=== PATIENT | male | born 1940 | race Caucasian/White ===

== ENCOUNTER 2022-06-25 06:52 | Emergency (ER) | payer MEDICARE, BC, SELFPAY ==
--- NOTE | 2022-06-25 07:20 | ED.GENADULT ---
HPI - General Adult General Time Seen by Provider: 07:21 Date Seen: 06/25/22 Stated complaint: Catheter plugged Time Seen by Provider: 06/25/22 06:56 Source: patient Mode of arrival: ambulatory Limitations: no limitations History of Present Illness HPI narrative: 82-year-old male with suprapubic catheter, no drainage overnight and has some low abdominal discomfort. Review of Systems Status of ROS: Reports: 10 or more systems reviewed and unremarkable except as noted in History and below Exam Narrative: Exam Narrative: General: well nourished , NAD Head: Atraumatic and normocephalic ENT: External ears and external nose are normal Eyes: Conjunctiva clear, pupils are equal reactive, external ocular motions are intact Neck: Full spontaneous range of motion of the neck Lungs: No respiratory distress Abdomen: Suprapubic catheter in place, dark urine in the bag, no drainage tube Musculoskeletal: No tenderness or deformity Neurologic: No gross focal neurologic deficits Skin: No rashes Psych: Mood and affect are appropriate Course Course Hospital Course: Patient seen and examined, prior records are reviewed. Patient presents with decreased drainage out his suprapubic catheter. He reports he tried to flush it earlier in the week with no success. Exam here, appears uncomfortable suprapubic tenderness and some urinary leakage around the catheter. Will switch the catheter and plan to discharge. No nausea, vomiting, fever, chills, or other indication of systemic symptoms or infection. Medical Decision Making Medical Records Medical records reviewed: Yes I reviewed the patient's medical records Lab Data Lab results reviewed: Yes I reviewed the patient's lab results Discharge Plan Discharge Clinical Impression: Blocked suprapubic catheter Patient Disposition: Home, Self-Care Condition: Improved Instructions: How to Care for Your Suprapubic Catheter (DC) Activity Level: No Restrictions Discharge Diet: Regular Follow Up/Referrals: Marek Camacho MD [Primary Care Provider] - Stand Alone Forms: [employer] Info Instructions
[2022-06-25 07:26] VITALS: BP 139/81; PULSE 67; RESP 20; TEMP 37.4; O2SAT 96; BMI 32.7
--- NOTE | 2022-06-25 08:43 | ED.NURSE ---
supra pubic cath changed easily. #16 fr -[facility] urine. 600 ml.
== END 2022-06-25 08:51 | disposition home or self-care (01) ==
LOC: ED 07:54
PROVIDERS: Emergency Provider Family Medicine; PCP Family Medicine
DX: T83.098A Other mechanical complication of other urinary catheter, initial encounter (principal)
CPT/HCPCS: 51702; 99282

== ENCOUNTER 2022-08-08 06:31 | Emergency (ER) | payer MEDICARE, BC, SELFPAY ==
[2022-08-08 06:35] VITALS: BP 165/85; PULSE 71; RESP 18; TEMP 36.6; O2SAT 98; BMI 32.1
--- NOTE | 2022-08-08 06:54 | ED.GENADULT ---
HPI - General Adult General Time Seen by Provider: 06:54 Date Seen: 08/08/22 Chief complaint: Urogenital Problems, Male Stated complaint: Bladder issue Time Seen by Provider: 08/08/22 06:42 Source: patient and RN notes reviewed Mode of arrival: ambulatory Limitations: no limitations History of Present Illness HPI narrative: 82-year-old male with indwelling Guevara, no urine output overnight and having suprapubic fullness and pain. Guevara was changed about 3 weeks ago, has a history of clogged police. Denies fever chills, no nausea some suprapubic Related Data Allergies Allergy/AdvReac Type Severity Reaction Status Date / Time No Known Drug Allergies Allergy Verified 08/08/22 06:38 Review of Systems Status of ROS: Reports: 10 or more systems reviewed and unremarkable except as noted in History and below PFSH PFSH Social History Smoking Status: Never smoker Do you use any of these nicotine containing products: None Second hand tobacco smoke exposure: No How often do you have a drink containing alcohol: never How often do you have six or more drinks on one occasion: Never AUDIT-C Alcohol total score: 0 Non-prescribed substance use: denies use Exam Narrative: Exam Narrative: General: well nourished , NAD Head: Atraumatic and normocephalic ENT: External ears and external nose are normal Eyes: Conjunctiva clear, pupils are equal reactive, external ocular motions are intact Neck: Full spontaneous range of motion of the neck Lungs: No respiratory distress Musculoskeletal: No tenderness or deformity Neurologic: No gross focal neurologic deficits Skin: No rashes Psych: Mood and affect are appropriate Const: Vital Signs, click to edit/add: Vital Signs - 24 hr 08/08/22 06:35 Temperature 97.8 F Pulse Rate [Left P ulse Oximeter] 71 Respiratory Rate 18 Blood Pressure [Ri ght Upper Arm] 165/85 H Pulse Oximetry 98 Documenting provider has reviewed patient's vital signs: yes Course Course Hospital Course: Patient seen and examined, prior records reviewed. Patient comes in with plugged Guevara catheter. Is changed, no signs of infection on exam or history. Stable for discharge Vital Signs Vital signs: Initial Vital Signs Temperature 97.8 F 08/08/22 06:35 Temperature Source Temporal Artery Scan 08/08/22 06:35 Pulse Rate 71 08/08/22 06:35 Respiratory Rate 18 08/08/22 06:35 Blood Pressure 165/85 H 08/08/22 06:35 Blood Pressure Mean 111 08/08/22 06:35 Blood Pressure Position Sitting 08/08/22 06:35 Pulse Oximetry 98 08/08/22 06:35 Vital Signs Temperature 97.8 F 08/08/22 06:35 Pulse Rate 71 08/08/22 06:35 Respiratory Rate 18 08/08/22 06:35 Blood Pressure 165/85 H 08/08/22 06:35 Pulse Oximetry 98 08/08/22 06:35 Temperature 97.8 F 08/08/22 06:35 Pulse Rate 71 08/08/22 06:35 Respiratory Rate 18 08/08/22 06:35 Blood Pressure 165/85 H 08/08/22 06:35 Pulse Oximetry 98 08/08/22 06:35 Medical Decision Making Medical Records Medical records reviewed: Yes I reviewed the patient's medical records Lab Data Lab results reviewed: Yes I reviewed the patient's lab results Discharge Plan Discharge Clinical Impression: Urinary catheter dysfunction Patient Disposition: Home, Self-Care Condition: Improved Instructions: Guevara Catheter Placement and Care (ED) Activity Level: No Restrictions Discharge Diet: Regular Follow Up/Referrals: Marek Camacho MD [Primary Care Provider] - Stand Alone Forms: [employer] Info Instructions
[2022-08-08 07:41] LABS: Appearance Urine Clear (Clear); Bilirubin Urine Negative (Negative); Blood Urine 2+ (Negative); Color Urine Yellow (Yellow); Glucose Urine Negative (Negative); Ketones Urine Negative (Negative); Leukocyte Esterase Urine 1+ (Negative); Nitrite Urine Positive (Negative); Protein Urine 1+ (Negative); Urobilinogen Urine 0.2 (0.2-1.0)
[2022-08-08 07:48] LABS: Bacteria Urine Many; Squamous Epithelial Cell Urine Few (None-Few)
--- NOTE | 2022-08-08 08:44 | ED.NURSE ---
did have old supra pubic catheter removed, new coude was placed. #18 fr coude catheter placed. had 300ml out. luana schilling sent to lab. was given new leg bag.
--- NOTE | 2022-08-15 10:20 | ED.NURSE ---
Pt called requesting info on antibiotic and urine sample results. Information provided to pt.
== END 2022-08-08 07:30 | disposition home or self-care (01) ==
LOC: ED 07:22
PROVIDERS: Emergency Provider Family Medicine; PCP Family Medicine
DX: T83.098A Other mechanical complication of other urinary catheter, initial encounter (principal)
CPT/HCPCS: 51702; 81001; 87086; 87186; 99282; 99283

== ENCOUNTER 2022-12-05 09:00 | Outpatient (CLI) | payer MEDICARE, BC, SELFPAY ==
[2022-12-05 10:20] LABS: Albumin* 4.6 g/dL (3.3-5.0); Chloride* 108 mmol/L (96-114)
[2022-12-05 10:21] LABS: Potassium* 4.2 mmol/L (3.6-5.1); Sodium* 142 mmol/L (135-149)
[2022-12-05 10:23] LABS: Alkaline Phosphatase* 136 U/L (40-150); Aspartate Amino Transferase* 25 U/L (12-35); Bilirubin Total* 1.6 mg/dL (0.1-1.5); Carbon Dioxide* 24 mmol/L (20-32); Cholesterol* 130 mg/dL (90-199); Estimated Glomerular Filt Rate 76 ml/min
[2022-12-05 10:24] LABS: Alanine Aminotransferase* 17 U/L (4-50); Blood Urea Nitrogen* 20 mg/dL (7-30); Calcium* 9.5 mg/dL (8.4-10.6); Glucose* 122 mg/dL (60-115); HDL Cholesterol* 54 mg/dL (>=40); LDL Cholesterol Calculated 62 mg/dL (<100); Triglycerides* 72 mg/dL (40-149)
[2022-12-05 10:49] LABS: PSA Screen* 3.22 ng/mL (0.10-4.00)
== END 2022-12-05 09:01 | disposition home or self-care (01) ==
LOC: NFLDREF 09:00
PROVIDERS: PCP Family Medicine; Visit Provider Family Medicine
DX: Z00.00 Encounter for general adult medical examination without abnormal findings (principal); I25.10 Atherosclerotic heart disease of native coronary artery without angina pectoris; I10 Essential (primary) hypertension; I48.20 Chronic atrial fibrillation, unspecified; Z12.5 Encounter for screening for malignant neoplasm of prostate
CPT/HCPCS: 80053; 80061; 84153

== ENCOUNTER 2023-05-17 10:52 | Outpatient (CLI) | payer MEDICARE, BC, SELFPAY | END 2023-05-17 10:53 | disposition home or self-care (01) | PROVIDERS: PCP Family Medicine; Visit Provider Family Medicine | DX: Z01.818 Encounter for other preprocedural examination (principal) | CPT/HCPCS: 80048 ==

== ENCOUNTER 2023-05-28 19:57 | Emergency (ER) | payer MEDICARE, BC, SELFPAY ==
[2023-05-28 20:10] VITALS: BP 137/109; PULSE 67; RESP 18; TEMP 36.6; O2SAT 95; BMI 33.7
--- NOTE | 2023-05-28 20:14 | ED.GENADULT ---
HPI - General Adult General Time Seen by Provider: 20:14 Date Seen: 05/28/23 Chief complaint: Urogenital Problems, Male Stated complaint: Needs catheter changed Time Seen by Provider: 05/28/23 20:00 Source: patient Mode of arrival: ambulatory Limitations: no limitations History of Present Illness HPI narrative: Patient is an 82-year-old male with a chronic suprapubic catheter, coronary disease, AFib, hypertension presenting to emergency department for decreased output from his suprapubic catheter. He states started today it has not been draining as well as normally. States this occasionally been doing okay but then started appearing clogged again. He states this has occurred in the past several times and every time they just replace the catheter and it works again. Patient denies fevers, chills, abdominal pain, chest pain, shortness of breath, weakness, numbness. He says he feels well at this time. No other concerns. Related Data Home Medications Medication Instructions Recorded Confirmed aspirin 81 mg capsule 81 mg PO DAILY 08/08/22 05/17/23 Previous Rx's Medication Instructions Recorded amlodipine 5 mg tablet 5 mg PO QDAY #90 tabs 12/07/22 apixaban 2.5 mg tablet 2.5 mg PO BID #180 tabs 12/07/22 atorvastatin 40 mg tablet 40 mg PO QDAY #90 tabs 12/07/22 celecoxib 200 mg capsule 200 mg PO DAILY #90 caps 12/07/22 furosemide 20 mg tablet 20 mg PO QAM edema #90 tabs 12/07/22 lisinopril 20 mg tablet 20 mg PO BID #180 tabs 12/07/22 nitroglycerin 0.4 mg sublingual 0.4 mg sublingual Q5M PRN chest 12/07/22 tablet pain #20 tabs Allergies Allergy/AdvReac Type Severity Reaction Status Date / Time No Known Drug Allergies Allergy Verified 05/17/23 10:27 Review of Systems Status of ROS: Reports: 6 or more systems reviewed and unremarkable except as noted in History and below [facility] Medical History Atrial fibrillation ?I48.91 - Unspecified atrial fibrillation (ICD-10) Heart attack (2018) ?I21.9 - Acute myocardial infarction, unspecified (ICD-10) Indwelling urinary catheter present (~2020) ?Z96.0 - Presence of urogenital implants (ICD-10) Surgical History 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 - Acquired absence of kidney (ICD-10) S/P left knee arthroscopy (12/30/97) ?Z98.890 - Other specified postprocedural states (ICD-10) S/P appendectomy ?Z90.49 - Acquired absence of other specified parts of digestive tract (ICD-10) Family History Mother Diabetes High blood pressure Kidney failure Sister Diabetes Father Stroke Sister Breast cancer Pancreatic cancer Social History Smoking Status: Never smoker Do you use any of these nicotine containing products: None Second hand tobacco smoke exposure: No How often do you have a drink containing alcohol: never How often do you have six or more drinks on one occasion: Never AUDIT-C Alcohol total score: 0 Non-prescribed substance use: denies use Caffeine: Yes (rare Mtn Dew, warm tea) Little interest or pleasure in doing things: not at all Feeling down, depressed, or hopeless: not at all Exam Narrative: Exam Narrative: Const: Well-nourished, Well-developed, in mild distress Eyes: PERRL, no conjunctival injection, and symmetrical lids ENMT: Atraumatic external nose and ears. Moist mucous membranes. MSK:Extremities w/o deformity, Normal Active ROM Skin: Erythematous skin folds around the suprapubic placement site and going the length of the skin folds with satellite plaques Neuro: Normal Muscle tone, No focal neurological deficits. Psych: Awake, Alert, & Oriented x3. Appropriate mood and affect. Const: Vital Signs, click to edit/add: Vital Signs - 24 hr 05/28/23 20:10 Temperature 97.9 F Pulse Rate [Right Pulse Oximeter] 67 Respiratory Rate 18 Blood Pressure [Ri ght Upper Arm] 137/109 H Pulse Oximetry 95 Oxygen Delivery Me thod Room Air Documenting provider has reviewed patient's vital signs: yes Course Vital Signs Vital signs: Initial Vital Signs Temperature 97.9 F 05/28/23 20:10 Temperature Source Temporal Artery Scan 07/16/23 20:10 Pulse Rate 67 05/28/23 20:10 Respiratory Rate 18 05/28/23 20:10 Blood Pressure 137/109 H 05/28/23 20:10 Blood Pressure Mean 118 H 05/28/23 20:10 Blood Pressure Position Sitting 05/28/23 20:10 Pulse Oximetry 95 05/28/23 20:10 Oxygen Delivery Method Room Air 05/28/23 20:10 Vital Signs Temperature 97.9 F 05/28/23 20:10 Pulse Rate 67 05/28/23 20:10 Respiratory Rate 18 05/28/23 20:10 Blood Pressure 137/109 H 05/28/23 20:10 Pulse Oximetry 95 05/28/23 20:10 Oxygen Delivery Method Room Air 05/28/23 20:10 Temperature 97.9 F 05/28/23 20:10 Pulse Rate 67 05/28/23 20:10 Respiratory Rate 18 05/28/23 20:10 Blood Pressure 137/109 H 05/28/23 20:10 Pulse Oximetry 95 05/28/23 20:10 Oxygen Delivery Method Room Air 05/28/23 20:10 Medical Decision Making MDM Narrative Medical decision making narrative: Patient is an 82-year-old male presents into the emergency department for a replacement of his suprapubic catheter. He states today it has not been draining properly. He has had this issue multiple times and they always replace it and it works again. On physical exam he does appear to have a adrianne infection. She we offered him nystatin cream but he states he has plenty of the cream at home and just isn't using that. Patient's suprapubic catheter was replaced without issue. I informed him he should use the antifungal cream as directed. Patient discharged home is agreeable with this plan. Discharge Plan Discharge Clinical Impression: Encounter for replacement of urinary catheter, Adrianne infection Instructions: Skin Yeast Infection (ED) Additional Instructions: Follow-up with your urologist. Make sure to use your prescribed antifungal cream as directed. This will help with the discomfort under scan. Return for new worsening symptoms. Prescriptions: No Action nitroglycerin 0.4 mg tablet, sublingual 0.4 mg sublingual Q5M PRN (Reason: chest pain) Qty: 20 0RF lisinopril 20 mg tablet 20 mg PO BID Qty: 180 3RF furosemide 20 mg tablet 20 mg PO QAM Qty: 90 3RF celecoxib 200 mg capsule 200 mg PO DAILY Qty: 90 3RF apixaban 2.5 mg tablet 2.5 mg PO BID Qty: 180 3RF amlodipine 5 mg tablet 5 mg PO QDAY Qty: 90 3RF atorvastatin 40 mg tablet 40 mg PO QDAY Qty: 90 3RF aspirin 81 mg capsule 81 mg PO DAILY Follow Up/Referrals: Marek Camacho MD [Primary Care Provider] -
--- NOTE | 2023-05-28 20:36 | ED.NURSE ---
Patient's suprapubic catheter changed. Provider removed due to some resistance at point of balloon deflation. Inserted without issue a 18 F catheter with 30cc balloon. Patient tolerated procedure well.
== END 2023-05-28 20:47 | disposition home or self-care (01) ==
LOC: ED 20:45
PROVIDERS: Emergency Provider Student in an Organized Health Care Education/Training Program; PCP Family Medicine
DX: T83.098A Other mechanical complication of other urinary catheter, initial encounter (principal); B37.2 Candidiasis of skin and nail
CPT/HCPCS: 51702; 99282; 99283

== ENCOUNTER 2023-05-29 09:36 | Day surgery (SDC) | payer MEDICARE, BC, SELFPAY ==
[2023-05-29] VITALS (21 sets, daily range): BP systolic 85–143; BP diastolic 62–95; PULSE 39–72; RESP 16–20; TEMP 36–36.8; O2SAT 92–96; BMI 34.4
[2023-05-29] MEDS: ACETAMINOPHEN 500 MG TABLET 1000 MG PO ×3 (10:22→21:22)
[2023-05-29] MEDS: OXYCODONE (CR) 10 MG TAB.ER.12H PO (10:23)
[2023-05-29] MEDS: SODIUM CHLORIDE 0.9 % (FLUSH) 10 ML SYRINGE IVF (10:32)
[2023-05-29] MEDS: LACTATED RINGERS 1000 ML 1,000 ML 100 ML IV ×2 (10:33→12:14)
--- NOTE | 2023-05-29 10:39 | SUR.PREOP ---
bilateral lateral side of lower extremities ezema patches per patient from Preop Dr. Camacho. Dr. Bustamante noted skin patches on preop also.
--- NOTE | 2023-05-29 10:40 | W.ANESCHARGE ---
Anesthesia Charges Start Date/Time Anesthesia Start Date: 05/29/23 Anesthesia Start Time: 10:55 Stop Date/Time Anesthesia Stop Date: 05/29/23 Anesthesia Stop Time: 13:13 Summary Extremes of Age - Over 70 or under 1: MDA
--- NOTE | 2023-05-29 10:40 | W.PM.NB ---
Nerve Block Nerve Block Time Seen by Provider: 10:48 Date Seen: 05/29/23 Type of block requested by surgeon for post-operative analgesia: adductor canal Side: left Time out performed: Yes Verification of patient name: Yes Verification of date of : Yes Site marking: site marked Name of person performing procedure: Guerrero Continuous monitoring Was continuous monitoring of O2 sat, B/P, environmental monitoring technician, recorded every 15 minutes?: Yes Procedure Checklist: sterile prep, needles and gloves Ultrasound guided. Images saved: Yes Medications given in 5ml increments after negative aspiration: Ropivicaine %: 0.5 mL: 20 Needle gauge: 20 Decadron (mg): 10 Precedex (mcg): 25 Patient tolerated procedure well: Yes Additional comments: Needle noted adjacent to nerve Block Charges Block Charge (with Pro Fee): Femoral Nerve Use of Ultrasound Machine for Block: Yes- US Guidance/pain block
--- NOTE | 2023-05-29 10:41 | W.PM.NB ---
Nerve Block Nerve Block Time Seen by Provider: 10:48 Date Seen: 05/29/23 Type of block requested by surgeon for post-operative analgesia: geniculars Side: left Time out performed: Yes Verification of patient name: Yes Verification of date of : Yes Site marking: site marked Name of person performing procedure: Guerrero Continuous monitoring Was continuous monitoring of O2 sat, B/P, senior managing director, recorded every 15 minutes?: Yes Procedure Checklist: sterile prep, needles and gloves Medications given in 5ml increments after negative aspiration: Ropivicaine %: 0.5 mL: 9 Needle gauge: 25 Patient tolerated procedure well: Yes Block Charges Block Charge (with Pro Fee): Genicular Nerve Block Use of Ultrasound Machine for Block: No
[2023-05-29] MEDS: fentaNYL 100 MCG/2 ML inj IVP (10:45)
[2023-05-29] MEDS: MIDAZOLAM HCL 1 MG/ML inj IVP (10:45)
--- NOTE | 2023-05-29 10:55 | CRLHL7_ITS ---
For Patients: As a result of the Cures Act, medical imaging exams and procedure reports are released immediately into your electronic medical record. You may view this report before your referring provider. If you have questions, please contact your health care provider. INDICATION: Follow up knee arthroplasty. TECHNIQUE: Two postoperative images of left knee. FINDINGS: Left knee arthroplasty. Patellar resurfacing. The components are adequately aligned and well seated. Air within the soft tissues and joint space related to the surgery. IMPRESSION: Postsurgical change from a left total knee arthroplasty. The components are adequately aligned and well seated. Dictated by Aiden Edmond MD @ 05/29/2023 1:48:38 PM (Electronically Signed)
--- NOTE | 2023-05-29 10:55 | SUR.PREOP ---
TIME?OUT:?1045 PT/RN/MDA?VERIFICATION?OF?SURGICAL?SITE Left Knee,?PROCEDURE Adductor Canal Block,?AND?CONSENT OBTAINED?PRIOR?TO?INVASIVE?PROCEDURE.
[2023-05-29] MEDS: CEFAZOLIN 2 GM in 0.9 % SODIUM CHLORIDE Mini-bag 100 ML IVPB ×3 (11:10→23:35)
[2023-05-29] MEDS: TRANEXAMIC ACID 100 MG/ML INJ 1000 MG IV (11:15)
--- NOTE | 2023-05-29 12:19 | P.ANES_ITS ---
Anesthesia Charges Start Date/Time Anesthesia Start Date: 05/29/23 Anesthesia Start Time: 10:55 Stop Date/Time Anesthesia Stop Date: 05/29/23 Anesthesia Stop Time: 13:13 Summary Extremes of Age - Over 70 or under 1: [employer]
--- NOTE | 2023-05-29 12:37 | P.ORPRC_ITS ---
Procedure Note Date of procedure: 05/29/23 Procedure: PREOPERATIVE DIAGNOSIS: 1. Left knee osteoarthritis, primary, severe POSTOPERATIVE DIAGNOSIS: 1. Left knee osteoarthritis, primary, severe PROCEDURE: 1. Left total knee arthroplasty SURGEON: Miguel Angel Bustamante MD. MANAGER COUNTRY: [place] - Of note, a skilled assistant community manager was critical for this case to aid in patient positioning, tissue retraction, limb manipulation/positioning, and closure. ANESTHESIA: Spinal anesthetic EBL: 50ml IMPLANTS: DePuy J&J all cemented TKA - Attune PS femur size 7, size 7 tibia, 5 poly spacer, 41mm patella TOURNIQUET: 100 minutes at 300 torr COMPLICATIONS: None evident INDICATIONS: The patient is a pleasant 82-year-old male who has experienced severe left knee pain and difficulty bearing weight. Workup included x-rays which revealed severe osteoarthrosis in the knee. Given the deformity, the dysfunction, and the pain, as well as the failure of nonoperative management, recommendation was made for surgery. FINDINGS: Full-thickness extensive chondral loss throughout the entire lateral compartment, patellofemoral compartment and extending to the medial compartment. Substantial degenerative meniscus pathology lateral compartment and to a lesser degree medial compartment. Moderate effusion upon entering the joint. Large osteophytes posterior knee region and diffusely throughout the knee. Resting valgus posture created significant laxity in the medial tissues in tightness in the lateral tissues. DESCRIPTION OF PROCEDURE: Following a thorough discussion of risks, benefits, and alternatives consent was obtained and the left knee was marked. The patient was brought to the operating room and placed supine on the operating table. Induction of anesthesia was undertaken. 2 g IV Ancef and 1 g tranexamic acid was administered within 1 hr of incision preoperatively. Proper time-out was performed identifying proper patient, site, procedure. The operative extremity was prepped and draped in the appropriate sterile fashion using ChloraPrep after the patient was positioned supine with all bony prominences well padded. A longitudinal, anterior, midline skin incision was made starting approximately 3cm proximal to the superior pole of the patella and advanced distal to the tibial tubercle. A median parapatellar arthrotomy was created. A medial subperiosteal sleeve was created with knife, rios elevator and curved osteotome. The retropatellar fatpad was resected and the synovium in the suprapatellar pouch excised to visualize the anterior femoral cortex. Femoral preparation was performed via an intramedullary guide. Step drill allowed access into the femoral canal. The distal cutting guide was placed with 6 ? of valgus and 13 mm cut on the distal femur due to 20 degree flexion contracture. Femur was sized using a posterior referencing guide as well as trans epicondylar axis and Whitesides line for reference in 3? of external rotation. This found have a best fit with the sizing noted above. The 4 in 1 cutting block was then placed, and the distal femur shaped accordingly. The box cut was then created and the trial implant inserted to confirm appropriate fit. We turned our attention to the proximal tibia. Extramedullary guide was utilized for cutting with the goal of being 90 degree cut from the mechanical axis of the tibia in the varus/valgus plane utilizing tibial crest as the primary alignment. Initially a 1 mm resection was performed from the lateral tibial plateau. Ultimately, balancing was achieved in both flexion and extension in both varus and valgus. The knee was able to achieve full extension as well comfortably. The patella was initially measured and found have a thickness of 26 mm. It was resected back to approximately 16 mm. It was sized to be a best fit with as noted above. This was drilled, trial placed. All trials were placed and found to have an excellent stability and balance. At this stage, trial implants were removed, the knee was thoroughly irrigated with normal saline, and the cement was mixed. After irrigation, the knee was thoroughly dried, and cement placed, with the real tibial and femoral implants placed along with the patella. Trial poly spacer was placed and confirmed to have excellent range of motion and full extension, and the real poly spacer opened and inserted. All extra cement was removed, and a 3 min Betadine soak performed. Finally, a final irrigation round with normal saline was performed. Closure performed with 0 PDS and #0 Stratafix for the quad tendon/retinaculum. 2-0 Vicryl/Stratafix for the subcutaneous and 4-0 Monocryl for subcuticular closure. Dressings were applied and the patient was awoken from anesthesia after the tourniquet deflated and transferred the PACU in stable condition. A skilled assistant community manager was critical for this case to aid in patient positioning, tissue retraction, bone exposure, limb manipulation/positioning, patient safety, and closure. PLAN: 1. Weight bear as tolerated operative extremity. 2. 23 hr perioperative antibiotics. 3. Ice. 4. PT/OT consults for ambulation assistance/mobility education. 5. Social work consult for discharge planning. 6. DVT prophylaxis with at SCDs, Cyrus Hose, and aspirin twice daily.
--- NOTE | 2023-05-29 13:21 | SUR.PHASEI ---
xray here for ap/lat let knee
--- NOTE | 2023-05-29 13:42 | SUR.PHASEI ---
HR in the 38-40's to 50's a fib ith slow venticular response pts bp 109/70 o2 sat 95% denies het pain of sob consulted with Paige BERRY and she said that this is how he has been running comortable to send pt to med surg floor
--- NOTE | 2023-05-29 15:22 | PM.IMCN1 ---
Date of Consult Patient: [facility] Patient Consult date: 05/29/23 Requesting Physician: Orthopedics Primary Care Provider: Marek Camacho MD Consult Narrative Reason for consult: post-op CAD, HTN, A Fib management Narrative: [place] Jernigan is a 82 year old man with longstanding symptomatic severe left gonarthrosis presents for elective left total knee arthroplasty today. This is undertaken successfully without any apparent complications. Previously attempted multiple non surgical treatment modalities without lasting effect or benefit. Of note, he has only 1 kidney. 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 Despite his nephrectomy status, he continues to take celecoxib daily. Review of Systems Status of ROS: Reports: 10 or more systems reviewed and unremarkable except as noted in History and below Narrative: for 60 years now. 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 Has 2 sons who live nearby. Has 17 grandchildren. Would like to be able to walk daily once again. Designates as power of balance wheel screw hole tapper for health should that be required. For now requests full resuscitation in the event of cardiopulmonary demise. [facility] Medical History (Updated 05/29/23 @ 15:42 by Trav Tejada MD) Status post nephrectomy ?Z90.5 - Acquired absence of kidney (ICD-10) Psoriasis ?L40.9 - Psoriasis, unspecified (ICD-10) Diverticulosis of colon ?K57.30 - Diverticulosis of large intestine without perforation or abscess without bleeding (ICD-10) Hydrocele in adult ?N43.3 - Hydrocele, unspecified (ICD-10) History of prediabetes ?Z87.898 - Personal history of other specified conditions (ICD-10) Tubular adenoma of colon ?D12.6 - Benign neoplasm of colon, unspecified (ICD-10) Tubulovillous adenoma of colon ?D12.6 - Benign neoplasm of colon, unspecified (ICD-10) Benign prostatic hyperplasia with lower urinary tract symptoms ?N40.1 - Benign prostatic hyperplasia with lower urinary tract symptoms (ICD-10) Urinary retention ?R33.9 - Retention of urine, unspecified (ICD-10) Adrianne infection ?B37.9 - Candidiasis, unspecified (ICD-10) Encounter for replacement of urinary catheter ?Z46.6 - Encounter for fitting and adjustment of urinary device (ICD-10) Chronic anticoagulation ?Z79.01 - 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 (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 of anticoagulants (ICD-10) Obesity ?E66.9 - Obesity, unspecified (ICD-10) Atrial fibrillation, chronic ?I48.20 - Chronic atrial fibrillation, unspecified (ICD-10) 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, unspecified ankle and foot (ICD-10) HTN (hypertension) ?I10 - Essential (primary) hypertension (ICD-10) CAD (coronary artery disease) ?I25.10 - Atherosclerotic heart disease of [place] coronary artery without angina pectoris (ICD-10) Atrial fibrillation ?I48.91 - Unspecified atrial fibrillation (ICD-10) Heart attack (2018) ?I21.9 - Acute myocardial infarction, unspecified (ICD-10) Indwelling urinary catheter present (~2020) ?Z96.0 - Presence of urogenital implants (ICD-10) Surgical History (Updated 05/29/23 @ 15:31 by Trav Tejada MD) 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 - Acquired absence of kidney (ICD-10) S/P left knee arthroscopy (12/30/97) ?Z98.890 - Other specified postprocedural states (ICD-10) S/P appendectomy ?Z90.49 - Acquired absence of other specified parts of digestive tract (ICD-10) Family History Mother Diabetes High blood pressure Kidney failure Sister Diabetes Father Stroke Sister Breast cancer Pancreatic cancer Social History Smoking Status: Never smoker Do you use any of these nicotine containing products: None Second hand tobacco smoke exposure: No How often do you have a drink containing alcohol: never How often do you have six or more drinks on one occasion: Never AUDIT-C Alcohol total score: 0 Non-prescribed substance use: denies use Caffeine: Yes (rare Mtn Dew, warm tea) Little interest or pleasure in doing things: not at all Feeling down, depressed, or hopeless: not at all Meds Home Medications and Allergies Home Medications Medication Instructions Recorded Confirmed Type aspirin 81 mg capsule 81 mg PO DAILY 08/08/22 05/29/23 History Home Medication Comments: Amlodipine 5 mg daily Apixaban 2.5 mg twice daily Atorvastatin 40 mg daily Celecoxib 200 mg daily Furosemide 20 mg every morning Lisinopril 20 mg twice daily nitroglycerin 0.4 mg sublingual as needed for angina, which she has not had to use Allergies Allergy/AdvReac Type Severity Reaction Status Date / Time No Known Drug Allergies Allergy Verified 05/17/23 10:27 Exam Narrative: Exam Narrative: I assess the patient postoperatively while he is laying in a semi recumbent position in his hospital bed. Vision and hearing are grossly normal. Alert and oriented to self, place, time, situation. Friendly, cooperative. Mood and affect are congruent. Neck is supple. Midline trachea. No JVD or hepatojugular reflux. No icterus or conjunctival injection. Pupils equally round and reactive to light and accommodation. Extraocular muscles are intact. Midline nasal septum. Normal nasal mucosa. Buccal mucosa is moist. Dentition in fair repair. Mallampati class 3 airway. Lungs clear to auscultation without wheezing, rhonchi, or rales. Chest wall excursions are full. No CVA tenderness or pain to percussion over the spine. Heart tones with chaotic rhythm, normal S1-S2. Soft murmur. No gallop or rub. PMI not laterally displaced. Abdomen with active bowel sounds, soft, nontender. No organomegaly or masses. Obese. Trace edema pretibially bilaterally. Barely palpable pulses bilateral lower extremities. Capillary refill less than 3 seconds in upper and lower extremities. No focal motor neurologic deficits. Const: Vital Signs, click to edit/add: Vital Signs - 24 hr 05/29/23 10:32 05/29/23 10:46 05/29/23 13:10 Temperature 97.8 F 97.4 F L Pulse Rate 60 58 L 57 L Pulse Rate [Right] Respiratory Rate 16 16 20 Blood Pressure 143/86 H 141/64 H 99/78 Blood Pressure [Ri ght Arm] Pulse Oximetry 92 93 96 Oxygen Delivery Me thod Room Air Nasal Cannula Room Air Oxygen Flow Rate 2 05/29/23 13:15 05/29/23 13:20 05/29/23 13:25 Temperature Pulse Rate 50 L 50 L 53 L Pulse Rate [Right] Respiratory Rate 20 20 20 Blood Pressure 102/64 92/71 98/68 Blood Pressure [Ri ght Arm] Pulse Oximetry 92 94 94 Oxygen Delivery Me thod Room Air Room Air Room Air Oxygen Flow Rate 2 05/29/23 13:30 05/29/23 13:35 05/29/23 13:40 Temperature 97.4 F L Pulse Rate 52 L 52 L 52 L Pulse Rate [Right] Respiratory Rate 20 20 20 Blood Pressure 96/67 106/64 109/70 Blood Pressure [Ri ght Arm] Pulse Oximetry 94 96 96 Oxygen Delivery Me thod Room Air Room Air Room Air Oxygen Flow Rate 2 05/29/23 13:45 05/29/23 13:52 05/29/23 14:00 Temperature 97.6 F 96.8 F L Pulse Rate 52 L 56 L Pulse Rate [Right] 39 L Respiratory Rate 20 18 18 Blood Pressure 109/72 Blood Pressure [Ri ght Arm] 98/68 111/95 H Pulse Oximetry 96 93 Oxygen Delivery Me thod Room Air Room Air Room Air Oxygen Flow Rate 05/29/23 14:15 05/29/23 14:30 Temperature 96.9 F L Pulse Rate Pulse Rate [Right] 64 54 L Respiratory Rate 18 18 Blood Pressure Blood Pressure [Ri ght Arm] 101/88 85/62 L Pulse Oximetry 92 93 Oxygen Delivery Me thod Room Air Room Air Oxygen Flow Rate Documenting provider has reviewed patient's vital signs: yes Assessment and Plan Assessment and plan (1) Osteoarthritis of left knee: Problem comment: severe, [id number] Status: Chronic (2) Status post left knee replacement: Status: Acute (3) CAD (coronary artery disease): Problem comment: s/p STEMI with RCA stenting 04/30 Status: Acute (4) HTN (hypertension): Status: Acute (5) Atrial fibrillation, chronic: Status: Acute (6) Chronic anticoagulation: Problem comment: on Apixaban 2.5 mg bid - h/o bruising when on 5 mg bid Status: Acute (7) Status post nephrectomy: Status: Acute (8) Indwelling urinary catheter present: Problem comment: suprapubic cath, changed monthly Status: Acute Plan 1. Reviewed impression with patient and son. 2. Answered their questions. 3. Hold antihypertensives for now. 4. Continue with p.r.n. nitroglycerin. 5. Continue with furosemide as presently utilizing, 20 mg q.a.m.. 6. Agree with the anticoagulation with apixaban 5 mg twice daily for now although he normally takes 2.5 mg twice daily due to history of ecchymosis and bruising. In the future should the ecchymosis or bruising become more substantial will then need to decrease dose to 2.5 mg twice daily. 7. I am very concerned about ongoing use of nonsteroidal anti-inflammatory medications given his nephrectomy status. I recommend this be addressed by his primary care physician in the near future. Ordinarily individuals who have had nephrectomies are generally advised to no longer utilize any nonsteroidal anti-inflammatory medications. Recommend follow-up with primary care physician sometime in the next 2-4 weeks. 8. Agree with perioperative antibiotic prophylaxis efforts. 9. Suprapubic catheter cares while in hospital. 10. Anticipate from a medical perspective that patient should be able to be discharged whenever Orthopedic surgery deems patient ready to be discharged from their perspective. I have placed medical discharge orders in the discharge portion of his chart.
--- NOTE | 2023-05-29 19:57 | PC.NURSE ---
Pt pleasant and cooperative. Denying pain to the left knee after LTKA, complains of extreme cold to left thigh that is bothering him due to Cryocuff in place. Removed Cryocuff for 30 minutes before replacing pt states relief. Pt up to chair with PT. Pt states he sleeps in a lift chair at home. Requesting Home Health services upon DC. Pt has 6 children with at least 2 sons being close by to help.
[2023-05-29] MEDS: LACTATED RINGERS 1000 ML 1,000 ML 75 ML IV (20:02)
[2023-05-29] MEDS: CELECOXIB 200 MG CAPSULE PO (21:21)
[2023-05-29] MEDS: ATORVASTATIN CALCIUM 40 MG TABLET PO (21:22)
[2023-05-29] MEDS: SENNOSIDES 1 TAB TABLET 2 TAB PO (21:22)
[2023-05-30 03:00] VITALS: BP 111/73; PULSE 58; PULSE 60; RESP 18; TEMP 36.2; O2SAT 96
[2023-05-30] MEDS: ACETAMINOPHEN 500 MG TABLET 1000 MG PO (03:41)
--- NOTE | 2023-05-30 05:23 | PC.NURSE ---
Shift note: Pt preferred sleeping in recliner rather than in bed as he use to sleeping in chair at home, said pt. Minimal pain rated at 3 reported this shift. Slight diminish pulse felt at dorsalis pedis of the left leg but able to wiggle toes and move the entire left leg. Pt refused ambulating and said he will walk this morning. No post operative complication observed. Vitally stable. Pt tolerated regular diet very well without any abdominal symptoms like pain, nausea and vomiting. Had adequate urine output. Dressing appears clean and dry. Ice pack applied.
[2023-05-30 06:44] LABS: Basophils Percent Auto 0.1 % (0.0-3.0); Hematocrit 41.4 % (37.0-53.0); Hemoglobin* 13.7 gm/dL (13.5-17.5); Immature Granulocytes Pct Auto 0.2 %; Lymphocytes Percent Auto 4.5 % (20-44); Mean Corpuscular HGB Conc 33 gm/dL (32-36); Mean Corpuscular Hemoglobin 29 pg (26-34); Mean Corpuscular Volume 87 fL (80-100); Monocytes Percent Auto 6.2 % (0.0-11.0); Platelet Count* 182 K/uL (140-440); RDW Coefficient of Variation % 13.5 % (11.5-15.5); Red Blood Count 4.74 m/uL (4.30-5.90); White Blood Count* 12.33 K/uL (4.50-11.00)
[2023-05-30 06:54] LABS: Slide Review Reflex No
[2023-05-30 07:01] LABS: Sodium* 136 mmol/L (135-149)
[2023-05-30 07:02] LABS: Potassium* 4.3 mmol/L (3.6-5.1)
[2023-05-30 07:04] LABS: Creatinine* 1.1 mg/dL (0.5-1.5); Est. Creatinine Clearance* 54.38; Estimated Glomerular Filt Rate 67 ml/min
[2023-05-30 07:05] LABS: Blood Urea Nitrogen* 24 mg/dL (7-30)
[2023-05-30 07:40] VITALS: BP 114/60; PULSE 68; RESP 18; TEMP 36.4; O2SAT 96
[2023-05-30] MEDS: CEFAZOLIN 2 GM in 0.9 % SODIUM CHLORIDE Mini-bag 100 ML IVPB (07:49)
[2023-05-30] MEDS: APIXABAN 5 MG TABLET PO (08:29)
[2023-05-30] MEDS: SENNOSIDES 1 TAB TABLET 2 TAB PO (08:29)
[2023-05-30] MEDS: CELECOXIB 200 MG CAPSULE PO (08:30)
[2023-05-30] MEDS: FUROSEMIDE 20 MG TABLET PO (08:32)
--- NOTE | 2023-05-30 11:14 | PC.NURSE ---
Pt alert and oriented. Pt had no complaints of pain. Pt SBA with walker. IV discontinued in AM. Discharge instructions with son and Pt. Pt wheeled out in wheelchair.
--- NOTE | 2023-05-30 11:32 | PM.ORPN ---
Subjective Subjective Date Seen: 05/30/23 Principal diagnosis: Status postop day 1 left total knee arthroplasty Interval history: Patient reports doing well. No acute events over night. Pain managed with scheduled and PRN medications, ice. DVT prophylaxis: Apixaban, bilateral knee high Cyrus stockings, SCDs, walking. Denies fevers, chills, aches, N/V, CP, SOB/WATSON, or lightheadedness. Ortho Exam Narrative Exam Narrative: -Patient appears comfortable; no apparent acute distress -Alert and oriented times 3 -Operative knee mildly swollen; soft tissues supple; no ecchymosis; no erythematous streaking Warmth appropriate -Surgical dressing clean, dry, intact; no drainage -Bilateral calfs soft; no significant swelling, edema, tenderness, erythema, discoloration, warmth, or palpable cords -2+ DP/PT pulses, intact dermatomes and myotomes distally (5/5 strength) Const Vital Signs, click to edit/add: Vital Signs - 24 hr 05/29/23 13:10 05/29/23 13:15 05/29/23 13:20 Temperature 97.4 F L Pulse Rate 57 L 50 L 50 L Pulse Rate [Left Dorsalis Pedis] Pulse Rate [Right] Respiratory Rate 20 20 20 Blood Pressure 99/78 102/64 92/71 Blood Pressure [Right Arm] Pulse Oximetry 96 92 94 Oxygen Delivery Method Room Air Room Air Room Air Oxygen Flow Rate 2 05/29/23 13:25 05/29/23 13:30 05/29/23 13:35 Temperature 97.4 F L Pulse Rate 53 L 52 L 52 L Pulse Rate [Left Dorsalis Pedis] Pulse Rate [Right] Respiratory Rate 20 20 20 Blood Pressure 98/68 96/67 106/64 Blood Pressure [Right Arm] Pulse Oximetry 94 94 96 Oxygen Delivery Method Room Air Room Air Room Air Oxygen Flow Rate 2 05/29/23 13:40 05/29/23 13:45 05/29/23 13:52 Temperature 97.6 F 96.8 F L Pulse Rate 52 L 52 L 56 L Pulse Rate [Left Dorsalis Pedis] Pulse Rate [Right] Respiratory Rate 20 20 18 Blood Pressure 109/70 109/72 Blood Pressure [Right Arm] 98/68 Pulse Oximetry 96 96 Oxygen Delivery Method Room Air Room Air Room Air Oxygen Flow Rate 05/29/23 14:00 05/29/23 14:15 05/29/23 14:30 Temperature 96.9 F L Pulse Rate Pulse Rate [Left Dorsalis Pedis] Pulse Rate [Right] 39 L 64 54 L Respiratory Rate 18 18 18 Blood Pressure Blood Pressure [Right Arm] 111/95 H 101/88 85/62 L Pulse Oximetry 93 92 93 Oxygen Delivery Method Room Air Room Air Room Air Oxygen Flow Rate 05/29/23 15:00 05/29/23 15:00 05/29/23 15:30 Temperature 97.2 F L 97.8 F Pulse Rate Pulse Rate [Left Dorsalis Pedis] Pulse Rate [Right] 56 L 49 L Respiratory Rate 18 20 Blood Pressure Blood Pressure [Right Arm] 126/76 124/80 Pulse Oximetry 94 94 95 Oxygen Delivery Method Room Air Room Air Oxygen Flow Rate 05/29/23 16:00 05/29/23 17:00 05/29/23 18:00 Temperature 98.1 F Pulse Rate Pulse Rate [Left Dorsalis Pedis] Pulse Rate [Right] 57 L 72 57 L Respiratory Rate 20 20 20 Blood Pressure Blood Pressure [Right Arm] 124/93 H 117/76 104/66 Pulse Oximetry 95 94 94 Oxygen Delivery Method Room Air Room Air Room Air Oxygen Flow Rate 05/29/23 19:00 05/29/23 23:00 05/29/23 23:00 Temperature 98.2 F Pulse Rate Pulse Rate [Left Dorsalis Pedis] Pulse Rate [Right] 60 68 Respiratory Rate 20 18 Blood Pressure Blood Pressure [Right Arm] 114/77 Pulse Oximetry 93 93 Oxygen Delivery Method Room Air Oxygen Flow Rate 05/29/23 23:00 05/30/23 03:00 05/30/23 07:40 Temperature 97.6 F 97.1 F L Pulse Rate Pulse Rate [Left Dorsalis Pedis] 58 L Pulse Rate [Right] 68 60 Respiratory Rate 18 18 Blood Pressure Blood Pressure [Right Arm] 121/86 111/73 Pulse Oximetry 93 96 96 Oxygen Delivery Method Room Air Room Air Oxygen Flow Rate 05/30/23 07:40 Temperature 97.5 F L Pulse Rate Pulse Rate [Left Dorsalis Pedis] Pulse Rate [Right] 68 Respiratory Rate 18 Blood Pressure Blood Pressure [Right Arm] 114/60 Pulse Oximetry 96 Oxygen Delivery Method Room Air Oxygen Flow Rate Assessment and Plan Assessment and plan (1) Osteoarthritis of left knee: Problem details: severe, [id number] Status: Chronic (2) Status post left knee replacement: Problem details: POD 1 left total knee arthroplasty Status: Acute (3) CAD (coronary artery disease): Problem details: s/p STEMI with RCA stenting 04/30 Status: Acute (4) HTN (hypertension): Status: Acute (5) Atrial fibrillation, chronic: Status: Acute (6) Chronic anticoagulation: Problem details: on Apixaban 2.5 mg bid - h/o bruising when on 5 mg bid Status: Acute (7) Status post nephrectomy: Problem details: Will not prescribe Celebrex for discharge Status: Acute (8) Indwelling urinary catheter present: Problem details: suprapubic cath, changed monthly Status: Acute Plan - Complete 23 hour perioperative antibiotics. - PT/OT consult for education and assistance. - Social work consult for discharge planning - Prescribed analgesics as needed - DVT prophylaxis: Apixaban 5 mg twice daily, bilateral knee high Cyrus Hose stockings and SCDs. Of note, his 5 mg apixaban prescription had 2 refills on this. I spoke to the pharmacy, and they canceled these refills. - Anticipation is for discharge to home 05/30/2023, if the patient remains medically stable, pain is controlled, and they are safe with mobilization.
--- NOTE | 2023-05-30 12:04 | PC.SOCIAL ---
Pt will discharge with home health care for PT/OT. Phone call to [facility] and there is no openings. Phone call to [facility] at [phone]. They can accept pt for home care. Faxed referral along with order for home health care to [facility] at [phone]. Provided information to pt. Social work will follow up as needed.
== END 2023-05-30 10:35 | disposition home or self-care (01) ==
LOC: OR 09:37 → MEDSURG 09:39
PROVIDERS: PCP Family Medicine; Visit Provider Orthopaedic Surgery Sports Medicine
PROC: (CPT 27447; principal; 2023-05-29 10:30)
DX: M17.12 Unilateral primary osteoarthritis, left knee (principal); G89.18 Other acute postprocedural pain; I25.10 Atherosclerotic heart disease of native coronary artery without angina pectoris; I10 Essential (primary) hypertension; I48.20 Chronic atrial fibrillation, unspecified; Z79.01 Long term (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 of anticoagulants; Z96.0 Presence of urogenital implants; Z90.5 Acquired absence of kidney
CPT/HCPCS: 27447; 01402; 36415; 64447; 64454; 73560; 76942; 82565; 84132; 84295; 84520; 85025; 97110; 97116; 97161; 97165; 97530; 97535; 99100; A9270; C1776; J0690; J1100; J2250; J2704; J2795; J3010; J7120

== ENCOUNTER 2023-06-04 20:41 | Outpatient (CLI) | payer MEDICARE, BC, SELFPAY | END 2023-06-04 20:42 | disposition home or self-care (01) | LOC: AMB 06-05 13:35 | PROVIDERS: PCP Family Medicine; Visit Provider Family Medicine | DX: R41.82 Altered mental status, unspecified (principal); M79.605 Pain in left leg; Z98.890 Other specified postprocedural states | CPT/HCPCS: A0425; A0429 ==

== ENCOUNTER 2023-06-04 21:19 | Observation (INO) | payer MEDICARE, BC, SELFPAY ==
[2023-06-04] VITALS (8 sets, daily range): BP systolic 107–115; BP diastolic 58–70; PULSE 73–87; RESP 20; TEMP 38.1; O2SAT 93–99
--- NOTE | 2023-06-04 21:25 | CRLHL7_ITS ---
For Patients: As a result of the Cures Act, medical imaging exams and procedure reports are released immediately into your electronic medical record. You may view this report before your referring provider. If you have questions, please contact your health care provider. INDICATION: Fever. TECHNIQUE: AP and lateral chest. COMPARISON: 08/16/2021. FINDINGS: Patient is rotated to the right on the AP image lungs clear. Heart size and pulmonary vascularity normal given technique. No pleural effusion or pneumothorax. No acute findings. Dictated by Alverto Berumen MD @ 06/04/2023 10:58:46 PM (Electronically Signed)
--- NOTE | 2023-06-04 21:27 | CRLHL7_ITS ---
For Patients: As a result of the Cures Act, medical imaging exams and procedure reports are released immediately into your electronic medical record. You may view this report before your referring provider. If you have questions, please contact your health care provider. INDICATION: Recent left PE surgery, concern for infection. TECHNIQUE: Four views of the left knee. COMPARISON: 11/19/20162022. FINDINGS: There is a left TKA. Components appear well seated. No fracture or dislocation. Increased anterior soft tissue swelling since the prior exam, within expected postoperative range. No subcutaneous gas. Dictated by Alverto Berumen MD @ 06/04/2023 11:00:05 PM (Electronically Signed)
--- NOTE | 2023-06-04 21:30 | CRLHL7_ITS ---
For Patients: As a result of the Century Cures Act, medical imaging exams and procedure reports are released immediately into your electronic medical record. You may view this report before your referring provider. If you have questions, please contact your health care provider. INDICATION: Fever, recent AMS TECHNIQUE: Head CT without contrast. COMPARISON: None FINDINGS: CSF spaces: Within normal limits for age. Brain parenchyma and extra-axial spaces: There are nonspecific low attenuation white matter changes consistent with chronic microvascular disease. No sign of mass, hemorrhage, or midline shift. Skull base and calvarium: The visualized paranasal sinuses and mastoid air cells demonstrate no acute or significant findings. The visualized orbits are grossly unremarkable. No skull fractures. IMPRESSION: No acute or significant findings. Please note that all CT scans at this facility use dose modulation, iterative reconstruction, and/or weight-based dosing when appropriate to reduce radiation dose to as low as reasonably achievable. Dictated by Alverto Berumen MD @ 06/04/2023 11:02:24 PM (Electronically Signed)
--- NOTE | 2023-06-04 21:39 | CRLHL7_ITS ---
For Patients: As a result of the Century Cures Act, medical imaging exams and procedure reports are released immediately into your electronic medical record. You may view this report before your referring provider. If you have questions, please contact your health care provider. INDICATION: LEFT LEG SWELLING AND REDNESS POST TKA. TECHNIQUE: Ultrasound venous duplex lower left extremity. Compression venous exam was performed using mortensen-scale, color Doppler, and spectral Doppler analysis. Permanently recorded images are archived. COMPARISON: None. FINDINGS: Deep veins: Sonographic imaging demonstrates the left common femoral, deep femoral, superficial femoral, popliteal, posterior tibial, peroneal and the contralateral right common femoral veins to be fully compressible with normal color Doppler blood flow. Superficial veins: Greater saphenous vein is fully compressible. No popliteal cyst. IMPRESSION: No deep venous thrombosis in the evaluated veins of the left lower extremity. Dictated by Willi Karimi MD @ 06/05/2023 12:34:16 AM (Electronically Signed)
[2023-06-04 21:48] LABS: Lactate* 1.4 mmol/L (0.5-1.9)
[2023-06-04 21:58] LABS: Basophils Absolute Auto 0.04 K/uL (0.00-0.30); Basophils Percent Auto 0.4 % (0.0-3.0); Eosinophils Absolute Auto 0.29 K/uL (0.00-0.50); Hematocrit 32.7 % (37.0-53.0); Hemoglobin* 10.8 gm/dL (13.5-17.5); Immature Granulocytes Abs Auto 0.03 K/uL (0.00-0.30); Immature Granulocytes Pct Auto 0.3 %; Lymphocytes Percent Auto 11.6 % (20-44); Mean Corpuscular HGB Conc 33 gm/dL (32-36); Mean Corpuscular Hemoglobin 29 pg (26-34); Mean Corpuscular Volume 89 fL (80-100); Monocytes Percent Auto 16.8 % (0.0-11.0); Neutrophils Absolute Auto 6.57 K/uL (1.7-7.0); Neutrophils Percent Auto 67.9 % (42.0-72.0); Platelet Count* 243 K/uL (140-440); RDW Coefficient of Variation % 13.8 % (11.5-15.5); Red Blood Count 3.69 m/uL (4.30-5.90); White Blood Count* 9.68 K/uL (4.50-11.00)
[2023-06-04 21:58] LABS: Troponin, Point-of-Care* 0.02 ng/ml (0.01-0.04)
[2023-06-04 22:00] LABS: Slide Review Reflex No
[2023-06-04 22:06] LABS: Albumin* 3.6 g/dL (3.3-5.0); Chloride* 102 mmol/L (96-114); Sodium* 137 mmol/L (135-149)
[2023-06-04 22:07] LABS: Potassium* 3.9 mmol/L (3.6-5.1)
[2023-06-04 22:09] LABS: Alanine Aminotransferase* 18 U/L (4-50); Alkaline Phosphatase* 76 U/L (40-150); Aspartate Amino Transferase* 27 U/L (12-35); Bilirubin Total* 3.3 mg/dL (0.1-1.5); Blood Urea Nitrogen* 26 mg/dL (7-30); Carbon Dioxide* 27 mmol/L (20-32); Estimated Glomerular Filt Rate 76 ml/min; Glucose* 138 mg/dL (60-115); Total Protein* 7.1 g/dL (6.0-8.3)
[2023-06-04 22:10] LABS: Calcium* 8.5 mg/dL (8.4-10.6)
[2023-06-04 22:23] LABS: C Reactive Protein* 6.3 mg/dL (0.5-1.0)
--- NOTE | 2023-06-04 22:47 | ED.GENADULT ---
HPI - General Adult General Date Seen: 06/04/23 Chief complaint: Post Op Complication Stated complaint: Knee pain Time Seen by Provider: 06/04/23 21:25 Source: patient Mode of arrival: EMS Limitations: no limitations History of Present Illness HPI narrative: Patient is an 82-year-old male with history of coronary artery disease, hypertension, AFib on Eliquis, indwelling urinary catheter he presents today for left knee pain and swelling. Of note patient had a knee replacement [address] Santamaria. Patient states he has been nauseous swelling has been getting worse he and his knee is painful. He states is painful to move the knee but there is no pain at rest. His concerned because the swelling was getting worse. I spoke to his son who states his mom said the patient seemed confused but when he is post patient did appear completely alert and oriented. They were concerned because the swelling was worse since Monday and appear discolored. Patient denies chest pain, shortness of breath, headache, vision changes, weakness, numbness, diarrhea, constipation, chills. He does have a temperature 100.6? in the ED. Related Data Home Medications Medication Instructions Recorded Confirmed aspirin 81 mg capsule 81 mg PO DAILY 08/08/22 05/29/23 Previous Rx's Medication Instructions Recorded amlodipine 5 mg tablet 5 mg PO QDAY #90 tabs 12/07/22 apixaban 2.5 mg tablet 2.5 mg PO BID #180 tabs 12/07/22 atorvastatin 40 mg tablet 40 mg PO QDAY #90 tabs 12/07/22 celecoxib 200 mg capsule 200 mg PO DAILY #90 caps 12/07/22 furosemide 20 mg tablet 20 mg PO QAM edema #90 tabs 12/07/22 lisinopril 20 mg tablet 20 mg PO BID #180 tabs 12/07/22 nitroglycerin 0.4 mg sublingual 0.4 mg sublingual Q5M PRN chest 12/07/22 tablet pain #20 tabs acetaminophen 500 mg capsule 500 - 1,000 mg (1 - 2 x 500 mg) PO 05/30/23 Q6H PRN #100 caps apixaban 5 mg tablet 5 mg PO BID #60 tabs 05/30/23 oxycodone 5 mg tablet 2.5 - 5 mg (0.5 - 1 x 5 mg) PO 07/18/23 Q4-6H PRN pain #42 tabs sennosides 8.6 mg-docusate sodium 1 - 4 tab-cap (1 - 4 x 8.6-50 mg) 05/30/23 50 mg tablet (Senna-S) PO BID PRN constipation #60 tabs Allergies Allergy/AdvReac Type Severity Reaction Status Date / Time No Known Drug Allergies Allergy Verified 05/17/23 10:27 Review of Systems Status of ROS: Reports: 10 or more systems reviewed and unremarkable except as noted in History and below [facility] Medical History (Updated 06/05/23 @ 00:17 by Nikita Reyes DO) Status post nephrectomy ?Z90.5 - Acquired absence of kidney (ICD-10) Psoriasis ?L40.9 - Psoriasis, unspecified (ICD-10) Diverticulosis of colon ?K57.30 - Diverticulosis of large intestine without perforation or abscess without bleeding (ICD-10) Hydrocele in adult ?N43.3 - Hydrocele, unspecified (ICD-10) History of prediabetes ?Z87.898 - Personal history of other specified conditions (ICD-10) Tubular adenoma of colon ?D12.6 - Benign neoplasm of colon, unspecified (ICD-10) Tubulovillous adenoma of colon ?D12.6 - Benign neoplasm of colon, unspecified (ICD-10) Benign prostatic hyperplasia with lower urinary tract symptoms ?N40.1 - Benign prostatic hyperplasia with lower urinary tract symptoms (ICD-10) Urinary retention ?R33.9 - Retention of urine, unspecified (ICD-10) Adrianne infection ?B37.9 - Candidiasis, unspecified (ICD-10) Encounter for replacement of urinary catheter ?Z46.6 - Encounter for fitting and adjustment of urinary device (ICD-10) Chronic anticoagulation ?Z79.01 - USP (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 of anticoagulants (ICD-10) Obesity ?E66.9 - Obesity, unspecified (ICD-10) Atrial fibrillation, chronic ?I48.20 - Chronic atrial fibrillation, unspecified (ICD-10) 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, unspecified ankle and foot (ICD-10) HTN (hypertension) ?I10 - Essential (primary) hypertension (ICD-10) CAD (coronary artery disease) ?I25.10 - Atherosclerotic heart disease of lummi coronary artery without angina pectoris (ICD-10) Atrial fibrillation ?I48.91 - Unspecified atrial fibrillation (ICD-10) Heart attack (2018) ?I21.9 - Acute myocardial infarction, unspecified (ICD-10) Indwelling urinary catheter present (~2020) ?Z96.0 - Presence of urogenital implants (ICD-10) Surgical History (Updated 06/02/23 @ 12:55 by Maria L Stephenson ~ [facility], [facility]) 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) ?Z96.652 - Presence of left artificial knee joint (ICD-10) 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 - Acquired absence of kidney (ICD-10) S/P left knee arthroscopy (12/30/97) ?Z98.890 - Other specified postprocedural states (ICD-10) S/P appendectomy ?Z90.49 - Acquired absence of other specified parts of digestive tract (ICD-10) Family History Mother Diabetes High blood pressure Kidney failure Sister Diabetes Father Stroke Sister Breast cancer Pancreatic cancer Social History Smoking Status: Never smoker Do you use any of these nicotine containing products: None Second hand tobacco smoke exposure: No How often do you have a drink containing alcohol: never How often do you have six or more drinks on one occasion: Never AUDIT-C Alcohol total score: 0 Non-prescribed substance use: denies use Caffeine: Yes (rare Mtn Dew, warm tea) Little interest or pleasure in doing things: not at all Feeling down, depressed, or hopeless: not at all Exam Narrative: Exam Narrative: Const: Well-nourished, Well-developed, in mild distress Eyes: PERRL, no conjunctival injection, and symmetrical lids ENMT: Atraumatic external nose and ears. Moist mucous membranes. Neck: Symmetric, trachea midline, No thyromegaly. CVS: RRR, No murmurs or gallops. Peripheral pulses 2+ and equal in all extremities RESP: Unlabored respiratory effort. Clear to auscultation bilaterally. GI: Nontender/Nondistended, No rebound or guarding. MSK: Decreased range of motion to left knee secondary to pain with tenderness to palpation. Well-healing surgical site. This appeared to be increased bruising and swelling to the knee around the surgical site with redness warmth going down the leg. There is a above the surgical site appears normal Skin: Warm, Dry. No rashes or lesions. Neuro: Normal Muscle tone, No focal neurological deficits. Psych: Awake, Alert, & Oriented x3. Appropriate mood and affect. Const: Vital Signs, click to edit/add: Vital Signs - 24 hr 06/04/23 21:35 06/04/23 22:24 06/04/23 22:32 Temperature 100.6 F H Pulse Rate 73 76 Pulse Rate [Right Pulse Oximeter] 80 Respiratory Rate 20 Blood Pressure Blood Pressure [Le ft Upper Arm] 115/67 Pulse Oximetry 95 93 93 Oxygen Delivery Me thod Room Air Room Air 06/04/23 22:44 06/04/23 22:45 06/04/23 23:01 Temperature Pulse Rate 82 87 Pulse Rate [Right Pulse Oximeter] Respiratory Rate Blood Pressure 114/68 107/58 L Blood Pressure [Le ft Upper Arm] Pulse Oximetry 97 99 Oxygen Delivery Me thod Course Vital Signs Vital signs: Initial Vital Signs Temperature 100.6 F H 06/04/23 21:35 Temperature Source Temporal Artery Scan 06/04/23 21:35 Pulse Rate 80 06/04/23 21:35 Respiratory Rate 20 06/04/23 21:35 Blood Pressure 115/67 06/04/23 21:35 Blood Pressure Mean 83 06/04/23 21:35 Blood Pressure Position Semi-Fowlers 06/04/23 21:35 Pulse Oximetry 95 06/04/23 21:35 Oxygen Delivery Method Room Air 06/04/23 21:35 Vital Signs Temperature 100.6 F H 06/04/23 21:35 Pulse Rate 80 06/04/23 21:35 Respiratory Rate 20 06/04/23 21:35 Blood Pressure 115/67 06/04/23 21:35 Pulse Oximetry 95 06/04/23 21:35 Oxygen Delivery Method Room Air 06/04/23 21:35 Temperature 100.6 F H 06/04/23 21:35 Pulse Rate 87 06/04/23 22:45 Respiratory Rate 20 06/04/23 21:35 Blood Pressure 107/58 L 06/04/23 23:01 Pulse Oximetry 99 06/04/23 22:45 Oxygen Delivery Method Room Air 06/04/23 22:24 Medical Decision Making MDM Narrative Medical decision making narrative: Patient is an 82-year-old male presenting to emergency department for left knee pain and swelling status post 6 days ago of a left knee replacement. Swelling was getting worse and he came to emergency department to be evaluated. On 1st evaluation there is warmth to the knee with what appears to be a large amount of bruising. This also appears to be redness going down the leg. Everything above the surgical site appears normal. Surgical site shows no signs of infection. There is concern for a septic joint at this time. He does have a temperature 100.6? and Tylenol is given. Septic workup was ordered. This includes a CBC, CMP, urinalysis, chest x-ray, EKG, troponin. I also ordered a left leg ultrasound to look for signs of DVT. I did order a head CT because there was some unclear signs of the was confused. When I spoke to him he appeared well and was able to answer all my questions I did speak to the orthopedics [facility]. I informed him of my findings. Also sent some photos of what the knee looks like. He then spoke to Dr. Santamaria. House informed that the temperature 100.6? is not concerning is expected after his surgery. They also said the knee in leg appear consistent with a patient who had recent knee surgery and is on blood thinners. And did not believe it is infected. They did recommend ordered a CRP and ESR to trended. They stated will be elevated because he did have surgery. X-ray of left knee is also ordered. X-ray of the knee shows no acute abnormalities. Ultrasound of the leg is pending. Urine does show possible signs of UTI but considering he is not having dysuria and would be a soft call we will hold off on antibiotics at this time. His white blood cell count is improved compared to discharge. This does make it less likely has an infection. I did speak to him about discharge versus admission and they state they are concerned to go home because he is having very difficult time ambulating because of the pain to his left knee. This I will speak to the hospitalist for admission. Lab Data Labs: Lab Results 06/04/23 06/04/23 06/04/23 Range/Units 21:25 21:40 23:00 WBC 9.68 (4.50-11.00) K/uL RBC 3.69 L (4.30-5.90) m/uL Hgb 10.8 L (13.5-17.5) gm/dL Hct 32.7 L (37.0-53.0) % MCV 89 (80-100) fL MCH 29 (26-34) pg MCHC 33 (32-36) gm/dL RDW Coeff of David 13.8 (11.5-15.5) % Plt Count 243 (140-440) K/uL Neut % (Auto) 67.9 (42.0-72.0) % Lymph % (Auto) 11.6 L (20-44) % Payne % (Auto) 16.8 H (0.0-11.0) % Eos % (Auto) 3.0 (0.0-7.0) % Baso % (Auto) 0.4 (0.0-3.0) % Neut # (Auto) 6.57 (1.7-7.0) K/uL Lymph # (Auto) 1.10 (0.90-2.90) K/uL Payne # (Auto) 1.60 H (0.00-0.90) K/UL Eos # (Auto) 0.29 (0.00-0.50) K/uL Baso # (Auto) 0.04 (0.00-0.30) K/uL Abs Immat Gran (auto) 0.03 (0.00-0.30) K/uL Imm/Tot Granulo (auto) 0.3 % ESR 74 H (2-15) mm/hr Sodium 137 (135-149) mmol/L Potassium 3.9 (3.6-5.1) mmol/L Chloride 102 (96-114) mmol/L Carbon Dioxide 27 (20-32) mmol/L BUN 26 (7-30) mg/dL Creatinine 1.0 (0.5-1.5) mg/dL Estimated GFR 76 ml/min Glucose 138 H (60-115) mg/dL Lactate 1.4 (0.5-1.9) mmol/L Calcium 8.5 (8.4-10.6) mg/dL Total Bilirubin 3.3 H (0.1-1.5) mg/dL AST 27 (12-35) U/L ALT 18 (4-50) U/L Alkaline Phosphatase 76 (40-150) U/L C-Reactive Protein 6.3 H (0.5-1.0) mg/dL Total Protein 7.1 (6.0-8.3) g/dL Albumin 3.6 (3.3-5.0) g/dL Urine Color Yellow (Yellow) Urine Appearance Clear (Clear) Urine pH 6.0 (5.0-8.5) Ur Specific Sneads 1.010 (1.000-1.030) Urine Protein 2+ A (Negative) Urine Glucose (UA) Negative (Negative) Urine Ketones Negative (Negative) Urine Blood Trace-lysed A (Negative) Urine Nitrite Negative (Negative) Urine Bilirubin Negative (Negative) Urine Urobilinogen 1.0 (0.2-1.0) Ur Leukocyte Esterase 1+ A (Negative) Urine RBC 2-5 A (0-2) Urine WBC 5-10 A (0-5) Ur Squamous Epith Cells Few (None-Few) Urine Bacteria Few A (None) Urine Mucus Few A (None) Lab Acknowledgement Test Added POC Troponin I 0.02 (0.01-0.04) ng/ml ECG Data Attestation: I personally reviewed and interpreted this ECG as follows: (AFib rate 91 beats per minute, normal axis, no ST or T-wave abnormalities. Appears similar to previous EKG) Prior ECG tracings: available for review (05/18/2023) Discharge Plan Discharge Clinical Impression: Inability to ambulate due to knee Patient Disposition: Admitted As Observation Condition: Stable
[2023-06-04 22:55] LABS: Erythrocyte SedimentationRate* 74 mm/hr (2-15)
[2023-06-04] MEDS: LACTATED RINGERS 1000 ML 1,000 ML IV (23:02)
[2023-06-04 23:12] LABS: Appearance Urine Clear (Clear); Bilirubin Urine Negative (Negative); Blood Urine Trace-lysed (Negative); Color Urine Yellow (Yellow); Glucose Urine Negative (Negative); Ketones Urine Negative (Negative); Leukocyte Esterase Urine 1+ (Negative); Nitrite Urine Negative (Negative); Protein Urine 2+ (Negative)
[2023-06-04 23:26] LABS: Bacteria Urine Few; Mucus Urine Few; Squamous Epithelial Cell Urine Few (None-Few)
[2023-06-05] VITALS (14 sets, daily range): BP systolic 106–133; BP diastolic 64–87; PULSE 65–86; RESP 16–20; TEMP 36.8–37.7; O2SAT 93–98; BMI 36.1
--- NOTE | 2023-06-05 00:15 | CRLHL7_ITS ---
For Patients: As a result of the Century Cures Act, medical imaging exams and procedure reports are released immediately into your electronic medical record. You may view this report before your referring provider. If you have questions, please contact your health care provider. INDICATION: Pain and swelling. Concern for sepsis after recent total knee arthroplasty. TECHNIQUE: Axial T1, PD and STIR and T2 fat-sat sagittal PD and T2 fat-sat and coronal PD left knee sequences. FINDINGS: Moderate artifact from the prosthesis. Artifact significantly limits assessment of the joint. There is suggestion of complex distention in the suprapatellar recess. Heterogeneous small ill-defined presumed hematoma superficial to the proximal lateral retinaculum and capsule. No obvious marrow edema. Diffuse soft tissue edema. IMPRESSION: Significant limitation due to artifact from the prosthesis. Suggestion of complex effusion distending the suprapatellar recess. Consider arthrocentesis for better characterization. Suggestion of possible small hematoma superficial to the lateral ventral knee. Dictated by Zack Sanford MD @ 06/05/2023 11:26:37 AM (Electronically Signed)
[2023-06-05] MEDS: KETOROLAC 15 MG/ML inj IVP (00:16)
[2023-06-05 01:00] LABS: PCR FLU A Negative PCR FLU A (Negative); PCR FLU B Negative PCR FLU B (Negative); PCR RSV Negative PCR RSV (Negative); SARS PCR* Negative SARS-CoV-2 (Negative)
--- NOTE | 2023-06-05 01:00 | ED.NURSE ---
Pt's catheter leg bag is deep purple in color. Pt states his bag started off clear, but turned purple a few days later. Pt also notes that he sleeps in leg bag. Med surg RNs updated and will pass along this information to hospitalist.
[2023-06-05] MEDS: LACTATED RINGERS 1000 ML 1,000 ML 125 ML IV (01:10)
--- NOTE | 2023-06-05 02:42 | P.IMCN_ITS ---
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 Bustamante who presented to the hospital after he was discharged from the hospital on 05/31/2023 complaining of left knee pain and unable to ambulate well. Patient was complaining of left knee pain with increased swelling and redness. In the ED, vital signs shows blood pressure of 107/58, pulse of 87, respiration rate of 20, temperature of 100.6. Admit to having chills a home. No n/v, no diarrhea, no chest pain, no sob. No sick contact. No dysuria. Satting 99% on room air. His labs show sodium of 137, potassium of 3.9, creatinine of 1.0, glucose of 138, AST and ALT are within normal limit, CRP of 6.3, WBC of 9.68, hemoglobin of 10.8, platelet of 243, ESR 74. He CT head without contrast shows no acute finding his knee x-ray shows the components appear to be well-seated, no fracture or dislocation, increased anterior soft tissue swelling since the prior exam but no subcutaneous gas. Venous duplex is ordered with results still pending. His chest x-ray shows that the patient is rotated to the right on the AP imaging lungs are clear. Heart and pulmonary vascularity normal given technique. Given fever with recent surgery, blood culture was obtained, urinalysis shows 2+ protein, positive blood, positive leukocyte esterase and few bacteria. Urine culture is still pending. ED provider contacted orthopedics who will see the patient in the a.m. Cultures were obtained of blood and urine. Since patient cannot ambulate well he will be admitted to the hospital for further evaluation and treatment. Review of Systems Status of ROS: Reports: 10 or more systems reviewed and unremarkable except as noted in History and below [facility] Medical History (Updated 06/05/23 @ 00:17 by Nikita Reyes DO) Status post nephrectomy ?Z90.5 - Acquired absence of kidney (ICD-10) Psoriasis ?L40.9 - Psoriasis, unspecified (ICD-10) Diverticulosis of colon ?K57.30 - Diverticulosis of large intestine without perforation or abscess without bleeding (ICD-10) Hydrocele in adult ?N43.3 - Hydrocele, unspecified (ICD-10) History of prediabetes ?Z87.898 - Personal history of other specified conditions (ICD-10) Tubular adenoma of colon ?D12.6 - Benign neoplasm of colon, unspecified (ICD-10) Tubulovillous adenoma of colon ?D12.6 - Benign neoplasm of colon, unspecified (ICD-10) Benign prostatic hyperplasia with lower urinary tract symptoms ?N40.1 - Benign prostatic hyperplasia with lower urinary tract symptoms (ICD- 10) Urinary retention ?R33.9 - Retention of urine, unspecified (ICD-10) Adrianne infection ?B37.9 - Candidiasis, unspecified (ICD-10) Encounter for replacement of urinary catheter ?Z46.6 - Encounter for fitting and adjustment of urinary device (ICD-10) Chronic anticoagulation ?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 (ICD-10) Obesity ?E66.9 - Obesity, unspecified (ICD-10) Atrial fibrillation, chronic ?I48.20 - Chronic atrial fibrillation, unspecified (ICD-10) 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, unspecified ankle and foot (ICD-10) HTN (hypertension) ?I10 - Essential (primary) hypertension (ICD-10) CAD (coronary artery disease) ?I25.10 - Atherosclerotic heart disease of [place] coronary artery without angina pectoris (ICD-10) Atrial fibrillation ?I48.91 - Unspecified atrial fibrillation (ICD-10) Heart attack (2018) ?I21.9 - Acute myocardial infarction, unspecified (ICD-10) Indwelling urinary catheter present (~2020) ?Z96.0 - Presence of urogenital implants (ICD-10) Surgical History (Updated 06/02/23 @ 12:55 by Maria L Stephenson ~ [facility]) 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) ?Z96.652 - Presence of left artificial knee joint (ICD-10) 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 - Acquired absence of kidney (ICD-10) S/P left knee arthroscopy (12/30/97) ?Z98.890 - Other specified postprocedural states (ICD-10) S/P appendectomy ?Z90.49 - Acquired absence of other specified parts of digestive tract (ICD- 10) Family History Mother Diabetes High blood pressure Kidney failure Sister Diabetes Father Stroke Sister Breast cancer Pancreatic cancer Social History What is your current living situation?: I have a place to live at present, but am concerned about future Problems where you live: no known problems Problems where you live details: none In the past 12 months, utilities in danger of being shut off: no In the past 12 mos, have been you worried that your food would run out before you had money to buy more?: never true In the past 12 mos, the food you bought just didn't last and you didn't have money to buy more?: never true Highest level of school completed/degree received: 12th grade, no diploma Smoking Status: Never smoker Do you use any of these nicotine containing products: None Second hand tobacco smoke exposure: No How often do you have a drink containing alcohol: monthly or less Alcohol type: beer Alcohol type details: 1 drink very rarely How often do you have six or more drinks on one occasion: Never AUDIT-C Alcohol total score: 1 Non-prescribed substance use: denies use Caffeine: Yes (rarely warm tea) How often does anyone, including family, friends and others, physically hurt you : never How often does anyone, including family, friends and others, insult or talk down to you: never How often does anyone, including family, friends and others, threaten you with harm: never How often does anyone, including family, friends and others, scream or curse at you: never Little interest or pleasure in doing things: not at all Feeling down, depressed, or hopeless: not at all Do you think of yourself as: straight/heterosexual Gender Identity: male Meds Home Medications and Allergies Home Medications Medication Instructions Recorded Confirmed Type aspirin 81 mg capsule 81 mg PO DAILY 08/08/22 05/29/23 History Allergies Allergy/AdvReac Type Severity Reaction Status Date / Time No Known Drug Allergies Allergy Verified 07/05/23 10:27 Exam Narrative: Exam Narrative: Exam (performed via interactive video with assistance of bedside nurse): General: [alert, cooperative, no acute distress] HEENT: [Pupils reported ERRL] [, oral mucosa pink and moist without erythema] Lungs: [clear to auscultation bilaterally without crackle or wheeze] CV: [regular rate and rhythm without loud murmur rub or gallop] Abd: [bowel sounds present, denies tenderness and does not exhibit signs of pain with palpation done by bedside nurse] Ext: [no pitting edema noted] Skin: [LLE red and warm to touch Neuro: [alert, oriented x 3. CN III -VII, XI, XII grossly intact, moves all extremities without any significant focal deficit appreciated by nurse] Const: Vital Signs, click to edit/add: Vital Signs - 24 hr 06/04/23 21:35 06/04/23 22:24 06/04/23 22:32 Temperature 100.6 F H Pulse Rate 73 76 Pulse Rate [Right Pulse Oximeter] 80 Respiratory Rate 20 Blood Pressure Blood Pressure [Le ft Upper Arm] 115/67 Blood Pressure [Ri ght Arm] Pulse Oximetry 95 93 93 Oxygen Delivery Me thod Room Air Room Air 06/04/23 22:44 06/04/23 22:45 06/04/23 23:01 Temperature Pulse Rate 82 87 Pulse Rate [Right Pulse Oximeter] Respiratory Rate Blood Pressure 114/68 107/58 L Blood Pressure [Le ft Upper Arm] Blood Pressure [Ri ght Arm] Pulse Oximetry 97 99 Oxygen Delivery Me thod 06/04/23 23:31 06/04/23 23:51 06/05/23 00:00 Temperature Pulse Rate 74 72 Pulse Rate [Right Pulse Oximeter] Respiratory Rate Blood Pressure 110/70 Blood Pressure [Le ft Upper Arm] Blood Pressure [Ri ght Arm] Pulse Oximetry 94 97 Oxygen Delivery Me thod Room Air 06/05/23 00:01 06/05/23 00:01 06/05/23 00:01 Temperature Pulse Rate 79 79 79 Pulse Rate [Right Pulse Oximeter] Respiratory Rate Blood Pressure 117/71 117/71 117/71 Blood Pressure [Le ft Upper Arm] Blood Pressure [Ri ght Arm] Pulse Oximetry 98 98 98 Oxygen Delivery Me thod 06/05/23 00:01 06/05/23 00:15 06/05/23 00:30 Temperature Pulse Rate 79 74 82 Pulse Rate [Right Pulse Oximeter] Respiratory Rate Blood Pressure 117/71 Blood Pressure [Le ft Upper Arm] Blood Pressure [Ri ght Arm] Pulse Oximetry 98 97 Oxygen Delivery Me thod 06/05/23 00:31 06/05/23 00:45 06/05/23 01:30 Temperature 98.5 F Pulse Rate 73 74 Pulse Rate [Right Pulse Oximeter] 86 Respiratory Rate 20 Blood Pressure 133/87 Blood Pressure [Le ft Upper Arm] Blood Pressure [Ri ght Arm] 133/79 Pulse Oximetry 96 96 95 Oxygen Delivery Me thod Room Air 06/05/23 01:47 Temperature Pulse Rate Pulse Rate [Right Pulse Oximeter] Respiratory Rate 20 Blood Pressure Blood Pressure [Le ft Upper Arm] Blood Pressure [Ri ght Arm] Pulse Oximetry 95 Oxygen Delivery Me thod Room Air Labs Labs: Short CBC 06/04/23 Range/Units 21:25 WBC 9.68 (4.50-11.00) K/uL Hgb 10.8 L (13.5-17.5) gm/dL Hct 32.7 L (37.0-53.0) % Plt Count 243 (140-440) K/uL BMP 06/04/23 21:25 Sodium 137 Potassium 3.9 Chloride 102 Carbon Dioxide 27 BUN 26 Creatinine 1.0 Glucose 138 H Calcium 8.5 Liver Function 06/04/23 Range/Units 21:25 Total Bilirubin 3.3 H (0.1-1.5) mg/dL AST 27 (12-35) U/L ALT 18 (4-50) U/L Alkaline Phosphatase 76 (40-150) U/L Albumin 3.6 (3.3-5.0) g/dL Urine 06/04/23 Range/Units 23:00 Urine Color Yellow (Yellow) Urine Appearance Clear (Clear) Urine pH 6.0 (5.0-8.5) Ur Specific [place] 1.010 (1.000-1.030) Urine Protein 2+ A (Negative) Urine Glucose (UA) Negative (Negative) Assessment and Plan Assessment and plan (1) Inability to ambulate due to knee: Status: Acute Plan #Fever of unclear origin, concerning for cellulitis versus septic arthritis of the left knee, versus UTI, blood culture, urine culture were obtained. #Hypertension #Atrial fibs on anticoagulation #Coronary artery disease #Psoriasis - Blood culture and urine culture were obtained in the ED - We will obtain MRI of the left lower extremity for further evaluation - Orthopedics consulted to see the patient in a.m. - We will hold off on anticoagulation at this time and start on heparin drip pending surgical evaluation - IS , Lasix 20mg per day, check echo, LE Doppler is neg for DVT - Given lower extremity swelling will hold IV fluid at this time - Resume home medication when able - CODE STATUS Full - DVT prophylaxis with heparin drip and resume home anticoag when stable from surgical stand point
[2023-06-05 03:31] LABS: Hematocrit 29.4 % (37.0-53.0); Hemoglobin* 9.7 gm/dL (13.5-17.5); Mean Corpuscular HGB Conc 33 gm/dL (32-36); Mean Corpuscular Hemoglobin 29 pg (26-34); Mean Corpuscular Volume 88 fL (80-100); Platelet Count* 214 K/uL (140-440); Red Blood Count 3.33 m/uL (4.30-5.90); White Blood Count* 8.86 K/uL (4.50-11.00)
[2023-06-05 03:32] LABS: Slide Review Reflex No
[2023-06-05 03:47] LABS: INR 1.51 (0.91-1.10)
[2023-06-05 03:48] LABS: Partial Thromboplastin Time* 40 Seconds (23-33)
[2023-06-05] MEDS: HEPARIN 5,000 UNIT/0.5 ML INJ 5000 UNIT SUBCUT ×2 (04:26→11:21)
[2023-06-05 06:36] LABS: NT Pro B Type NatriureticPept* 2090 pg/mL
--- NOTE | 2023-06-05 06:59 | PC.NURSE ---
Shift note: The pt has been pleasant and cooperative; Alert and oriented x4. Denied chest pain and short of breath; Spo2 has been in the 90s in RA. Skin discoloration, swelling and hot to touch noted to the left knee. The pt c/o of moderated pain with activity; minor to zero pain at rest; No pain medications requested by the pt since admission. Surgical dressing to the left knee has been C/D/I. Big bruise noted to the left above the knee. No fever noted this shift. Tea color urine emptied from suprapubic catheter. The color of the bag is purple- the pt stated the color of the bag changed frequently and nothing new. The pt has been NPO ; LR has been running at 125 ml/hr. Denied any acute distress throughout the night.
[2023-06-05] MEDS: FUROSEMIDE 10 MG/ML inj 20 MG IVP ×2 (09:09→17:52)
[2023-06-05] MEDS: MORPHINE 2 MG/ML inj IVP (10:30)
--- NOTE | 2023-06-05 12:05 | PM.IMHP1 ---
Hospitalist- H&P: HPI History of Present Illness Date Seen: 06/05/23 Chief complaint: Knee pain Narrative: [place] Jernigan is a 82 year old male who presented to the hospital for left knee pain and edema. Patient had a LTKA with Dr. Bustamante of Orthopedic surgery on 05/29. There were no operative complications. He was discharged home on 5 mg apixaban BID (typically takes 2.5 mg BID for his atrial fibrillation). Over the past few days, he has had more pain and erythema in the left knee. Does not tolerate oxycodone well, so he has only been taking Tylenol for pain. He notes that has not been very helpful. Given discomfort, he was unable to ambulate without assistance. ED course and findings: - temperature of 100.6?, no further fevers since admission - negative head CT, negative chest x-ray, negative lower extremity Doppler for DVT - hemoglobin 10.8, bilirubin 3.3 - blood cultures obtained Patient admitted overnight by E-hospitalist, orthopedic surgery consulted. This morning, [place] continues to have discomfort in his left knee. He is somewhat tearful when discussing his inability to be active. He would like to consider SNF placement for rehab. Medical history updated below, PCP is Dr. Camacho locally. Review of Systems Status of ROS: Reports: 10 or more systems reviewed and unremarkable except as noted in History and below Narrative: Patient specifically denies abdominal pain or itching [facility] Medical History (Updated 06/05/23 @ 17:20 by Rina Hernandez MD) Status post nephrectomy ?Z90.5 - Acquired absence of kidney (ICD-10) Psoriasis ?L40.9 - Psoriasis, unspecified (ICD-10) Diverticulosis of colon ?K57.30 - Diverticulosis of large intestine without perforation or abscess without bleeding (ICD-10) Hydrocele in adult ?N43.3 - Hydrocele, unspecified (ICD-10) History of prediabetes ?Z87.898 - Personal history of other specified conditions (ICD-10) Tubular adenoma of colon ?D12.6 - Benign neoplasm of colon, unspecified (ICD-10) Tubulovillous adenoma of colon ?D12.6 - Benign neoplasm of colon, unspecified (ICD-10) Benign prostatic hyperplasia with lower urinary tract symptoms ?N40.1 - Benign prostatic hyperplasia with lower urinary tract symptoms (ICD-10) Urinary retention ?R33.9 - Retention of urine, unspecified (ICD-10) Adrianne infection ?B37.9 - Candidiasis, unspecified (ICD-10) Encounter for replacement of urinary catheter ?Z46.6 - Encounter for fitting and adjustment of urinary device (ICD-10) Chronic anticoagulation ?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 (ICD-10) Obesity ?E66.9 - Obesity, unspecified (ICD-10) Atrial fibrillation, chronic ?I48.20 - Chronic atrial fibrillation, unspecified (ICD-10) 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, unspecified ankle and foot (ICD-10) HTN (hypertension) ?I10 - Essential (primary) hypertension (ICD-10) CAD (coronary artery disease) ?I25.10 - Atherosclerotic heart disease of [place] coronary artery without angina pectoris (ICD-10) Atrial fibrillation ?I48.91 - Unspecified atrial fibrillation (ICD-10) Heart attack (2018) ?I21.9 - Acute myocardial infarction, unspecified (ICD-10) Indwelling urinary catheter present (~2020) ?Z96.0 - Presence of urogenital implants (ICD-10) Surgical History (Updated 06/05/23 @ 17:18 by Rina Hernandez MD) 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) ?Z96.652 - Presence of left artificial knee joint (ICD-10) 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 - Acquired absence of kidney (ICD-10) S/P left knee arthroscopy (12/30/97) ?Z98.890 - Other specified postprocedural states (ICD-10) S/P appendectomy ?Z90.49 - Acquired absence of other specified parts of digestive tract (ICD-10) Family History Mother Diabetes High blood pressure Kidney failure Sister Diabetes Father Stroke Sister Breast cancer Pancreatic cancer Social History (Updated 06/05/23 @ 17:13 by Rina Hernandez MD) Narrative: Lives with , has 5 living adult children (one daughter from breast cancer). Retired [employer]. What is your current living situation?: I have a place to live at present, but am concerned about future Problems where you live: no known problems Problems where you live details: none In the past 12 months, utilities in danger of being shut off: no In the past 12 mos, have been you worried that your food would run out before you had money to buy more?: never true In the past 12 mos, the food you bought just didn't last and you didn't have money to buy more?: never true Highest level of school completed/degree received: 12th grade, no diploma Smoking Status: Never smoker Do you use any of these nicotine containing products: None Second hand tobacco smoke exposure: No How often do you have a drink containing alcohol: monthly or less Alcohol type: beer Alcohol type details: 1 drink very rarely How often do you have six or more drinks on one occasion: Never AUDIT-C Alcohol total score: 1 Non-prescribed substance use: denies use Caffeine: Yes (rarely warm tea) How often does anyone, including family, friends and others, physically hurt you: never How often does anyone, including family, friends and others, insult or talk down to you: never How often does anyone, including family, friends and others, threaten you with harm: never How often does anyone, including family, friends and others, scream or curse at you: never Little interest or pleasure in doing things: not at all Feeling down, depressed, or hopeless: not at all Do you think of yourself as: straight/heterosexual Gender Identity: male Meds Home Medications and Allergies Home Medications Medication Instructions Recorded Confirmed Type aspirin 81 mg capsule 81 mg PO DAILY 08/08/22 06/05/23 History Home Medication Comments: Med list above is incorrect: Patient is on apixaban, amlodipine, atorvastatin, furosemide, lisinopril Allergies Allergy/AdvReac Type Severity Reaction Status Date / Time No Known Drug Allergies Allergy Verified 05/17/23 10:27 Exam Narrative: Exam Narrative: GEN: Alert and answering questions appropriately, does not appear toxic HEENT: EOMIs bilaterally, no scleral icterus CV: Rate controlled atrial fibrillation, no concerning murmurs R: LCTA bilaterally without concerning wheezing, air movement adequate Ext: There is bruising and edema over left knee. Patient initially does have discomfort with palpation; we then trial low-dose [place] and upon re-examination, he is significantly better. He has normal dorsalis pedis pulses, normal capillary refill, moving left toes normally Skin: Besides bruising, no other concerning skin lesions Neuro: Nonfocal Psych: Tearful when discussing hospitalization, otherwise appropriate Const: Vital Signs, click to edit/add: Vital Signs - 24 hr 06/04/23 21:35 06/04/23 22:24 06/04/23 22:32 Temperature 100.6 F H Pulse Rate 73 76 Pulse Rate [Right Pulse Oximeter] 80 Respiratory Rate 20 Blood Pressure Blood Pressure [Le ft Upper Arm] 115/67 Blood Pressure [Ri ght Arm] Pulse Oximetry 95 93 93 Oxygen Delivery Me od Room Air Room Air 06/04/23 22:44 06/04/23 22:45 06/04/23 23:01 Temperature Pulse Rate 82 87 Pulse Rate [Right Pulse Oximeter] Respiratory Rate Blood Pressure 114/68 107/58 L Blood Pressure [Le ft Upper Arm] Blood Pressure [Ri ght Arm] Pulse Oximetry 97 [facility] 23:31 06/04/23 23:51 06/05/23 00:00 Temperature Pulse Rate 74 72 Pulse Rate [Right Pulse Oximeter] Respiratory Rate Blood Pressure 110/70 Blood Pressure [Le ft Upper Arm] Blood Pressure [Ri ght Arm] Pulse Oximetry 94 97 [facility] 06/05/23 00:01 06/05/23 00:01 06/05/23 00:01 Temperature Pulse Rate 79 79 79 Pulse Rate [Right Pulse Oximeter] Respiratory Rate Blood Pressure 117/71 117/71 117/71 Blood Pressure [Le ft Upper Arm] Blood Pressure [Ri ght Arm] Pulse Oximetry 98 98 98 [facility] 06/05/23 00:01 06/05/23 00:15 06/05/23 00:30 Temperature Pulse Rate 79 74 82 Pulse Rate [Right Pulse Oximeter] Respiratory Rate Blood Pressure 117/71 Blood Pressure [Le ft Upper Arm] Blood Pressure [Ri ght Arm] Pulse Oximetry 98 97 [facility] 06/05/23 00:31 06/05/23 00:45 06/05/23 01:30 Temperature 98.5 F Pulse Rate 73 74 Pulse Rate [Right Pulse Oximeter] 86 Respiratory Rate 20 Blood Pressure 133/87 Blood Pressure [Le ft Upper Arm] Blood Pressure [Ri ght Arm] 133/79 Pulse Oximetry 96 96 95 Oxygen Delivery Me thod Room Air 06/05/23 01:47 06/05/23 04:36 06/05/23 08:12 Temperature 98.2 F 98.3 F Pulse Rate Pulse Rate [Right Pulse Oximeter] 67 Respiratory Rate 20 20 16 Blood Pressure Blood Pressure [Le ft Upper Arm] Blood Pressure [Ri ght Arm] 133/79 119/68 Pulse Oximetry 95 95 94 Oxygen Delivery Me thod Room Air Room Air Room Air 06/05/23 08:12 06/05/23 11:25 Temperature 98.3 F Pulse Rate Pulse Rate [Right Pulse Oximeter] 67 65 Respiratory Rate 16 18 Blood Pressure Blood Pressure [Le ft Upper Arm] Blood Pressure [Ri ght Arm] 110/64 Pulse Oximetry 98 Oxygen Delivery Me thod Room Air Hospitalist - H&P: Result Labs Labs: Short CBC 06/04/23 06/05/23 Range/Units 21:25 03:25 WBC 9.68 8.86 (4.50-11.00) K/uL Hgb 10.8 L 9.7 L (13.5-17.5) gm/dL Hct 32.7 L 29.4 L (37.0-53.0) % Plt Count 243 214 (140-440) K/uL BMP 06/04/23 21:25 Sodium 137 Potassium 3.9 Chloride 102 Carbon Dioxide 27 BUN 26 Creatinine 1.0 Glucose 138 H Calcium 8.5 Liver Function 06/04/23 Range/Units 21:25 Total Bilirubin 3.3 H (0.1-1.5) mg/dL AST 27 (12-35) U/L ALT 18 (4-50) U/L Alkaline Phosphatase 76 (40-150) U/L Albumin 3.6 (3.3-5.0) g/dL Urine 06/04/23 Range/Units 23:00 Urine Color Yellow (Yellow) Urine Appearance Clear (Clear) Urine pH 6.0 (5.0-8.5) Ur Specific [place] 1.010 (1.000-1.030) Urine Protein 2+ A (Negative) Urine Glucose (UA) Negative (Negative) Assessment and Plan Assessment and plan (1) Inability to ambulate due to knee: Problem comment: - patient has pain in left knee + hematoma, likely secondary to Eliquis dosing and inability to take oxycodone - after discussion with Ortho, we will decrease his Eliquis back to 2.5 mg BID and trial [place] for pain management - ortho does not anticipate any surgical needs at this time - Patient felt significantly better with the above changes - await results from blood culture but I have low suspicion for any acute infectious process at this time - therapies to follow, consider SNF placement Status: Acute (2) Status post left knee replacement: Problem comment: - 05/[address] Bustamante of Orthopedic surgery Status: Acute (3) CAD (coronary artery disease): Problem comment: - s/p STEMI with RCA stenting 04/30 - quiescent Status: Acute (4) HTN (hypertension): Status: Acute (5) Atrial fibrillation, chronic: Problem comment: - rate controlled, on Eliquis Status: Acute (6) Chronic anticoagulation: Problem comment: - on Apixaban 2.5 mg bid - h/o bruising when on 5 mg bid Status: Acute (7) Indwelling urinary catheter present: Problem comment: suprapubic cath, changed monthly Status: Acute (8) Status post nephrectomy: Problem comment: - 1949 Status: Acute Plan - medication changes as above - Continue home medications for comorbidities with holding parameters on blood pressure meds - Likely discharge to SNF when bed available
[2023-06-05] MEDS: HYDROCODONE-ACETAMIN 5-325 MG 1 TAB PO ×2 (12:18→17:51)
[2023-06-05 13:01] LABS: Hemoglobin* 10.6 gm/dL (13.5-17.5)
[2023-06-05] MEDS: ACETAMINOPHEN 500 MG TABLET PO (17:50)
--- NOTE | 2023-06-05 18:45 | PC.NURSE ---
End of Shift: Patient pleasant and cooperative, A/O. Patient vitally stable, lungs clear, BS WNL, IV SL. Patient bedrest today, took 2 assist to wheelchair for MRI. Director [employer] had to administer morphine while patient was at MRI due to severe pain. Patient has had 10/10 pain, but pain has also decreased to 3/10. [place] given times 2, tylenol once. Patient left knee C/D/I, left leg with +3 pitting edema. Patient tolerating regular diet. Catheter intact and draining. Active ice applied to top and bottom of knee.
[2023-06-05] MEDS: OXYCODONE 5 MG TABLET PO (20:06)
[2023-06-05] MEDS: ATORVASTATIN CALCIUM 40 MG TABLET PO (21:28)
[2023-06-05] MEDS: lisinopriL 20 MG TABLET PO (21:28)
[2023-06-05] MEDS: APIXABAN 5 MG TABLET 2.5 MG PO (21:29)
[2023-06-06] VITALS (10 sets, daily range): BP systolic 105–143; BP diastolic 56–107; PULSE 78–106; RESP 18–20; TEMP 36.8–37.7; O2SAT 91–96
[2023-06-06] MEDS: ACETAMINOPHEN 500 MG TABLET PO ×2 (03:57→16:08)
[2023-06-06] MEDS: OXYCODONE 5 MG TABLET PO ×5 (03:58→20:32)
--- NOTE | 2023-06-06 06:40 | PC.NURSE ---
Pt pleasant and cooperative. Oxycodone for pain has worked now overnight without pt feeling funny and not liking it. His pain went from a 9 to a 4 and pt states it is good. Pt cont to run a low grade temp 99.3-100. Tylenol given without much difference in temp. Left knee cont to be swollen and bruised. Ice pack on overnight. VSS
[2023-06-06] MEDS: FUROSEMIDE 10 MG/ML inj 20 MG IVP ×2 (07:17→18:14)
[2023-06-06 07:35] LABS: Hematocrit 30.2 % (37.0-53.0); Mean Corpuscular HGB Conc 33 gm/dL (32-36); Mean Corpuscular Hemoglobin 29 pg (26-34); Mean Corpuscular Volume 89 fL (80-100); Platelet Count* 257 K/uL (140-440); Red Blood Count 3.41 m/uL (4.30-5.90); White Blood Count* 8.18 K/uL (4.50-11.00)
[2023-06-06 07:36] LABS: Slide Review Reflex No
--- NOTE | 2023-06-06 07:42 | PM.ORPN ---
Subjective Subjective Date Seen: 06/05/23 Principal diagnosis: Under treated postoperative pain, postoperative ecchymosis due to Eliquis Interval history: Patient reports having a difficult time at home with pain. Started noticing more issues with pain on Monday06/03/2023, as the pain was starting to wake him up more often during the night. He was not tolerant of oxycodone, as it did not make his head feel right. Tylenol was not substantial enough for pain control. He was still able to ambulate on Monday The following day, he felt something was not right, difficulty weight-bearing due to pain; thus summoned EMS. Admitted through the ER to med/surg floor due to inability to ambulate postoperatively. He states to me that he in no way able to go home due to inability to walk. Since recent readmission, he has had some improvements in pain control as he is now allowing oral narcotics for pain. He has had no negative symptoms from the oral narcotics. Unable to wear Cyrus socks on the left lower extremity due to swelling. DVT prophylaxis includes Eliquis 5 mg twice daily. Has a history of a 5 mg twice daily with significant bruising; thus, prior to surgery, he was on 2.5 mg twice daily. Denies fevers, chills, aches, N/V, CP, SOB/WATSON, or lightheadedness. Ortho Exam Narrative Exam Narrative: General: Well-developed, well-nourished, A&Ox 3, no apparent acute distress. Pulmonary: Breathing pattern regular, even, without apparent distress or audible wheeze present. Left lower extremity: Prominent swelling, 3+ pitting edema, and ecchymosis left lower extremity from just below the knee and distal the ankle. Foot appears normal. Palpation of the knee does not show demonstrate any obvious effusion, fluctuance, or induration Surgical wound appears healthy without drainage, erythema, or wound gapping Do not appreciate any erythema throughout the lower extremity rather ecchymosis throughout the lower extremity and lateral knee. Ecchymosis is more prominent distal third lower leg posteriorly Warmth is present throughout the knee lower leg Gentle passive range of motion from 10-30 degrees does not produce any significant discomfort for the patient; able to approach 40-45 degrees of flexion with discomfort but not out of proportion Intact straight leg raise 2+ Dorsalis Pedis and Posterior Tibial pulses, pink, warm digits with brisk capillary refill; intact dermatomes and myotomes distally with 5/5 strength dorsal/plantar flexion Const Vital Signs, click to edit/add: Vital Signs - 24 hr 06/05/23 08:12 06/05/23 08:12 06/05/23 11:25 Temperature 98.3 F 98.3 F Pulse Rate [Right Pulse Oximeter] 67 67 65 Respiratory Rate 16 16 18 Blood Pressure [Right Arm] 119/68 110/64 Pulse Oximetry 94 98 Oxygen Delivery Method Room Air Room Air 06/05/23 15:09 06/05/23 15:09 06/05/23 19:00 Temperature 98.3 F 100 F H Pulse Rate [Right Pulse Oximeter] 76 76 80 Respiratory Rate 18 18 18 Blood Pressure [Right Arm] 112/86 124/81 Pulse Oximetry 94 Oxygen Delivery Method Room Air Room Air 06/05/23 23:00 06/06/23 03:57 06/06/23 04:06 Temperature 99.5 F 99.3 F 99.3 F Pulse Rate [Right Pulse Oximeter] 77 79 Respiratory Rate 18 18 Blood Pressure [Right Arm] 106/68 117/79 Pulse Oximetry 93 96 Oxygen Delivery Method Room Air Room Air 06/06/23 07:18 Temperature 99.3 F Pulse Rate [Right Pulse Oximeter] Respiratory Rate Blood Pressure [Right Arm] Pulse Oximetry Oxygen Delivery Method Assessment and Plan Assessment and plan (1) Inability to ambulate due to knee: Problem details: - patient has pain in left knee + hematoma, likely secondary to Eliquis dosing and inability to take oxycodone - after discussion with Ortho, we will decrease his Eliquis back to 2.5 mg BID and trial [place] for pain management - ortho does not anticipate any surgical needs at this time - Patient felt significantly better with the above changes - await results from blood culture but I have low suspicion for any acute infectious process at this time - therapies to follow, consider SNF placement Status: Acute (2) Status post left knee replacement: Problem details: - 05/[address] Bustamante of Orthopedic surgery Status: Acute (3) CAD (coronary artery disease): Problem details: - s/p STEMI with RCA stenting 04/30 - quiescent Status: Acute (4) HTN (hypertension): Status: Acute (5) Atrial fibrillation, chronic: Problem details: - rate controlled, on Eliquis Status: Acute (6) Chronic anticoagulation: Problem details: - on Apixaban 2.5 mg bid - h/o bruising when on 5 mg bid Status: Acute (7) Indwelling urinary catheter present: Problem details: suprapubic cath, changed monthly Status: Acute (8) Status post nephrectomy: Problem details: - 1950s Status: Acute Plan - PT/OT consult for education and assistance. - Social work consult for discharge planning - may be considering SNF placement - Prescribed analgesics as needed - I am fine with either [place] or oxycodone, which are benefits patient the most with minimal side effects (he needs strong courage went to continue this Pain Management for success) - DVT prophylaxis: 2.5mg Eliquis b.i.d., bilateral knee high Cyrus Hose stockings and SCDs. Understand that Cyrus socks on the left lower extremity may not be tolerable at this time. Sequential Tubigrip on the left lower extremity from foot and past the knee, or 6 inch Deshaun bandage from ankle/foot past the knee are good options - Anticipation is for discharge to home with family or SNF (unknown date at this time) pending his progress here at the hospital, appropriate pain control, and safety with mobilization. We had a thorough discussion regarding pathology. Explained to patient that I believe two things resulted in his readmission: 5 mg b.i.d. Eliquis (which is an increase from his 2.5 mg b.i.d. Eliquis), and not taking oral narcotics for pain management, relying solely on ice and acetaminophen. Patient fell behind with pain management. The dosing of Eliquis was needed initially for DVT prophylaxis, but now it seems appropriate to decrease the dosage to his previous 2.5mg BID. Patient was also on aspirin pre-operatively, which I will ask the hospitalist to manage. My concern for infection is very low. Labs also support no likely infection. We understand there is elevated CRP and ESR which is expected in the postoperative phase. Low-grade fever also expected in this postoperative phase. I have no concerns for the aforementioned altered mental status as patient speaks clearly and coherently during our conversation; he does express emotions and often tearful, but this seems to be more related to high expectation for himself. Encouraged patient that taking his progress week to week will be better for his mindset. He should not expect full knee extension and flexion after 1 week let alone 2-3 months - this motion will improve with time. To benefit him at this point, after discussion with hospitalist, we will decrease his Eliquis to 2.5 mg twice daily, and continue oral narcotics such as [place] or oxycodone for pain management (I am fine with either [place] or work oxycodone, whichever benefits patient with less side effects.) He will greatly benefit from PT/OT services. Strongly encouraged to perform ankle pumps, gentle knee motion, and straight leg raises on his own. Was very honest and explained that he will have pain from his therapies, but this will ultimately improve his overall motion, swelling, edema, and comfort. In my opinion, with the return to 2.5 mg twice daily Eliquis, pain management with oral narcotic, compressive sleeve of the left lower extremity including Tubigrip, Teds, Deshaun bandaging, and PT/OT while in the hospital, patient should be successful at home with help from his family. It sounds like he has children that can be helpful. Of course, I understand if this is too difficult for the patient to manage and possible SNF placement will be pursued. Patient is encouraged to follow up with us in clinic. If he returns home this week, he should return to clinic this week as well for follow-up. If he ends up at SNF, he should follow up with us in clinic once he is discharged from that facility.
[2023-06-06 07:45] LABS: INR 1.36 (0.91-1.10); Prothrombin Time 17.5 Seconds
[2023-06-06 08:02] LABS: Albumin* 3.2 g/dL (3.3-5.0)
[2023-06-06 08:05] LABS: Aspartate Amino Transferase* 22 U/L (12-35); Bilirubin Direct* 0.2 mg/dL (0.0-0.5); Bilirubin Total* 3.5 mg/dL (0.1-1.5); Total Protein* 6.4 g/dL (6.0-8.3)
[2023-06-06 08:06] LABS: Alanine Aminotransferase* 15 U/L (4-50); Alkaline Phosphatase* 70 U/L (40-150)
--- NOTE | 2023-06-06 08:21 | PM.ORPN ---
Subjective Subjective Date Seen: 06/06/23 Principal diagnosis: Under treated postoperative pain, postoperative ecchymosis due to Eliquis Interval history: Patient reports having a difficult time at home with pain. Started noticing more issues with pain on Monday06/03/2023, as the pain was starting to wake him up more often during the night. He was not tolerant of oxycodone, as it did not make his head feel right. Tylenol was not substantial enough for pain control. He was still able to ambulate on Monday The following day, he felt something was not right, difficulty weight-bearing due to pain; thus summoned EMS. Admitted through the ER to med/surg floor due to inability to ambulate postoperatively. He states to me that he in no way able to go home due to inability to walk. Since recent readmission, he has had some improvements in pain control as he is now allowing oral narcotics for pain. He has had no negative symptoms from the oral narcotics. Unable to wear Cyrus socks on the left lower extremity due to swelling. DVT prophylaxis includes Eliquis 5 mg twice daily. Has a history of a 5 mg twice daily with significant bruising; thus, prior to surgery, he was on 2.5 mg twice daily. Denies fevers, chills, aches, N/V, CP, SOB/WATSON, or lightheadedness. Ortho Exam Const Vital Signs, click to edit/add: Vital Signs - 24 hr 06/05/23 11:25 06/05/23 15:09 06/05/23 15:09 Temperature 98.3 F 98.3 F Pulse Rate [Right Pulse Oximeter] 65 76 76 Respiratory Rate 18 18 18 Blood Pressure [Right Arm] 110/64 112/86 Pulse Oximetry 98 94 Oxygen Delivery Method Room Air Room Air 06/05/23 19:00 06/05/23 23:00 06/06/23 03:57 Temperature 100 F H 99.5 F 99.3 F Pulse Rate [Right Pulse Oximeter] 80 77 Respiratory Rate 18 18 Blood Pressure [Right Arm] 124/81 106/68 Pulse Oximetry 93 Oxygen Delivery Method Room Air Room Air 06/06/23 04:06 06/06/23 07:18 Temperature 99.3 F 99.3 F Pulse Rate [Right Pulse Oximeter] 79 Respiratory Rate 18 Blood Pressure [Right Arm] 117/79 Pulse Oximetry 96 Oxygen Delivery Method Room Air Assessment and Plan Assessment and plan (1) Inability to ambulate due to knee: Problem details: - patient has pain in left knee + hematoma, likely secondary to Eliquis dosing and inability to take oxycodone - after discussion with Ortho, we will decrease his Eliquis back to 2.5 mg BID and trial smaller doses of Oxycodone + APAP - ortho does not anticipate any surgical needs at this time - Patient felt significantly better with the above changes - await results from blood culture (currently NGTD) - therapies to follow, SNF placement Status: Acute (2) Status post left knee replacement: Problem details: - 05/[address] Bustamante of Orthopedic surgery Status: Acute (3) CAD (coronary artery disease): Problem details: - s/p STEMI with RCA stenting 04/30 - quiescent Status: Acute (4) HTN (hypertension): Status: Acute (5) Atrial fibrillation, chronic: Problem details: - rate controlled, on Eliquis Status: Acute (6) Chronic anticoagulation: Problem details: - on Apixaban 2.5 mg bid - h/o bruising when on 5 mg bid Status: Acute (7) Indwelling urinary catheter present: Problem details: - suprapubic cath, changed monthly Status: Acute (8) Status post nephrectomy: Problem details: - Status: Acute
[2023-06-06] MEDS: lisinopriL 20 MG TABLET PO ×2 (08:40→20:32)
[2023-06-06] MEDS: APIXABAN 5 MG TABLET 2.5 MG PO ×2 (08:40→20:32)
[2023-06-06] MEDS: SENNOSIDES/DOCUSATE TABLET PO (08:40)
--- NOTE | 2023-06-06 10:05 | CRLHL7_ITS ---
For Patients: As a result of the Century Cures Act, medical imaging exams and procedure reports are released immediately into your electronic medical record. You may view this report before your referring provider. If you have questions, please contact your health care provider. INDICATION: Painless jaundice TECHNIQUE: Axial images were obtained from the diaphragm to the pubic symphysis. Reformats were obtained in the coronal and sagittal plane. IV Contrast: 120 cc Isovue 370 Oral Contrast: None COMPARISON: Abdomen and pelvis CT 03/24/2014 FINDINGS: Lower chest: There is discoid atelectasis within the lung bases. Calcified granulomata within the mediastinum and right deepika. Severe coronary atherosclerosis. Liver: Unremarkable. Normal in size and attenuation. No masses. Gallbladder and bile ducts: Gallbladder is contracted with cholelithiasis. Common duct is normal in caliber measuring 6 millimeters. Spleen: Splenic cyst measuring 4.1 centimeters. Pancreas: Pancreatic atrophy with new multiple pancreatic hypodense lesions which measure water density consistent with new pancreatic cystic lesions. These include 1.7 centimeters at the head of the pancreas, 2.0 centimeters in the tail and 2.8 and 1.4 centimeters within the body. Pancreatic duct does not appear dilated. Adrenal glands: Unremarkable. No nodules. Kidneys: The left kidney is not seen. Right kidney with exophytic cyst posteriorly measuring 3.6 centimeters. Smaller subcentimeter lesions too small for characterization. Nephrolithiasis. No ureteral stone or hydronephrosis. Vasculature: Atherosclerosis without abdominal aortic aneurysm. Subcentimeter retroperitoneal lymph nodes. GI tract: The stomach is unremarkable. No dilated loops of large or small intestine. Colonic diverticulosis. Fat containing umbilical hernia. Pelvis: Marked prostatic enlargement with suprapubic bladder catheter. Pelvic sidewall lymph nodes measure up to 14 millimeters in short axis. Separate pelvic lymph nodes measure up to 8 millimeters in short axis. Bones: Degenerative disc disease lumbar spine. IMPRESSION: 1. Cholelithiasis without CT evidence of cholecystitis. Normal diameter common duct. 2. Pancreatic atrophy with new multiple pancreatic lesions which measure water density consistent with pancreatic cystic lesions. Dedicated pancreatic protocol MRI suggested for further characterization. 3. Marked prostatic enlargement with new pelvic sidewall lymphadenopathy. Differential diagnosis includes reactive infectious/inflammatory lymph nodes and neoplastic etiologies. 4. Other incidental findings as noted above. Please note that all CT scans at this facility use dose modulation, iterative reconstruction, and/or weight-based dosing when appropriate to reduce radiation dose to as low as reasonably achievable. Dictated by Eduardo Lemon MD @ 06/06/2023 2:07:50 PM (Electronically Signed)
--- NOTE | 2023-06-06 15:08 | PC.NURSE ---
End of Shift Note: Patient has been up to the chair today. Does have cryo cuff in place. Taking oxycodone for the pain. Was to discharge today to [facility] but unfortunately they wanted patient to arrive by 2 pm and did not have the results of his cat scan back in time for discharging. Will discharge tomorrow and believe family will transport patient to [facility]. Nurse to Nurse report was given to them and they were updated that patient will arrive tomorrow instead of today.
--- NOTE | 2023-06-06 15:29 | PC.SOCIAL ---
Discharge planning- pt is requesting SNF for rehab. Pt will private pay. Met with pt in room. Pt does not want [facility] and prefers a facility in [place]. Sent referral to [facility]. [facility] accepted pt for admission. Pt will admit on 06/07/23. Pt's family will transport around 10:30 am. Preadmission screening completed. Confirmation #[id number]. Social work will follow up as needed.
--- NOTE | 2023-06-06 16:26 | PM.IMPN1 ---
Progress Note: A&P Assessment and plan (1) Inability to ambulate due to knee: Problem details: - patient has pain in left knee + hematoma, likely secondary to Eliquis dosing and inability to take oxycodone - after discussion with Ortho, we will decrease his Eliquis back to 2.5 mg BID and trial smaller doses of Oxycodone + APAP - ortho does not anticipate any surgical needs at this time - Patient felt significantly better with the above changes - await results from blood culture (currently NGTD) - therapies to follow, SNF placement Status: Acute (2) Status post left knee replacement: Problem details: - 05/[address] Bustamante of Orthopedic surgery Status: Acute (3) CAD (coronary artery disease): Problem details: - s/p STEMI with RCA stenting 04/30 - quiescent Status: Acute (4) HTN (hypertension): Status: Acute (5) Atrial fibrillation, chronic: Problem details: - rate controlled, on Eliquis Status: Acute (6) Chronic anticoagulation: Problem details: - on Apixaban 2.5 mg bid - h/o bruising when on 5 mg bid Status: Acute (7) Indwelling urinary catheter present: Problem details: - suprapubic cath, changed monthly Status: Acute (8) Status post nephrectomy: Problem details: - Status: Acute (9) Elevated bilirubin: Problem details: - asymptomatic - CT obtained with below results, patient and son updated. They will f/u with PCP regarding findings - noted to have + urine culture IMPRESSION: 1. Cholelithiasis without CT evidence of cholecystitis. Normal diameter common duct. 2. Pancreatic atrophy with new multiple pancreatic lesions which measure water density consistent with pancreatic cystic lesions. Dedicated pancreatic protocol MRI suggested for further characterization. 3. Marked prostatic enlargement with new pelvic sidewall lymphadenopathy. Differential diagnosis includes reactive infectious/inflammatory lymph nodes and neoplastic etiologies. 4. Other incidental findings as noted above. Status: Acute (10) Urine culture positive: Problem details: - await ID and sensitivities, start Ceftriaxone 06/06 Status: Acute Plan - per above - some updated at bedside, questions answered - patient was accepted to [facility] today; unfortunately, we were unable to discharge him on time as we were awaiting results from CT scan - plan for SNF discharge tomorrow Subjective Date Seen: 06/06/23 Interval history: Mushtaq is feeling better today. His pain has improved and he is tolerating therapies. Temperature has been elevated in the last 24 hours, no true fevers. Blood cultures are negative to date, there is a small amount of growth on urine culture. His bilirubin has been noted to be >3, denies abdominal pain or itching. Amenable to CT scan to further characterize. He would like to discharge to a SNF. Exam Narrative: Exam Narrative: GEN: Alert HEENT: EOMIs bilaterally, + scleral icterus CV: RRR, No concerning murmurs, rubs, or gallops R: LCTA bilaterally without concerning wheezing, air movement adequate Ab: soft, nontender, no obvious masses Ext: Edema and bruising over left knee, mildly warm to palpation, no crepitus. Tolerates exam better today Skin: Mild jaundice Neuro: Nonfocal Psych: Appropriate Const: Vital Signs, click to edit/add: Vital Signs - 24 hr 06/05/23 19:00 06/05/23 23:00 06/06/23 03:57 Temperature 100 F H 99.5 F 99.3 F Pulse Rate [Left D orsalis Pedis] Pulse Rate [Right Pulse Oximeter] 80 77 Respiratory Rate 18 18 Blood Pressure [Ri ght Arm] 124/81 106/68 Pulse Oximetry 93 Oxygen Delivery Me thod Room Air Room Air 06/06/23 04:06 06/06/23 07:00 06/06/23 07:18 Temperature 99.3 F 99.3 F Pulse Rate [Left D orsalis Pedis] 83 Pulse Rate [Right Pulse Oximeter] 79 Respiratory Rate 18 20 Blood Pressure [Ri ght Arm] 117/79 Pulse Oximetry 96 Oxygen Delivery Me thod Room Air 06/06/23 08:00 06/06/23 12:00 06/06/23 15:00 Temperature 98.3 F 99.9 F H Pulse Rate [Left D orsalis Pedis] 83 83 98 Pulse Rate [Right Pulse Oximeter] 106 H Respiratory Rate 20 20 18 Blood Pressure [Ri ght Arm] 122/69 143/73 H 114/79 Pulse Oximetry 95 96 91 Oxygen Delivery Me thod Room Air Room Air Room Air 06/06/23 16:08 Temperature 99.9 F H Pulse Rate [Left D orsalis Pedis] Pulse Rate [Right Pulse Oximeter] Respiratory Rate Blood Pressure [Ri ght Arm] Pulse Oximetry Oxygen Delivery Me thod Labs Labs: Laboratory Results - last 24 hr 06/06/23 06:55 WBC 8.18 RBC 3.41 L Hgb 10.0 L Hct 30.2 L MCV 89 MCH 29 MCHC 33 Plt Count 257 INR 1.36 H Total Bilirubin 3.5 H Direct Bilirubin 0.2 AST 22 ALT 15 Alkaline Phosphatase 70 Total Protein 6.4 Albumin 3.2 L
[2023-06-06] MEDS: cefTRIAXone 1 GM in 0.9 % SODIUM CHLORIDE Mini-bag 100 ML IVPB (16:46)
--- NOTE | 2023-06-06 19:20 | PC.NURSE ---
Left leg continues to be edematous and extensive bruising. Patient reports pain to left knee 5/10, pain is well managed with prn oxycodone. Denies any shortness of breath or cough. Suprapubic catheter patent, draining concentrated joseph urine. Lung sounds clear. Bowel sounds active x 4, denies any nausea or vomiting.
[2023-06-06] MEDS: ATORVASTATIN CALCIUM 40 MG TABLET PO (20:32)
[2023-06-07 03:00] VITALS: BP 110/69; PULSE 80; RESP 18; TEMP 37.7; O2SAT 95
[2023-06-07] MEDS: FUROSEMIDE 10 MG/ML inj 20 MG IVP (05:41)
[2023-06-07] MEDS: SODIUM CHLORIDE 0.9 % (FLUSH) 10 ML SYRINGE 5 ML IVF (05:44)
--- NOTE | 2023-06-07 06:12 | PC.NURSE ---
[id number] Pt slept well during night, did not require any pain medication. cyro cuff to L knee during shift, tolerated well. high temp 99.8.
[2023-06-07 07:00] VITALS: BP 124/78; PULSE 80; RESP 20; TEMP 37.4; O2SAT 95
[2023-06-07 07:09] LABS: Basophils Absolute Auto 0.04 K/uL (0.00-0.30); Basophils Percent Auto 0.4 % (0.0-3.0); Eosinophils Absolute Auto 0.37 K/uL (0.00-0.50); Hematocrit 31.1 % (37.0-53.0); Hemoglobin* 10.4 gm/dL (13.5-17.5); Immature Granulocytes Abs Auto 0.04 K/uL (0.00-0.30); Immature Granulocytes Pct Auto 0.4 %; Lymphocytes Percent Auto 8.6 % (20-44); Mean Corpuscular HGB Conc 33 gm/dL (32-36); Mean Corpuscular Hemoglobin 30 pg (26-34); Mean Corpuscular Volume 88 fL (80-100); Monocytes Percent Auto 11.9 % (0.0-11.0); Neutrophils Percent Auto 74.7 % (42.0-72.0); Platelet Count* 284 K/uL (140-440); RDW Coefficient of Variation % 13.7 % (11.5-15.5); Red Blood Count 3.52 m/uL (4.30-5.90); White Blood Count* 9.14 K/uL (4.50-11.00)
[2023-06-07 07:26] LABS: Albumin* 3.4 g/dL (3.3-5.0); Chloride* 99 mmol/L (96-114); Potassium* 3.7 mmol/L (3.6-5.1); Sodium* 135 mmol/L (135-149)
[2023-06-07 07:27] LABS: Slide Review Reflex No
[2023-06-07 07:28] LABS: Creatinine* 1.2 mg/dL (0.5-1.5); Est. Creatinine Clearance* 48.28; Estimated Glomerular Filt Rate 61 ml/min
[2023-06-07 07:29] LABS: Alanine Aminotransferase* 16 U/L (4-50); Alkaline Phosphatase* 77 U/L (40-150); Aspartate Amino Transferase* 22 U/L (12-35); Bilirubin Total* 2.2 mg/dL (0.1-1.5); Blood Urea Nitrogen* 31 mg/dL (7-30); Calcium* 8.4 mg/dL (8.4-10.6); Carbon Dioxide* 28 mmol/L (20-32); Glucose* 147 mg/dL (60-115); Total Protein* 6.8 g/dL (6.0-8.3)
--- NOTE | 2023-06-07 07:59 | P.DS_ITS ---
DS: Providers Provider Date Seen: 06/07/23 Date of admission: 06/05/23 00:48 Primary care physician: Marek Camacho MD Admitting Clinician: Celena Ken MD Consults: OT, PT, SW Attending Physician on discharge: Rina Hernandez MD Date of Discharge: 06/07/23 DS: Diagnosis Discharge Diagnosis (1) Inability to ambulate due to knee: Status: Acute Problem details: - patient has pain in left knee + hematoma, likely secondary to Eliquis dosing and inability to take oxycodone - after discussion with Ortho upon admission, decreased Eliquis back to 2.5 mg BID and trialed smaller doses of Oxycodone + APAP with good pain relief - no surgical needs identified by Orthopedic team - Blood cultures negative throughout stay - followed by therapies, appropriate for SNF discharge on 06/07 (2) Status post left knee replacement: Status: Acute Problem details: - 05/[address] Bustamante of Orthopedic surgery (3) CAD (coronary artery disease): Status: Acute Problem details: - s/p STEMI with RCA stenting 04/30 - quiescent (4) HTN (hypertension): Status: Acute (5) Atrial fibrillation, chronic: Status: Acute Problem details: - rate controlled, on Eliquis (6) Chronic anticoagulation: Status: Acute Problem details: - on Apixaban 2.5 mg bid - h/o bruising when on 5 mg bid (7) Indwelling urinary catheter present: Status: Acute Problem details: - suprapubic cath, changed monthly - + UTI during stay (8) Status post nephrectomy: Status: Acute Problem details: - 1950s (9) Elevated bilirubin: Status: Acute Problem details: - asymptomatic - CT obtained with below results, patient and son updated. They will f/u with PCP regarding findings IMPRESSION: 1. Cholelithiasis without CT evidence of cholecystitis. Normal diameter common duct. 2. Pancreatic atrophy with new multiple pancreatic lesions which measure water density consistent with pancreatic cystic lesions. Dedicated pancreatic protocol MRI suggested for further characterization. 3. Marked prostatic enlargement with new pelvic sidewall lymphadenopathy. Differential diagnosis includes reactive infectious/inflammatory lymph nodes and neoplastic etiologies. 4. Other incidental findings as noted above. (10) Urine culture positive: Status: Acute Problem details: - Morganella and Enterococcus on culture, discharged on Cipro DS: Summary Hospital Course Hospital Course: Mushtaq is a very pleasant 82-year-old male who presented to the hospital for left knee pain and edema, 1 week post left TKA. He was not tolerating oxycodone well, and was having quite a bit of hematoma around his incision. During stay, we reduced his Eliquis dose from 5 mg twice daily to 2.5 mg twice daily, and decreased his oxycodone dose, administering it with acetaminophen. These changes were helpful and patient continued to improve throughout stay. He was followed by therapies and SNF stay recommended. Mushtaq was noted to have a fever x1, blood cultures negative during stay with normal WBC. +Urine culture noted. VS otherwise stable. While in the hospital, he was found to have an elevated bilirubin and scleral icterus. CT of abdomen pelvis was obtained and did show pancreatic cysts and some inguinal lymphadenopathy. Patient and family aware of findings and he will follow-up with his PCP to discuss further workup, if within goals of care. Urine culture on admission positive for Morganella and Enterococcus (<100k CFUs, but high risk given chronic suprapubic catheter); discharged on Cipro. Patient medically appropriate for discharge to SNF on 06/07/23. Time Spent with Patient Time attestation: Total time spent providing and/or coordinating discharge services: Time spent: Greater than 30 minutes Specific discharge activities: Discharge education, followup planning, medication reconciliation Exam Narrative: Exam Narrative: GEN: Alert and sitting comfortably in bed, having breakfast HEENT: EOMIs bilaterally, scleral icterus has improved CV: RRR, No concerning murmurs, rubs, or gallops R: LCTA bilaterally without concerning wheezing, air movement adequate Ext: Bruising and edema of left lower extremity, improved from admission. No evidence of cellulitis or infection around incision Neuro: Nonfocal Psych: Appropriate Const: Vital Signs, click to edit/add: Vital Signs - 24 hr 06/06/23 08:00 06/06/23 12:00 06/06/23 15:00 Temperature 98.3 F 99.9 F H Pulse Rate [Left D orsalis Pedis] 83 83 98 Pulse Rate [Right Pulse Oximeter] 106 H Respiratory Rate 20 20 18 Blood Pressure [Ri ght Arm] 122/69 143/73 H 114/79 Pulse Oximetry 95 96 91 Oxygen Delivery Me thod Room Air Room Air Room Air 06/06/23 16:08 06/06/23 19:00 06/06/23 23:00 Temperature 99.9 F H 98.2 F 98.7 F Pulse Rate [Left D orsalis Pedis] Pulse Rate [Right Pulse Oximeter] 78 78 Respiratory Rate 18 18 Blood Pressure [Ri ght Arm] 118/107 H 105/56 L Pulse Oximetry 91 95 Oxygen Delivery Me thod Room Air Room Air 06/07/23 03:00 06/07/23 07:00 06/07/23 07:00 Temperature 99.8 F H 99.3 F Pulse Rate [Left D orsalis Pedis] 80 80 Pulse Rate [Right Pulse Oximeter] 80 80 Respiratory Rate 18 20 20 Blood Pressure [Ri ght Arm] 110/69 124/78 Pulse Oximetry 95 95 Oxygen Delivery Me thod Room Air Room Air DS: Data Data Completed and Pending Labs on day of discharge: Labs from last 24 hours 06/07/23 06/06/23 06:37 06:55 WBC 9.14 RBC 3.52 L Hgb 10.4 L Hct 31.1 L MCV 88 MCH 30 MCHC 33 RDW Coeff of David 13.7 Plt Count 284 Neut % (Auto) 74.7 H Lymph % (Auto) 8.6 L Trigg % (Auto) 11.9 H Eos % (Auto) 4.0 Baso % (Auto) 0.4 Neut # (Auto) 6.80 Lymph # (Auto) 0.80 L Trigg # (Auto) 1.10 H Eos # (Auto) 0.37 Baso # (Auto) 0.04 Abs Immat Gran (auto) 0.04 Imm/Tot Granulo (auto) 0.4 Sodium 135 Potassium 3.7 Chloride 99 Carbon Dioxide 28 BUN 31 H Creatinine 1.2 Estimated Creat Clear 48.28 Estimated GFR 61 Glucose 147 H Calcium 8.4 Total Bilirubin 2.2 H 3.5 H Direct Bilirubin 0.2 AST 22 22 ALT 16 15 Alkaline Phosphatase 77 70 Total Protein 6.8 6.4 Albumin 3.4 3.2 L Preliminary micro results at discharge 06/04/23 Unknown Urine Culture - Preliminary Urine Catheterized Gram negative jimmy Enterococcus faecalis 06/04/23 22:45 Blood Culture - Preliminary Blood NO GROWTH AFTER 48 HOURS 06/04/23 21:40 Blood Culture - Preliminary Blood NO GROWTH AFTER 48 HOURS Discharge Plan Discharge Disposition: Xfer SNF Date of Admission: 06/05/23 00:48 Attending Provider on Discharge: Rina Hernandez Primary Care Provider: Marek Camacho Condition: Stable Anticipated Discharge Date/Time: 06/07/23 07:42 Discharge Medications: New furosemide [Lasix] 20 mg tablet 20 mg PO BID Qty: 60 2RF Rx Instructions: tale at 8am, 2pm, please note dose increase oxycodone 5 mg tablet 2.5 - 5 mg PO Q6H PRN (Reason: pain) Qty: 20 0RF Rx Instructions: 1/2 (pain <5) - 1 (pain 5 or greater) tablet Q6H prn pain ciprofloxacin HCl [Cipro] 250 mg tablet 250 mg PO BID Qty: 12 0RF Continued nitroglycerin 0.4 mg tablet, sublingual 0.4 mg sublingual Q5M PRN (Reason: chest pain) Qty: 20 0RF lisinopril 20 mg tablet 20 mg PO BID Qty: 180 3RF apixaban 2.5 mg tablet 2.5 mg PO BID Qty: 180 3RF Hold Instructions: Resume on 06/27/23. After completing 1 month of 5 mg twice daily, then resume usual dose of 2.5 mg twice daily. atorvastatin 40 mg tablet 40 mg PO QDAY Qty: 90 3RF acetaminophen 500 mg capsule 500 - 1,000 mg PO Q6H MDD 4000mg PRNQty: 100 0RF sennosides-docusate sodium [Senna-S] 8.6-50 mg tablet 1 - 4 tab-cap PO BID PRN (Reason: constipation) Qty: 60 0RF Rx Instructions: Hold medication if experiencing loose stools. Held celecoxib 200 mg capsule 200 mg PO DAILY Qty: 90 3RF Hold Instructions: Resume on 06/26/23. hold until you see Dr. Camacho in followup aspirin 81 mg capsule 81 mg PO DAILY Hold Instructions: Resume on 06/26/23. restart 06/26 (holding for knee bruising) Discontinued furosemide 20 mg tablet 20 mg PO QAM Qty: 90 3RF amlodipine 5 mg tablet 5 mg PO QDAY Qty: 90 3RF oxycodone 5 mg tablet 2.5 - 5 mg PO Q4-6H MDD 6 PRN (Reason: pain) Qty: 42 0RF Rx Instructions: Take as needed for postop pain: 2.5mg mild pain, 5mg moderate-severe pain; wean as tolerated. apixaban 5 mg tablet 5 mg PO BID Qty: 60 2RF Rx Instructions: Will take for one month at this strength, DVT protection. Discharge Orders: Discharge Order (Routine); Ordered 06/07/23 Ordered By: Rina Hernandez Additional Instructions: For pain, try the 1/2 tab of Oxycodone with 1000mg of Tylenol. You will be taking a double dose of Lasix (20mg in the morning, 20mg in the early afternoon) until your swelling improves more. You are also on 6 more days of antibiotic for a urinary tract infection. Activity Level: No strenuous activity Activity Detail: per therapies Discharge Diet: Regular Follow Up Appointments: [facility] [Outside] (Patient being discharged to [facility] Marek Camacho MD [Primary Care Provider] - (see Dr. Camacho within 5-7 days of discharge from [address] [place] [address]) Discharge Comments: Has suprapubic catheter in place Wound Care: wrap LLE with MARGA wrap daily for edema Admit to: SNF Discharge Potential: Good Length of Stay: <30 days Can use facility standing orders?: Yes Code Status: Full Code Rehab Potential: Good Therapy: Physical Therapy and Occupational Therapy Therapy Orders: Total Knee Protocol Oxygen: No Urinary Catheter: Yes Glucose Checks: n/a Lab Orders: BMP and CBC 06/12 Orders are good >30 days: Yes Signature: Rina Hernandez MD
[2023-06-07] MEDS: lisinopriL 20 MG TABLET PO (08:14)
[2023-06-07] MEDS: OXYCODONE 5 MG TABLET PO (08:14)
[2023-06-07] MEDS: APIXABAN 5 MG TABLET 2.5 MG PO (08:15)
== END 2023-06-07 10:36 ==
LOC: ED 06-05 00:17 → MEDSURG 06-05 04:32
PROVIDERS: Hospitalist; Admitting Provider Family Medicine; Emergency Provider Student in an Organized Health Care Education/Training Program; PCP Family Medicine; Visit Provider Family Medicine
DX: G89.18 Other acute postprocedural pain (principal); M25.462 Effusion, left knee; T84.84XA Pain due to internal orthopedic prosthetic devices, implants and grafts, initial encounter; Z96.652 Presence of left artificial knee joint; I25.10 Atherosclerotic heart disease of native coronary artery without angina pectoris; I11.9 Hypertensive heart disease without heart failure; I25.2 Old myocardial infarction; Z95.5 Presence of coronary angioplasty implant and graft; I48.20 Chronic atrial fibrillation, unspecified; Z79.02 Long term (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 of antithrombotics/antiplatelets; R33.9 Retention of urine, unspecified; Z46.6 Encounter for fitting and adjustment of urinary device; R73.03 Prediabetes; Z90.5 Acquired absence of kidney; R82.79 Other abnormal findings on microbiological examination of urine; R50.9 Fever, unspecified; L40.9 Psoriasis, unspecified; R79.89 Other specified abnormal findings of blood chemistry; K80.80 Other cholelithiasis without obstruction; K86.89 Other specified diseases of pancreas; N40.0 Benign prostatic hyperplasia without lower urinary tract symptoms; R59.0 Localized enlarged lymph nodes
CPT/HCPCS: 36415; 70450; 71046; 73564; 73721; 74177; 80053; 80076; 81001; 83605; 83880; 84484; 85018; 85025; 85027; 85610; 85651; 85730; 86140; 87040; 87086; 87186; 87631; 93005; 93971; 96361; 96365; 96375; 96376; 97110; 97116; 97140; 97162; 97165; 97530; 97535; 99283; 99285; A9270; G0378; J0696; J1644; J1885; J1940; J2270; J7120; Q9967

== ENCOUNTER 2023-08-21 10:30 | Outpatient (RCR) | payer MEDICARE, BC, SELFPAY ==
--- NOTE | 2023-05-23 15:10 | PT.OPEX ---
PT [facility] Eval PT [facility] Out[facility] Eval Start: 05/22/23 09:58 Freq: Status: Active Protocol: Document 05/22/23 16:13 KLV (Rec: 05/22/23 16:31 KLV [id number]) E-signed By María Enriquez, PT Physical Therapy Outpatient Evaluation Insurance Information Recert Due Date 08/16/23 Insurance Name Medicare B,Blue [employer] Medical Diagnosis Osteoarthritis of left knee Pre-op L TKA Treating Diagnosis Left knee pain, limited knee ROM, gross LE weakness, antalgic gait Referring MD Bustamante Subjective Subjective [place] reports to PT with primary complaint of progressive left knee pain. He had a knee scope PLM done by Dr. Chatman 12/30/1997. He has been using 4WW and FWW for the past year and a half and most recent x-rays indicate severe OA. Current condition is limiting his ability to walk household and community distances. He currently drives short distances. Lives in a multilevel home with ramp to enter however everything is on main level. He sleeps in a lift chair. He currently dresses himself. also uses a 4WW. She does all of the cooking, cleaning and laundry. Patient has 2 sons that live within a mile from his home. Son plans to drive him home following surgery. He is planning on having home health PT/OT/nursing services. PMH: A-fib, heart attack, indwelling catheter Pain Comments 05/22 Date of Last Physician Visit 05/03/23 Date of Surgery (If applicable) 05/29/23 Current Work Status Retired Precautions Treatment Precautions/Contraindications A-fib, heart attack, indwelling catheter Weight Bearing Status Weight Bear as Tolerated Therapy Limitations/Systems Review Not Limited Objective Other/Pertinent Objective Knee ROM: -R 0-10-110 -L 0-12-103 TTP lateral and posterior aspect of knee SLR: able to perform x10 with ~20 deg extension lag Gait: flexed hip posturing, limited stance time R, bowing of R LE Assessment Assessment/Impression [place] is an 82 year old male presenting to PT for preparation of upcoming L TKA DOS 05/02/23 d/t end stage OA complicated by previous knee surgery, A-fib, heart attack. Session focused on education of post-operative fall prevention precautions, transfers, gait with AD, post- operative exercises. He is able to verbalize precautions and demonstrated independence with exercises and gait. He is appropriate to proceed with surgery at this time. Patient plans to follow up with home health following surgery. Primary Functional Limitations Walking, standing, transfers Plan of Care Physical Therapy Goals By end of session today, patient will... Demonstrate appropriate gait pattern with FWW to utilize post surgery for optimal safety when ambulating Verbalize understanding of most appropriate home set up including needed equipment for optimal safety and recovery post surgery Be independent in HEP program to show ability to perform appropriate exercises post surgery Treatment Plan/Direct Interventions Gait Training,Ice/Cold/ Vasopneumatic,Joint Mobilization,Manual Therapy, Neuromuscular Re-ed,Self-Care/ Home Management,Therapeutic Activities,Therapeutic Exercises Patient Will Be Discharged From Therapy Completion of LTG(s), Independent w/HEP, Independently Progressing Evaluation Billing Untimed Code Treatment Minutes 25 Complexity Moderate Certification Information Initial Certification Date 05/22/23 Ending Certification Date 08/16/23 Provider Signature Shows Agreement With POC & Medical Necessity Physician Signature & Date Requested Please Sign/Date Here Physician Comment/Change : Physician NPI Number #
--- NOTE | 2023-08-21 15:34 | PT.OPDNX ---
PT [facility] RECERTIFICATION/PROGRESS NOT PT [facility] Outpatient Daily Note Start: 05/22/23 09:58 Freq: Status: Active Protocol: Document 08/21/23 10:30 ELIAS (Rec: 08/21/23 15:32 ELIAS [id number]) E-signed By Matilde Buckner, PT PT OP Daily Progress Note Visit Information Note Type Recert/Progress Note Visit Number [id number] Insurance Information Recert Due Date 08/16/23 Insurance Name Medicare B,Blue Cross/Blue Shield Medical Diagnosis Osteoarthritis of left knee Pre-op L TKA Treating Diagnosis Left knee pain, limited knee ROM, gross LE weakness, antalgic gait Referring MD Bustamante Subjective Subjective PATIENT RETURNS TODAY REPORTING, I'VE BEEN WORKING A LOT SINCE I WAS HERE LAST. WE HAD FAMILY IN TOWN AND WE HAD TO CLEAN UP BEFORE THEY ARRIVED. I DID PRETTY GOOD. Preferred Name CHARISSA Precautions Treatment Precautions/Contraindications ANTI COAGULATION PRECAUTION FALL PRECAUTIONS PERMANENT INDWELLING CATHETER D/T NEPHRECTOMY (1950) Weight Bearing Status Weight Bear as Tolerated Home Exercise Home Exercise Comments 07/11/23: REVIEWED HEP AND STRESSED QUALITY OVER QUANTITY . Objective Other/Pertinent Objective GAIT/FUNCTIONAL MOBILITY Single leg stance: UNABLE R/L Squat: LIMITED Knee AROM: -R 0-10-110 -L 0-12-103; 07/11/23 0-18-112; SUPINE HIP ROM: LIMITED D/T STIFFNESS R/L AND LUMBAR L KNEE/HIP MMT: KNEE EXT: 4- KNEE FLEX:4 HIP FLEX: 3+ HIP ABD: 3 HIP EXT: 3 HIP ADD 3+ POSTURE: SEVERE FWD TRUNK POSTURING WITH ILL-FITTED FWW. Functional Test Performed & Score TUSEC W/FWW; WITH SPC TRIAL #1 27 SEC, #2 30 SEC, #3 27 SEC (AGE NORM 19.9 +/- 6 SEC) 5 STS IN 54 SEC (AGE NORM IS 16 SEC) TINETTI: 05/10 Patient Instructed in Risks/Benefits Yes Therapeutic Exercise Therapeutic Exercise Minutes (minutes) 45 Therapeutic Exercise: To Restore NU STEP X 5 MIN LEVEL 3 Functional Status SEATED HR/TR X 1MIN SEATED KNEE EXT R/L X 1MIN SEATED MARCHING X 1MIN TRUNK EXT POSITION #2 55# X 15 STEP UP/DOWN R/L THEN L/R X 5 EA STDG CC LPD X 15 17.5 KG ( EMPHASIZE UPRIGHT POSTURING) STDG CC ROW X 15 17.5 # NOT TODAY: SEATED TB (RED) CHEST PRESS STS X 5 W/POSTERIOR EMPHASIS SIDE STEP DOWN AND BACK ALONG THE TABLE X 5 WITH FLIGHT AGENT Treatment Minutes Timed Code Treatment Minutes 45 Total Treatment Time 45 Billing Units Therapeutic Activity Units 3 Assessment/Impression Assessment/Impression PATIENT CARLOS TX GREAT TODAY WITH CONTINUED FOCUS ON ROM AND FUNCTIONAL BLE/CORE STRENGTH. WE ADDED STDG TB ROW AND EXT W/CHAIR DIRECTLY BEHIND FOR SAFETY AND RECOVERY BETWEEN EXERCISES. PROVIDED TACTILE AND VC FOR UPRIGHT POSTURING AND ADDED THESE TWO EXERCISES TO HIS HEP. PATIENT IS APPROPRIATE FOR CONTINUED SKILLED PHYSICAL THERAPY FOR FUNCTIONAL STRENGTHENING, BALANCE, AND ROM. Plan of Care Physical Therapy Goals IN 4 WEEKS: 1. PATIENT WILL DEMONSTRATE LEFT KNEE AROM 0-120 2. PATIENT WILL AMB SAFELY AND CONSISTENTLY FOR 5 MIN TO ALLOW FOR LIMITED COMMUNITY NAVIGATION 3. PATIENT WILL BE INDEPENDENT WITH ADL'S AND PARTICIPATE IN THE UPKEEP OF HIS HOME.' IN 6-8 WEEKS: 1. PATIENT WILL DEMONSTRATE IMPROVED BLE STRENGTH IN ORDER TO RETURN TO AMB WITH SPC. 2. PATIENT WILL BE INDEPENDENT WITH THE STEPS, CURBS, AND CHANGE IN TERRAIN W/IN HIS ENVIRONMENT. 3. PATIENT WILL BE ABLE PROGRESS AND MAINTAIN HIS HEP. Daily Plan of Care Continue per POC Recertification Information Initial Certification Date 05/22/23 Recertification Start Date 08/21/23 Recertification Due Date 11/18/23 Reasons to Continue Skilled Therapy PATIENT HAS PROGRESSED NICELY SINCE HIS FIRST VISIT POST OPERATIVE NOTING SIGNIFICANT IMPROVEMENT WITH HIS RISK FOR FALLS EVIDENCED BY AND IMPROVEMENT FROM 42 SEC WITH FWW TO 27 SEC W/SPC AND FROM UNABLE TO 5 STS IN 54 SEC. HE REMAINS A HIGH FALL RISK THE AGE NORMS FOR TUG IS 19 SEC AND FOR 5 STS IS 16 SEC. HE IS NOW ABLE TO AMB WITH SPC CONSISTENTLY AND SAFELY FROM USING FWW. HE WOULD BENEFIT FROM CONTINUED SKILLED PHYSICAL THERAPY TO FURTHER PROGRESS ROM FROM 0+7-105, GAIT SPEED AND TOLERANCE OVER A MULTIPLE SURFACES, AND OVERALL SAFE FUNCTIONAL MOBILITY. Rehabilitation Potential GOOD Continued Plan of Care and Interventions BLE/CORE STRENGTHENING LEFT ROM GT BALANCE TRAINING Provider Signature Shows Agreement With POC & Medical Necessity Physician Comment/Change Comment or Changes
== END 2023-11-09 13:39 | disposition home or self-care (01) ==
PROVIDERS: PCP Family Medicine; Visit Provider Orthopaedic Surgery Sports Medicine
DX: M17.12 Unilateral primary osteoarthritis, left knee (principal); Z96.652 Presence of left artificial knee joint; Z51.89 Encounter for other specified aftercare
CPT/HCPCS: 97140; 97162; 97164; 97530; 97535

== ENCOUNTER 2023-12-05 08:31 | Outpatient (CLI) | payer MEDICARE, BC, SELFPAY ==
--- OUTSIDE RECORDS SUMMARY | 2023-12-06 13:22 | XMS_ITS | Clinical Summary ---
Author Name Unknown Organization [facility] Address [place], [place] [address] Care Team Providers Care Wrapper Operator Name Role Phone Marek Camacho MD Primary Care Provider [phone] Allergies Active Allergy Reactions Criticality Noted Date Comments Amlodipine Edema 03/14/2007 Atenolol Bradycardia 03/14/2007 Medications Medication Sig Dispensed Refills Start Date End Date Status celecoxib (CELEBREX) 200 mg capsule Take 200 mg by mouth once daily with a meal. 0 Active aspirin chewable 81 mg chewable tabletIndications:C hest pain due to myocardial ischemia, unspecified ischemic chest pain type,ST elevation myocardial infarction involving right coronary artery (HC) Take 1 tablet by mouth or nasogastric tube once daily. 0 05/08/2018 Active nitroglycerin (NITROSTAT) 0.4 mg sublingual tabletIndications:S T elevation myocardial infarction involving right coronary artery (HC) Place 1 tablet under the tongue every 5 minutes if needed. 25 tablet 3 05/07/2018 Active WalkerIndications:W eakness of both legs Rolling Walker for home use. 1 Device 0 05/07/2018 Active lisinopril (PRINIVIL; ZESTRIL) 20 mg tabletIndications:H TN (hypertension) TAKE 1 TABLET BY MOUTH TWICE DAILY 180 tablet 2 08/13/2018 Active apixaban (Eliquis) 5 mg tablet Take 5 mg by mouth 2 times daily. 0 Active amLODIPine (NORVASC) 5 mg tablet Take 5 mg by mouth once daily. 0 02/28/2022 Active atorvastatin (LIPITOR) 40 mg tablet Take 40 mg by mouth at bedtime. 0 02/28/2022 Active furosemide (LASIX) 20 mg tablet TAKE 1 TABLET BY MOUTH EVERY MORNING FOR 2 TO 3 DAYS NEEDED FOR LEG SWELLING 0 12/28/2021 Active Non-Adherent Bandage 4 X 4 spgeIndications:Enc ounter for care or replacement of suprapubic tube (HC) Apply topically to affected area(s). 600 Each 1 06/08/2022 Active Active Problems Problem Noted Date Diagnosed Date Coronary artery disease invo lving [place] coronary artery of [place] heart without angina pectoris 05/29/2020 Atrial fibrillation 05/29/2020 STEMI (ST elevation myocardial infarction) 05/05 HTN (hypertension) 05/05/2018 Dyslipidemia 05/05/2018 STEMI (ST elevation myocardial infarction) 05/05 Cough 08/22/2007 Other psoriasis 08/22/2007 Unspecified essential hypertension 03/14/2007 Esophageal reflux 03/14/2007 Routine general medical exam ination at a health care facility 03/14/2007 Overview: Colonoscopy 06/2005 Recheck 5 yrs Gross hematuria Encounters Date Type Department Care Team Description 12/01/2023 10:30 AM TERRAZZO TILE SETTER Nurse/Clinic Staff Only [address] [phone] Nurse/Clinic Staff Only (Suprapubic catheter exchange) 12/01/2023 Travel 11/03/2023 10:30 AM TERRAZZO TILE SETTER Nurse/Clinic Staff Only [address] [phone] Nurse/Clinic Staff Only (Suprapubic catheter exchange) 11/03/2023 Travel 10/06/2023 10:00 AM TERRAZZO TILE SETTER Nurse/Clinic Staff Only [address] [phone] Nurse/Clinic Staff Only (Suprapubic Catheter change) 10/06/2023 Travel 09/08/2023 10:00 AM CDT Nurse/Clinic Staff Only [address] [phone] Nurse/Clinic Staff Only (SP catheter exchange) 09/08/2023 Travel from Last 3 Months Immunizations Name Administration Dates Next Due Influenza, IIV3 (Age >=3 years) 08/22/2007 Pneumococcal Poly,23-Valent (Pneumovax) 08/22/20 07 Td (Age >=7 Years) 05/13/1997 Td, Preservative Free (age >= 7 Years) 7 Tuberculin (PPD) 06/27/2007 Zoster (Zostavax-ZVL, live) 08/22/2007 Family History Medical History Relation Name Comments Stroke Father Genitourinary Disease Mother Renal Failure Relation Name Status Comments Father (Age 81) Mother Social History Tobacco Use Types Packs/Day Years Used Date Smoking Tobacco: Never Smokeless Tobacco: Never Tobacco Cessation:Counseling Given: Yes Alcohol Use Standard Drinks/Week Comments Yes 3.3 (1 standard drink = 0.6 oz p ure alcohol) occasional Social Connections Answer Date Recorded Frequency of Communication with Friends and Fami ly Not on file 11/13/2021 Alcohol Use Answer Date Recorded How often do you have a drink containing alcohol ? 1 03/09/2022 How many drinks containing a lcohol do you have on a typical day when you are drinking? 0 03/09/2022 How often do you have five or more drinks on one occasion? 0 03/09/2022 Financial Resource Strain Answer Date R ecorded Difficulty of Paying Living Expenses Not on file 11/13/2021 Difficulty of Paying Living Expenses Not on file 11/13/2021 Sex and Gender Information Value Date Recorded Sex Assigned at Not on file Gender Identity Not on file Sexual Orientation Not on file Obstetrics History Last Filed Vital Signs Vital Sign Reading Time Taken Comments Blood Pressure 130/80 07/27/2023 1:22 PM CDT Pulse 84 07/27/2023 1:22 PM CDT Temperature 37.1 ??C (98.8 ??F) 11/30/2022 1:51 PM CS T Respiratory Rate 16 11/30/2022 1:51 PM TERRAZZO TILE SETTER Oxygen Saturation 79% 11/30/2022 3:14 PM TERRAZZO TILE SETTER Inhaled Oxygen Concentration - - Weight 105.7 kg (233 lb) 11/30/2022 1:51 PM TERRAZZO TILE SETTER Height 177.8 cm (5' 10) 11/30/2022 1:51 PM TERRAZZO TILE SETTER Body Mass Index 33.43 11/30/2022 1:51 PM TERRAZZO TILE SETTER Plan of Treatment Upcoming Encounters Date Type Department Care Team (Late st Contact Info) Description 12/29/2023 10:30 AM TERRAZZO TILE SETTER Nurse/Clinic Staff Only [facility] [address] [place] [phone] 01/26/2024 9:00 AM CDT Appointment [facility] [address] [phone] Health Maintenance Due Date Last Done Comments Tdap 1951 Depression screening for age 12+ 1953 BMI (ht and wt on same day) for age 18+ 1959 Medicare Wellness for age 65+ 2006 Zoster (shingles) series for age 50+ (2 of 3) 10/17/2007 08/22/2007 Pneumococcal series for age 65+ (2 of 2 - PCV) 08/22/2008 08/22/2007 Tetanus booster 06/27/2017 06/27/2007, 05/13/1997 COVID-19 vaccine series ( season) 2023 12/28/2021, 02/20/2021, 01/02/2021 Influenza for age 65+ 07/14/2023 08/22/2007 Medical Devices Implanted Type Area Proof Technician Device Identifier Shelf Expiration Date Model / Serial / Lot Stent Contour [id number] - [id number] Implanted:Qty: 1 on 04/11/2014 at [facility] Right: [employer] [facility] [id number]# / / [id number] Stent Prcflx [id number] Hydpls - [id number] Implanted:Qty: 1 on 04/18/2014 at [facility] Right: [employer] [facility] [id number]# / / [id number] Advance Directives Latest Code Status on File Code Status Date Activated Date Inactivated Comments Full Code 05/05/2018 4:21 AM 05/07/2018 5:04 PM Code Status History Code Status Date Activated Date Inactivated Comments Full Code 05/05/2018 3:06 AM 05/05/2018 4:21 AM Care Teams Wrapper Operator Relationship Specialty Start Date End Date Marek Camacho MD PCP - General Family Practice 04/14/14
== END 2023-12-05 08:32 | disposition home or self-care (01) ==
LOC: NFLDREF 12-06 12:44
PROVIDERS: PCP Family Medicine; Referring Provider Family Medicine; Visit Provider Family Medicine
DX: I25.10 Atherosclerotic heart disease of native coronary artery without angina pectoris (principal); R73.03 Prediabetes; E78.5 Hyperlipidemia, unspecified; Z12.5 Encounter for screening for malignant neoplasm of prostate
CPT/HCPCS: 80053; 80061; G0103

== ENCOUNTER 2024-04-24 10:47 | Outpatient (CLI) | payer MEDICARE, BC, SELFPAY ==
--- OUTSIDE RECORDS SUMMARY | 2024-04-24 10:50 | XMS_ITS | Clinical Summary ---
Author Organization [facility] Address [place], [place] [address] Care Team Providers Care Tank Hoop Bender Name Role Phone Marek Camacho MD Primary Care Provider [phone] Allergies Active Allergy Reactions Criticality Noted Date Comments Amlodipine Edema 03/14/2007 Atenolol Bradycardia 03/14/2007 Medications Medication Sig Dispensed Refills Start Date End Date Status celecoxib (CELEBREX) 200 mg capsule Take 200 mg by mouth once daily with a meal. Active aspirin chewable 81 mg chewable tabletIndications:C [...] Rolling Walker for home use. 1 Device 05/07/2018 Active lisinopril (PRINIVIL; ZESTRIL) 20 mg tabletIndications:H TN (hypertension) TAKE 1 TABLET BY MOUTH TWICE DAILY 180 tablet 2 08/13/2018 Active amLODIPine (NORVASC) 5 mg tablet Take 5 mg by mouth once daily. 02/28/2022 Active atorvastatin (LIPITOR) 40 mg tablet Take 40 mg by mouth at bedtime. 02/28/2022 Active furosemide (LASIX) 20 mg tablet TAKE 1 TABLET BY MOUTH EVERY MORNING FOR 2 TO 3 DAYS NEEDED FOR LEG SWELLING 12/28/2021 Active Non-Adherent Bandage 4 X 4 spgeIndications:Enc ounter for care or replacement of suprapubic tube (HC) Apply topically to affected area(s). 600 Each 1 06/08/2022 Active Active Problems Problem Noted Date Diagnosed Date Renal cyst 02/17/2024 Neurogenic bladder 02/17/2024 Granulation tissue 02/17/2024 Coronary artery disease invo lving [place] coronary artery of [place] heart without angina pectoris 05/29/2020 Atrial fibrillation 05/29/2020 STEMI (ST elevation myocardial infarction) 05/05 HTN (hypertension) 05/05/2018 Dyslipidemia 05/05/2018 STEMI (ST elevation myocardial infarction) 05/05 Cough 08/22/2007 Other psoriasis 08/22/2007 Unspecified essential hypertension 03/14/2007 Esophageal reflux 03/14/2007 Routine general medical exam ination at a health care facility 03/14/2007 Overview: Colonoscopy 06/2005 Recheck 5 yrs Gross hematuria Encounters Date Type Department Care Team Description 04/19/2024 10:30 AM CDT Nurse/Clinic Staff Only [address] [phone] Nurse/Clinic Staff Only (Suprapubic catheter removal) 04/19/2024 Travel 03/22/2024 10:30 AM CDT Nurse/Clinic Staff Only [address] [address] Nurse/Clinic Staff Only (Cath Change ) 03/22/2024 Travel 02/19/2024 10:20 AM CDT Office Visit [address] [address] Josue Leach MD Consult (Cath change with skin problems ) 02/19/2024 Travel 01/26/2024 10:00 AM CDT Nurse/Clinic Staff Only [address] [phone] Nurse/Clinic Staff Only (Cath Change ) 01/26/2024 8:39 AM CDT - 01/26/2024 11:59 PM CDT Hospital Encounter [facility] [address] [place] [address] Chris Nj MD Neurogenic bladder 01/26/2024 Telephone [facility] [address] [facility] [address] Chris Nj MD Catheter Problem 01/26/2024 Travel from Last 3 Months Immunizations Name [...] Sign Reading Time Taken Comments Blood Pressure 144/82 02/19/2024 10:31 AM CDT Pulse 80 02/19/2024 10:31 AM CDT Temperature 37.1 ??C (98.8 ??F) 11/30/2022 1 :51 PM 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 MILL OPERATOR Respiratory Rate 16 11/30/2022 1:51 PM PULP MILL OPERATOR Oxygen Saturation 79% 11/30/2022 3:1 4 PM PULP MILL OPERATOR Inhaled Oxygen Concentration - - Weight 106.6 kg (235 lb) 02/19/2024 10: 31 AM CDT Patient reported Height 177.8 cm (5' 10) 11/30/2022 1:5 1 PM PULP MILL OPERATOR Body Mass Index 33.72 11/30/2022 1:51 PM PULP MILL OPERATOR Plan of Treatment Upcoming Encounters Date Type Department Care Team (Late st Contact Info) Description 05/17/2024 10:30 AM CDT Nurse/Clinic Staff Only [address] [phone] Health Maintenance Due Date Last Done Comments [...] 12/28/2021, 02/20/2021, 01/02/2021 Influenza for age 65+ 07/14/2024 08/22/2007 Medical Devices Implanted Type Area Teacher Education Director Device Identifier Shelf Expiration Date Model / Serial / Lot Stent Contour [id number] - [id number] Implanted:Qty: 1 on 04/11/2014 at [facility] Right: Ureter [facility] [place] [facility] [id number] / / [id number] Stent Prcflx [id number] Hydpls - [id number] Implanted:Qty: 1 on 04/18/2014 at [facility] Right: Ureter [facility] [place] [facility] [id number] / / [id number] Procedures Procedure Name Priority Date/Time Associated Diagnosis Comments US RENAL AND BLADDER COMPLETE Routine 01/26/2024 10:00 AM CDT Neurogenic bladder from Last 3 Months Results * US RENAL AND BLADDER COMPLETE (01/26/2024 10:00 AM CDT) Anatomical Region Laterality Modality Abdomen, AORTA, KIDNEYS Ultrasou nd 01/27/2024 5:54 PM CDT Impressions 01/27/2024 5:54 PM CDT 1.Right renal cyst right kidney is unremarkable. 2.5.3 x 3.3 centimeter hypoechoic lesion in the spleen could represent a cyst Dictated by Gely Larkin MD @ 01/27/2024 5:54:59 PM (Electronically Signed) Narrative 01/27/2024 5:54 PM CDT For Patients: ??As a result of the Cures Act, medical imaging exams and procedure reports are released immediately into your electronic medical record. ??You may view this report before your referring provider. ??If you have questions, please contact your health care provider. CLINICAL HISTORY: Neurogenic bladder TECHNIQUE: Bowie scale and color Doppler images were acquired of the kidneys and urinary bladder. FINDINGS: The right kidney measures 13.5 centimeters. The left kidney is surgically absent. There is no hydronephrosis. Right renal cyst measuring 3.3 centimeters. The right kidney suboptimally visualized. Incidentally seen is a 5.3 x 3.3 centimeter hypoechoic lesion in spleen incompletely assessed. Cholelithiasis also seen. Procedure Note Gely Larkin MD - 01/27/2024 For Patients: As a result of the Cures Act, medical imagingexams and procedure reports are released immediately into your electronicmedical record. You may view this report before your referring provider.If you have questions, please contact your health care provider. CLINICAL HISTORY: Neurogenic bladder TECHNIQUE: Bowie scale and color Doppler images were acquired of the kidneys andurinary bladder. FINDINGS: The right kidney measures 13.5 centimeters. The left kidney is surgicallyabsent. There is no hydronephrosis. Right renal cyst measuring 3.3centimeters. The right kidney suboptimally visualized. Incidentally seenis a 5.3 x 3.3 centimeter hypoechoic lesion in spleen incompletelyassessed. Cholelithiasis also seen. IMPRESSION: 1.Right renal cyst right kidney is unremarkable. 2.5.3 x 3.3 centimeter hypoechoic lesion in the spleen could represent acyst Dictated by Gely Larkin MD @ 01/27/2024 5:54:59 PM (Electronically Signed) Chris Nj MD from Last 3 Months Advance Directives * Full Code (Latest Code Status on File) Date Activated Date Inactivated Comments 05/05/2018 4:21 AM 05/07/2018 5:04 PM * Full Code Date Activated Date Inactivated Comments 05/05/2018 3:06 AM 05/05/2018 4:21 AM Care Teams Tank Hoop Bender Relationship Specialty Start Date End Date Marek Camacho MD PCP - General Family Practice 04/14/14
== END 2024-04-24 10:48 | disposition home or self-care (01) ==
LOC: NFLDREF 10:48
PROVIDERS: PCP Family Medicine; Visit Provider Family Medicine
DX: R07.9 Chest pain, unspecified (principal); R42 Dizziness and giddiness
CPT/HCPCS: 80048

== ENCOUNTER 2024-05-30 19:39 | Inpatient (IN) | payer MEDICARE, BC, SELFPAY ==
[2024-05-30 19:47] VITALS: BP 140/80; PULSE 83; RESP 20; TEMP 38.9; O2SAT 94; BMI 34.4
--- NOTE | 2024-05-30 19:56 | ED.GENADULT ---
HPI - General Adult General Date Seen: 05/30/24 Chief complaint: Weakness Stated complaint: Decreased mobility Time Seen by Provider: 05/30/24 19:48 History of Present Illness HPI narrative: 83-year-old gentleman with a past medical history of chronic AFib (on apixaban), coronary disease, chronic indwelling suprapubic catheter, BPH, elevated BMI, hypertension, and left total knee replacement done about 1 year ago here in [place] (Dr. Patrick 10, ortho). Presenting to the ER today from home with his for evaluation of weakness, body aches, fever. He has noted achiness initially in his left knee but now really in both of his legs that started 3 days ago on Monday and has been getting a little bit worse. It has been fluctuating. Although it started in his left knee, it is not actually hurting anymore in his left knee. He has also had fever and chills today. He has been very weak and having trouble walking around but has not fallen or injured himself. No other definite symptoms. No headache. No fever sore throat. No cough. No trouble breathing. No abdominal pain. He he has noted normal urine output through a suprapubic catheter. He has nurses that changes it once a month and was most recently changed on May 17. No other new rashes. Related Data Home Medications ?Medication ?Instructions ?Recorded ?Confirmed aspirin 81 mg capsule 81 mg PO DAILY 08/08/22 04/24/24 Previous Rx's ?Medication ?Instructions ?Recorded acetaminophen 650 mg 1,300 mg (2 x 650 mg) PO Q12H #120 07/20/23 tablet,extended release (Tylenol tabs Arthritis Pain) amlodipine 5 mg tablet 5 mg PO QDAY #90 tabs 12/11/23 apixaban 2.5 mg tablet 2.5 mg PO BID #180 tabs 12/11/23 atorvastatin 40 mg tablet 40 mg PO QDAY #90 tabs 12/11/23 furosemide 20 mg tablet (Lasix) 20 mg PO QDAY #90 tabs 12/11/23 lisinopril 20 mg tablet 20 mg PO BID #180 tabs 12/11/23 nitroglycerin 0.4 mg sublingual 0.4 mg sublingual Q5M PRN chest 12/11/23 tablet pain #20 tabs Allergies Allergy/AdvReac Type Severity Reaction Status Date / Time No Known Drug Allergies Allergy Verified 04/24/24 10:19 [facility] Medical History (Updated 05/31/24 @ 01:20 by Willi Carreon MD) Atrial fibrillation, chronic ?I48.20 - Chronic atrial fibrillation, unspecified (ICD-10) CAD (coronary artery disease) ?I25.10 - Atherosclerotic heart disease of [place] coronary artery without angina pectoris (ICD-10) Elevated bilirubin ?R17 - Unspecified jaundice (ICD-10) Inability to ambulate due to knee ?R26.2 - Difficulty in walking, not elsewhere classified (ICD-10) Status post nephrectomy ?Z90.5 - Acquired absence of kidney (ICD-10) Psoriasis ?L40.9 - Psoriasis, unspecified (ICD-10) Diverticulosis of colon ?K57.30 - Diverticulosis of large intestine without perforation or abscess without bleeding (ICD-10) Hydrocele in adult ?N43.3 - Hydrocele, unspecified (ICD-10) History of prediabetes ?Z87.898 - Personal history of other specified conditions (ICD-10) Tubular adenoma of colon ?D12.6 - Benign neoplasm of colon, unspecified (ICD-10) Tubulovillous adenoma of colon ?D12.6 - Benign neoplasm of colon, unspecified (ICD-10) Benign prostatic hyperplasia with lower urinary tract symptoms ?N40.1 - Benign prostatic hyperplasia with lower urinary tract symptoms (ICD-10) Urinary retention ?R33.9 - Retention of urine, unspecified (ICD-10) Adrianne infection ?B37.9 - Candidiasis, unspecified (ICD-10) Encounter for replacement of urinary catheter ?Z46.6 - Encounter for fitting and adjustment of urinary device (ICD-10) Chronic anticoagulation ?Z79.01 - correction (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 of anticoagulants (ICD-10) Obesity ?E66.9 - Obesity, unspecified (ICD-10) 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, unspecified ankle and foot (ICD-10) HTN (hypertension) ?I10 - Essential (primary) hypertension (ICD-10) Atrial fibrillation ?I48.91 - Unspecified atrial fibrillation (ICD-10) Heart attack (2018) ?I21.9 - Acute myocardial infarction, unspecified (ICD-10) Indwelling urinary catheter present (~2020) ?Z96.0 - Presence of urogenital implants (ICD-10) Surgical History (Reviewed 07/04/23 @ 10:13 by Maria L Stephenson ~ [facility], [facility]) 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) ?Z96.652 - Presence of left artificial knee joint (ICD-10) 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 - Acquired absence of kidney (ICD-10) S/P left knee arthroscopy (12/30/97) ?Z98.890 - Other specified postprocedural states (ICD-10) S/P appendectomy ?Z90.49 - Acquired absence of other specified parts of digestive tract (ICD-10) Family History Mother Diabetes High blood pressure Kidney failure Sister Diabetes Father Stroke Sister Breast cancer Pancreatic cancer Social History (Reviewed 08/15/23 @ 09:52 by Maria L Stephenson ~ [facility], [facility]) Narrative: Lives with , has 5 living adult children (one daughter from breast cancer). Retired [employer]. What is your current living situation?: I have a place to live at present, but am concerned about future Problems where you live: no known problems Problems where you live details: none In the past 12 months, utilities in danger of being shut off: no In past 12 months, lack of transportation kept you from medical appts, meetings, work, or getting things needed for daily living: yes In the past 12 mos, have been you worried that your food would run out before you had money to buy more?: never true In the past 12 mos, the food you bought just didn't last and you didn't have money to buy more?: never true Highest level of school completed/degree received: 12th grade, no diploma Smoking Status: Never smoker Do you use any of these nicotine containing products: None Second hand tobacco smoke exposure: No How often do you have a drink containing alcohol: monthly or less Alcohol type: beer Alcohol type details: 1 drink very rarely How often do you have six or more drinks on one occasion: Never AUDIT-C Alcohol total score: 1 Non-prescribed substance use: denies use Caffeine: Yes (rarely warm tea) How often does anyone, including family, friends and others, physically hurt you: never How often does anyone, including family, friends and others, insult or talk down to you: never How often does anyone, including family, friends and others, threaten you with harm: never How often does anyone, including family, friends and others, scream or curse at you: never Little interest or pleasure in doing things: not at all Feeling down, depressed, or hopeless: not at all Do you think of yourself as: straight/heterosexual Gender Identity: male Exam Narrative: Exam Narrative: Constitutional: Appears well-developed and well-nourished. Alert. Conversant. Non toxic. HENT: Head: Atraumatic. Nose: Nose normal. Mouth/Throat: Oral mucosa is clear and moist. no trismus. Pharynx normal. Tonsils symmetric. No tonsillar enlargement, erythema, or exudate. Eyes: Conjunctivae normal. EOM normal. Pupils equal, round, and reactive to light. No scleral icterus. Neck: Normal range of motion. Neck supple. No tracheal deviation present. Cardiovascular: Normal rate, regular rhythm. No gallop. No friction rub. No murmur heard. Symmetric radial artery pulses Pulmonary/Chest: Effort normal. No stridor. No respiratory distress. No wheezes. No rales. No rhonchi . No tenderness. Abdominal: Soft. Bowel sounds normal. No distension. No mass. No tenderness. No rebound. No guarding. Suprapubic catheter in place. Removed and replaced to obtain sterile urine sample. Musculoskeletal: RUE: Normal range of motion. No tenderness. No deformity LUE: Normal range of motion. No tenderness. No deformity RLE: Normal range of motion. No tenderness. No deformity. LLE: Normal range of motion. No edema. No tenderness. He has an anterior left knee incision from knee replacement last year. The left knee is swollen and I think there is an effusion there. He says he thinks it has always been like that. He is able to range from full extension to about 90? of flexion and says there is not too much pain. There is no redness of the skin of the knee. Although his body feels hot because of his fever (temp 102?) his left knee is not any hot or to palpation than the rest of his body. upon recheck at about midnight he does have signs of redness affecting the medial aspect of his knee which were not present initially no other new warmth. No increase in swelling. Still able to range his knee to about 90?. Lymph: No cervical adenopathy. Neurological: Alert and oriented to person, place, and time. Normal strength. CN II-VII intact. No sensory deficit. GCS eye subscore is 4. GCS verbal subscore is 5. GCS motor subscore is 6. Normal coordination Skin: Preston-colored macules consistent with psoriasis. Skin is warm and dry. No rash noted. No pallor. Normal capillary refill. Psychiatric: Normal mood. Normal affect. Const: Vital Signs, click to edit/add: Vital Signs - 24 hr 05/30/24 19:47 05/30/24 22:35 05/30/24 23:41 Temperature 102.1 F H 99.4 F 98.5 F Pulse Rate [Pulse Oximeter] 83 72 56 L Respiratory Rate 20 18 18 Blood Pressure [Ri ght Upper Arm] 140/80 H 140/90 H 123/72 Pulse Oximetry 94 94 92 Oxygen Delivery Me thod Room Air Room Air Room Air Course Course ED Course: Recheck-hemodynamically stable. Does have new signs of redness affecting mostly the medial and inferior quadrant of his left knee that were not present on my initial exam. Still has a palpable knee joint effusion. Temperature has come down while here in the ER. He remains somewhat weak and feels little clammy but has normal mental status and stable vital signs per Discussed with Orthopedics, on-call, CARROLL Foley. discussed that he does have a fever associated with weakness and will require hospitalization. Evaluation for potential sources of fever his so far unrevealing. With the left knee pain and effusion, concern is for possible septic joint. This is a prosthetic knee so attempts at arthrocentesis carry risk of iatrogenic infection. Orthopedics does want us to go ahead to attempt arthrocentesis here in the ER tonight to obtain fluid. They will consult tomorrow if we admit to the hospitalist service. I had a detailed discussion with the patient and his about my concern for knee joint infection/septic joint. We discussed that the only test that would be definitively diagnostic would be arthrocentesis with cell count and culture. We also discussed the risk of infection from the arthrocentesis procedure itself. They provided verbal consent, after considering the risks and benefits. Procedure: Left knee arthrocentesis Indication: Fever, left knee effusion, eval for septic joint Procedure: I did perform a bedside ultrasound to confirm that there is a joint effusion present. I did not use the ultrasound for active guidance during the procedure. We positioned the patient. We performed a sterile prep with Betadine, 3 swabs. Using sterile technique I did infiltrate 2.5 mL of 1% lidocaine without epinephrine under the skin on the superior lateral aspect of the knee. Using a 18 gauge needle we attempted from the lateral approach using sterile technique. I was able to aspirate a total of 37 mL of opaque yellow fluid. Some of the fluid became blood tinged as we did further aspiration. Patient tolerated the procedure well. Sterile dressing was applied after the procedure. He did have a small amount of bleeding from the needle puncture site because he is on Eliquis, easily controlled with direct pressure.. Vital Signs Vital signs: Initial Vital Signs Temperature 102.1 F H 05/30/24 19:47 Temperature Source Temporal Artery Scan 05/30/24 19:47 Pulse Rate 83 05/30/24 19:47 Respiratory Rate 20 05/30/24 19:47 Blood Pressure 140/80 H 05/30/24 19:47 Blood Pressure Mean 100 05/30/24 19:47 Blood Pressure Position Sitting 05/30/24 19:47 Pulse Oximetry 94 05/30/24 19:47 Oxygen Delivery Method Room Air 05/30/24 19:47 Vital Signs Temperature 102.1 F H 05/30/24 19:47 Pulse Rate 83 05/30/24 19:47 Respiratory Rate 20 05/30/24 19:47 Blood Pressure 140/80 H 05/30/24 19:47 Pulse Oximetry 94 05/30/24 19:47 Oxygen Delivery Method Room Air 05/30/24 19:47 Temperature 98.5 F 05/30/24 23:41 Pulse Rate 56 L 05/30/24 23:41 Respiratory Rate 18 05/30/24 23:41 Blood Pressure 123/72 05/30/24 23:41 Pulse Oximetry 92 05/30/24 23:41 Oxygen Delivery Method Room Air 05/30/24 23:41 Medications Administered Medications: Generic Name Dose Route Start Last Admin Trade Name Freq PRN Reason Stop Dose Admin Cefazolin Sodium 1 gm 05/31/24 01:04 05/31/24 01:13 Cefazolin 1 Gm Inj IVP 05/31/24 01:05 1 gm ONCE ONE Administration Discontinued Medications Generic Name Dose Route Start Last Admin Trade Name Marlene PRN Reason Stop Dose Admin Sodium Chloride 1,000 mls @ 1,000 mls/hr 05/30/24 20:45 05/30/24 22:52 0.9 % Sodium Chloride 1000 Ml IV 05/30/24 21:44 Infused .Q1H LINDEN Infusion Medical Decision Making [facility] Narrative Medical decision making narrative: Child presents for evaluation of fever, myalgias, body aches, generalized weakness.. Differential is broad. No classic rash to suggest viral syndrome. No evidence for OM on exam. No pharyngitis. Chest x-ray is clear. COVID/influenza/RSV swab negative. He does have a chronic indwelling suprapubic catheter. We changed his catheter using sterile technique and obtain urine from the new, clean catheter. Urinalysis is normal. Abdominal exam is benign, appendicitis/colitis/ intra-abdominal source for fever is unlikely. No headache. The patient is smiling, alert, sitting up, and non-toxic, so I do not think meningitis is present. UA is normal, and urine Cx is pending in the lab. He does have a previous left knee joint replacement and did develop an effusion a few days ago which is apparently new. (Initially history was a bit clear unclear about the duration of the effusion, but ultimately he says it probably started on Monday or Monday). Without any other clear source for infection, we have to consider septic joint. After discussion of Orthopedics, and obtaining consent from the patient, we performed arthrocentesis of the left knee here. He does have some redness on the inferior medial aspect of the knee but no redness on the lateral aspect raise concern for an overlying cellulitis. We did obtain cloudy straw-colored yellow fluid. This is been sent for cell count, Gram stain, culture. Will start the patient on empiric Ancef for possible septic joint. He will be admitted to the hospitalist service, excepted by Dr. Leigh. Orthopedics will consult in the morning. Differential would also include possible cellulitis of the skin overlying the knee on the inferior/medial quadrant, as he did develop some redness in that area while he was here in the ER. At this point he is hemodynamically stable. White count is normal. Lactic acid is normal. No evidence for septic shock. Lab Data Labs: Lab Results 05/30/24 05/30/24 05/30/24 Range/Units 20:10 20:40 20:41 WBC 8.21 (4.50-11.00) K/uL RBC 4.11 L (4.30-5.90) m/uL Hgb 12.5 L (13.5-17.5) gm/dL Hct 38.2 (37.0-53.0) % MCV 93 (80-100) fL MCH 30 (26-34) pg MCHC 33 (32-36) gm/dL RDW Coeff of David 13.1 (11.5-15.5) % Plt Count 219 (140-440) K/uL Neut % (Auto) 77.7 H (42.0-72.0) % Lymph % (Auto) 7.7 L (20-44) % [place] % (Auto) 11.7 H (0.0-11.0) % Eos % (Auto) 2.3 (0.0-7.0) % Baso % (Auto) 0.4 (0.0-3.0) % Neut # (Auto) 6.40 (1.7-7.0) K/uL Lymph # (Auto) 0.60 L (0.90-2.90) K/uL [place] # (Auto) 1.00 H (0.00-0.90) K/UL Eos # (Auto) 0.19 (0.00-0.50) K/uL Baso # (Auto) 0.03 (0.00-0.30) K/uL Abs Immat Gran (auto) 0.02 (0.00-0.30) K/uL Imm/Tot Granulo (auto) 0.2 % Sodium 136 (135-149) mmol/L Potassium 4.2 (3.6-5.1) mmol/L Chloride 104 (96-114) mmol/L Carbon Dioxide 19 L (20-32) mmol/L Anion Gap 13 (7-15) mEq/L BUN 25 (7-30) mg/dL Creatinine 1.1 (0.5-1.5) mg/dL Estimated Creat Clear 53.46 Estimated GFR 67 ml/min Glucose 217 H (60-115) mg/dL Lactate 2.3 H (0.5-1.9) mmol/L Calcium 8.7 (8.4-10.6) mg/dL Troponin I 0.01 (0.01-0.04) ng/mL Urine Color Yellow (Yellow) Urine Appearance Slightly Cloudy A (Clear) Urine pH 5.5 (5.0-8.5) Ur Specific [place] 1.020 (1.000-1.030) Urine Protein 1+ A (Negative) Urine Glucose (UA) Negative (Negative) Urine Ketones Negative (Negative) Urine Blood Trace-lysed A (Negative) Urine Nitrite Negative (Negative) Urine Bilirubin Negative (Negative) Urine Urobilinogen 0.2 (0.2-1.0) Ur Leukocyte Esterase Trace A (Negative) Urine RBC 0-2 (0-2) Urine WBC 0-2 (0-5) Ur Squamous Epith Cells None (None-Few) Urine Bacteria Few A (None) SARS-CoV-2 (PCR) Negative SARS-CoV-2 (Negative) Influenza Type A (PCR) Negative PCR FLU A (Negative) Influenza Type B (PCR) Negative PCR FLU B (Negative) RSV (PCR) Negative PCR RSV (Negative) Imaging Data Chest x-ray: Attestation: I have reviewed the pertinent imaging results. Radiologist's impression: IMPRESSION: No acute or significant findings. ECG Data Attestation: I personally reviewed and interpreted this ECG as follows: Interpretation: Will be okay atrial fibrillation Rate: 75 MA: na QRS axis: Low voltage QRS. Normal axis. No pathologic Q-waves. ST segment/T wave: No ST segment elevation. Nonspecific T-wave flattening in V6. QTc: 433 Discharge Plan Discharge Clinical Impression: Fever, Effusion of knee joint, left, Weakness Prescriptions: No Action acetaminophen [Tylenol Arthritis Pain] 650 mg tablet extended release 1,300 mg PO Q12H Qty: 120 5RF atorvastatin 40 mg tablet 40 mg PO QDAY Qty: 90 3RF lisinopril 20 mg tablet 20 mg PO BID Qty: 180 3RF nitroglycerin 0.4 mg tablet, sublingual 0.4 mg sublingual Q5M PRN (Reason: chest pain) Qty: 20 0RF amlodipine 5 mg tablet 5 mg PO QDAY Qty: 90 3RF apixaban 2.5 mg tablet 2.5 mg PO BID Qty: 180 3RF Hold Instructions: Resume on 06/27/23. After completing 1 month of 5 mg twice daily, then resume usual dose of 2.5 mg twice daily. furosemide [Lasix] 20 mg tablet 20 mg PO QDAY Qty: 90 3RF aspirin 81 mg capsule 81 mg PO DAILY Hold Instructions: Resume on 06/26/23. restart 06/26 (holding for knee bruising) Follow Up/Referrals: Marek Camacho MD [Primary Care Provider] -
--- NOTE | 2024-05-30 20:20 | PC.NURSE ---
Changed out Pt's suprapubic catheter. Pt. tolerated well, urine sent to lab.
--- NOTE | 2024-05-30 20:37 | CRLHL7_ITS ---
For Patients: As a result of the Cures Act, medical imaging exams and procedure reports are released immediately into your electronic medical record. You may view this report before your referring provider. If you have questions, please contact your health care provider. INDICATION: Chest pain. TECHNIQUE: Chest 2 views. COMPARISON: None. FINDINGS: Cardiovascular and mediastinum: Cardiomediastinal silhouette is enlarged calcific atherosclerosis of the aorta. Lungs and pleural spaces: Slightly low lung volumes. Otherwise lungs are clear. No sign of pleural effusion. No pneumothorax. Bones and soft tissues: No significant findings. IMPRESSION: No acute or significant findings. Dictated by Haydee White MD @ 05/30/2024 10:43:55 PM (Electronically Signed)
[2024-05-30] MEDS: 0.9 % SODIUM CHLORIDE 1000 ml 1,000 ML IV (20:45)
--- OUTSIDE RECORDS SUMMARY | 2024-05-30 20:51 | XMS_ITS | Clinical Summary ---
Author Organization [address] [facility] Address [place], [place] [address] Care Team Providers Care Technical Instructor Course Developer Name Role Phone Marek Camacho MD Primary Care Provider [phone] Allergies Active Allergy Reactions Criticality Noted Date [...] tissue 02/17/2024 Coronary artery disease invo lving [place] coronary artery of [place] heart without angina pectoris 05/29/2020 Atrial fibrillation 05/29/2020 STEMI (ST elevation myocardial infarction) 05/05 HTN (hypertension) 05/05/2018 Dyslipidemia 05/05/2018 STEMI (ST elevation myocardial infarction) 05/05 Cough 08/22/2007 Other psoriasis 08/22/2007 Unspecified essential hypertension 03/14/2007 Esophageal reflux 03/14/2007 Routine general medical exam ination at a health care facility 03/14/2007 Overview: Colonoscopy 06/2005 Recheck 5 yrs Gross hematuria Encounters Date Type Department Care Team Description 05/17/2024 10:30 AM CDT Nurse/Clinic Staff Only [address] [phone] Nurse/Clinic Staff Only (Cath Change) 05/17/2024 Travel 04/19/2024 10:30 AM CDT Nurse/Clinic Staff Only [address] [phone] Nurse/Clinic Staff Only (Suprapubic catheter removal) 04/19/2024 Travel 03/22/2024 10:30 AM CDT Nurse/Clinic Staff Only [address] [phone] Nurse/Clinic Staff Only (Cath Change ) 03/22/2024 Travel from Last 3 Months Immunizations Name [...] ??C (98.8 ??F) 11/30/2022 1 :51 PM 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 SYSTEM 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 Respiratory Rate 16 11/30/2022 1:51 PM 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 SYSTEM OPERATOR Oxygen Saturation 79% 11/30/2022 3:1 4 PM 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 SYSTEM OPERATOR Inhaled Oxygen Concentration - - Weight 106.6 kg (235 lb) 02/19/2024 10: 31 AM CDT Patient reported Height 177.8 cm (5' 10) 11/30/2022 1:5 1 PM 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 SYSTEM OPERATOR Body Mass Index 33.72 11/30/2022 1:51 PM 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 SYSTEM OPERATOR Plan of Treatment Upcoming Encounters Date Type Department Care Team (Late st Contact Info) Description 06/14/2024 10:30 AM CDT Nurse/Clinic Staff Only [address] [phone] Health Maintenance Due Date Last [...] booster 06/27/2017 06/27/2007, 05/13/1997 COVID-19 vaccine series (2022- season) 2023 12/28/2021, 02/20/2021, 01/02/2021 Influenza for age 65+ 07/14/2024 08/22/2007 Medical Devices Implanted Type Area Transformer Tester Device Identifier Shelf Expiration Date Model / Serial / Lot Stent Contour [id number] - [id number] Implanted:Qty: 1 on 04/11/2014 at [facility] Right: [employer] [facility] [id number] / / [id number] Stent Prcflx [id number] Hydpls - [id number] Implanted:Qty: 1 on 04/18/2014 at [facility] Right: [employer] [facility] [id number]# / / [id number] Advance Directives * Full Code (Latest Code Status on File) Date Activated Date Inactivated Comments 05/05/2018 4:21 AM 05/07/2018 5:04 PM * Full Code Date Activated Date Inactivated Comments 05/05/2018 3:06 AM 05/05/2018 4:21 AM Care Teams Technical Instructor Course Developer Relationship Specialty Start Date End Date Marek Camacho MD PCP - General Family Practice 04/14/14
[2024-05-30 21:38] LABS: Basophils Absolute Auto 0.03 K/uL (0.00-0.30); Basophils Percent Auto 0.4 % (0.0-3.0); Eosinophils Absolute Auto 0.19 K/uL (0.00-0.50); Eosinophils Percent Auto 2.3 % (0.0-7.0); Hematocrit 38.2 % (37.0-53.0); Hemoglobin* 12.5 gm/dL (13.5-17.5); Immature Granulocytes Abs Auto 0.02 K/uL (0.00-0.30); Immature Granulocytes Pct Auto 0.2 %; Lymphocytes Percent Auto 7.7 % (20-44); Mean Corpuscular HGB Conc 33 gm/dL (32-36); Mean Corpuscular Hemoglobin 30 pg (26-34); Mean Corpuscular Volume 93 fL (80-100); Monocytes Percent Auto 11.7 % (0.0-11.0); Neutrophils Percent Auto 77.7 % (42.0-72.0); Platelet Count* 219 K/uL (140-440); RDW Coefficient of Variation % 13.1 % (11.5-15.5); Red Blood Count 4.11 m/uL (4.30-5.90); White Blood Count* 8.21 K/uL (4.50-11.00)
[2024-05-30 21:42] LABS: PCR FLU A Negative PCR FLU A (Negative); PCR FLU B Negative PCR FLU B (Negative); PCR RSV Negative PCR RSV (Negative); SARS PCR* Negative SARS-CoV-2 (Negative)
[2024-05-30 21:50] LABS: Chloride* 104 mmol/L (96-114); Potassium* 4.2 mmol/L (3.6-5.1); Sodium* 136 mmol/L (135-149)
[2024-05-30 21:53] LABS: Appearance Urine Slightly Cloudy (Clear); Bilirubin Urine Negative (Negative); Blood Urine Trace-lysed (Negative); Glucose Urine Negative (Negative); Ketones Urine Negative (Negative); Leukocyte Esterase Urine Trace (Negative); Nitrite Urine Negative (Negative); Protein Urine 1+ (Negative); Urobilinogen Urine 0.2 (0.2-1.0); pH Urine 5.5 (5.0-8.5)
[2024-05-30 21:53] LABS: Anion Gap 13 mEq/L (7-15); Carbon Dioxide* 19 mmol/L (20-32); Creatinine* 1.1 mg/dL (0.5-1.5); Est. Creatinine Clearance* 53.46; Estimated Glomerular Filt Rate 67 ml/min; Slide Review Reflex No
[2024-05-30 21:54] LABS: Color Urine Yellow (Yellow)
[2024-05-30 21:54] LABS: Blood Urea Nitrogen* 25 mg/dL (7-30); Calcium* 8.7 mg/dL (8.4-10.6); Glucose* 217 mg/dL (60-115)
[2024-05-30 22:02] LABS: Bacteria Urine Few; RBC Urine 0-2 (0-2); WBC Urine 0-2 (0-5)
[2024-05-30 22:06] LABS: Troponin I* 0.01 ng/mL (0.01-0.04)
[2024-05-30 22:35] VITALS: BP 140/90; PULSE 72; RESP 18; TEMP 37.4; O2SAT 94
[2024-05-30 22:40] LABS: Lactate* 2.3 mmol/L (0.5-1.9)
[2024-05-30 23:41] VITALS: BP 123/72; PULSE 56; RESP 18; TEMP 36.9; O2SAT 92
--- NOTE | 2024-05-30 23:45 | PC.NURSE ---
Pt resting, states he feels really warm right now and clammy. pt states he still feels weak and worried about going home and not having help to get around.
[2024-05-31] VITALS (26 sets, daily range): BP systolic 112–146; BP diastolic 70–98; PULSE 54–72; RESP 12–20; TEMP 36.2–37.7; O2SAT 87–98; BMI 34.3
[2024-05-31] MEDS: CEFAZOLIN 1 GM inj IVP (01:13)
[2024-05-31 01:23] LABS: Mononuclear WBC Body Fluid* 2 %; Polynuclear WBC Body Fluid* 98 %; RBC, Body Fluid* 17000 Cells/uL
[2024-05-31 01:26] LABS: BF Clarity* Cloudy; BF Color Xanthochromic; BF Total Volume* 18
--- NOTE | 2024-05-31 01:26 | PC.NURSE ---
Pt's IV antibiotic started. Pt changed into gown. Denies discomfort to left knee after fluid aspiration, sent to lab.
--- NOTE | 2024-05-31 01:55 | PC.NURSE ---
Pt resting, given juice and toast. Denies discomfort, states he is tired. home for the night.
--- NOTE | 2024-05-31 04:00 | W.THPRO_ITS ---
Telehealth Hospitalist-PN: Sub Subjective Time Seen by Provider: 03:46 Date Seen: 05/31/24 Exam Narrative Exam Narrative: Physical Exam GENERAL: ?vital signs reviewed, well developed and nourished, in no distress HEENT: pupils are equal round and reactive to light, extraocular movements are grossly within normal limits and oral mucosa is moist. NECK: Supple without lymphadenopathy or thyromegaly according to nursing staff examination observation HEART: Regular rate and rhythm without any rubs, murmurs, or gallops. LUNGS: Clear to auscultation bilaterally with good air movement throughout ABDOMEN: Observation from nurse assisted exam, abdomen appears soft, nontender, and nondistended with Positive bowel sounds noted. EXTREMITIES: Strength and sensation is observed to be grossly within normal limits in the upper and lower extremities.? No focal strength deficit is observed. SKIN:? Observed warm and dry with color normal Const Vital Signs, click to edit/add: Vital Signs - 24 hr 05/30/24 19:47 05/30/24 22:35 05/30/24 23:41 Temperature 102.1 F H 99.4 F 98.5 F Pulse Rate [Pulse Oximeter] 83 72 56 L Respiratory Rate 20 18 18 Blood Pressure [Right Arm] Blood Pressure [Right Upper Arm] 140/80 H 140/90 H 123/72 Pulse Oximetry 94 94 92 Oxygen Delivery Method Room Air Room Air Room Air 05/31/24 02:23 Temperature 98.8 F Pulse Rate [Pulse Oximeter] 72 Respiratory Rate 18 Blood Pressure [Right Arm] 134/86 Blood Pressure [Right Upper Arm] Pulse Oximetry 93 Oxygen Delivery Method Room Air Labs Labs: Laboratory Results - last 24 hr 05/30/24 05/30/24 05/30/24 20:10 20:40 20:41 WBC 8.21 RBC 4.11 L Hgb 12.5 L Hct 38.2 MCV 93 MCH 30 MCHC 33 RDW Coeff of David 13.1 Plt Count 219 Neut % (Auto) 77.7 H Lymph % (Auto) 7.7 L [place] % (Auto) 11.7 H Eos % (Auto) 2.3 Baso % (Auto) 0.4 Neut # (Auto) 6.40 Lymph # (Auto) 0.60 L [place] # (Auto) 1.00 H Eos # (Auto) 0.19 Baso # (Auto) 0.03 Abs Immat Gran (auto) 0.02 Imm/Tot Granulo (auto) 0.2 Sodium 136 Potassium 4.2 Chloride 104 Carbon Dioxide 19 L Anion Gap 13 BUN 25 Creatinine 1.1 Estimated Creat Clear 53.46 Estimated GFR 67 Glucose 217 H Lactate 2.3 H Calcium 8.7 Troponin I 0.01 Urine Color Yellow Urine Appearance Slightly Cloudy A Urine pH 5.5 Ur Specific [place] 1.020 Urine Protein 1+ A Urine Glucose (UA) Negative Urine Ketones Negative Urine Blood Trace-lysed A Urine Nitrite Negative Urine Bilirubin Negative Urine Urobilinogen 0.2 Ur Leukocyte Esterase Trace A Urine RBC 0-2 Urine WBC 0-2 Ur Squamous Epith Cells None Urine Bacteria Few A Fluid Volume Fluid Color Fluid Appearance Fluid WBC Fluid RBC Fluid Polynuclear WBCs Fluid Mononuclear WBCs SARS-CoV-2 (PCR) Negative SARS-CoV-2 Influenza Type A (PCR) Negative PCR FLU A Influenza Type B (PCR) Negative PCR FLU B RSV (PCR) Negative PCR RSV 05/31/24 01:00 WBC RBC Hgb Hct MCV MCH MCHC RDW Coeff of David Plt Count Neut % (Auto) Lymph % (Auto) [place] % (Auto) Eos % (Auto) Baso % (Auto) Neut # (Auto) Lymph # (Auto) [place] # (Auto) Eos # (Auto) Baso # (Auto) Abs Immat Gran (auto) Imm/Tot Granulo (auto) Sodium Potassium Chloride Carbon Dioxide Anion Gap BUN Creatinine Estimated Creat Clear Estimated GFR Glucose Lactate Calcium Troponin I Urine Color Urine Appearance Urine pH Ur Specific [place] Urine Protein Urine Glucose (UA) Urine Ketones Urine Blood Urine Nitrite Urine Bilirubin Urine Urobilinogen Ur Leukocyte Esterase Urine RBC Urine WBC Ur Squamous Epith Cells Urine Bacteria Fluid Volume 18 Fluid Color Xanthochromic A Fluid Appearance Cloudy A Fluid WBC 65058 Fluid RBC 98143 Fluid Polynuclear WBCs 98 Fluid Mononuclear WBCs 2 SARS-CoV-2 (PCR) Influenza Type A (PCR) Influenza Type B (PCR) RSV (PCR) Telehealth: Statement Statement Telehealth Visit: Today's History and Physical is provided via interactive telehealth by Akira Jones MD.? Patient is located at [facility].? Provider is located at [facility].? Nursing staff assisted with the patient's exam. The visit being done today meets criteria for a telehealth visit and the patient or patient?s parent/guardian is aware the visit is a telehealth visit.
--- NOTE | 2024-05-31 04:09 | W.PM.TELEH&P ---
Telehealth- H&P: HPI History of Present Illness Time Seen by Provider: 03:46 Date Seen: 05/31/24 Chief complaint: Decreased mobility Narrative: Washington Jernigan is seen as an Interactive Telehealth visit. Washington Jernigan is a 83 year oldWith history of stable atherosclerotic coronary artery disease status post stenting, atrial fibrillation on apixaban, essential hypertension, chronic suprapubic catheter for urinary retention who was in his normal state of health till 4 days ago when he started having pain and swelling of his left knee where he has had a prior total knee arthroplasty a year ago. Pain and swelling progressed and he started having some subjective chills and sweats. He presents to the emergency room where he had a swollen hot red knee which was an suggestive of an inflammatory arthritis. With his symptoms concern for septic arthritis was high. ER physician performed an arthrocentesis cultures and lab values are pending. He was started empirically on cephalexin Review of Systems Status of ROS: Reports: 10 or more systems reviewed and unremarkable except as noted in History and below PFSH [facility] Medical History Atrial fibrillation, chronic ?I48.20 - Chronic atrial fibrillation, unspecified (ICD-10) CAD (coronary artery disease) ?I25.10 - Atherosclerotic heart disease of ruby coronary artery without angina pectoris (ICD-10) Elevated bilirubin ?R17 - Unspecified jaundice (ICD-10) Inability to ambulate due to knee ?R26.2 - Difficulty in walking, not elsewhere classified (ICD-10) Status post nephrectomy ?Z90.5 - Acquired absence of kidney (ICD-10) Psoriasis ?L40.9 - Psoriasis, unspecified (ICD-10) Diverticulosis of colon ?K57.30 - Diverticulosis of large intestine without perforation or abscess without bleeding (ICD-10) Hydrocele in adult ?N43.3 - Hydrocele, unspecified (ICD-10) History of prediabetes ?Z87.898 - Personal history of other specified conditions (ICD-10) Tubular adenoma of colon ?D12.6 - Benign neoplasm of colon, unspecified (ICD-10) Tubulovillous adenoma of colon ?D12.6 - Benign neoplasm of colon, unspecified (ICD-10) Benign prostatic hyperplasia with lower urinary tract symptoms ?N40.1 - Benign prostatic hyperplasia with lower urinary tract symptoms (ICD-10) Urinary retention ?R33.9 - Retention of urine, unspecified (ICD-10) Adrianne infection ?B37.9 - Candidiasis, unspecified (ICD-10) Encounter for replacement of urinary catheter ?Z46.6 - Encounter for fitting and adjustment of urinary device (ICD-10) Chronic anticoagulation ?Z79.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 of anticoagulants (ICD-10) Obesity ?E66.9 - Obesity, unspecified (ICD-10) 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, unspecified ankle and foot (ICD-10) HTN (hypertension) ?I10 - Essential (primary) hypertension (ICD-10) Atrial fibrillation ?I48.91 - Unspecified atrial fibrillation (ICD-10) Heart attack (2018) ?I21.9 - Acute myocardial infarction, unspecified (ICD-10) Indwelling urinary catheter present (~2020) ?Z96.0 - Presence of urogenital implants (ICD-10) Surgical History (Reviewed 07/04/23 @ 10:13 by Maria L Stephenson ~ [facility], [facility]) 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) ?Z96.652 - Presence of left artificial knee joint (ICD-10) 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 - Acquired absence of kidney (ICD-10) S/P left knee arthroscopy (12/30/97) ?Z98.890 - Other specified postprocedural states (ICD-10) S/P appendectomy ?Z90.49 - Acquired absence of other specified parts of digestive tract (ICD-10) Family History Mother Diabetes High blood pressure Kidney failure Sister Diabetes Father Stroke Sister Breast cancer Pancreatic cancer Social History (Reviewed 08/15/23 @ 09:52 by Maria L Stephenson ~ [facility], [facility]) Narrative: Lives with , has 5 living adult children (one daughter from breast cancer). Retired [employer]. What is your current living situation?: I presently have a place to live Problems where you live: no known problems Problems where you live details: no known problems In the past 12 months, utilities in danger of being shut off: no In past 12 months, lack of transportation kept you from medical appts, meetings, work, or getting things needed for daily living: no In the past 12 mos, have been you worried that your food would run out before you had money to buy more?: never true In the past 12 mos, the food you bought just didn't last and you didn't have money to buy more?: never true Highest level of school completed/degree received: 12th grade, no diploma Smoking Status: Never smoker Do you use any of these nicotine containing products: None Second hand tobacco smoke exposure: No How often do you have a drink containing alcohol: monthly or less Alcohol type: beer How often do you have six or more drinks on one occasion: Never AUDIT-C Alcohol total score: 1 Non-prescribed substance use: denies use Caffeine: Yes (rarely warm tea) How often does anyone, including family, friends and others, physically hurt you: never How often does anyone, including family, friends and others, insult or talk down to you: never How often does anyone, including family, friends and others, threaten you with harm: never How often does anyone, including family, friends and others, scream or curse at you: never Little interest or pleasure in doing things: not at all Feeling down, depressed, or hopeless: not at all Do you think of yourself as: straight/heterosexual Gender Identity: male service: No Meds Home Medications and Allergies Home Medications ?Medication ?Instructions ?Recorded ?Confirmed ?Type aspirin 81 mg capsule 81 mg PO DAILY 08/08/22 04/24/24 History Home Medication Comments: INCOMPLETE. patient on apixaban 5mg bid acetaminophen ER (Tylenol Arthritis Pain) 1,300 mg (2 x 650 mg) PO Q12H apixaban (Eliquis) 5 mg PO .QD aspirin 81 mg PO DAILY atorvastatin 40 mg PO QDAY furosemide (Lasix) 20 mg PO QDAY lisinopril 20 mg PO BID nitroglycerin 0.4 mg sublingual Q5M PRN Allergies Allergy/AdvReac Type Severity Reaction Status Date / Time No Known Drug Allergies Allergy Verified 04/24/24 10:19 Exam Narrative Exam Narrative: Physical Exam GENERAL: ?vital signs reviewed, well developed and nourished, in no distress HEENT: pupils are equal round and reactive to light, extraocular movements are grossly within normal limits and oral mucosa is moist. NECK: Supple without lymphadenopathy or thyromegaly according to nursing staff examination observation HEART: irregulqr iregulular without any rubs, murmurs, or gallops. LUNGS: Clear to auscultation bilaterally with good air movement throughout ABDOMEN: Observation from nurse assisted exam, abdomen appears soft, nontender, and nondistended with Positive bowel sounds noted. Suprapubic catheter EXTREMITIES: L KNEE swollen, erythematous and sofia, mild 2+ edema SKIN:? Observed warm and dry with color normal Const Vital Signs, click to edit/add: Vital Signs - 24 hr 05/30/24 19:47 05/30/24 22:35 05/30/24 23:41 Temperature 102.1 F H 99.4 F 98.5 F Pulse Rate [Pulse Oximeter] 83 72 56 L Respiratory Rate 20 18 18 Blood Pressure [Right Arm] Blood Pressure [Right Upper Arm] 140/80 H 140/90 H 123/72 Pulse Oximetry 94 94 92 Oxygen Delivery Method Room Air Room Air Room Air 05/31/24 02:23 Temperature 98.8 F Pulse Rate [Pulse Oximeter] 72 Respiratory Rate 18 Blood Pressure [Right Arm] 134/86 Blood Pressure [Right Upper Arm] Pulse Oximetry 93 Oxygen Delivery Method Room Air Hospitalist - H&P: Result Labs Labs: Short CBC Laboratory Results - last 24 hr 05/30/24 05/30/24 05/30/24 20:10 20:40 20:41 WBC 8.21 RBC 4.11 L Hgb 12.5 L Hct 38.2 MCV 93 MCH 30 MCHC 33 RDW Coeff of David 13.1 Plt Count 219 Neut % (Auto) 77.7 H Lymph % (Auto) 7.7 L [place] % (Auto) 11.7 H Eos % (Auto) 2.3 Baso % (Auto) 0.4 Neut # (Auto) 6.40 Lymph # (Auto) 0.60 L [place] # (Auto) 1.00 H Eos # (Auto) 0.19 Baso # (Auto) 0.03 Abs Immat Gran (auto) 0.02 Imm/Tot Granulo (auto) 0.2 Sodium 136 Potassium 4.2 Chloride 104 Carbon Dioxide 19 L Anion Gap 13 BUN 25 Creatinine 1.1 Estimated Creat Clear 53.46 Estimated GFR 67 Glucose 217 H Lactate 2.3 H Calcium 8.7 Troponin I 0.01 Urine Color Yellow Urine Appearance Slightly Cloudy A Urine pH 5.5 Ur Specific [place] 1.020 Urine Protein 1+ A Urine Glucose (UA) Negative Urine Ketones Negative Urine Blood Trace-lysed A Urine Nitrite Negative Urine Bilirubin Negative Urine Urobilinogen 0.2 Ur Leukocyte Esterase Trace A Urine RBC 0-2 Urine WBC 0-2 Ur Squamous Epith Cells None Urine Bacteria Few A Fluid Volume Fluid Color Fluid Appearance Fluid WBC Fluid RBC Fluid Polynuclear WBCs Fluid Mononuclear WBCs SARS-CoV-2 (PCR) Negative SARS-CoV-2 Influenza Type A (PCR) Negative PCR FLU A Influenza Type B (PCR) Negative PCR FLU B RSV (PCR) Negative PCR RSV 05/31/24 01:00 WBC RBC Hgb Hct MCV MCH MCHC RDW Coeff of David Plt Count Neut % (Auto) Lymph % (Auto) [place] % (Auto) Eos % (Auto) Baso % (Auto) Neut # (Auto) Lymph # (Auto) [place] # (Auto) Eos # (Auto) Baso # (Auto) Abs Immat Gran (auto) Imm/Tot Granulo (auto) Sodium Potassium Chloride Carbon Dioxide Anion Gap BUN Creatinine Estimated Creat Clear Estimated GFR Glucose Lactate Calcium Troponin I Urine Color Urine Appearance Urine pH Ur Specific [place] Urine Protein Urine Glucose (UA) Urine Ketones Urine Blood Urine Nitrite Urine Bilirubin Urine Urobilinogen Ur Leukocyte Esterase Urine RBC Urine WBC Ur Squamous Epith Cells Urine Bacteria Fluid Volume 18 Fluid Color Xanthochromic A Fluid Appearance Cloudy A Fluid WBC 92264 Fluid RBC 40137 Fluid Polynuclear WBCs 98 Fluid Mononuclear WBCs 2 SARS-CoV-2 (PCR) Influenza Type A (PCR) Influenza Type B (PCR) RSV (PCR) 05/30/24 Range/Units 20:10 WBC 8.21 (4.50-11.00) K/uL Hgb 12.5 L (13.5-17.5) gm/dL Hct 38.2 (37.0-53.0) % Plt Count 219 (140-440) K/uL BMP 05/30/24 20:10 Sodium 136 Potassium 4.2 Chloride 104 Carbon Dioxide 19 L BUN 25 Creatinine 1.1 Glucose 217 H Calcium 8.7 Cardiac Enzymes 05/30/24 Range/Units 20:10 Troponin I 0.01 (0.01-0.04) ng/mL Urine 05/30/24 Range/Units 20:40 Urine Color Yellow (Yellow) Urine Appearance Slightly Cloudy A (Clear) Urine pH 5.5 (5.0-8.5) Ur Specific [place] 1.020 (1.000-1.030) Urine Protein 1+ A (Negative) Urine Glucose (UA) Negative (Negative) Imaging Chest x-ray: Attestation: I have reviewed the pertinent imaging results. Radiologist's impression: no acute findings Assessment and Plan Assessment and plan (1) Septic arthritis: Status: Acute (2) CAD (coronary artery disease): Problem comment: - s/p STEMI with RCA stenting 04/30 - quiescent Status: Acute (3) Atrial fibrillation, chronic: Problem comment: - rate controlled, on Eliquis Status: Acute Plan Patient has received cefazolin in the emergency room for MSSA. Given his suprapubic catheter and concerns for colonization and seeding we will add c levofloxacin 750 daily and await culture Post orthopedics Hold apixaban until decision regarding surgery is made CODE STATUS is full Total Time Spent Total Time Spent: 40 Telehealth: Statement Statement Telehealth Visit: Today's History and Physical is provided via interactive telehealth by Akira Jones MD.? Patient is located at [facility].? Provider is located at [facility].? Nursing staff assisted with the patient's exam. The visit being done today meets criteria for a telehealth visit and the patient or patient?s parent/guardian is aware the visit is a telehealth visit. Camera Start Time: 03:46 Camera End Time: 03:59
[2024-05-31] MEDS: SODIUM CHLORIDE 0.9 % (FLUSH) 10 ML SYRINGE 5 ML IVF ×2 (05:21→20:37)
[2024-05-31] MEDS: levoFLOXacin 750 MG/150 ML 750 MG/150 ML PIGGYBACK 100 MG IVPB (05:22)
[2024-05-31] MEDS: 0.9 % SODIUM CHLORIDE 250 ml IV (05:22)
[2024-05-31 05:58] LABS: Body Fluid Total Protein* < 6.0 gm/dL
--- NOTE | 2024-05-31 06:26 | PC.NURSE ---
Pt arrived on floor around 219. Pt alert and oriented x3. Afebrile. Pt denies pain, chest pain, N/V and SOB. Pt has been NPO since 221 tolerating well. Pt's suprapubic catheter and andujar are patent and draining. Pt slept intermittently throughout night.
[2024-05-31 07:44] LABS: Lactate* 1.2 mmol/L (0.5-1.9)
[2024-05-31 08:01] LABS: Basophils Absolute Auto 0.03 K/uL (0.00-0.30); Basophils Percent Auto 0.5 % (0.0-3.0); Eosinophils Absolute Auto 0.27 K/uL (0.00-0.50); Eosinophils Percent Auto 4.3 % (0.0-7.0); Hematocrit 37.5 % (37.0-53.0); Hemoglobin* 12.3 gm/dL (13.5-17.5); Immature Granulocytes Abs Auto 0.01 K/uL (0.00-0.30); Immature Granulocytes Pct Auto 0.2 %; Mean Corpuscular HGB Conc 33 gm/dL (32-36); Mean Corpuscular Hemoglobin 31 pg (26-34); Mean Corpuscular Volume 93 fL (80-100); Monocytes Percent Auto 13.4 % (0.0-11.0); Neutrophils Absolute Auto 4.45 K/uL (1.7-7.0); Neutrophils Percent Auto 71.6 % (42.0-72.0); Platelet Count* 201 K/uL (140-440); RDW Coefficient of Variation % 13.1 % (11.5-15.5); Red Blood Count 4.03 m/uL (4.30-5.90); White Blood Count* 6.21 K/uL (4.50-11.00)
[2024-05-31 08:11] LABS: Slide Review Reflex No
[2024-05-31 08:12] LABS: Albumin* 3.7 g/dL (3.3-5.0); Chloride* 108 mmol/L (96-114); Sodium* 138 mmol/L (135-149)
[2024-05-31 08:13] LABS: Potassium* 4.1 mmol/L (3.6-5.1)
[2024-05-31 08:15] LABS: Alkaline Phosphatase* 87 U/L (40-150); Anion Gap 9 mEq/L (7-15); Aspartate Amino Transferase* 27 U/L (12-35); Bilirubin Total* 1.2 mg/dL (0.1-1.5); Carbon Dioxide* 21 mmol/L (20-32); Creatinine* 0.9 mg/dL (0.5-1.5); Est. Creatinine Clearance* 60.66; Estimated Glomerular Filt Rate 85 ml/min; Total Protein* 6.9 g/dL (6.0-8.3)
[2024-05-31 08:16] LABS: Alanine Aminotransferase* 17 U/L (4-50); Blood Urea Nitrogen* 19 mg/dL (7-30); Calcium* 8.6 mg/dL (8.4-10.6); Glucose* 135 mg/dL (60-115); Magnesium* 2.1 mg/dL (1.5-2.6)
[2024-05-31 08:28] LABS: C Reactive Protein* 8.1 mg/dL (0.5-1.0); Hemoglobin A1C* 6.1 % (0-5.6)
[2024-05-31 08:34] LABS: Procalcitonin* 0.19 ng/mL (<0.50)
[2024-05-31 08:36] LABS: INR 1.35 (0.91-1.10); Prothrombin Time 17.5 Seconds
[2024-05-31 08:37] LABS: NT Pro B Type NatriureticPept* 2520 pg/mL; Troponin I* < 0.01 ng/mL (0.01-0.04)
--- NOTE | 2024-05-31 09:25 | REH.PT ---
Hold PT today as pt is going to OR for wash out this pm.
[2024-05-31] MEDS: ACETAMINOPHEN 325 MG TABLET 650 MG PO (09:32)
--- NOTE | 2024-05-31 10:18 | PM.IMPN1 ---
Progress Note: A&P Assessment and plan (1) Septic arthritis: Problem details: -OR today with Dr. Santamaria -continue Ancef and Levaquin - pending culture -3V Xray ordered -fluids and home meds reviewed/ordered -NPO until after surgery -eliquis on hold until am (confer with ortho) Status: Acute (2) CAD (coronary artery disease): Problem details: - s/p STEMI with RCA stenting 04/30 - quiescent Status: Acute (3) Atrial fibrillation, chronic: Problem details: - rate controlled on Eliquis Status: Acute (4) Fever: Problem details: 102.1 on arrival to the ED Status: Acute (5) History of total left knee replacement: Problem details: Left total knee arthroplasty (Dr. Bustamante) May 2023 Status: Acute (6) Indwelling urinary catheter present: Problem details: - suprapubic cath, changed monthly Status: Acute (7) HTN (hypertension): Problem details: -home meds: lisinopril 20mg BID, amlodipine 5mg Status: Acute (8) Obesity: Problem details: BMI 34.5 Status: Acute (9) Status post nephrectomy: Problem details: - 1949 Status: Acute Subjective Date Seen: 05/31/24 Interval history: Daily Progress Note - Hospital Medicine Day #: 1 (admitted early this morning with [facility]) CC: left knee effusion/pain. OVERNIGHT UPDATES FROM STAFF & MED, LAB, IMAGING UPDATES Admitted with suspected septic left knee joint - s/p TKA [address] Santamaria. Admit h/p, imaging and labs reviewed. -normal WBC -mild normocytic anemia -INR 1.35 (on apixiban for AFIB) -A1C 6.1 -normal BMP -CRP 12.0 --> 8.1 overnight -aspirate done, but no xray. purulent (gram stain + WBC, no organism) -2BC pending Objective: alert, comfortable. Vitals: see above Lungs: Clear. Cardiac: S1S2. left knee: marked effusion; warmth. mild erythema. range of motion is better than expected; limited more by effusion than pain. Disposition/Potential discharge - Likely to return to previous living situation. Today I spent 50minutes seeing the patient, reviewing Expanse and EPIC notes/diagnostics, discussing the care plan with our care time that includes social work, PT/OT, pharmacy, RT, mcc and documenting my impressions and plan in the medical record. Exam Const: Vital Signs, click to edit/add: Vital Signs - 24 hr 05/30/24 19:47 05/30/24 22:35 05/30/24 23:41 Temperature 102.1 F H 99.4 F 98.5 F Pulse Rate [Pulse Oximeter] 83 72 56 L Respiratory Rate 20 18 18 Blood Pressure [Ri ght Arm] Blood Pressure [Ri ght Upper Arm] 140/80 H 140/90 H 123/72 Pulse Oximetry 94 94 92 Oxygen Delivery Me thod Room Air Room Air Room Air 05/31/24 02:23 05/31/24 02:23 05/31/24 08:21 Temperature 98.8 F Pulse Rate [Pulse Oximeter] 72 72 Respiratory Rate 18 18 Blood Pressure [Ri ght Arm] 134/86 Blood Pressure [Ri ght Upper Arm] Pulse Oximetry 93 Oxygen Delivery Me thod Room Air Room Air 05/31/24 09:32 Temperature 100 F H Pulse Rate [Pulse Oximeter] Respiratory Rate Blood Pressure [Ri ght Arm] Blood Pressure [Ri ght Upper Arm] Pulse Oximetry Oxygen Delivery Me thod Labs Labs: Laboratory Results - last 24 hr 05/30/24 05/30/24 05/30/24 20:10 20:40 20:41 WBC 8.21 RBC 4.11 L Hgb 12.5 L Hct 38.2 MCV 93 MCH 30 MCHC 33 RDW Coeff of David 13.1 Plt Count 219 Neut % (Auto) 77.7 H Lymph % (Auto) 7.7 L [place] % (Auto) 11.7 H Eos % (Auto) 2.3 Baso % (Auto) 0.4 Neut # (Auto) 6.40 Lymph # (Auto) 0.60 L [place] # (Auto) 1.00 H Eos # (Auto) 0.19 Baso # (Auto) 0.03 Abs Immat Gran (auto) 0.02 Imm/Tot Granulo (auto) 0.2 INR Sodium 136 Potassium 4.2 Chloride 104 Carbon Dioxide 19 L Anion Gap 13 BUN 25 Creatinine 1.1 Estimated Creat Clear 53.46 Estimated GFR 67 Glucose 217 H Hemoglobin A1c Lactate 2.3 H Calcium 8.7 Magnesium Total Bilirubin AST ALT Alkaline Phosphatase Troponin I 0.01 C-Reactive Protein 12.0 H NT-Pro-B Natriuret Pep Total Protein Albumin Procalcitonin Urine Color Yellow Urine Appearance Slightly Cloudy A Urine pH 5.5 Ur Specific [place] 1.020 Urine Protein 1+ A Urine Glucose (UA) Negative Urine Ketones Negative Urine Blood Trace-lysed A Urine Nitrite Negative Urine Bilirubin Negative Urine Urobilinogen 0.2 Ur Leukocyte Esterase Trace A Urine RBC 0-2 Urine WBC 0-2 Ur Squamous Epith Cells None Urine Bacteria Few A Fluid Volume Fluid Color Fluid Appearance Fluid WBC Fluid RBC Fluid Polynuclear WBCs Fluid Mononuclear WBCs Fluid Total Protein SARS-CoV-2 (PCR) Negative SARS-CoV-2 Influenza Type A (PCR) Negative PCR FLU A Influenza Type B (PCR) Negative PCR FLU B RSV (PCR) Negative PCR RSV Lab Acknowledgement 05/31/24 05/31/24 05/31/24 01:00 07:20 07:37 WBC 6.21 RBC 4.03 L Hgb 12.3 L Hct 37.5 MCV 93 MCH 31 MCHC 33 RDW Coeff of David 13.1 Plt Count 201 Neut % (Auto) 71.6 Lymph % (Auto) 10.0 L [place] % (Auto) 13.4 H Eos % (Auto) 4.3 Baso % (Auto) 0.5 Neut # (Auto) 4.45 Lymph # (Auto) 0.60 L [place] # (Auto) 0.80 Eos # (Auto) 0.27 Baso # (Auto) 0.03 Abs Immat Gran (auto) 0.01 Imm/Tot Granulo (auto) 0.2 INR 1.35 H Sodium 138 Potassium 4.1 Chloride 108 Carbon Dioxide 21 Anion Gap 9 BUN 19 Creatinine 0.9 Estimated Creat Clear 60.66 Estimated GFR 85 Glucose 135 H Hemoglobin A1c 6.1 H Lactate 1.2 Calcium 8.6 Magnesium 2.1 Total Bilirubin 1.2 AST 27 ALT 17 Alkaline Phosphatase 87 Troponin I < 0.01 L C-Reactive Protein 8.1 H NT-Pro-B Natriuret Pep 2520 Total Protein 6.9 Albumin 3.7 Procalcitonin 0.19 Urine Color Urine Appearance Urine pH Ur Specific [place] Urine Protein Urine Glucose (UA) Urine Ketones Urine Blood Urine Nitrite Urine Bilirubin Urine Urobilinogen Ur Leukocyte Esterase Urine RBC Urine WBC Ur Squamous Epith Cells Urine Bacteria Fluid Volume 18 Fluid Color Xanthochromic A Fluid Appearance Cloudy A Fluid WBC 50745 Fluid RBC 53399 Fluid Polynuclear WBCs 98 Fluid Mononuclear WBCs 2 Fluid Total Protein < 6.0 SARS-CoV-2 (PCR) Influenza Type A (PCR) Influenza Type B (PCR) RSV (PCR) Lab Acknowledgement Test Added 05/31/24 08:16 WBC RBC Hgb Hct MCV MCH MCHC RDW Coeff of David Plt Count Neut % (Auto) Lymph % (Auto) [place] % (Auto) Eos % (Auto) Baso % (Auto) Neut # (Auto) Lymph # (Auto) [place] # (Auto) Eos # (Auto) Baso # (Auto) Abs Immat Gran (auto) Imm/Tot Granulo (auto) INR Sodium Potassium Chloride Carbon Dioxide Anion Gap BUN Creatinine Estimated Creat Clear Estimated GFR Glucose Hemoglobin A1c Lactate Calcium Magnesium Total Bilirubin AST ALT Alkaline Phosphatase Troponin I C-Reactive Protein NT-Pro-B Natriuret Pep Total Protein Albumin Procalcitonin Urine Color Urine Appearance Urine pH Ur Specific [place] Urine Protein Urine Glucose (UA) Urine Ketones Urine Blood Urine Nitrite Urine Bilirubin Urine Urobilinogen Ur Leukocyte Esterase Urine RBC Urine WBC Ur Squamous Epith Cells Urine Bacteria Fluid Volume Fluid Color Fluid Appearance Fluid WBC Fluid RBC Fluid Polynuclear WBCs Fluid Mononuclear WBCs Fluid Total Protein SARS-CoV-2 (PCR) Influenza Type A (PCR) Influenza Type B (PCR) RSV (PCR) Lab Acknowledgement Test Added
--- NOTE | 2024-05-31 10:25 | CRLHL7_ITS ---
For Patients: As a result of the Cures Act, medical imaging exams and procedure reports are released immediately into your electronic medical record. You may view this report before your referring provider. If you have questions, please contact your health care provider. Indication: TKA with septic joint Technique: Three view(s) of the left knee. Comparison: 07/04/2023. Findings: Unchanged position and alignment of the left knee prosthesis. Hardware is intact and without periprosthetic lucency or fracture. No osseous destruction or periosteal reaction. Osseous demineralization. Moderate knee joint effusion. Generalized soft tissue swelling. Atherosclerotic arterial calcifications. Impression: Unchanged left knee prosthesis. Moderate knee joint effusion. Dictated by Bettie Hutson MD @ 05/31/2024 11:27:23 AM (Electronically Signed)
--- NOTE | 2024-05-31 10:27 | REH.OT ---
OT: Orders received, per MD in rounds, patient going to OR today and therapies to hold this morning. Will reschedule eval.
[2024-05-31] MEDS: LACTATED RINGERS 500 ML 500 ML 250 ML IV (10:54)
[2024-05-31] MEDS: CEFAZOLIN 1 GM in 0.9 % SODIUM CHLORIDE Mini-bag 100 ML IVPB (10:54)
[2024-05-31] MEDS: MIDAZOLAM HCL 1 MG/ML inj IVP (12:10)
[2024-05-31] MEDS: fentaNYL 100 MCG/2 ML inj IVP (12:10)
--- NOTE | 2024-05-31 12:18 | SUR.PREOP ---
TIME?OUT:?1209 PT/RN/MDA?VERIFICATION?OF?SURGICAL?SITE,?PROCEDURE,?AND?CONSENT OBTAINED?PRIOR?TO?INVASIVE?PROCEDURE. all in agreement
[2024-05-31] MEDS: LACTATED RINGERS 1000 ML 1,000 ML 100 ML IV ×2 (12:24→14:26)
[2024-05-31] MEDS: TRANEXAMIC ACID 100 MG/ML INJ 1000 MG IV (12:33)
--- NOTE | 2024-05-31 12:41 | W.ANESCHARGE ---
Anesthesia Charges Start Date/Time Anesthesia Start Date: 05/31/24 Anesthesia Start Time: 12:23 Stop Date/Time Anesthesia Stop Date: 05/31/24 Anesthesia Stop Time: 15:04 Summary Emergency: MDA Extremes of Age - Over 70 or under 1: MDA
--- NOTE | 2024-05-31 12:42 | P.NB_ITS ---
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 Images saved: Yes Medications given in 5ml increments after negative aspiration: Ropivicaine %: 0.5 mL: 30 Needle gauge: 22 Patient tolerated procedure well: Yes Additional comments: Needle noted adjacent to nerve Block Charges Block Charge (with Pro Fee): Brachial Plexus Use of Ultrasound Machine for Block: Yes- US Guidance/pain block
--- NOTE | 2024-05-31 13:21 | SUR.OPER ---
2.4 GRAMS OF TOBRAMYCIN AND 2 GRAMS OF VANCOMYCIN WERE MIXED WITH CEMENT FROM PHARMACY
--- NOTE | 2024-05-31 14:36 | PC.NURSE ---
End of Shift: Patient pleasant and cooperative, alert and oriented. Patient vitally stable, lungs clear, BS WNL, IV running LR at 250 before surgery. Patient NPO and on bedrest prior to surgery. Guevara is intact and draining. Patient left knee swollen and warm with a bandaid applied from needle aspiration at the knee. Patient started surgery at 1251 and has not yet returned back to floor from surgery.
--- NOTE | 2024-05-31 14:38 | PC.PHA ---
Vancomycin consult note: Indication for vancomycin: Septic knee post surgical clean out, knee replaced about a year ago Age: 83 Height: 180 cm Weight: 112 kg Most recent SCr: 0.9 Estimated CrCL: 60 Recommended dose and frequency: 1250 mg IV q 12hr to obtain an estimated AUC/JOHN of 400-600 mcg*hr/m (551) Additional comment: Also on cefepime. Above vancomycin dose will give an estimated PK/TR of .
--- NOTE | 2024-05-31 14:43 | W.PM.INFDCN ---
Consultation Information Consultation Information Date of Consult: 05/31/24 Reason for Consult: PJI Consultation Statement: This patient recommendation is based on a telemedicine consult request which was completed asynchronously through chart review and information provided by the primary physician. The patient was not seen or examined today. The evaluation is consultative in nature and all patient care and treatment decisions can either be accepted or rejected by the patient's primary hospital-based treating physician using their own independent medical judgment for their patient. General Lot Attendant contact information: Please call [facility] call center [phone] HPI - Infectious Disease History of Present Illness History of Present Illness: 83-year-old male PMH CAD, STEMI with RCA stenting, s/p nephrectomy, psoriasis, diverticulosis, tubulovillous adenoma of the colon, A-fib (Eliquis), HTN, left knee total arthroplasty x 1 year ago, chronic SPC for urinary retention was in his normal state of health x 3-4 days ago when he started having pain and swelling in his left knee associated with subjective chills/sweats. ?In the ED noted red hot swollen knee suspicious for PJI s/p arthrocentesis. ?Per chart review ?no history of trauma/falls. ?Has been very weak and having trouble walking around. ?No respiratory symptoms, GI/ symptoms. ?Normal urine output via SPC (last exchanged 05/17). ?No rashes In the ED FEBRILE TMAX 102, WBC 8K, creatinine 1.1---0.9, A1c 6.1, LFT NL, CRP 12---8.1 procalcitonin 0.19, Limited RVP negative, UA (from SPC) nitrite negative, LE trace, WBC 0-2, Synovial fluid cloudy, WBC 15758, 98% polys, crystal pending CXR: No acute changes Knee XR: Moderate effusion. ?Underlying prosthesis Was started on IV vancomycin yesterday and later Levaquin was added for gram-negative coverage with underlying SPC catheter Planned for DAIR procedure by Ortho this afternoon ID consulted for further empiric antibiotic recommendations today On further chart review most recent cultures was from May 2023 urine culture positive for Morganella Morganii (sensitive to ceftazidime, ceftriaxone, quinolones, ertapenem, Bactrim, Zosyn), Enterococcus faecalis (ampicillin sensitive) [facility] Medical History (Updated 05/31/24 @ 10:38 by Ellen Mcwilliams MD) Status post nephrectomy ?Z90.5 - Acquired absence of kidney (ICD-10) Indwelling urinary catheter present (~2020) ?Z96.0 - Presence of urogenital implants (ICD-10) Obesity ?E66.9 - Obesity, unspecified (ICD-10) HTN (hypertension) ?I10 - Essential (primary) hypertension (ICD-10) Atrial fibrillation, chronic ?I48.20 - Chronic atrial fibrillation, unspecified (ICD-10) CAD (coronary artery disease) ?I25.10 - Atherosclerotic heart disease of [place] coronary artery without angina pectoris (ICD-10) Elevated bilirubin ?R17 - Unspecified jaundice (ICD-10) Inability to ambulate due to knee ?R26.2 - Difficulty in walking, not elsewhere classified (ICD-10) Psoriasis ?L40.9 - Psoriasis, unspecified (ICD-10) Diverticulosis of colon ?K57.30 - Diverticulosis of large intestine without perforation or abscess without bleeding (ICD-10) Hydrocele in adult ?N43.3 - Hydrocele, unspecified (ICD-10) History of prediabetes ?Z87.898 - Personal history of other specified conditions (ICD-10) Tubular adenoma of colon ?D12.6 - Benign neoplasm of colon, unspecified (ICD-10) Tubulovillous adenoma of colon ?D12.6 - Benign neoplasm of colon, unspecified (ICD-10) Benign prostatic hyperplasia with lower urinary tract symptoms ?N40.1 - Benign prostatic hyperplasia with lower urinary tract symptoms (ICD-10) Urinary retention ?R33.9 - Retention of urine, unspecified (ICD-10) Encounter for replacement of urinary catheter ?Z46.6 - Encounter for fitting and adjustment of urinary device (ICD-10) Chronic anticoagulation ?Z79.01 - correction (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 of anticoagulants (ICD-10) 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, unspecified ankle and foot (ICD-10) Atrial fibrillation ?I48.91 - Unspecified atrial fibrillation (ICD-10) Heart attack (2018) ?I21.9 - Acute myocardial infarction, unspecified (ICD-10) Surgical History (Updated 05/31/24 @ 10:34 by Ellen Mcwilliams MD) 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) ?Z96.652 - Presence of left artificial knee joint (ICD-10) H/O kidney removal (~195) ?Z90.5 - Acquired absence of kidney (ICD-10) S/P left knee arthroscopy (12/30/97) ?Z98.890 - Other specified postprocedural states (ICD-10) S/P appendectomy ?Z90.49 - Acquired absence of other specified parts of digestive tract (ICD-10) Family History Mother Diabetes High blood pressure Kidney failure Sister Diabetes Father Stroke Sister Breast cancer Pancreatic cancer Social History (Reviewed 08/15/23 @ 09:52 by Maria L Stephenson ~ [facility], [facility]) Narrative: Lives with , has 5 living adult children (one daughter from breast cancer). Retired [employer]. What is your current living situation?: I presently have a place to live Problems where you live: no known problems Problems where you live details: no known problems In the past 12 months, utilities in danger of being shut off: no In past 12 months, lack of transportation kept you from medical appts, meetings, work, or getting things needed for daily living: no In the past 12 mos, have been you worried that your food would run out before you had money to buy more?: never true In the past 12 mos, the food you bought just didn't last and you didn't have money to buy more?: never true Highest level of school completed/degree received: 12th grade, no diploma Smoking Status: Never smoker Do you use any of these nicotine containing products: None Second hand tobacco smoke exposure: No How often do you have a drink containing alcohol: monthly or less Alcohol type: beer How often do you have six or more drinks on one occasion: Never AUDIT-C Alcohol total score: 1 Non-prescribed substance use: denies use Caffeine: Yes (rarely warm tea) How often does anyone, including family, friends and others, physically hurt you: never How often does anyone, including family, friends and others, insult or talk down to you: never How often does anyone, including family, friends and others, threaten you with harm: never How often does anyone, including family, friends and others, scream or curse at you: never Little interest or pleasure in doing things: not at all Feeling down, depressed, or hopeless: not at all Do you think of yourself as: straight/heterosexual Gender Identity: male service: No Home Medications and Allergies Home Medications and Allergies Inpatient Medications: Active Medications Generic Name Dose Route Start Last Admin Trade Name Freq PRN Reason Stop Dose Admin Acetaminophen 1,300 mg 05/31/24 16:00 Acetaminophen 650 Mg Tablet Er PO Q12H [facility] Amlodipine Besylate 5 mg 06/01/24 09:00 Amlodipine 5 Mg Tablet PO DAILY [facility] Atorvastatin Calcium 40 mg 05/31/24 21:00 Atorvastatin Calcium 40 Mg Tablet PO [facility] Ephedrine Sulfate 5 - 10 mg 05/31/24 11:05 Ephedrine Sulfate 5 Mg/Ml Inj IVP Q5M PRN Fentanyl 50 mcg 05/31/24 11:05 Fentanyl 100 Mcg/2 Ml Inj IVP Q5M PRN Pain Furosemide 20 mg 06/01/24 08:00 Furosemide 20 Mg Tablet PO DAILY@0800 [facility] Hydralazine HCl 10 mg 05/31/24 11:05 Hydralazine Hcl 20 Mg/Ml Inj IVP ONCE PRN Hypertension Hydromorphone HCl 0.5 mg 05/31/24 11:05 Hydromorphone 0.5 Mg/0.5 Ml Inj IVP Q10M PRN Pain Lactated Ringer's 1,000 mls @ 75 mls/hr 05/31/24 10:30 05/31/24 11:53 Lactated Ringers 1000 Ml IV Not Given .[id number] [facility] Lactated Ringer's 1,000 mls @ 100 mls/hr 05/31/24 10:30 05/31/24 14:26 Lactated Ringers 1000 Ml IV 100 mls/hr .Q10H [facility] Administration Vancomycin HCl 1,250 mg/ 262.5 mls @ 210 mls/hr 06/01/24 01:00 Sodium Chloride IVPB Q12H [facility] Protocol Cefepime HCl 2 gm/ Sodium 100 mls @ 200 mls/hr 05/31/24 14:30 Chloride IVPB Q8H [facility] IV Miscellaneous Supplies 1 each 06/01/24 09:00 Pharmacist Consult DAILY [facility] Protocol Labetalol HCl 5 - 10 mg 05/31/24 11:05 Labetalol Hcl 5 Mg/Ml Inj IVP ONCE PRN Hypertension Lisinopril 20 mg 06/01/24 09:00 Lisinopril 20 Mg Tablet PO BID [facility] Meperidine HCl 12.5 mg 05/31/24 11:05 Meperidine 25 Mg/Ml Inj IVP ONCE PRN Shivering Metoclopramide HCl 10 mg 05/31/24 11:05 Metoclopramide Hcl 5 Mg/Ml Inj IVP ONCE PRN Nausea Morphine Sulfate 2 mg 05/31/24 10:37 Morphine 2 Mg/Ml Inj IVP Q2H PRN Nitroglycerin 0.4 mg 05/31/24 10:34 Nitroglycerin 0.4 Mg Tab.Subl SUBLINGUAL Q5M PRN chest pain Ondansetron HCl 4 mg 05/31/24 11:05 Ondansetron 2 Mg/Ml Inj IVP ONCE PRN Nausea Phenylephrine HCl 100 mcg 05/31/24 11:05 Phenylephrine 100 Mcg/Ml Syringe IVP Q5M PRN Sodium Chloride 5 ml 05/31/24 04:25 Sodium Chloride 0.9 % (Flush) 10 Ml Syringe IVF .FLUSH PRN Sodium Chloride 5 ml 05/31/24 09:00 05/31/24 05:21 Sodium Chloride 0.9 % (Flush) 10 Ml Syringe IVF 5 ml BID LINDEN Administration Sodium Chloride 250 ml 05/31/24 05:00 05/31/24 05:22 0.9 % Sodium Chloride 250 Ml IV 250 ml Q24H [facility] Administration Discontinued Medications Generic Name Dose Route Start Last Admin Trade Name Freq PRN Reason Stop Dose Admin Acetaminophen 650 mg 05/31/24 09:24 05/31/24 09:32 Acetaminophen 325 Mg Tablet PO 650 mg Q6H PRN Administration As needed for fever, headache, or minor pain Cefazolin Sodium 1 gm 05/31/24 01:04 05/31/24 01:13 Cefazolin 1 Gm Inj IVP 05/31/24 01:05 1 gm ONCE ONE Administration Cefazolin Sodium Confirm 05/31/24 01:10 Cefazolin 1 Gm Inj Administered 05/31/24 01:11 Dose 1 gm .ROUTE .STK-MED ONE Dexamethasone Confirm 05/31/24 13:34 Dexamethasone 4 Mg/Ml Vial Administered 05/31/24 13:35 Dose 4 mg .ROUTE .STK-MED ONE Dexamethasone Sodium Phosphate Confirm 05/31/24 12:15 Dexamethasone 10 Mg/Ml Pf Administered 05/31/24 12:16 Dose 10 mg .ROUTE .STK-MED ONE Dexmedetomidine HCl Confirm 05/31/24 12:15 Dexmedetomidine Hcl 100 Mcg/Ml Inj Administered 05/31/24 12:16 Dose 200 mcg IV .STK-MED ONE Fentanyl 50 - 100 mcg 05/31/24 10:26 05/31/24 12:10 Fentanyl 100 Mcg/2 Ml Inj IVP 05/31/24 10:27 50 mcg ONCE ONE Administration Fentanyl Confirm 05/31/24 10:27 Fentanyl 100 Mcg/2 Ml Inj Administered 05/31/24 10:28 Dose 100 mcg .ROUTE .STK-MED ONE Fentanyl Confirm 05/31/24 11:56 Fentanyl 100 Mcg/2 Ml Inj Administered 05/31/24 11:57 Dose 100 mcg .ROUTE .STK-MED ONE Hydroxyzine Pamoate 25 mg 05/31/24 11:05 Hydroxyzine Pamoate 25 Mg Capsule PO 05/31/24 11:06 ONCE ONE Sodium Chloride 1,000 mls @ 1,000 mls/hr 05/30/24 20:45 05/30/24 22:52 0.9 % Sodium Chloride 1000 Ml IV 05/30/24 21:44 Infused .Q1H [facility] Infusion Levofloxacin/Dextrose 750 mg in 150 mls @ 100 mls/hr 05/31/24 05:00 05/31/24 07:24 Levofloxacin 750 Mg/150 Ml IVPB Infused Q24H [facility] Infusion Lactated Ringer's 500 mls @ 250 mls/hr 05/31/24 10:26 05/31/24 10:54 Lactated Ringers 500 Ml IV 05/31/24 12:25 250 mls/hr .Q2H ONE Administration Cefazolin Sodium 1 gm/ Sodium 100 mls @ 200 mls/hr 05/31/24 10:30 05/31/24 11:52 Chloride IVPB Infused Q8H [facility] Infusion Vancomycin HCl 1,250 mg/ 262.5 mls @ 210 mls/hr 05/31/24 13:00 05/31/24 13:25 Sodium Chloride IVPB 05/31/24 14:14 210 mls/hr ONCE ONE Administration Lidocaine HCl Confirm 05/31/24 13:34 Lidocaine 2% (Pf) 5 Ml Vial Administered 05/31/24 13:35 Dose 5 ml .ROUTE .STK-MED ONE Midazolam HCl 1 - 2 mg 05/31/24 10:26 05/31/24 12:10 Midazolam Hcl 1 Mg/Ml Inj IVP 05/31/24 10:27 2 mg ONCE ONE Administration Midazolam HCl Confirm 05/31/24 10:27 Midazolam Hcl 1 Mg/Ml Inj Administered 05/31/24 10:28 Dose 2 mg .ROUTE .STK-MED ONE Morphine Sulfate 2 mg 05/31/24 04:25 Morphine 4 Mg/Ml Inj IVP Q1H PRN Pain Ondansetron HCl Confirm 05/31/24 13:34 Ondansetron 2 Mg/Ml Inj Administered 05/31/24 13:35 Dose 4 mg .ROUTE .STK-MED ONE Propofol Confirm 05/31/24 13:33 Propofol 10 Mg/Ml Inj Administered 05/31/24 13:34 Dose 200 mg IVP .STK-MED ONE Rocuronium [place] Confirm 05/31/24 13:34 Rocuronium [place] 10 Mg/Ml Inj Administered 05/31/24 13:35 Dose 50 mg IV .STK-MED ONE Ropivacaine Confirm 05/31/24 12:15 Ropivacaine 0.5% 30 Ml Administered 05/31/24 12:16 Dose 150 mg INJECTION .STK-MED ONE Sevoflurane Confirm 05/31/24 13:34 Sevoflurane Soln Administered 05/31/24 13:35 Dose 1 each IH .STK-MED ONE Succinylcholine Chloride Confirm 05/31/24 13:34 Succinylcholine 20 Mg/Ml Inj Administered 05/31/24 13:35 Dose 200 mg IVP .STK-MED ONE Tobramycin Sulfate 1.2 gm 05/31/24 11:45 Tobramycin Sulfate Powder 1.2 Gm Vial TOPICAL 05/31/24 11:46 .STK-MED ONE Tranexamic Acid 1,000 mg 05/31/24 11:24 05/31/24 12:33 Tranexamic Acid 100 Mg/Ml Inj IV 05/31/24 11:25 1,000 mg ONCE ONE Administration Tranexamic Acid Confirm 05/31/24 13:33 Tranexamic Acid 100 Mg/Ml Inj Administered 05/31/24 13:34 Dose 1,000 mg .ROUTE .STK-MED ONE Vancomycin HCl 1,000 mg 05/31/24 11:45 Vancomycin 100 Mg/Ml Inj TOPICAL 05/31/24 11:46 .STK-MED ONE Allergies Allergy/AdvReac Type Severity Reaction Status Date / Time No Known Drug Allergies Allergy Verified 04/24/24 10:19 Objective - Infectious Disease Objective Vital Signs: Vital Signs - 24 hr 05/30/24 19:47 05/30/24 22:35 05/30/24 23:41 Temperature 102.1 F H 99.4 F 98.5 F Pulse Rate Pulse Rate [Pulse Oximeter] 83 72 56 L Respiratory Rate 20 18 18 Blood Pressure Blood Pressure [Right Arm] Blood Pressure [Right Upper Arm] 140/80 H 140/90 H 123/72 Pulse Oximetry 94 94 92 Oxygen Delivery Method Room Air Room Air Room Air Oxygen Flow Rate 05/31/24 02:23 05/31/24 02:23 05/31/24 08:21 Temperature 98.8 F Pulse Rate Pulse Rate [Pulse Oximeter] 72 72 Respiratory Rate 18 18 Blood Pressure Blood Pressure [Right Arm] 134/86 Blood Pressure [Right Upper Arm] Pulse Oximetry 93 Oxygen Delivery Method Room Air Room Air Oxygen Flow Rate 05/31/24 09:32 05/31/24 10:56 05/31/24 12:06 Temperature 100 F H 98.6 F Pulse Rate 71 Pulse Rate [Pulse Oximeter] Respiratory Rate 16 Blood Pressure 142/82 H Blood Pressure [Right Arm] Blood Pressure [Right Upper Arm] Pulse Oximetry 92 Oxygen Delivery Method Nasal Cannula Oxygen Flow Rate 2 05/31/24 12:11 Temperature Pulse Rate 66 Pulse Rate [Pulse Oximeter] Respiratory Rate 16 Blood Pressure 135/96 H Blood Pressure [Right Arm] Blood Pressure [Right Upper Arm] Pulse Oximetry 93 Oxygen Delivery Method Nasal Cannula Oxygen Flow Rate 2 Narrative: Patient was not seen or examined. Results - Infectious Disease Results Labs: 05/31/24 13:33 Knee,Left Gram Stain - Pending 05/31/24 13:33 Knee,Left Aerobic Culture - Preliminary Culture in Progress 05/31/24 13:33 Knee,Left Anaerobic Culture - Preliminary Culture in Progress 05/31/24 13:30 Knee,Left Gram Stain - Pending 05/31/24 13:30 Knee,Left Aerobic Culture - Pending 05/31/24 13:30 Knee,Left Anaerobic Culture - Preliminary Culture in Progress 05/30/24 20:40 Urine,Clean Catch Urine Culture - Preliminary Culture in Progress 05/31/24 01:00 Synovial Fluid Gram Stain - Final 05/31/24 01:00 Synovial Fluid Body Fluid Culture - Preliminary 05/30/24 20:56 Blood Blood Culture - Pending 05/30/24 20:49 Blood Blood Culture - Pending Laboratory Tests 05/31/24 05/31/24 05/31/24 Range/Units 14:13 08:16 07:37 WBC 6.21 (4.50-11.00) K/uL RBC 4.03 L (4.30-5.90) m/uL Hgb 12.3 L (13.5-17.5) gm/dL Hct 37.5 (37.0-53.0) % MCV 93 (80-100) fL MCH 31 (26-34) pg MCHC 33 (32-36) gm/dL RDW Coeff of David 13.1 (11.5-15.5) % Plt Count 201 (140-440) K/uL Neut % (Auto) 71.6 (42.0-72.0) % Lymph % (Auto) 10.0 L (20-44) % [place] % (Auto) 13.4 H (0.0-11.0) % Eos % (Auto) 4.3 (0.0-7.0) % Baso % (Auto) 0.5 (0.0-3.0) % Neut # (Auto) 4.45 (1.7-7.0) K/uL Lymph # (Auto) 0.60 L (0.90-2.90) K/uL [place] # (Auto) 0.80 (0.00-0.90) K/UL Eos # (Auto) 0.27 (0.00-0.50) K/uL Baso # (Auto) 0.03 (0.00-0.30) K/uL Abs Immat Gran (auto) 0.01 (0.00-0.30) K/uL Imm/Tot Granulo (auto) 0.2 % INR 1.35 H (0.91-1.10) Sodium 138 (135-149) mmol/L Potassium 4.1 (3.6-5.1) mmol/L Chloride 108 (96-114) mmol/L Carbon Dioxide 21 (20-32) mmol/L Anion Gap 9 (7-15) mEq/L BUN 19 (7-30) mg/dL Creatinine 0.9 (0.5-1.5) mg/dL Estimated Creat Clear 60.66 Estimated GFR 85 ml/min Glucose 135 H (60-115) mg/dL Hemoglobin A1c 6.1 H (0-5.6) % Lactate 1.2 (0.5-1.9) mmol/L Calcium 8.6 (8.4-10.6) mg/dL Magnesium 2.1 (1.5-2.6) mg/dL Total Bilirubin 1.2 (0.1-1.5) mg/dL AST 27 (12-35) U/L ALT 17 (4-50) U/L Alkaline Phosphatase 87 (40-150) U/L Troponin I < 0.01 L (0.01-0.04) ng/mL C-Reactive Protein 8.1 H (0.5-1.0) mg/dL NT-Pro-B Natriuret Pep 2520 pg/mL Total Protein 6.9 (6.0-8.3) g/dL Albumin 3.7 (3.3-5.0) g/dL Procalcitonin 0.19 (<0.50) ng/mL Urine Color (Yellow) Urine Appearance (Clear) Urine pH (5.0-8.5) Ur Specific [place] (1.000-1.030) Urine Protein (Negative) Urine Glucose (UA) (Negative) Urine Ketones (Negative) Urine Blood (Negative) Urine Nitrite (Negative) Urine Bilirubin (Negative) Urine Urobilinogen (0.2-1.0) Ur Leukocyte Esterase (Negative) Urine RBC (0-2) Urine WBC (0-5) Ur Squamous Epith Cells (None-Few) Urine Bacteria (None) Fluid Volume Fluid Color Fluid Appearance Fluid WBC Cells/uL Fluid RBC Cells/uL Fluid Polynuclear WBCs % Fluid Mononuclear WBCs % Fluid Crystal ID Fluid Total Protein gm/dL SARS-CoV-2 (PCR) (Negative) Influenza Type A (PCR) (Negative) Influenza Type B (PCR) (Negative) RSV (PCR) (Negative) Lab Acknowledgement Test Added Test Added 05/31/24 05/31/24 05/30/24 Range/Units 07:20 01:00 20:41 WBC (4.50-11.00) K/uL RBC (4.30-5.90) m/uL Hgb (13.5-17.5) gm/dL Hct (37.0-53.0) % MCV (80-100) fL MCH (26-34) pg MCHC (32-36) gm/dL RDW Coeff of [place] (11.5-15.5) % Plt Count (140-440) K/uL Neut % (Auto) (42.0-72.0) % Lymph % (Auto) (20-44) % [place] % (Auto) (0.0-11.0) % Eos % (Auto) (0.0-7.0) % Baso % (Auto) (0.0-3.0) % Neut # (Auto) (1.7-7.0) K/uL Lymph # (Auto) (0.90-2.90) K/uL [place] # (Auto) (0.00-0.90) K/UL Eos # (Auto) (0.00-0.50) K/uL Baso # (Auto) (0.00-0.30) K/uL Abs Immat Gran (auto) (0.00-0.30) K/uL Imm/Tot Granulo (auto) % INR (0.91-1.10) Sodium (135-149) mmol/L Potassium (3.6-5.1) mmol/L Chloride (96-114) mmol/L Carbon Dioxide (20-32) mmol/L Anion Gap (7-15) mEq/L BUN (7-30) mg/dL Creatinine (0.5-1.5) mg/dL Estimated Creat Clear Estimated GFR ml/min Glucose (60-115) mg/dL Hemoglobin A1c (0-5.6) % Lactate (0.5-1.9) mmol/L Calcium (8.4-10.6) mg/dL Magnesium (1.5-2.6) mg/dL Total Bilirubin (0.1-1.5) mg/dL AST (12-35) U/L ALT (4-50) U/L Alkaline Phosphatase (40-150) U/L Troponin I (0.01-0.04) ng/mL C-Reactive Protein (0.5-1.0) mg/dL NT-Pro-B Natriuret Pep pg/mL Total Protein (6.0-8.3) g/dL Albumin (3.3-5.0) g/dL Procalcitonin (<0.50) ng/mL Urine Color (Yellow) Urine Appearance (Clear) Urine pH (5.0-8.5) Ur Specific [place] (1.000-1.030) Urine Protein (Negative) Urine Glucose (UA) (Negative) Urine Ketones (Negative) Urine Blood (Negative) Urine Nitrite (Negative) Urine Bilirubin (Negative) Urine Urobilinogen (0.2-1.0) Ur Leukocyte Esterase (Negative) Urine RBC (0-2) Urine WBC (0-5) Ur Squamous Epith Cells (None-Few) Urine Bacteria (None) Fluid Volume 18 Fluid Color Xanthochromic A Fluid Appearance Cloudy A Fluid WBC 09919 Cells/uL Fluid RBC 15841 Cells/uL Fluid Polynuclear WBCs 98 % Fluid Mononuclear WBCs 2 % Fluid Crystal ID Pending Fluid Total Protein < 6.0 gm/dL SARS-CoV-2 (PCR) Negative SARS-CoV-2 (Negative) Influenza Type A (PCR) Negative PCR FLU A (Negative) Influenza Type B (PCR) Negative PCR FLU B (Negative) RSV (PCR) Negative PCR RSV (Negative) Lab Acknowledgement Test Added 05/30/24 05/30/24 Range/Units 20:40 20:10 WBC 8.21 (4.50-11.00) K/uL RBC 4.11 L (4.30-5.90) m/uL Hgb 12.5 L (13.5-17.5) gm/dL Hct 38.2 (37.0-53.0) % MCV 93 (80-100) fL MCH 30 (26-34) pg MCHC 33 (32-36) gm/dL RDW Coeff of [place] 13.1 (11.5-15.5) % Plt Count 219 (140-440) K/uL Neut % (Auto) 77.7 H (42.0-72.0) % Lymph % (Auto) 7.7 L (20-44) % [place] % (Auto) 11.7 H (0.0-11.0) % Eos % (Auto) 2.3 (0.0-7.0) % Baso % (Auto) 0.4 (0.0-3.0) % Neut # (Auto) 6.40 (1.7-7.0) K/uL Lymph # (Auto) 0.60 L (0.90-2.90) K/uL [place] # (Auto) 1.00 H (0.00-0.90) K/UL Eos # (Auto) 0.19 (0.00-0.50) K/uL Baso # (Auto) 0.03 (0.00-0.30) K/uL Abs Immat Gran (auto) 0.02 (0.00-0.30) K/uL Imm/Tot Granulo (auto) 0.2 % INR (0.91-1.10) Sodium 136 (135-149) mmol/L Potassium 4.2 (3.6-5.1) mmol/L Chloride 104 (96-114) mmol/L Carbon Dioxide 19 L (20-32) mmol/L Anion Gap 13 (7-15) mEq/L BUN 25 (7-30) mg/dL Creatinine 1.1 (0.5-1.5) mg/dL Estimated Creat Clear 53.46 Estimated GFR 67 ml/min Glucose 217 H (60-115) mg/dL Hemoglobin A1c (0-5.6) % Lactate 2.3 H (0.5-1.9) mmol/L Calcium 8.7 (8.4-10.6) mg/dL Magnesium (1.5-2.6) mg/dL Total Bilirubin (0.1-1.5) mg/dL AST (12-35) U/L ALT (4-50) U/L Alkaline Phosphatase (40-150) U/L Troponin I 0.01 (0.01-0.04) ng/mL C-Reactive Protein 12.0 H (0.5-1.0) mg/dL NT-Pro-B Natriuret Pep pg/mL Total Protein (6.0-8.3) g/dL Albumin (3.3-5.0) g/dL Procalcitonin (<0.50) ng/mL Urine Color Yellow (Yellow) Urine Appearance Slightly Cloudy A (Clear) Urine pH 5.5 (5.0-8.5) Ur Specific [place] 1.020 (1.000-1.030) Urine Protein 1+ A (Negative) Urine Glucose (UA) Negative (Negative) Urine Ketones Negative (Negative) Urine Blood Trace-lysed A (Negative) Urine Nitrite Negative (Negative) Urine Bilirubin Negative (Negative) Urine Urobilinogen 0.2 (0.2-1.0) Ur Leukocyte Esterase Trace A (Negative) Urine RBC 0-2 (0-2) Urine WBC 0-2 (0-5) Ur Squamous Epith Cells None (None-Few) Urine Bacteria Few A (None) Fluid Volume Fluid Color Fluid Appearance Fluid WBC Cells/uL Fluid RBC Cells/uL Fluid Polynuclear WBCs % Fluid Mononuclear WBCs % Fluid Crystal ID Fluid Total Protein gm/dL SARS-CoV-2 (PCR) (Negative) Influenza Type A (PCR) (Negative) Influenza Type B (PCR) (Negative) RSV (PCR) (Negative) Lab Acknowledgement Impression & Recommendations Recommendations Impression & Recommendations: 83-year-old male PMH CAD, STEMI with RCA stenting, s/p nephrectomy, psoriasis, diverticulosis, tubulovillous adenoma of the colon, A-fib (Eliquis), HTN, left knee total arthroplasty x 1 year ago, chronic SPC for urinary retention was in his normal state of health x 3-4 days ago when he started having pain and swelling in his left knee associated with subjective chills/sweats. ?In the ED noted red hot swollen knee suspicious for PJI s/p arthrocentesis. ?Per chart review ?no history of trauma/falls. ?Has been very weak and having trouble walking around. ?No respiratory symptoms, GI/ symptoms. ?Normal urine output via SPC (last exchanged 05/17). ?No rashes In the ED FEBRILE TMAX 102, WBC 8K, cr 1.1---0.9, A1c 6.1, LFT NL, CRP 12---8.1 procalcitonin 0.19, Limited RVP negative, UA (from SPC) nitrite negative, LE trace, WBC 0-2, Synovial fluid cloudy, WBC 83172, 98% polys, crystal pending CXR: No acute changes R XR: Moderate effusion. ?Underlying prosthesis Was started on IV vancomycin yesterday and later Levaquin was added for gram-negative coverage with underlying SPC catheter Planned for DAIR procedure by Ortho this afternoon ID consulted for further empiric antibiotic recommendations today On further chart review most recent cultures was from May 2023 urine culture positive for Morganella Morganii (sensitive to ceftazidime, ceftriaxone, quinolones, ertapenem, Bactrim, Zosyn), Enterococcus faecalis (ampicillin sensitive) #Left knee septic arthritis/PJI- s/p arthrocentesis pending culture #S/p L TKA May 2023 #Underlying SPC catheter # H/o nephrectomy Micro 05/30 Ucx pending 05/30 Bcx x 2 pending Synovial fluid: No organism. ?WBC many. ?Culture pending Discussion: Okay to continue with IV vancomycin and IV cefepime for now pending OR/DAIR procedure today. Reccs: C/w IV vancomycin (pharmacy to dose); closely monitor for renal functions. ?If any uptrending creatinine can consider switching to IV daptomycin 8mg/kg & obtain baseline CK levels C/w IV cefepime 2g q8 hr STOP Levaquin No anaerobic coverage is warranted at this time Follow-up blood cultures, OR cxs & synovial fluid cxs UA no significant pyuria, less likely CAUTI. ?Consider SPC exchange. ?Discussed with primary team Pending OR today, please send bacterial aerobic/anaerobic Gram stain cultures, fungal stains/cxs, AFB stains/cxs Tentative plan; Likely will need x 6 weeks of IV antibiotics followed by chronic PO suppression given planned DAIR procedure ID will follow back on Monday. Over the weekend Tele-ID is available telephonically. I will plan discussed with primary team.
--- NOTE | 2024-05-31 14:45 | P.ORCN_ITS ---
History of Present Illness HPI Date Seen: 05/31/24 Chief complaint: Decreased mobility Narrative: [place] is a pleasant 83-year-old male known to my clinic. He underwent left TKA by me 05/29/2023. He has done well for a number of months. Unfortunately, he has noticed a 4 day history of increasing pain about his left knee. He feels that there may be some increased warmth, and swelling and mild redness. He presented [place] ED on 05/30/2023 with the symptoms. Workup included aspiration of the left knee which returned with 94,000+ WBC's and 98% PMN's. He developed a fever of approximately 102? today. Otherwise, no chills. No rigors. He has no history of diabetes mellitus. He does have a history of stable atherosclerotic coronary artery disease status post stenting, atrial fibrillation on apixaban, essential hypertension, or chronic suprapubic catheter for urinary retention. He denies any recent infectious prodrome all symptoms. No issues with respiratory, integumentary, musculoskeletal, urinary, or other systems. [facility] Medical History Status post nephrectomy ?Z90.5 - Acquired absence of kidney (ICD-10) Indwelling urinary catheter present (~2020) ?Z96.0 - Presence of urogenital implants (ICD-10) Obesity ?E66.9 - Obesity, unspecified (ICD-10) HTN (hypertension) ?I10 - Essential (primary) hypertension (ICD-10) Atrial fibrillation, chronic ?I48.20 - Chronic atrial fibrillation, unspecified (ICD-10) CAD (coronary artery disease) ?I25.10 - Atherosclerotic heart disease of [place] coronary artery without angina pectoris (ICD-10) Elevated bilirubin ?R17 - Unspecified jaundice (ICD-10) Inability to ambulate due to knee ?R26.2 - Difficulty in walking, not elsewhere classified (ICD-10) Psoriasis ?L40.9 - Psoriasis, unspecified (ICD-10) Diverticulosis of colon ?K57.30 - Diverticulosis of large intestine without perforation or abscess without bleeding (ICD-10) Hydrocele in adult ?N43.3 - Hydrocele, unspecified (ICD-10) History of prediabetes ?Z87.898 - Personal history of other specified conditions (ICD-10) Tubular adenoma of colon ?D12.6 - Benign neoplasm of colon, unspecified (ICD-10) Tubulovillous adenoma of colon ?D12.6 - Benign neoplasm of colon, unspecified (ICD-10) Benign prostatic hyperplasia with lower urinary tract symptoms ?N40.1 - Benign prostatic hyperplasia with lower urinary tract symptoms (ICD- 10) Urinary retention ?R33.9 - Retention of urine, unspecified (ICD-10) Encounter for replacement of urinary catheter ?Z46.6 - Encounter for fitting and adjustment of urinary device (ICD-10) Chronic anticoagulation ?Z79.01 - detention (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 of anticoagulants (ICD-10) 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, unspecified ankle and foot (ICD-10) Atrial fibrillation ?I48.91 - Unspecified atrial fibrillation (ICD-10) Heart attack (2018) ?I21.9 - Acute myocardial infarction, unspecified (ICD-10) Surgical History 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 Retired [employer]. What is your current living situation?: I presently have a place to live Problems where you live: no known problems Problems where you live details: no known problems In the past 12 months, utilities in danger of being shut off: no In past 12 months, lack of transportation kept you from medical appts, meetings, work, or getting things needed for daily living: no In the past 12 mos, have been you worried that your food would run out before you had money to buy more?: never true In the past 12 mos, the food you bought just didn't last and you didn't have money to buy more?: never true Highest level of school completed/degree received: 12th grade, no diploma Smoking Status: Never smoker Do you use any of these nicotine containing products: None Second hand tobacco smoke exposure: No How often do you have a drink containing alcohol: monthly or less Alcohol type: beer How often do you have six or more drinks on one occasion: Never AUDIT-C Alcohol total score: 1 Non-prescribed substance use: denies use Caffeine: Yes (rarely warm tea) How often does anyone, including family, friends and others, physically hurt you : never How often does anyone, including family, friends and others, insult or talk down to you: never How often does anyone, including family, friends and others, threaten you with harm: never How often does anyone, including family, friends and others, scream or curse at you: never Little interest or pleasure in doing things: not at all Feeling down, depressed, or hopeless: not at all Do you think of yourself as: straight/heterosexual Gender Identity: male service: No Meds Home Medications and Allergies Home Medications ?Medication ?Instructions ?Recorded ?Confirmed ?Type aspirin 81 mg capsule 81 mg PO DAILY 08/08/22 05/31/24 History amlodipine 5 mg tablet 5 mg PO DAILY 05/31/24 05/31/24 History atorvastatin 40 mg tablet 40 mg PO HS 05/31/24 05/31/24 History furosemide 20 mg tablet (Lasix) 20 mg PO DAILY 05/31/24 05/31/24 History Allergies Allergy/AdvReac Type Severity Reaction Status Date / Time No Known Drug Allergies Allergy Verified 04/24/24 10:19 Ortho Exam Narrative Exam Narrative: My 1st encounter with the patient is while he is lying supine in hospital bed in the block room prior to surgery. I was able to Jim[place] the history as above. In addition, he does provide all the history and is cooperative with the exam. Exam left knee shows moderate effusion. No significant erythema. Band-Aid in place with the previously aspiration was performed from the lateral aspect of the suprapatellar pouch. He is tender palpation around the knee in general. There is increased warmth to touch. 2+ DP PT pulse. Neurologic intact superficial and deep peroneal as well as plantar distribution to sensory light touch and motor function. Inspection of the rest of his skin does show some erythema in the lower abdomen/upper right hip region were his pannus lays across proximal right hip. Does not appear frankly infected, but certainly similar to fungal type of situation. He also has multiple patches across his buttocks bilaterally and right flank that have an appearance of eczema. He does have very thickened toenails consistent with chronic fungal infections. Suprapubic catheter is in place and the port site itself appears healthy without malodor or drainage. Const Vital Signs, click to edit/add: Vital Signs - 24 hr 05/30/24 19:47 05/30/24 22:35 05/30/24 23:41 Temperature 102.1 F H 99.4 F 98.5 F Pulse Rate Pulse Rate [Pulse Oximeter] 83 72 56 L Respiratory Rate 20 18 18 Blood Pressure Blood Pressure [Right Arm] Blood Pressure [Right Upper Arm] 140/80 H 140/90 H 123/72 Pulse Oximetry 94 94 92 Oxygen Delivery Method Room Air Room Air Room Air Oxygen Flow Rate 05/31/24 02:23 05/31/24 02:23 05/31/24 08:21 Temperature 98.8 F Pulse Rate Pulse Rate [Pulse Oximeter] 72 72 Respiratory Rate 18 18 Blood Pressure Blood Pressure [Right Arm] 134/86 Blood Pressure [Right Upper Arm] Pulse Oximetry 93 Oxygen Delivery Method Room Air Room Air Oxygen Flow Rate 05/31/24 09:32 05/31/24 10:56 05/31/24 12:06 Temperature 100 F H 98.6 F Pulse Rate 71 Pulse Rate [Pulse Oximeter] Respiratory Rate 16 Blood Pressure 142/82 H Blood Pressure [Right Arm] Blood Pressure [Right Upper Arm] Pulse Oximetry 92 Oxygen Delivery Method Nasal Cannula Oxygen Flow Rate 2 05/31/24 12:11 Temperature Pulse Rate 66 Pulse Rate [Pulse Oximeter] Respiratory Rate 16 Blood Pressure 135/96 H Blood Pressure [Right Arm] Blood Pressure [Right Upper Arm] Pulse Oximetry 93 Oxygen Delivery Method Nasal Cannula Oxygen Flow Rate 2 Results Labs Labs: Laboratory Results - last 48 hr 05/30/24 05/30/24 05/30/24 20:10 20:40 20:41 WBC 8.21 RBC 4.11 L Hgb 12.5 L Hct 38.2 MCV 93 MCH 30 MCHC 33 RDW Coeff of David 13.1 Plt Count 219 Neut % (Auto) 77.7 H Lymph % (Auto) 7.7 L Spink % (Auto) 11.7 H Eos % (Auto) 2.3 Baso % (Auto) 0.4 Neut # (Auto) 6.40 Lymph # (Auto) 0.60 L Spink # (Auto) 1.00 H Eos # (Auto) 0.19 Baso # (Auto) 0.03 Abs Immat Gran (auto) 0.02 Imm/Tot Granulo (auto) 0.2 INR Sodium 136 Potassium 4.2 Chloride 104 Carbon Dioxide 19 L Anion Gap 13 BUN 25 Creatinine 1.1 Estimated Creat Clear 53.46 Estimated GFR 67 Glucose 217 H Hemoglobin A1c Lactate 2.3 H Calcium 8.7 Magnesium Total Bilirubin AST ALT Alkaline Phosphatase Troponin I 0.01 C-Reactive Protein 12.0 H NT-Pro-B Natriuret Pep Total Protein Albumin Procalcitonin Urine Color Yellow Urine Appearance Slightly Cloudy A Urine pH 5.5 Ur Specific [place] 1.020 Urine Protein 1+ A Urine Glucose (UA) Negative Urine Ketones Negative Urine Blood Trace-lysed A Urine Nitrite Negative Urine Bilirubin Negative Urine Urobilinogen 0.2 Ur Leukocyte Esterase Trace A Urine RBC 0-2 Urine WBC 0-2 Ur Squamous Epith Cells None Urine Bacteria Few A Fluid Volume Fluid Color Fluid Appearance Fluid WBC Fluid RBC Fluid Polynuclear WBCs Fluid Mononuclear WBCs Fluid Total Protein SARS-CoV-2 (PCR) Negative SARS-CoV-2 Influenza Type A (PCR) Negative PCR FLU A Influenza Type B (PCR) Negative PCR FLU B RSV (PCR) Negative PCR RSV Lab Acknowledgement 05/31/24 05/31/24 05/31/24 01:00 07:20 07:37 WBC 6.21 RBC 4.03 L Hgb 12.3 L Hct 37.5 MCV 93 MCH 31 MCHC 33 RDW Coeff of David 13.1 Plt Count 201 Neut % (Auto) 71.6 Lymph % (Auto) 10.0 L Spink % (Auto) 13.4 H Eos % (Auto) 4.3 Baso % (Auto) 0.5 Neut # (Auto) 4.45 Lymph # (Auto) 0.60 L Spink # (Auto) 0.80 Eos # (Auto) 0.27 Baso # (Auto) 0.03 Abs Immat Gran (auto) 0.01 Imm/Tot Granulo (auto) 0.2 INR 1.35 H Sodium 138 Potassium 4.1 Chloride 108 Carbon Dioxide 21 Anion Gap 9 BUN 19 Creatinine 0.9 Estimated Creat Clear 60.66 Estimated GFR 85 Glucose 135 H Hemoglobin A1c 6.1 H Lactate 1.2 Calcium 8.6 Magnesium 2.1 Total Bilirubin 1.2 AST 27 ALT 17 Alkaline Phosphatase 87 Troponin I < 0.01 L C-Reactive Protein 8.1 H NT-Pro-B Natriuret Pep 2520 Total Protein 6.9 Albumin 3.7 Procalcitonin 0.19 Urine Color Urine Appearance Urine pH Ur Specific [place] Urine Protein Urine Glucose (UA) Urine Ketones Urine Blood Urine Nitrite Urine Bilirubin Urine Urobilinogen Ur Leukocyte Esterase Urine RBC Urine WBC Ur Squamous Epith Cells Urine Bacteria Fluid Volume 18 Fluid Color Xanthochromic A Fluid Appearance Cloudy A Fluid WBC 45746 Fluid RBC 14245 Fluid Polynuclear WBCs 98 Fluid Mononuclear WBCs 2 Fluid Total Protein < 6.0 SARS-CoV-2 (PCR) Influenza Type A (PCR) Influenza Type B (PCR) RSV (PCR) Lab Acknowledgement Test Added 05/31/24 05/31/24 08:16 14:13 WBC RBC Hgb Hct MCV MCH MCHC RDW Coeff of David Plt Count Neut % (Auto) Lymph % (Auto) [place] % (Auto) Eos % (Auto) Baso % (Auto) Neut # (Auto) Lymph # (Auto) Spink # (Auto) Eos # (Auto) Baso # (Auto) Abs Immat Gran (auto) Imm/Tot Granulo (auto) INR Sodium Potassium Chloride Carbon Dioxide Anion Gap BUN Creatinine Estimated Creat Clear Estimated GFR Glucose Hemoglobin A1c Lactate Calcium Magnesium Total Bilirubin AST ALT Alkaline Phosphatase Troponin I C-Reactive Protein NT-Pro-B Natriuret Pep Total Protein Albumin Procalcitonin Urine Color Urine Appearance Urine pH Ur Specific [place] Urine Protein Urine Glucose (UA) Urine Ketones Urine Blood Urine Nitrite Urine Bilirubin Urine Urobilinogen Ur Leukocyte Esterase Urine RBC Urine WBC Ur Squamous Epith Cells Urine Bacteria Fluid Volume Fluid Color Fluid Appearance Fluid WBC Fluid RBC Fluid Polynuclear WBCs Fluid Mononuclear WBCs Fluid Total Protein SARS-CoV-2 (PCR) Influenza Type A (PCR) Influenza Type B (PCR) RSV (PCR) Lab Acknowledgement Test Added Test Added Diagnostic results Additional Comments: Three views of the left knee from [facility] dated 05/31/2024 were ordered by a different provider and reviewed by being. This demonstrates left TKA implants in a acceptable, stable position. No evidence of clear loosening. The patella does have some lateral translation likely related to the moderate effusion seen. No acute fractures or avulsions otherwise. Assessment and Plan Assessment and plan (1) Septic arthritis: Problem comment: -OR today with Dr. Santamaria -continue Ancef and Levaquin - pending culture -3V Xray ordered -fluids and home meds reviewed/ordered -NPO until after surgery -eliquis on hold until am (confer with ortho) Status: Acute Total time spent: Total time spent is greater than 50% in coordination of care (as documented) at patient's floor/unit and/or counseling patient: (2) CAD (coronary artery disease): Problem comment: - s/p STEMI with RCA stenting 04/30 - quiescent Status: Acute Total time spent: Total time spent is greater than 50% in coordination of care (as documented) at patient's floor/unit and/or counseling patient: (3) Atrial fibrillation, chronic: Problem comment: - rate controlled on Eliquis Status: Acute Total time spent: Total time spent is greater than 50% in coordination of care (as documented) at patient's floor/unit and/or counseling patient: (4) Fever: Problem comment: 102.1 on arrival to the ED Status: Acute Total time spent: Total time spent is greater than 50% in coordination of care (as documented) at patient's floor/unit and/or counseling patient: (5) History of total left knee replacement: Problem comment: Left total knee arthroplasty (Dr. Bustamante) May 2023 Status: Acute Total time spent: Total time spent is greater than 50% in coordination of care (as documented) at patient's floor/unit and/or counseling patient: (6) Indwelling urinary catheter present: Problem comment: - suprapubic cath, changed monthly Status: Acute Total time spent: Total time spent is greater than 50% in coordination of care (as documented) at patient's floor/unit and/or counseling patient: (7) HTN (hypertension): Problem comment: -home meds: lisinopril 20mg BID, amlodipine 5mg Status: Acute Total time spent: Total time spent is greater than 50% in coordination of care (as documented) at patient's floor/unit and/or counseling patient: (8) Obesity: Problem comment: BMI 34.5 Status: Acute Total time spent: Total time spent is greater than 50% in coordination of care (as documented) at patient's floor/unit and/or counseling patient: (9) Status post nephrectomy: Problem comment: - 1950s Status: Acute Total time spent: Total time spent is greater than 50% in coordination of care (as documented) at patient's floor/unit and/or counseling patient: Plan I had a thorough discussion with the patient. In my opinion, I do think surgery is indicated. This would be for incision and drainage and extensive debridement of the left knee with polyethylene exchange. Beyond that, we will plan for antibiotic bead placement and 2nd stage debridement/revision procedure in approximately 1 week. After discussing the risks, benefits, and alternatives for him/to him, I believe all questions were answered. These include, but are not limited to, persistent infection, recurrent infection, quad tendon rupture, fracture, loosening of implants in the future, VTE, stroke, mi,. Particularly, given his advanced age I think the morbidity of this procedure is noteworthy and was communicated clearly to the patient. This is a major urgent surgery but is also necessary to decrease his bacterial burden and minimize his risk for developing bacteremia/septicemia. I have spoken with the hospitalist team as well as the anesthesia team and coordinated care. The patient will likely benefit from 6+ weeks of IV antibiotics postoperatively as well as 3-6 months of oral antibiotics thereafter.
--- NOTE | 2024-05-31 14:55 | PM.ORPRC ---
Procedure Note Date of procedure: 05/31/24 Procedure: PREOPERATIVE DIAGNOSIS: 1. Left knee septic arthritis after TKA from 05/29/2023, acute POSTOPERATIVE DIAGNOSIS: 1. Left knee septic arthritis after TKA from 05/29/2023, acute PROCEDURE: 1. Left knee incision and drainage of septic arthritis 2. Left knee extensive synovectomy including excisional debridement of synovium in the suprapatellar pouch, medial and lateral gutters, posterior recesses of the knee, and surrounding the patella. 3. Left knee polyethylene exchange. 4. Left knee antibiotic bead placement SURGEON: Miguel Angel Bustamante MD. FRAME WIRER: [DALLAS Cooper; Alaina Linares PA-C; Nikita Bond PA-C] - Of note, multiple skilled assistants were critical for this case to aid in patient positioning, tissue retraction, limb manipulation/positioning, antibiotic bead preparation, debridement, and closure. ANESTHESIA: General endotracheal anesthetic EBL: 10 mL IMPLANTS: DePuy J&J all cemented TKA - [Attune] retained implants included the femoral, tibial, and patellar components which previously were sized 7, 7, and 41, respectively. The 5 mm polyethylene spacer was removed and eventually replaced today. Antibiotic beads were placed (25 beads total on a string). TOURNIQUET: [90 min at 300 torr] COMPLICATIONS: [None evident] DRAINS: Single AKANKSHA drain was placed. CULTURES: Fluid culture (x1); tissue culture (x3) INDICATIONS: The patient is a pleasant 83-year-old male who underwent left TKA 05/29/2023. He did excellent for approximately 1 year. Then, in the last 4 days he has noticed increasing pain, swelling, redness, and warmth about the left knee. He presented [facility] 05/30/2024. A knee aspiration was performed and showed elevated WBCs and PMN %. Orthopedics was consulted accordingly. Given these findings, and the acute nature of the infection, I was felt that a Double DAIR concept could be employed for him consistent with the article from the [facility]. This includes thorough/extensive debridement, antibiotic beads, irrigation, and revision procedure in the next 1 week. FINDINGS: Purulence encountered immediately upon entering the joint itself. The tissue itself did have some purulence along it, but not excessive synovitis. The implants all felt stable. They were not a typically loose. DESCRIPTION OF PROCEDURE: Following a thorough discussion of risks, benefits, and alternatives consent was obtained and the left knee was marked. The patient was brought to the operating room and placed supine on the operating table. Induction of anesthesia was undertaken. No antibiotics were administered in the preoperative time as cultures were obtained. Following cultures, 1.25g IV vancomycin was administered. Beyond that, 1 g tranexamic acid was administered within 1 hr of incision preoperatively. Proper time-out was performed identifying proper patient, site, procedure. The operative extremity was prepped and draped in the appropriate sterile fashion using ChloraPrep after the patient was positioned supine with all bony prominences well padded. A longitudinal, anterior, midline skin incision was made starting approximately 3cm proximal to the superior pole of the patella and advanced distal to the tibial tubercle. [ A median parapatellar arthrotomy was created.] A medial subperiosteal sleeve was created with knife, rios elevator and curved osteotome. The retropatellar fatpad was resected and the synovium in the suprapatellar pouch excised to visualize the anterior femoral cortex. The gutters were restored after excising scar tissue with a combination of sharp dissection of knife as well as curette and Bovie cautery. The extensive synovectomy was then performed including the suprapatellar pouch, mediolateral gutters, retropatellar region, posterior recesses of the knee with the assistance of a lamina hospitality coordinator, and all portions of the implants. After the initial extensive debridement, 3 minute Betadine soak was performed followed by thorough irrigation normal saline (3 L). The poly spacer was removed to access the posterior aspect of the knee. Then, further debridement was performed with curette, rongeur, and scalpel. Chlorhexidine scrub brushes were then utilized on all implant surfaces and remaining synovial linings. Again a 3 L normal saline irrigation was performed. Finally, further debridement was performed sharply followed by another 3 L normal saline irrigation (total of 9 L normal saline). Finally cement beads were mixed on back table with a single packet of cement, 2 g vancomycin powder, 2.4 g tobramycin powder. Once cement was in doughy state, the beads were created and placed on a string with knots on either end. 25 total beads were placed and implanted. At this stage, a AKANKSHA drain was passed out the lateral suprapatellar pouch. Closure performed in layered fashion including the retinaculum, subcutaneous layer, and skin. Dressing was applied and a knee immobilizer applied. The patient was woken from anesthesia after the tourniquet deflated and transferred the PACU in stable condition. A multiple skilled assistants were critical for this case to aid in patient positioning, tissue retraction, bone exposure, limb manipulation/positioning, patient safety, and closure. PLAN: 1. Weight bear as tolerated operative extremity. No range of motion knee. 2. 23 hr perioperative antibiotics. 3. Ice. 4. PT/OT consults for ambulation assistance/mobility education. 5. Social work consult for discharge planning. 6. DVT prophylaxis with at SCDs and apixaban can be restarted. Of note, there is a planned stage portion to this. The patient should be returned to the operating room in approximately 4-6 days.
--- NOTE | 2024-05-31 15:06 | P.ANES_ITS ---
Anesthesia Charges Start Date/Time Anesthesia Start Date: 05/31/24 Anesthesia Start Time: 12:23 Stop Date/Time Anesthesia Stop Date: 05/31/24 Anesthesia Stop Time: 15:04 Summary Emergency: NURSE STAFF Extremes of Age - Over 70 or under 1: NURSE STAFF
--- NOTE | 2024-05-31 15:06 | W.ANESCHARGE ---
Anesthesia Charges Start Date/Time Anesthesia Start Date: 05/31/24 Anesthesia Start Time: 12:23 Stop Date/Time Anesthesia Stop Date: 05/31/24 Anesthesia Stop Time: 15:04 Summary Emergency: HAND CELL TUBER Extremes of Age - Over 70 or under 1: HAND CELL TUBER
[2024-05-31] MEDS: CEFEPIME HCL 2 GM in 0.9 % SODIUM CHLORIDE Mini-bag 100 ML IVPB ×2 (16:39→21:57)
[2024-05-31] MEDS: LACTATED RINGERS 1000 ML 1,000 ML 75 ML IV (16:40)
[2024-05-31] MEDS: ACETAMINOPHEN 650 MG TABLET ER 1300 MG PO (17:14)
[2024-05-31 18:28] LABS: Appearance Urine Clear (Clear); Bilirubin Urine Negative (Negative); Blood Urine 3+ (Negative); Color Urine Yellow (Yellow); Glucose Urine 1+ (Negative); Ketones Urine Negative (Negative); Leukocyte Esterase Urine Trace (Negative); Nitrite Urine Negative (Negative); Protein Urine Trace (Negative); Urobilinogen Urine 0.2 (0.2-1.0); pH Urine 5.5 (5.0-8.5)
[2024-05-31 19:10] LABS: Bacteria Urine Few; WBC Urine 0-2 (0-5)
[2024-05-31] MEDS: ATORVASTATIN CALCIUM 40 MG TABLET PO (20:37)
[2024-05-31] MEDS: SENNOSIDES 1 TAB TABLET 2 TAB PO (20:37)
[2024-05-31] MEDS: ASPIRIN 81 MG TABLET EC PO (20:37)
[2024-06-01] VITALS (9 sets, daily range): BP systolic 112–134; BP diastolic 67–89; PULSE 48–91; RESP 16–20; TEMP 36.2–37.1; O2SAT 90–96
[2024-06-01] MEDS: ACETAMINOPHEN 650 MG TABLET ER 1300 MG PO ×2 (03:27→16:25)
[2024-06-01] MEDS: SODIUM CHLORIDE 0.9 % (FLUSH) 10 ML SYRINGE 5 ML IVF ×3 (06:03→20:56)
[2024-06-01] MEDS: CEFEPIME HCL 2 GM in 0.9 % SODIUM CHLORIDE Mini-bag 100 ML IVPB ×3 (06:03→22:31)
--- NOTE | 2024-06-01 06:30 | PC.NURSE ---
End of shift [id number] ? Pt alert, oriented, talkative. Tolerating O2 via nasal cannula at 1.5L to maintain saturation at 90% or above per MD order. Pt denied pain in surgical leg. Pedal pulse present, MARGA wrap and knee immobilizer in place. AKANKSHA drain noted to be patent and draining. Suprapubic catheter noted to be patent and draining. Afebrile and VSS. Pt observed to sleep during shift. ?
[2024-06-01 07:20] LABS: Hematocrit 38.5 % (37.0-53.0); Hemoglobin* 12.5 gm/dL (13.5-17.5); Mean Corpuscular HGB Conc 33 gm/dL (32-36); Mean Corpuscular Hemoglobin 30 pg (26-34); Mean Corpuscular Volume 93 fL (80-100); Platelet Count* 221 K/uL (140-440); Red Blood Count 4.15 m/uL (4.30-5.90); White Blood Count* 8.08 K/uL (4.50-11.00)
[2024-06-01 07:27] LABS: Slide Review Reflex No
[2024-06-01 07:31] LABS: Chloride* 110 mmol/L (96-114); Sodium* 137 mmol/L (135-149)
[2024-06-01 07:32] LABS: Potassium* 4.6 mmol/L (3.6-5.1)
[2024-06-01 07:34] LABS: Est. Creatinine Clearance* 60.66; Estimated Glomerular Filt Rate 75 ml/min
[2024-06-01 07:35] LABS: Anion Gap 6 mEq/L (7-15); Blood Urea Nitrogen* 20 mg/dL (7-30); Calcium* 8.8 mg/dL (8.4-10.6); Carbon Dioxide* 21 mmol/L (20-32); Glucose* 185 mg/dL (60-115)
[2024-06-01 07:38] LABS: C Reactive Protein* 8.4 mg/dL (0.5-1.0)
--- NOTE | 2024-06-01 08:13 | PM.ORPN ---
Subjective Subjective Time Seen by Provider: 07:50 Date Seen: 06/01/24 Principal diagnosis: Day 1 s/p lt knee I&D septic arthritis, ext synovectomy, abx bead placement Interval history: Mushtaq is doing well resting comfortably in bed with knee immobilizer in place. Patient is in good spirits, although few tears during our conversation when discussing our treatment plan. Patient ranks left knee pain 2/10 at rest and 9/10 with movement. Admits to trouble sleeping, only slept 2 hours last night. Mushtaq reports his fever has subsided. Most recent temp at 3:45am was 97.4 *F. Denies chest pain, SOB, nausea, vomiting. Reports strong appetite. AKANKSHA drain within the lateral suprapatellar pouch has 25 mL bloody drainage. , Dionna, will be visiting later today. Ortho Exam Narrative Exam Narrative: EXAMINATION: Incision/Dressing: Dressing appears clean and dry. No drainage present through this dressing. Mepilex intact. Left knee is moderately swollen. No obvious erythema nor fluctuance. Left knee remains mild-moderately warm to the touch. No ecchymosis or erythematous streaking. Ice is being utilized as needed. Dressing was removed, followed by removal of AKANKSHA drain. Minimal drainage post drain removal. This 5mm wound was closed with Benzoin and Steri-strips. Gauze and telfa was applied over this wound. Mepilex was left in place. Dressing (Kerlix and Deshaun bandage) was reapplied. CMS: Intact distally with 2+ Dorsalis pedis and Posterior Tibial pulses. 5/5 motor strength dorsal and plantar flexion. Confirmed sensation distally. Straight leg raise deferred. Calf: Bilateral calves are supple, with no swelling, pain, tenderness, erythema, discoloration or coolness to the touch. Constitutional: Patient is alert and oriented x3. Patient is in no acute distress and converses without labored breathing. Patient is able to make decisions and demonstrates good insight. Patient is pleasant and cooperative. Affect is full range and appropriate for the circumstances. Const Vital Signs, click to edit/add: Vital Signs - 24 hr 05/31/24 08:21 05/31/24 09:32 05/31/24 10:56 Temperature 100 F H 98.6 F Pulse Rate Pulse Rate [Pulse Oximeter] 72 Respiratory Rate 18 Blood Pressure Blood Pressure [Right Arm] Pulse Oximetry Oxygen Delivery Method Oxygen Flow Rate Fraction of Inspired Oxygen 05/31/24 12:06 05/31/24 12:11 05/31/24 15:00 Temperature 97.6 F Pulse Rate 71 66 68 Pulse Rate [Pulse Oximeter] Respiratory Rate 16 16 14 Blood Pressure 142/82 H 135/96 H 123/79 Blood Pressure [Right Arm] Pulse Oximetry 92 93 98 Oxygen Delivery Method Nasal Cannula Nasal Cannula Non Rebreather Mask Oxygen Flow Rate 2 2 10 Fraction of Inspired Oxygen 100 05/31/24 15:00 05/31/24 15:05 05/31/24 15:10 Temperature Pulse Rate 58 L 65 Pulse Rate [Pulse Oximeter] Respiratory Rate 12 16 16 Blood Pressure 120/80 124/70 Blood Pressure [Right Arm] Pulse Oximetry 98 97 Oxygen Delivery Method Room Air Room Air Oxygen Flow Rate Fraction of Inspired Oxygen 05/31/24 15:15 05/31/24 15:20 05/31/24 15:25 Temperature Pulse Rate 71 59 L 68 Pulse Rate [Pulse Oximeter] Respiratory Rate 16 16 16 Blood Pressure 114/71 126/80 112/75 Blood Pressure [Right Arm] Pulse Oximetry 93 93 92 Oxygen Delivery Method Room Air Room Air Room Air Oxygen Flow Rate Fraction of Inspired Oxygen 05/31/24 15:30 05/31/24 15:45 05/31/24 16:00 Temperature 97.4 F L 97.3 F L 97.1 F L Pulse Rate 64 67 64 Pulse Rate [Pulse Oximeter] Respiratory Rate 16 12 16 Blood Pressure 120/82 129/73 134/77 Blood Pressure [Right Arm] Pulse Oximetry 93 89 87 L Oxygen Delivery Method Room Air Nasal Cannula Nasal Cannula Oxygen Flow Rate 0.5 2 Fraction of Inspired Oxygen 05/31/24 16:15 05/31/24 16:30 05/31/24 16:45 Temperature 97.6 F 97.4 F L Pulse Rate 63 61 59 L Pulse Rate [Pulse Oximeter] Respiratory Rate 16 16 Blood Pressure 130/90 H 137/87 135/85 Blood Pressure [Right Arm] Pulse Oximetry 94 92 Oxygen Delivery Method Nasal Cannula Nasal Cannula Oxygen Flow Rate 2 2 Fraction of Inspired Oxygen 05/31/24 17:15 05/31/24 17:45 05/31/24 18:18 Temperature 97.8 F 98.3 F 97.3 F L Pulse Rate 71 71 67 Pulse Rate [Pulse Oximeter] Respiratory Rate 16 16 12 Blood Pressure 141/85 H 131/82 129/73 Blood Pressure [Right Arm] Pulse Oximetry 92 93 89 Oxygen Delivery Method Nasal Cannula Nasal Cannula Nasal Cannula Oxygen Flow Rate 1.5 1.5 0.5 Fraction of Inspired Oxygen 05/31/24 19:45 05/31/24 20:45 05/31/24 21:45 Temperature 97.2 F L 98.2 F Pulse Rate 54 L 56 L 62 Pulse Rate [Pulse Oximeter] Respiratory Rate 20 20 Blood Pressure 133/77 126/74 146/98 H Blood Pressure [Right Arm] Pulse Oximetry 95 92 Oxygen Delivery Method Nasal Cannula Nasal Cannula Oxygen Flow Rate 1.5 1.5 Fraction of Inspired Oxygen 05/31/24 22:42 05/31/24 22:45 06/01/24 01:19 Temperature 97.1 F L Pulse Rate Pulse Rate [Pulse Oximeter] 55 L Respiratory Rate 20 16 Blood Pressure Blood Pressure [Right Arm] Pulse Oximetry 95 95 92 Oxygen Delivery Method Nasal Cannula Nasal Cannula Oxygen Flow Rate 1.5 1.5 Fraction of Inspired Oxygen 06/01/24 03:43 Temperature 97.4 F L Pulse Rate Pulse Rate [Pulse Oximeter] 50 L Respiratory Rate 20 Blood Pressure Blood Pressure [Right Arm] 131/88 Pulse Oximetry 92 Oxygen Delivery Method Nasal Cannula Oxygen Flow Rate 1.5 Fraction of Inspired Oxygen Assessment and Plan Assessment and plan (1) Septic arthritis: Problem details: Day 1 s/p left knee I&D septic arthritis, extensive synovectomy, antibiotic bead placement and poly exchange Status: Acute Assessment and Plan: Mushtaq is doing well, but has a lengthy recover ahead of him. Mushtaq and I discussed his surgery in detail, including describing the 25 antibiotic beads that were placed within his knee. He will have severe pain with left knee range of motion. I encouraged Mushtaq to minimally range his left knee. Allow left knee to rest as much as possible. Patient may weight bear as tolerated with the knee immobilizer in place. Walker for assistance. This knee immobilizer may be opened to appropriately ice his knee while resting in bed/recliner. I removed the AKANKSHA drain within the suprapatellar pouch this morning. This contained 25 mL bloody drainage. Patient tolerated removal of this drain well with no concerns. Benzoin and Steri-strips were applied. Gauze and Telfa were placed over this wound and dressing (Kerlix and Deshaun wrap) was reapplied. Antibiotic beads were left in place. For DVT prophylaxis, Mushtaq may resume his apixaban and continue with SCDs. I also recommend ankle pumps when sedentary. For pain management, I recommend prescribed analgesics PRN. Minimize narcotic medications. Dr. Gaspar and I discussed future PICC line placement. Per Hubert's recommendation, this will be completed later this week, possibly Monday (06/05). Per Dr. Bustamante, we will continue with Vancomycin and Cefepime until culture results return. Dr. Bustamante requested that cultures be held a minimum of 2 weeks, and 4 weeks if in the unlikely event this returns a fungal infection. I called lab, and spoke with a tech named Adán. I requested cultures be held in house x 2 weeks. She explained the fungal cultures were sent out and will be held at that location x 6-8 weeks. Tentative plan is for Mushtaq to return to the OR with Dr. Bustamante on MondayJune 05 for second portion of the staged procedure. Dr. Bustamante was updated on Mushtaq's status. Phone Orthopedics with any questions or concerns. [phone].
[2024-06-01] MEDS: FUROSEMIDE 20 MG TABLET PO (08:14)
[2024-06-01] MEDS: SENNOSIDES 1 TAB TABLET 2 TAB PO ×2 (08:50→20:56)
[2024-06-01] MEDS: lisinopriL 20 MG TABLET PO ×2 (08:51→20:56)
[2024-06-01] MEDS: AMLODIPINE 5 MG TABLET PO (08:51)
[2024-06-01] MEDS: ASPIRIN 81 MG TABLET EC PO ×2 (08:51→20:56)
--- NOTE | 2024-06-01 14:19 | PC.NURSE ---
End of shift: Patient pleasant and cooperative, A&O. VSS, afebrile. SpO2 maintained above 90% on RA. Patient reports pain this shift only with ambulation, declines medication. At rest, patient reports his pain as a 0-2 out of 10. Ice applied to left knee. Knee immobilizer on while patient is up and moving. Dressing on left knee C/D/I. BM this shift. Suprapubic catheter patent and draining. A 2-3 with gaitbelt, and walker to bedside commode.
--- NOTE | 2024-06-01 16:42 | PM.IMPN1 ---
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 ID food consultant: She is recommending vancomycin and cefepime until we have culture directed options. She is recommending we change the suprapubic catheter. She is also recommending a new UA after the catheter is replaced. She recommends that we wait 48 hours before placing a PICC line to assure negative blood cultures and lack of bacteremia given his high fever at presentation She will help was follow the patient next week but will likely recommend 6 weeks of IV antibiotics followed by oral per current DAIR procedure protocols. Status: Acute Plan Continue in-hospital with plan outlined above. Time Spent With Patient Total time spent: Total time spent today is 60 minutes in evaluation and management Subjective Date Seen: 06/01/24 Interval history: 83-year-old male admitted to the hospital with a 4 day history of fever chills weakness and swelling in his left knee. Patient had previous left knee arthroplasty approximately a year ago. He was having no problems with that knee and there has been no injury to the knee or to the skin. At the time of admission there was concern about a septic knee and he had arthrocentesis performed. Yesterday he underwent I and D of his septic prosthetic knee with synovectomy, polyethylene exchange and antibiotic bead placement. The orthopedic plan is for repeat surgery in a few days then prolonged IV antibiotics followed by prolonged oral antibiotics to salvage his knee arthroplasty. Consultation from Infectious Disease: Discussion: Okay to continue with IV vancomycin and IV cefepime for now pending OR/DAIR procedure today. Reccs: C/w IV vancomycin (pharmacy to dose); closely monitor for renal functions. ?If any uptrending creatinine can consider switching to IV daptomycin 8mg/kg & obtain baseline CK levels C/w IV cefepime 2g q8 hr STOP Levaquin No anaerobic coverage is warranted at this time Follow-up blood cultures, OR cxs & synovial fluid cxs UA no significant pyuria, less likely CAUTI. ?Consider SPC exchange. ?Discussed with primary team Pending OR today, please send bacterial aerobic/anaerobic Gram stain cultures, fungal stains/cxs, AFB stains/cxs Tentative plan; Likely will need x 6 weeks of IV antibiotics followed by chronic PO suppression given planned DAIR procedure ID will follow back on Monday. Over the weekend Tele-ID is available telephonically. I will plan discussed with primary team. June 01: Patient reports feeling quite good. He is not having significant knee pain. He is in a knee immobilizer. Drain has been removed today. He has had no fever. He otherwise reports feeling well. Exam Narrative: Exam Narrative: He is alert no distress. Breathing is unlabored. Inspection of his left lower extremity shows no significant erythema. Mild swelling around the knee. Drain is removed with a serosanguineous fluid coming out. He has some discomfort with dressing change. Const: Vital Signs, click to edit/add: Vital Signs - 24 hr 05/31/24 16:45 05/31/24 17:15 05/31/24 17:45 Temperature 97.8 F 98.3 F Pulse Rate 59 L 71 71 Pulse Rate [Pulse Oximeter] Respiratory Rate 16 16 Blood Pressure 135/85 141/85 H 131/82 Blood Pressure [Ri ght Arm] Pulse Oximetry 92 93 Oxygen Delivery Me thod Nasal Cannula Nasal Cannula Oxygen Flow Rate 1.5 1.5 05/31/24 18:18 05/31/24 19:45 05/31/24 20:45 Temperature 97.3 F L 97.2 F L Pulse Rate 67 54 L 56 L Pulse Rate [Pulse Oximeter] Respiratory Rate 12 20 Blood Pressure 129/73 133/77 126/74 Blood Pressure [Ri ght Arm] Pulse Oximetry 89 95 Oxygen Delivery Me thod Nasal Cannula Nasal Cannula Oxygen Flow Rate 0.5 1.5 05/31/24 21:45 05/31/24 22:42 05/31/24 22:45 Temperature 98.2 F Pulse Rate 62 Pulse Rate [Pulse Oximeter] Respiratory Rate 20 20 Blood Pressure 146/98 H Blood Pressure [Ri ght Arm] Pulse Oximetry 92 95 95 Oxygen Delivery Me thod Nasal Cannula Nasal Cannula Oxygen Flow Rate 1.5 1.5 06/01/24 01:19 06/01/24 03:43 06/01/24 08:24 Temperature 97.1 F L 97.4 F L 98.0 F Pulse Rate Pulse Rate [Pulse Oximeter] 55 L 50 L 59 L Respiratory Rate 16 20 18 Blood Pressure Blood Pressure [Ri ght Arm] 131/88 122/74 Pulse Oximetry 92 92 96 Oxygen Delivery Me thod Nasal Cannula Nasal Cannula Room Air Oxygen Flow Rate 1.5 1.5 06/01/24 08:27 06/01/24 08:27 06/01/24 08:29 Temperature Pulse Rate Pulse Rate [Pulse Oximeter] 59 L Respiratory Rate 18 18 Blood Pressure [facility] Pulse Oximetry 96 96 Oxygen Delivery Me thod Room Air Oxygen Flow Rate 06/01/24 11:20 06/01/24 15:28 06/01/24 15:28 Temperature 98.4 F 97.9 F Pulse Rate Pulse Rate [Pulse Oximeter] 91 53 L Respiratory Rate 18 20 Blood Pressure Blood Pressure [Ri ght Arm] 129/71 112/67 Pulse Oximetry 91 93 93 Oxygen Delivery Me thod Room Air Room Air Oxygen Flow Rate 06/01/24 15:28 06/01/24 15:28 Temperature Pulse Rate Pulse Rate [Pulse Oximeter] 53 L Respiratory Rate 20 20 Blood Pressure Blood Pressure [[facility] Arm] Pulse Oximetry 93 Oxygen Delivery Me thod Room Air Oxygen Flow Rate Documenting provider has reviewed patient's vital signs: yes Labs Labs: Laboratory Results - last 24 hr 05/31/24 06/01/24 18:20 06:06 WBC 8.08 RBC 4.15 L Hgb 12.5 L Hct 38.5 MCV 93 MCH 30 MCHC 33 Plt Count 221 Sodium 137 Potassium 4.6 Chloride 110 Carbon Dioxide 21 Anion Gap 6 L BUN 20 Creatinine 1.0 Estimated Creat Clear 60.66 Estimated GFR 75 Glucose 185 H Calcium 8.8 C-Reactive Protein 8.4 H Urine Color Yellow Urine Appearance Clear Urine pH 5.5 Ur Specific [place] 1.010 Urine Protein Trace A Urine Glucose (UA) 1+ A Urine Ketones Negative Urine Blood 3+ A Urine Nitrite Negative Urine Bilirubin Negative Urine Urobilinogen 0.2 Ur Leukocyte Esterase Trace A Urine RBC 2-5 A Urine WBC 0-2 Ur Squamous Epith Cells None Urine Bacteria Few A
--- NOTE | 2024-06-01 17:48 | PC.NURSE ---
End of Shift: Patient pleasant and cooperative. Patient vitally stable, lungs clear, BS, WNL, IV SL and intact. Patient rates no pain, with no activity, only scheduled tylenol given. Patient 2-3/assist, walker. Immobilizer brace applied with active ice on knee. Patient left knee with edema but non-pitting. Patient tolerating regular diet, andujar intact and draining.
[2024-06-01] MEDS: ATORVASTATIN CALCIUM 40 MG TABLET PO (20:56)
[2024-06-01] MEDS: 0.9 % SODIUM CHLORIDE 250 ml IV (22:35)
[2024-06-02 01:46] VITALS: BP 116/76; PULSE 44; RESP 20; TEMP 36.5; O2SAT 92
[2024-06-02] MEDS: ACETAMINOPHEN 650 MG TABLET ER 1300 MG PO ×2 (04:26→16:01)
[2024-06-02] MEDS: CEFEPIME HCL 2 GM in 0.9 % SODIUM CHLORIDE Mini-bag 100 ML IVPB ×3 (05:47→22:11)
--- NOTE | 2024-06-02 06:12 | PC.NURSE ---
Shift note: Pt is doing well. Has remained in bed throughout the shift. MARGA wrap to the left leg intact, clean and dry. No pain reported. Vitally stable. Suprapubic catheter intact and draining clear joseph color urine. Pt had adequate sleep.
[2024-06-02 07:13] LABS: Chloride* 110 mmol/L (96-114)
[2024-06-02 07:14] LABS: Potassium* 4.5 mmol/L (3.6-5.1); Sodium* 138 mmol/L (135-149)
[2024-06-02 07:16] LABS: Est. Creatinine Clearance* 60.66; Estimated Glomerular Filt Rate 75 ml/min
[2024-06-02 07:17] LABS: Anion Gap 7 mEq/L (7-15); Blood Urea Nitrogen* 31 mg/dL (7-30); Calcium* 8.7 mg/dL (8.4-10.6); Carbon Dioxide* 21 mmol/L (20-32); Glucose* 169 mg/dL (60-115)
[2024-06-02 07:20] LABS: C Reactive Protein* 4.2 mg/dL (0.5-1.0)
[2024-06-02] MEDS: FUROSEMIDE 20 MG TABLET PO (07:30)
[2024-06-02 07:32] VITALS: BP 138/89; PULSE 46; RESP 18; TEMP 37.1; O2SAT 94
--- NOTE | 2024-06-02 08:37 | P.ORPN_ITS ---
Subjective Subjective Time Seen by Provider: 07:30 Date Seen: 06/02/24 Principal diagnosis: Day 2 s/p lt knee I&D septic arthritis, ext synovectomy, abx bead placement Interval history: During this visit, I witnessed and assisted Mushtaq with a transition from his bed to his recliner with knee immobilizer in place. He tolerated this transition quite well. Ranks his pain 7 out of 10, but improves with rest. Patient reports he slept quite poorly last night to frequent noises. Denies bandage related concerns. No fever; most recent temp 98.7 *F. No acute concerns. Ortho Exam Narrative Exam Narrative: EXAMINATION: Incision/Dressing: Dressing appears clean and dry. No drainage present through the rashi bandage. Left knee is moderately swollen. No obvious erythema nor fluctuance. No ecchymosis or erythematous streaking. Ice is being utilized as needed. CMS: Intact distally with 2+ Dorsalis pedis and Posterior Tibial pulses. 5/5 motor strength dorsal and plantar flexion. Confirmed sensation distally. Straight leg raise deferred. Calf: Bilateral calves are supple, with no swelling, pain, tenderness, erythema, discoloration or coolness to the touch. Constitutional: Patient is alert and oriented x3. Patient is in no acute distress and converses without labored breathing. Patient is able to make decisions and demonstrates good insight. Patient is pleasant and cooperative. Affect is full range and appropriate for the circumstances. Const Vital Signs, click to edit/add: Vital Signs - 24 hr 06/01/24 11:20 06/01/24 15:28 06/01/24 15:28 Temperature 98.4 F 97.9 F Pulse Rate [Pulse Oximeter] 91 53 L Respiratory Rate 18 20 Blood Pressure [Right Arm] 129/71 112/67 Pulse Oximetry 91 93 93 Oxygen Delivery Method Room Air Room Air Oxygen Flow Rate Fraction of Inspired Oxygen 06/01/24 15:28 06/01/24 15:28 06/01/24 19:00 Temperature 98.7 F Pulse Rate [Pulse Oximeter] 53 L 64 Respiratory Rate 20 20 20 Blood Pressure [Right Arm] 134/89 Pulse Oximetry 93 93 Oxygen Delivery Method Room Air Room Air Oxygen Flow Rate Fraction of Inspired Oxygen 06/01/24 22:35 06/01/24 22:35 06/01/24 22:35 Temperature Pulse Rate [Pulse Oximeter] Respiratory Rate 20 Blood Pressure [Right Arm] Pulse Oximetry 90 90 Oxygen Delivery Method Room Air Oxygen Flow Rate Fraction of Inspired Oxygen 06/01/24 22:35 06/02/24 01:46 06/02/24 07:32 Temperature 97.7 F 97.7 F 98.7 F Pulse Rate [Pulse Oximeter] 48 L 44 L 46 L Respiratory Rate 20 20 18 Blood Pressure [Right Arm] 118/80 116/76 138/89 Pulse Oximetry 90 92 94 Oxygen Delivery Method Room Air Room Air Room Air Oxygen Flow Rate 1.5 Fraction of Inspired Oxygen 100 Documenting provider has reviewed patient's vital signs: yes Assessment and Plan Assessment and plan (1) Septic arthritis: Problem details: Day 2 s/p left knee I&D septic arthritis, extensive synovectomy, antibiotic bead placement and poly exchange Status: Acute Assessment and Plan: Mushtaq continues to do well. No signs of drainage through rashi bandage where AKANKSHA drain was removed yesterday. I encouraged Mushtaq to minimally range his left knee. Allow left knee to rest as much as possible. Patient may weight bear as tolerated with the knee immobilizer in place. Walker for assistance. This knee immobilizer may be opened to appropriately ice his knee while resting in bed/recliner. For DVT prophylaxis, Mushtaq may resume his apixaban and continue with SCDs. I also recommend ankle pumps when sedentary. For pain management, I recommend prescribed analgesics PRN. Minimize narcotic medications. Dr. Gaspar and I discussed future PICC line placement. Per Hubert's recommendation, this will be completed later this week, possibly Monday (06/05). Per Dr. Bustamante, we will continue with Vancomycin and Cefepime until culture results return. Dr. Bustamante requested that cultures be held a minimum of 2 weeks, and 4 weeks if in the unlikely event this returns a fungal infection. Yesterday, I called lab and requested cultures be held in house x 2 weeks. electroplating technicianAdán, explained the fungal cultures were sent out and will be held at that location x 6-8 weeks. Tentative plan is for Mushtaq to return to the OR with Dr. Bustamante on MondayJune 05 for second portion of the staged procedure. Phone Orthopedics with any questions or concerns. [phone].
[2024-06-02] MEDS: ASPIRIN 81 MG TABLET EC PO ×2 (09:09→20:59)
[2024-06-02] MEDS: SENNOSIDES 1 TAB TABLET 2 TAB PO ×2 (09:09→20:59)
[2024-06-02] MEDS: lisinopriL 20 MG TABLET PO ×2 (09:09→20:59)
[2024-06-02] MEDS: AMLODIPINE 5 MG TABLET PO (09:09)
--- NOTE | 2024-06-02 10:52 | PM.IMPN1 ---
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 ID wound care center consultant: She is recommending vancomycin and cefepime until we have culture directed options. She is recommending we change the suprapubic catheter. She is also recommending a new UA after the catheter is replaced. She recommends that we wait 48 hours before placing a PICC line to assure negative blood cultures and lack of bacteremia given his high fever at presentation She will help was follow the patient next week but will likely recommend 6 weeks of IV antibiotics followed by oral per current DAIR procedure protocols. Status: Acute (2) Septic arthritis: Problem details: Day 2 s/p left knee I&D septic arthritis, extensive synovectomy, antibiotic bead placement and poly exchange Status: Acute (3) History of total left knee replacement: Problem details: Left total knee arthroplasty (Dr. Bustamante) May 2023 Status: Acute (4) Indwelling urinary catheter present: Problem details: - suprapubic cath, changed on admission Status: Acute (5) Atrial fibrillation, chronic: Problem details: Currently bradycardic without rate control medication. Eliquis held for surgery. Continues on aspirin. Status: Acute (6) HTN (hypertension): Problem details: -home meds: lisinopril 20mg BID, amlodipine 5mg Status: Acute (7) CAD (coronary artery disease): Problem details: - s/p STEMI with RCA stenting 04/30 - quiescent Status: Acute (8) Chronic anticoagulation: Problem details: - on Apixaban 2.5 mg bid - h/o bruising when on 5 mg bid. Apixaban held for surgery. Also on aspirin for history of coronary artery disease. Currently continuing aspirin. VTE Prophylactic enoxaparin pending surgery. Resume apixaban after surgery. Status: Acute Plan Continue patient in hospital for IV antibiotics pending culture and clinical course and repeat I and D of knee in 3 days. Total time spent today is 40 minutes Subjective Date Seen: 06/02/24 Interval history: 83-year-old male admitted to the hospital with a 4 day history of fever chills weakness and swelling in his left knee. Patient had previous left knee arthroplasty approximately a year ago. He was having no problems with that knee and there has been no injury to the knee or to the skin. At the time of admission there was concern about a septic knee and he had arthrocentesis performed. Yesterday he underwent I and D of his septic prosthetic knee with synovectomy, polyethylene exchange and antibiotic bead placement. The orthopedic plan is for repeat surgery in a few days then prolonged IV antibiotics followed by prolonged oral antibiotics to salvage his knee arthroplasty. Consultation from Infectious Disease: IV vancomycin and cefepime pending cultures. Cultures being held for 2 weeks. Change suprapubic catheter Place PICC line after blood cultures are negative for 48 hours June 02. Patient reports doing well. Reports good appetite. No dyspnea. He has had no lightheadedness or chest pain. He has been bradycardic into the 40s without symptoms. He has no knee pain except when he tries to bear weight. Exam Narrative: Exam Narrative: He is alert and appears in no distress. Breathing is normal. Respirations are clear to auscultation. Cardiovascular: S1, S2, regular rate and rhythm. Abdomen: Bowel sounds active. Abdomen is soft without tenderness or mass. Mild edema on his left lower extremity. Knee immobilizer in place. Const: Vital Signs, click to edit/add: Vital Signs - 24 hr 06/01/24 11:20 06/01/24 15:28 06/01/24 15:28 Temperature 98.4 F 97.9 F Pulse Rate [Pulse Oximeter] 91 53 L Respiratory Rate 18 20 Blood Pressure [Ri ght Arm] 129/71 112/67 Pulse Oximetry 91 93 93 Oxygen Delivery Me thod Room Air Room Air Oxygen Flow Rate Fraction of Inspir ed Oxygen 06/01/24 15:28 06/01/24 15:28 06/01/24 19:00 Temperature 98.7 F Pulse Rate [Pulse Oximeter] 53 L 64 Respiratory Rate 20 20 20 Blood Pressure [Ri ght Arm] 134/89 Pulse Oximetry 93 93 Oxygen Delivery Me thod Room Air Room Air Oxygen Flow Rate Fraction of Inspir ed Oxygen 06/01/24 22:35 06/01/24 22:35 06/01/24 22:35 Temperature Pulse Rate [Pulse Oximeter] Respiratory Rate 20 Blood Pressure [Ri ght Arm] Pulse Oximetry 90 90 Oxygen Delivery Me thod Room Air Oxygen Flow Rate Fraction of Inspir ed Oxygen 06/01/24 22:35 06/02/24 01:46 06/02/24 07:32 Temperature 97.7 F 97.7 F 98.7 F Pulse Rate [Pulse Oximeter] 48 L 44 L 46 L Respiratory Rate 20 20 18 Blood Pressure [Ri ght Arm] 118/80 116/76 138/89 Pulse Oximetry 90 92 94 Oxygen Delivery Me thod Room Air Room Air Room Air Oxygen Flow Rate 1.5 Fraction of Inspir ed Oxygen 100 06/02/24 07:32 06/02/24 07:32 06/02/24 07:32 Temperature Pulse Rate [Pulse Oximeter] 46 L Respiratory Rate 18 18 Blood Pressure [facility]] Pulse Oximetry 94 94 Oxygen Delivery Me thod Room Air Oxygen Flow Rate Fraction of Inspir ed Oxygen Documenting provider has reviewed patient's vital signs: yes Labs Labs: Laboratory Results - last 24 hr 05/31/24 06/02/24 06/02/24 01:00 05:47 06:29 Sodium 138 Potassium 4.5 Chloride 110 Carbon Dioxide 21 Anion Gap 7 BUN 31 H Creatinine 1.0 Estimated Creat Clear 60.66 Estimated GFR 75 Glucose 169 H Calcium 8.7 C-Reactive Protein 4.2 H Fluid Crystal ID See Scanned Report Lab Acknowledgement Test Added
[2024-06-02 11:09] VITALS: BP 163/91; PULSE 104; RESP 20; TEMP 37.1; O2SAT 95
[2024-06-02] MEDS: ENOXAPARIN 40 MG/0.4 ML INJ SUBCUT (12:48)
[2024-06-02 15:00] VITALS: BP 125/83; PULSE 55; RESP 22; TEMP 37.1; O2SAT 93
--- NOTE | 2024-06-02 17:32 | PC.NURSE ---
End of Shift: Patient pleasant and cooperative. Patient vitally stable, lungs clear, BS WNL, IV SL and intact. Patient rates left knee pain at most 2/10, only scheduled tylenol given. Patient 2 assist/walker, gb. Patient has been up in chair all shift. Guevara intact and draining. Patient tolerating regular diet, no BM this shift. Pitting edema +1 in lower extremities. Patient with active ice on left knee.
[2024-06-02 19:00] VITALS: BP 123/81; PULSE 53; RESP 20; TEMP 36.9; O2SAT 96
[2024-06-02] MEDS: SODIUM CHLORIDE 0.9 % (FLUSH) 10 ML SYRINGE 5 ML IVF (20:59)
[2024-06-02] MEDS: ATORVASTATIN CALCIUM 40 MG TABLET PO (21:02)
[2024-06-02] MEDS: 0.9 % SODIUM CHLORIDE 250 ml IV (22:12)
[2024-06-02 22:14] VITALS: BP 127/91; PULSE 55; RESP 20; TEMP 36.9; O2SAT 92
[2024-06-03 02:19] VITALS: BP 134/96; PULSE 51; RESP 20; TEMP 36.9; O2SAT 94
[2024-06-03] MEDS: ACETAMINOPHEN 650 MG TABLET ER 1300 MG PO ×2 (02:27→15:57)
--- NOTE | 2024-06-03 04:58 | PC.NURSE ---
Shift note: Pt has been in bed throughout the shift. MARGA wrap to the left knee intact, clean and dry. No pain reported, vitally stable. Pt is pleasant and cooperated with treatment and care. Pt had adequate sleep.
[2024-06-03] MEDS: CEFEPIME HCL 2 GM in 0.9 % SODIUM CHLORIDE Mini-bag 100 ML IVPB ×3 (06:08→22:00)
[2024-06-03 07:00] VITALS: BP 145/97; PULSE 60; RESP 18; TEMP 36.8; O2SAT 94
[2024-06-03] MEDS: FUROSEMIDE 20 MG TABLET PO (08:03)
[2024-06-03] MEDS: lisinopriL 20 MG TABLET PO ×2 (09:11→20:52)
[2024-06-03] MEDS: AMLODIPINE 5 MG TABLET PO (09:11)
[2024-06-03] MEDS: ASPIRIN 81 MG TABLET EC PO ×2 (09:11→20:52)
[2024-06-03] MEDS: ENOXAPARIN 40 MG/0.4 ML INJ SUBCUT (09:13)
[2024-06-03] MEDS: SODIUM CHLORIDE 0.9 % (FLUSH) 10 ML SYRINGE 5 ML IVF ×2 (09:14→20:53)
[2024-06-03 11:00] VITALS: BP 138/90; PULSE 85; RESP 16; TEMP 36.8; O2SAT 96
[2024-06-03] MEDS: 0.9 % SODIUM CHLORIDE 250 ml IV (11:28)
--- NOTE | 2024-06-03 14:42 | W.PM.IDPRG_ITS ---
Visit Information Visit Information Visit Information: Patient was not seen. Subjective Subjective Subjective: This patient recommendation is based on a telemedicine consult request which was completed asynchronously through chart review and information provided by the primary physician. The patient was not seen or examined today. The evaluation is consultative in nature and all patient care and treatment decisions can either be accepted or rejected by the patient's primary hospital-based treating physician using their own independent medical judgment for their patient. 06/03/24 update: pt remains afebrile with stable BP. Labs from 06/01/24 reviewed WBC 8K, Hg 12.5, plar 221K, serum Cr checked on 06/02 WNL at 1.0, CRP 4.2<8.4, synovial fluid crystals negative, lyme serology negative. 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 Left knee polyethylene exchange. Left knee antibiotic bead placement. ? Pt was d/w primary team joana. Home Medications and Allergies Home Medications and Allergies Inpatient Medications: Active Medications Generic Name Dose Route Start Last Admin Trade Name Freq PRN Reason Stop Dose Admin Acetaminophen 1,300 mg 05/31/24 16:00 06/03/24 02:27 Acetaminophen 650 Mg Tablet Er PO 1,300 mg Q12H LINDEN Administration Amlodipine Besylate 5 mg 06/01/24 09:00 06/03/24 09:11 Amlodipine 5 Mg Tablet PO 5 mg DAILY LINDEN Administration Aspirin 81 mg 05/31/24 21:00 06/03/24 09:11 Aspirin 81 Mg Tablet Ec PO 81 mg BID LINDEN Administration Atorvastatin Calcium 40 mg 05/31/24 21:00 06/02/24 21:02 Atorvastatin Calcium 40 Mg Tablet PO 40 mg HS LINDEN Administration Bisacodyl 10 mg 05/31/24 15:52 Bisacodyl 10 Mg Supp.Rect RI DAILY PRN Constipation Diphenhydramine HCl 25 - 50 mg 05/31/24 15:52 Diphenhydramine 50 Mg/Ml Inj IVP Q3H PRN Itching Enoxaparin Sodium 40 mg 06/02/24 11:30 06/03/24 09:13 Enoxaparin 40 Mg/0.4 Ml Inj SUBCUT 06/04/24 09:01 40 mg DAILY LINDEN Administration Furosemide 20 mg 06/01/24 08:00 06/03/24 08:03 Furosemide 20 Mg Tablet PO 20 mg DAILY@0800 REPLACED BY [facility] Administration Hydromorphone HCl 0.2 - 0.5 mg 05/31/24 15:52 Hydromorphone 0.5 Mg/0.5 Ml Inj IVP Q1H PRN Pain Vancomycin HCl 1,250 mg/ 262.5 mls @ 210 mls/hr 06/01/24 01:00 06/03/24 11:25 Sodium Chloride IVPB 210 mls/hr Q12H LINDEN Administration Protocol Cefepime HCl 2 gm/ Sodium 100 mls @ 200 mls/hr 05/31/24 14:30 06/03/24 08:06 Chloride IVPB Infused Q8H LINDEN Infusion IV Miscellaneous Supplies 1 each 06/01/24 09:00 Pharmacist Consult DAILY REPLACED BY [facility] Protocol Lidocaine/Aluminum/Magnesium/Simeth 15 - 30 ml 05/31/24 15:52 Mag Hydrox/Aluminum Hyd/Simeth 30 Ml Oral.Susp PO Q2H PRN Indigestion Lisinopril 20 mg 06/01/24 09:00 06/03/24 09:11 Lisinopril 20 Mg Tablet PO 20 mg BID LINDEN Administration Lorazepam 0.5 - 2 mg 05/31/24 15:52 Lorazepam 0.5 Mg Tablet PO HS PRN Sleep Morphine Sulfate 2 mg 05/31/24 10:37 Morphine 2 Mg/Ml Inj IVP Q2H PRN Nitroglycerin 0.4 mg 05/31/24 10:34 Nitroglycerin 0.4 Mg Tab.Subl SUBLINGUAL Q5M PRN chest pain Ondansetron HCl 4 mg 05/31/24 15:52 Ondansetron 2 Mg/Ml Inj IVP Q4H PRN Nausea Oxycodone HCl 2.5 - 10 mg 05/31/24 15:52 Oxycodone 5 Mg Tablet PO Q2H PRN Pain Sennosides 2 tab 05/31/24 21:00 06/03/24 09:12 Sennosides 1 Tab Tablet PO Not Given BID LINDEN Sodium Chloride 5 ml 05/31/24 04:25 06/01/24 06:03 Sodium Chloride 0.9 % (Flush) 10 Ml Syringe IVF 5 ml .FLUSH PRN Administration Sodium Chloride 5 ml 07/19/24 09:00 06/03/24 09:14 Sodium Chloride 0.9 % (Flush) 10 Ml Syringe IVF 5 ml BID LINDEN Administration Sodium Chloride 500 ml 05/31/24 15:52 0.9 % Sodium Chloride 500 Ml IV Q4H PRN oliguria Sodium Chloride 250 ml 06/01/24 22:45 06/03/24 11:28 0.9 % Sodium Chloride 250 Ml IV 250 ml Q24H LINDEN Administration Discontinued Medications Generic Name Dose Route Start Last Admin Trade Name Freq PRN Reason Stop Dose Admin Acetaminophen 650 mg 05/31/24 09:24 05/31/24 09:32 Acetaminophen 325 Mg Tablet PO 650 mg Q6H PRN Administration As needed for fever, headache, or minor pain Cefazolin Sodium 1 gm 05/31/24 01:04 05/31/24 01:13 Cefazolin 1 Gm Inj IVP 05/31/24 01:05 1 gm ONCE ONE Administration Cefazolin Sodium Confirm 05/31/24 01:10 Cefazolin 1 Gm Inj Administered 05/31/24 01:11 Dose 1 gm .ROUTE .STK-MED ONE Dexamethasone Confirm 05/31/24 13:34 Dexamethasone 4 Mg/Ml Vial Administered 05/31/24 13:35 Dose 4 mg .ROUTE .STK-MED ONE Dexamethasone Sodium Phosphate Confirm 05/31/24 12:15 Dexamethasone 10 Mg/Ml Pf Administered 05/31/24 12:16 Dose 10 mg .ROUTE .STK-MED ONE Dexmedetomidine HCl Confirm 05/31/24 12:15 Dexmedetomidine Hcl 100 Mcg/Ml Inj Administered 05/31/24 12:16 Dose 200 mcg IV .STK-MED ONE Ephedrine Sulfate 5 - 10 mg 05/31/24 11:05 Ephedrine Sulfate 5 Mg/Ml Inj IVP Q5M PRN Fentanyl 50 - 100 mcg 05/31/24 10:26 05/31/24 20:19 Fentanyl 100 Mcg/2 Ml Inj IVP 05/31/24 10:27 Not Given ONCE ONE Fentanyl Confirm 05/31/24 10:27 Fentanyl 100 Mcg/2 Ml Inj Administered 05/31/24 10:28 Dose 100 mcg .ROUTE .STK-MED ONE Fentanyl 50 mcg 05/31/24 11:05 Fentanyl 100 Mcg/2 Ml Inj IVP Q5M PRN Pain Fentanyl Confirm 05/31/24 11:56 Fentanyl 100 Mcg/2 Ml Inj Administered 05/31/24 11:57 Dose 100 mcg .ROUTE .STK-MED ONE Hydralazine HCl 10 mg 05/31/24 11:05 Hydralazine Hcl 20 Mg/Ml Inj IVP ONCE PRN Hypertension Hydromorphone HCl 0.5 mg 05/31/24 11:05 Hydromorphone 0.5 Mg/0.5 Ml Inj IVP Q10M PRN Pain Hydroxyzine Pamoate 25 mg 05/31/24 11:05 06/01/24 14:28 Hydroxyzine Pamoate 25 Mg Capsule PO 05/31/24 11:06 Not Given ONCE ONE Sodium Chloride 1,000 mls @ 1,000 mls/hr 05/30/24 20:45 05/30/24 22:52 0.9 % Sodium Chloride 1000 Ml IV 05/30/24 21:44 Infused .Q1H LINDEN Infusion Levofloxacin/Dextrose 750 mg in 150 mls @ 100 mls/hr 05/31/24 05:00 05/31/24 07:24 Levofloxacin 750 Mg/150 Ml IVPB Infused Q24H LINDEN Infusion Lactated Ringer's 500 mls @ 250 mls/hr 05/31/24 10:26 06/01/24 16:13 Lactated Ringers 500 Ml IV 05/31/24 12:25 Infused .Q2H ONE Infusion Lactated Ringer's 1,000 mls @ 75 mls/hr 05/31/24 10:30 05/31/24 11:53 Lactated Ringers 1000 Ml IV Not Given .[id number] LINDEN Lactated Ringer's 1,000 mls @ 100 mls/hr 05/31/24 10:30 06/01/24 16:13 Lactated Ringers 1000 Ml IV Infused .Q10H LINDEN Infusion Cefazolin Sodium 1 gm/ Sodium 100 mls @ 200 mls/hr 05/31/24 10:30 05/31/24 11:52 Chloride IVPB Infused Q8H LINDEN Infusion Vancomycin HCl 1,250 mg/ 262.5 mls @ 210 mls/hr 05/31/24 13:00 06/01/24 16:13 Sodium Chloride IVPB 05/31/24 14:14 Infused ONCE ONE Infusion Lactated Ringer's 1,000 mls @ 75 mls/hr 05/31/24 15:52 06/02/24 07:02 Lactated Ringers 1000 Ml IV Not Given .[id number] LINDEN Labetalol HCl 5 - 10 mg 05/31/24 11:05 Labetalol Hcl 5 Mg/Ml Inj IVP ONCE PRN Hypertension Lidocaine HCl Confirm 05/31/24 13:34 Lidocaine 2% (Pf) 5 Ml Vial Administered 05/31/24 13:35 Dose 5 ml .ROUTE .STK-MED ONE Meperidine HCl 12.5 mg 05/31/24 11:05 Meperidine 25 Mg/Ml Inj IVP ONCE PRN Shivering Metoclopramide HCl 10 mg 05/31/24 11:05 Metoclopramide Hcl 5 Mg/Ml Inj IVP ONCE PRN Nausea Midazolam HCl 1 - 2 mg 05/31/24 10:26 05/31/24 12:10 Midazolam Hcl 1 Mg/Ml Inj IVP 05/31/24 10:27 2 mg ONCE ONE Administration Midazolam HCl Confirm 05/31/24 10:27 Midazolam Hcl 1 Mg/Ml Inj Administered 05/31/24 10:28 Dose 2 mg .ROUTE .STK-MED ONE Morphine Sulfate 2 mg 05/31/24 04:25 Morphine 4 Mg/Ml Inj IVP Q1H PRN Pain Ondansetron HCl 4 mg 05/31/24 11:05 Ondansetron 2 Mg/Ml Inj IVP ONCE PRN Nausea Ondansetron HCl Confirm 05/31/24 13:34 Ondansetron 2 Mg/Ml Inj Administered 05/31/24 13:35 Dose 4 mg .ROUTE .STK-MED ONE Phenylephrine HCl 100 mcg 05/31/24 11:05 Phenylephrine 100 Mcg/Ml Syringe IVP Q5M PRN Propofol Confirm 05/31/24 13:33 Propofol 10 Mg/Ml Inj Administered 05/31/24 13:34 Dose 200 mg IVP .STK-MED ONE Rocuronium [place] Confirm 05/31/24 13:34 Rocuronium [place] 10 Mg/Ml Inj Administered 05/31/24 13:35 Dose 50 mg IV .STK-MED ONE Ropivacaine Confirm 05/31/24 12:15 Ropivacaine 0.5% 30 Ml Administered 05/31/24 12:16 Dose 150 mg INJECTION .STK-MED ONE Sevoflurane Confirm 05/31/24 13:34 Sevoflurane Soln Administered 05/31/24 13:35 Dose 1 each IH .STK-MED ONE Sodium Chloride 250 ml 05/31/24 05:00 06/03/24 02:28 0.9 % Sodium Chloride 250 Ml IV Not Given Q24H LINDEN Succinylcholine Chloride Confirm 05/31/24 13:34 Succinylcholine 20 Mg/Ml Inj Administered 05/31/24 13:35 Dose 200 mg IVP .STK-MED ONE Sugammadex Sodium Confirm 05/31/24 14:54 Sugammadex 200 Mg/2ml Inj Administered 05/31/24 14:55 Dose 200 mg IVP .STK-MED ONE Tobramycin Sulfate 1.2 gm 05/31/24 11:45 Tobramycin Sulfate Powder 1.2 Gm Vial TOPICAL 05/31/24 11:46 .STK-MED ONE Tranexamic Acid 1,000 mg 05/31/24 11:24 05/31/24 12:33 Tranexamic Acid 100 Mg/Ml Inj IV 05/31/24 11:25 1,000 mg ONCE ONE Administration Tranexamic Acid Confirm 05/31/24 13:33 Tranexamic Acid 100 Mg/Ml Inj Administered 05/31/24 13:34 Dose 1,000 mg .ROUTE .STK-MED ONE Vancomycin HCl 1,000 mg 05/31/24 11:45 Vancomycin 100 Mg/Ml Inj TOPICAL 05/31/24 11:46 .STK-MED ONE Allergies Allergy/AdvReac Type Severity Reaction Status Date / Time No Known Drug Allergies Allergy Verified 04/24/24 10:19 Objective - Infectious Disease Objective Vital Signs: Vital Signs - 24 hr 06/02/24 15:00 06/02/24 15:00 06/02/24 15:00 Temperature 98.8 F Pulse Rate [Pulse Oximeter] 55 L 55 L Respiratory Rate 22 22 Blood Pressure [Left Arm] Blood Pressure [Right Arm] 125/83 Pulse Oximetry 93 93 Oxygen Delivery Method Room Air 06/02/24 15:00 06/02/24 19:00 06/02/24 22:14 Temperature 98.4 F Pulse Rate [Pulse Oximeter] 53 L Respiratory Rate 22 20 Blood Pressure [Left Arm] 123/81 Blood Pressure [Right Arm] Pulse Oximetry 93 96 92 Oxygen Delivery Method Room Air Room Air 06/02/24 22:14 06/02/24 22:14 06/02/24 22:14 Temperature 98.4 F Pulse Rate [Pulse Oximeter] 55 L 55 L Respiratory Rate 20 20 20 Blood Pressure [Left Arm] Blood Pressure [Right Arm] 127/91 H Pulse Oximetry 92 92 Oxygen Delivery Method Room Air Room Air 06/03/24 02:19 06/03/24 07:00 06/03/24 07:00 Temperature 98.4 F 98.2 F Pulse Rate [Pulse Oximeter] 51 L 60 Respiratory Rate 20 18 Blood Pressure [Left Arm] 134/96 H Blood Pressure [Right Arm] 145/97 H Pulse Oximetry 94 94 94 Oxygen Delivery Method Room Air 06/03/24 07:00 06/03/24 07:00 06/03/24 11:00 Temperature 98.3 F Pulse Rate [Pulse Oximeter] 60 85 Respiratory Rate 18 16 Blood Pressure [Left Arm] 138/90 H Blood Pressure [Right Arm] Pulse Oximetry 94 96 Oxygen Delivery Method Room Air Room Air Narrative: Patient was not seen or examined. Results - Infectious Disease Results Labs: 05/30/24 20:40 Urine,Clean Catch Urine Culture - Final Klebsiella oxytoca 05/31/24 13:33 Knee,Left Gram Stain - Final 05/31/24 13:33 Knee,Left Aerobic Culture - Preliminary Staphylococcus epidermidis 05/31/24 13:33 Knee,Left Anaerobic Culture - Preliminary 05/31/24 13:30 Knee,Left Gram Stain - Final 05/31/24 13:30 Knee,Left Aerobic Culture - Preliminary Staphylococcus epidermidis 05/31/24 13:30 Knee,Left Anaerobic Culture - Preliminary 06/02/24 05:47 Blood Blood Culture - Preliminary NO GROWTH AFTER 24 HOURS 05/31/24 01:00 Synovial Fluid Gram Stain - Final 05/31/24 01:00 Synovial Fluid Body Fluid Culture - Preliminary 05/30/24 20:56 Blood Blood Culture - Preliminary Staphylococcus epidermidis 05/30/24 20:49 Blood Blood Culture - Preliminary Staphylococcus epidermidis 05/31/24 13:30 Knee,Left Gram Stain - Final 05/31/24 13:30 Knee,Left Aerobic Culture - Preliminary NO GROWTH AFTER 48 HOURS 05/31/24 13:30 Knee,Left Anaerobic Culture - Preliminary 05/31/24 13:30 Knee,Left Gram Stain - Final 05/31/24 13:30 Knee,Left Aerobic Culture - Preliminary NO GROWTH AFTER 48 HOURS 05/31/24 13:30 Knee,Left Anaerobic Culture - Preliminary 05/31/24 13:08 Synovial Fluid Fungal Culture - Preliminary 05/31/24 13:08 Knee,Left Fungal Culture - Preliminary Laboratory Tests 06/02/24 06/02/24 06/02/24 Range/Units 12:54 06:29 05:47 WBC (4.50-11.00) K/uL RBC (4.30-5.90) m/uL Hgb (13.5-17.5) gm/dL Hct (37.0-53.0) % MCV (80-100) fL MCH (26-34) pg MCHC (32-36) gm/dL RDW Coeff of David (11.5-15.5) % Plt Count (140-440) K/uL Neut % (Auto) (42.0-72.0) % Lymph % (Auto) (20-44) % [place] % (Auto) (0.0-11.0) % Eos % (Auto) (0.0-7.0) % Baso % (Auto) (0.0-3.0) % Neut # (Auto) (1.7-7.0) K/uL Lymph # (Auto) (0.90-2.90) K/uL [place] # (Auto) (0.00-0.90) K/UL Eos # (Auto) (0.00-0.50) K/uL Baso # (Auto) (0.00-0.30) K/uL Abs Immat Gran (auto) (0.00-0.30) K/uL Imm/Tot Granulo (auto) % INR (0.91-1.10) Sodium 138 (135-149) mmol/L Potassium 4.5 (3.6-5.1) mmol/L Chloride 110 (96-114) mmol/L Carbon Dioxide 21 (20-32) mmol/L Anion Gap 7 (7-15) mEq/L BUN 31 H (7-30) mg/dL Creatinine 1.0 (0.5-1.5) mg/dL Estimated Creat Clear 60.66 Estimated GFR 75 ml/min Glucose 169 H (60-115) mg/dL Hemoglobin A1c (0-5.6) % Lactate (0.5-1.9) mmol/L Calcium 8.7 (8.4-10.6) mg/dL Magnesium (1.5-2.6) mg/dL Total Bilirubin (0.1-1.5) mg/dL AST (12-35) U/L ALT (4-50) U/L Alkaline Phosphatase (40-150) U/L Troponin I (0.01-0.04) ng/mL C-Reactive Protein 4.2 H (0.5-1.0) mg/dL NT-Pro-B Natriuret Pep pg/mL Total Protein (6.0-8.3) g/dL Albumin (3.3-5.0) g/dL Procalcitonin (<0.50) ng/mL Urine Color (Yellow) Urine Appearance (Clear) Urine pH (5.0-8.5) Ur Specific Zachary (1.000-1.030) Urine Protein (Negative) Urine Glucose (UA) (Negative) Urine Ketones (Negative) Urine Blood (Negative) Urine Nitrite (Negative) Urine Bilirubin (Negative) Urine Urobilinogen (0.2-1.0) Ur Leukocyte Esterase (Negative) Urine RBC (0-2) Urine WBC (0-5) Ur Squamous Epith Cells (None-Few) Urine Bacteria (None) Fluid Volume Fluid Color Fluid Appearance Fluid WBC Cells/uL Fluid RBC Cells/uL Fluid Polynuclear WBCs % Fluid Mononuclear WBCs % Fluid Crystal ID Fluid Total Protein gm/dL Vancomycin Trough 16.2 (5.0-20.0) ug/mL SARS-CoV-2 (PCR) (Negative) Influenza Type A (PCR) (Negative) Influenza Type B (PCR) (Negative) RSV (PCR) (Negative) Lab Acknowledgement Test Added 06/01/24 05/31/24 05/31/24 Range/Units 06:06 18:20 14:13 WBC 8.08 (4.50-11.00) K/uL RBC 4.15 L (4.30-5.90) m/uL Hgb 12.5 L (13.5-17.5) gm/dL Hct 38.5 (37.0-53.0) % MCV 93 (80-100) fL MCH 30 (26-34) pg MCHC 33 (32-36) gm/dL RDW Coeff of David (11.5-15.5) % Plt Count 221 (140-440) K/uL Neut % (Auto) (42.0-72.0) % Lymph % (Auto) (20-44) % [place] % (Auto) (0.0-11.0) % Eos % (Auto) (0.0-7.0) % Baso % (Auto) (0.0-3.0) % Neut # (Auto) (1.7-7.0) K/uL Lymph # (Auto) (0.90-2.90) K/uL [place] # (Auto) (0.00-0.90) K/UL Eos # (Auto) (0.00-0.50) K/uL Baso # (Auto) (0.00-0.30) K/uL Abs Immat Gran (auto) (0.00-0.30) K/uL Imm/Tot Granulo (auto) % INR (0.91-1.10) Sodium 137 (135-149) mmol/L Potassium 4.6 (3.6-5.1) mmol/L Chloride 110 (96-114) mmol/L Carbon Dioxide 21 (20-32) mmol/L Anion Gap 6 L (7-15) mEq/L BUN 20 (7-30) mg/dL Creatinine 1.0 (0.5-1.5) mg/dL Estimated Creat Clear 60.66 Estimated GFR 75 ml/min Glucose 185 H (60-115) mg/dL Hemoglobin A1c (0-5.6) % Lactate (0.5-1.9) mmol/L Calcium 8.8 (8.4-10.6) mg/dL Magnesium (1.5-2.6) mg/dL Total Bilirubin (0.1-1.5) mg/dL AST (12-35) U/L ALT (4-50) U/L Alkaline Phosphatase (40-150) U/L Troponin I (0.01-0.04) ng/mL C-Reactive Protein 8.4 H (0.5-1.0) mg/dL NT-Pro-B Natriuret Pep pg/mL Total Protein (6.0-8.3) g/dL Albumin (3.3-5.0) g/dL Procalcitonin (<0.50) ng/mL Urine Color Yellow (Yellow) Urine Appearance Clear (Clear) Urine pH 5.5 (5.0-8.5) Ur Specific Zachary 1.010 (1.000-1.030) Urine Protein Trace A (Negative) Urine Glucose (UA) 1+ A (Negative) Urine Ketones Negative (Negative) Urine Blood 3+ A (Negative) Urine Nitrite Negative (Negative) Urine Bilirubin Negative (Negative) Urine Urobilinogen 0.2 (0.2-1.0) Ur Leukocyte Esterase Trace A (Negative) Urine RBC 2-5 A (0-2) Urine WBC 0-2 (0-5) Ur Squamous Epith Cells None (None-Few) Urine Bacteria Few A (None) Fluid Volume Fluid Color Fluid Appearance Fluid WBC Cells/uL Fluid RBC Cells/uL Fluid Polynuclear WBCs % Fluid Mononuclear WBCs % Fluid Crystal ID Fluid Total Protein gm/dL Vancomycin Trough (5.0-20.0) ug/mL SARS-CoV-2 (PCR) (Negative) Influenza Type A (PCR) (Negative) Influenza Type B (PCR) (Negative) RSV (PCR) (Negative) Lab Acknowledgement Test Added 05/31/24 05/31/24 05/31/24 Range/Units 08:16 07:37 07:20 WBC 6.21 (4.50-11.00) K/uL RBC 4.03 L (4.30-5.90) m/uL Hgb 12.3 L (13.5-17.5) gm/dL Hct 37.5 (37.0-53.0) % MCV 93 (80-100) fL MCH 31 (26-34) pg MCHC 33 (32-36) gm/dL RDW Coeff of David 13.1 (11.5-15.5) % Plt Count 201 (140-440) K/uL Neut % (Auto) 71.6 (42.0-72.0) % Lymph % (Auto) 10.0 L (20-44) % [place] % (Auto) 13.4 H (0.0-11.0) % Eos % (Auto) 4.3 (0.0-7.0) % Baso % (Auto) 0.5 (0.0-3.0) % Neut # (Auto) 4.45 (1.7-7.0) K/uL Lymph # (Auto) 0.60 L (0.90-2.90) K/uL [place] # (Auto) 0.80 (0.00-0.90) K/UL Eos # (Auto) 0.27 (0.00-0.50) K/uL Baso # (Auto) 0.03 (0.00-0.30) K/uL Abs Immat Gran (auto) 0.01 (0.00-0.30) K/uL Imm/Tot Granulo (auto) 0.2 % INR 1.35 H (0.91-1.10) Sodium 138 (135-149) mmol/L Potassium 4.1 (3.6-5.1) mmol/L Chloride 108 (96-114) mmol/L Carbon Dioxide 21 (20-32) mmol/L Anion Gap 9 (7-15) mEq/L BUN 19 (7-30) mg/dL Creatinine 0.9 (0.5-1.5) mg/dL Estimated Creat Clear 60.66 Estimated GFR 85 ml/min Glucose 135 H (60-115) mg/dL Hemoglobin A1c 6.1 H (0-5.6) % Lactate 1.2 (0.5-1.9) mmol/L Calcium 8.6 (8.4-10.6) mg/dL Magnesium 2.1 (1.5-2.6) mg/dL Total Bilirubin 1.2 (0.1-1.5) mg/dL AST 27 (12-35) U/L ALT 17 (4-50) U/L Alkaline Phosphatase 87 (40-150) U/L Troponin I < 0.01 L (0.01-0.04) ng/mL C-Reactive Protein 8.1 H (0.5-1.0) mg/dL NT-Pro-B Natriuret Pep 2520 pg/mL Total Protein 6.9 (6.0-8.3) g/dL Albumin 3.7 (3.3-5.0) g/dL Procalcitonin 0.19 (<0.50) ng/mL Urine Color (Yellow) Urine Appearance (Clear) Urine pH (5.0-8.5) Ur Specific Zachary (1.000-1.030) Urine Protein (Negative) Urine Glucose (UA) (Negative) Urine Ketones (Negative) Urine Blood (Negative) Urine Nitrite (Negative) Urine Bilirubin (Negative) Urine Urobilinogen (0.2-1.0) Ur Leukocyte Esterase (Negative) Urine RBC (0-2) Urine WBC (0-5) Ur Squamous Epith Cells (None-Few) Urine Bacteria (None) Fluid Volume Fluid Color Fluid Appearance Fluid WBC Cells/uL Fluid RBC Cells/uL Fluid Polynuclear WBCs % Fluid Mononuclear WBCs % Fluid Crystal ID Fluid Total Protein gm/dL Vancomycin Trough (5.0-20.0) ug/mL SARS-CoV-2 (PCR) (Negative) Influenza Type A (PCR) (Negative) Influenza Type B (PCR) (Negative) RSV (PCR) (Negative) Lab Acknowledgement Test Added Test Added 05/31/24 05/30/24 05/30/24 Range/Units 01:00 20:41 20:40 WBC (4.50-11.00) K/uL RBC (4.30-5.90) m/uL Hgb (13.5-17.5) gm/dL Hct (37.0-53.0) % MCV (80-100) fL MCH (26-34) pg MCHC (32-36) gm/dL RDW Coeff of David (11.5-15.5) % Plt Count (140-440) K/uL Neut % (Auto) (42.0-72.0) % Lymph % (Auto) (20-44) % [place] % (Auto) (0.0-11.0) % Eos % (Auto) (0.0-7.0) % Baso % (Auto) (0.0-3.0) % Neut # (Auto) (1.7-7.0) K/uL Lymph # (Auto) (0.90-2.90) K/uL [place] # (Auto) (0.00-0.90) K/UL Eos # (Auto) (0.00-0.50) K/uL Baso # (Auto) (0.00-0.30) K/uL Abs Immat Gran (auto) (0.00-0.30) K/uL Imm/Tot Granulo (auto) % INR (0.91-1.10) Sodium (135-149) mmol/L Potassium (3.6-5.1) mmol/L Chloride (96-114) mmol/L Carbon Dioxide (20-32) mmol/L Anion Gap (7-15) mEq/L BUN (7-30) mg/dL Creatinine (0.5-1.5) mg/dL Estimated Creat Clear Estimated GFR ml/min Glucose (60-115) mg/dL Hemoglobin A1c (0-5.6) % Lactate (0.5-1.9) mmol/L Calcium (8.4-10.6) mg/dL Magnesium (1.5-2.6) mg/dL Total Bilirubin (0.1-1.5) mg/dL AST (12-35) U/L ALT (4-50) U/L Alkaline Phosphatase (40-150) U/L Troponin I (0.01-0.04) ng/mL C-Reactive Protein (0.5-1.0) mg/dL NT-Pro-B Natriuret Pep pg/mL Total Protein (6.0-8.3) g/dL Albumin (3.3-5.0) g/dL Procalcitonin (<0.50) ng/mL Urine Color Yellow (Yellow) Urine Appearance Slightly Cloudy A (Clear) Urine pH 5.5 (5.0-8.5) Ur Specific Zachary 1.020 (1.000-1.030) Urine Protein 1+ A (Negative) Urine Glucose (UA) Negative (Negative) Urine Ketones Negative (Negative) Urine Blood Trace-lysed A (Negative) Urine Nitrite Negative (Negative) Urine Bilirubin Negative (Negative) Urine Urobilinogen 0.2 (0.2-1.0) Ur Leukocyte Esterase Trace A (Negative) Urine RBC 0-2 (0-2) Urine WBC 0-2 (0-5) Ur Squamous Epith Cells None (None-Few) Urine Bacteria Few A (None) Fluid Volume 18 Fluid Color Xanthochromic A Fluid Appearance Cloudy A Fluid WBC [id number] Cells/uL Fluid RBC 24497 Cells/uL Fluid Polynuclear WBCs 98 % Fluid Mononuclear WBCs 2 % Fluid Crystal ID See Scanned Report Fluid Total Protein < 6.0 gm/dL Vancomycin Trough (5.0-20.0) ug/mL SARS-CoV-2 (PCR) Negative SARS-CoV-2 (Negative) Influenza Type A (PCR) Negative PCR FLU A (Negative) Influenza Type B (PCR) Negative PCR FLU B (Negative) RSV (PCR) Negative PCR RSV (Negative) Lab Acknowledgement 05/30/24 Range/Units 20:10 WBC 8.21 (4.50-11.00) K/uL RBC 4.11 L (4.30-5.90) m/uL Hgb 12.5 L (13.5-17.5) gm/dL Hct 38.2 (37.0-53.0) % MCV 93 (80-100) fL MCH 30 (26-34) pg MCHC 33 (32-36) gm/dL RDW Coeff of David 13.1 (11.5-15.5) % Plt Count 219 (140-440) K/uL Neut % (Auto) 77.7 H (42.0-72.0) % Lymph % (Auto) 7.7 L (20-44) % [place] % (Auto) 11.7 H (0.0-11.0) % Eos % (Auto) 2.3 (0.0-7.0) % Baso % (Auto) 0.4 (0.0-3.0) % Neut # (Auto) 6.40 (1.7-7.0) K/uL Lymph # (Auto) 0.60 L (0.90-2.90) K/uL [place] # (Auto) 1.00 H (0.00-0.90) K/UL Eos # (Auto) 0.19 (0.00-0.50) K/uL Baso # (Auto) 0.03 (0.00-0.30) K/uL Abs Immat Gran (auto) 0.02 (0.00-0.30) K/uL Imm/Tot Granulo (auto) 0.2 % INR (0.91-1.10) Sodium 136 (135-149) mmol/L Potassium 4.2 (3.6-5.1) mmol/L Chloride 104 (96-114) mmol/L Carbon Dioxide 19 L (20-32) mmol/L Anion Gap 13 (7-15) mEq/L BUN 25 (7-30) mg/dL Creatinine 1.1 (0.5-1.5) mg/dL Estimated Creat Clear 53.46 Estimated GFR 67 ml/min Glucose 217 H (60-115) mg/dL Hemoglobin A1c (0-5.6) % Lactate 2.3 H (0.5-1.9) mmol/L Calcium 8.7 (8.4-10.6) mg/dL Magnesium (1.5-2.6) mg/dL Total Bilirubin (0.1-1.5) mg/dL AST (12-35) U/L ALT (4-50) U/L Alkaline Phosphatase (40-150) U/L Troponin I 0.01 (0.01-0.04) ng/mL C-Reactive Protein 12.0 H (0.5-1.0) mg/dL NT-Pro-B Natriuret Pep pg/mL Total Protein (6.0-8.3) g/dL Albumin (3.3-5.0) g/dL Procalcitonin (<0.50) ng/mL Urine Color (Yellow) Urine Appearance (Clear) Urine pH (5.0-8.5) Ur Specific Zachary (1.000-1.030) Urine Protein (Negative) Urine Glucose (UA) (Negative) Urine Ketones (Negative) Urine Blood (Negative) Urine Nitrite (Negative) Urine Bilirubin (Negative) Urine Urobilinogen (0.2-1.0) Ur Leukocyte Esterase (Negative) Urine RBC (0-2) Urine WBC (0-5) Ur Squamous Epith Cells (None-Few) Urine Bacteria (None) Fluid Volume Fluid Color Fluid Appearance Fluid WBC Cells/uL Fluid RBC Cells/uL Fluid Polynuclear WBCs % Fluid Mononuclear WBCs % Fluid Crystal ID Fluid Total Protein gm/dL Vancomycin Trough (5.0-20.0) ug/mL SARS-CoV-2 (PCR) (Negative) Influenza Type A (PCR) (Negative) Influenza Type B (PCR) (Negative) RSV (PCR) (Negative) Lab Acknowledgement Assessment and Plan Assessment and Plan Assessment and Plan: 83-year-old male PMH CAD, STEMI with RCA stenting, s/p nephrectomy, psoriasis, diverticulosis, tubulovillous adenoma of the colon, A-fib (Eliquis), HTN, left knee total arthroplasty x 1 year ago, chronic SPC for urinary retention was in his normal state of health x 3-4 days ago when he started having pain and swelling in his left knee associated with subjective chills/sweats. ?In the ED noted red hot swollen knee suspicious for PJI s/p arthrocentesis. ?Per chart review ?no history of trauma/falls. ?Has been very weak and having trouble walking around. ?No respiratory symptoms, GI/ symptoms. ?Normal urine output via SPC (last exchanged 05/17). ?No rashes In the ED FEBRILE TMAX 102.1F, WBC 8K, creatinine 1.1---0.9, A1c 6.1, LFT NL, CRP 12---8.1 procalcitonin 0.19, Limited RVP negative, UA (from SPC) nitrite negative, LE trace, WBC 0-2, Synovial fluid cloudy, WBC 89937, 98% polys, no crystals seen. CXR: No acute changes R XR: Moderate effusion. ?Underlying prosthesis Was started on IV vancomycin and later Levaquin was added for gram-negative coverage with underlying SPC catheter. s/p DAIR procedure by Ortho on 05/29/24. Tele ID was consulted for further empiric antibiotic recommendations. On further chart review most recent cultures was from May 2023 urine culture positive for Morganella Morganii (sensitive to ceftazidime, ceftriaxone, quinolones, ertapenem, Bactrim, Zosyn), Enterococcus faecalis (ampicillin sensitive) 06/03/24 update: pt remains afebrile with stable BP. Labs from 06/01/24 reviewed WBC 8K, Hg 12.5, plar 221K, serum Cr checked on 06/02 WNL at 1.0, CRP 4.2<8.4, synovial fluid crystals negative, lyme serology negative. 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 Left knee polyethylene exchange. Left knee antibiotic bead placement. ? Summary #Left knee septic arthritis/PJI- s/p arthrocentesis cx with growth of staph epidermidis. S/p surgery on 05/31, pt had underwent L knee I&D, extensive synovectomy including excisional debridement of synovium in the suprapatellar pouch, medial and lateral gutters, posterior recesses of the knee, and surrounding the patella. Left knee polyethylene exchange. Left knee antibiotic bead placement. Synovial fluid cx + staph epidermidis Oxa R. Ortho following, AKANKSHA drain was removed. Per Ortho note, tentative plan is for the pt to return to the OR with Dr. Bustamante on MondayJune 05 for second portion of the staged procedure. # Staph epidermidis (Oxa S) bacteremia, present on admission, repeat blood cx 06/02 NGTD. #S/p L TKA May 29 2023 #Underlying SPC catheter # H/o nephrectomy Micro 05/30 Ucx 30-40K Klebsiella oxytoca R amp/cipro, I Levaquin and Macrobid, S to CTX, ceftazidime, cefazolin, cefepime, Bactrim, gen, ertapenem?, >100K mixed GP darron. 05/30 Bcx x 2 Oxacillin S staph epidermidis. 05/31 Synovial fluid: gram stain No organism. ?WBC many. ?Culture + small amount of coagulase negative staph/Oxa S staph epidermidis. 05/31 Synovial fluid fungal cx pending. 05/31 L knee synovial fluid cx small amount of staph epidermidis Oxa R 06/02 blood cx no growth after 24H Reccs: -Follow up repeat blood cx results to document clearance of the bacteremia, the staph epidermidis bacteremia is probably real in this case 2/2 L knee PJI. 06/02 blood cx in process -To get a TTE -Follow final synovial fluid cx results, it seems from the note that Ortho called the lab and requested to hold synovial fluid fungal Cx for few weeks. -To call micro lab and clarify the susceptibilities of the 2 staph epidermidis isolates from 05/31 wound cxs as one is reported as Oxa sensitive and the other one is Oxacillin R. -Fow now continue with IV vancomycin (pharmacy to dose); closely monitor for renal functions. ?If any uptrending creatinine can consider switching to IV daptomycin -While waiting for final wound/OR cx results c/w IV cefepime 2g q8 hr, if no growth of additional organisms other than staph epidermidis, would d/c cefepime. -Would not add rifampin in this case as the patient is on anticoagulation and will be on Eliquis which has drug-drug interaction that would not allow to safely use rifampin. ? -Positive urine cx may reflect colonization vs contaminated urine specimen rather than true infection, SPC catheter was already exchanged during this admission and the pt is already on IV cefepime which would cover for a UTI in any case. -Follow up with Orthopedic surgery Re additional surgical plans, per latest ortho note, tentative plan is for the pt to return to the OR with Dr. Bustamante on MondayJune 05 for second portion of the staged procedure. -The pt likely will need 6 weeks of IV antibiotics (probably IV daptomycin) followed by chronic 1 year PO Abx suppression given planned DAIR procedure. -Above plan was discussed with primary team. Thanks for the consult, tele ID will follow pt with you.
--- NOTE | 2024-06-03 14:51 | PM.IMPN1 ---
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 ID fundraising consultant: She is recommending vancomycin and cefepime until we have culture directed options. She recommends that we wait 48 hours before placing a PICC line to assure negative blood cultures and lack of bacteremia given his high fever at presentation She will help was follow the patient next week but will likely recommend 6 weeks of IV antibiotics followed by oral per current DAIR procedure protocols. Lab to re-evaluate joint fluid cultures with apparently different species of Staph epidermidis. Status: Acute (2) Septic arthritis: Problem details: Day 2 s/p left knee I&D septic arthritis, extensive synovectomy, antibiotic bead placement and poly exchange Status: Acute (3) History of total left knee replacement: Problem details: Left total knee arthroplasty (Dr. Bustamante) May 2023 Status: Acute (4) Indwelling urinary catheter present: Problem details: - suprapubic cath, changed on admission. Culture from admission growing Klebsiella oxytoca and mixed darron which is likely colonization and not causing current illness. No need for ongoing treatment. ID recommends continuing cefepime until surgery regardless. Status: Acute (5) Atrial fibrillation, chronic: Problem details: Currently bradycardic without rate control medication. Eliquis held for surgery. Continues on aspirin. Status: Acute (6) HTN (hypertension): Problem details: -home meds: lisinopril 20mg BID, amlodipine 5mg Status: Acute (7) CAD (coronary artery disease): Problem details: - s/p STEMI with RCA stenting 04/30 - quiescent Status: Acute (8) Chronic anticoagulation: Problem details: - on Apixaban 2.5 mg bid - h/o bruising when on 5 mg bid. Apixaban held for surgery. Also on aspirin for history of coronary artery disease. Currently continuing aspirin. VTE Prophylactic enoxaparin pending surgery. Resume apixaban after surgery. Status: Acute (9) Bacteremia: Problem details: Staph epidermidis. Associated with prosthetic joint infection. Obtain echo. Await repeat culture. Continue vancomycin and cefepime for now Status: Acute Plan Continue in hospital for IV antibiotics, repeat orthopedic surgery, pending ID and sensitivities. Time Spent With Patient Total time spent: Total time spent today is 60 minutes, almost all that time in discussion with consultants, other providers, patient and family ongoing plan of care Subjective Date Seen: 06/03/24 Interval history: 83-year-old male admitted to the hospital with a 4 day history of fever chills weakness and swelling in his left knee. Patient had previous left knee arthroplasty approximately a year ago. He was having no problems with that knee and there has been no injury to the knee or to the skin. At the time of admission there was concern about a septic knee and he had arthrocentesis performed. Yesterday he underwent I and D of his septic prosthetic knee with synovectomy, polyethylene exchange and antibiotic bead placement. The orthopedic plan is for repeat surgery in a few days then prolonged IV antibiotics followed by prolonged oral antibiotics to salvage his knee arthroplasty. Consultation from Infectious Disease: IV vancomycin and cefepime pending cultures. Cultures being held for 2 weeks. Change suprapubic catheter Place PICC line after blood cultures are negative for 48 hours June 02. Patient reports doing well. Reports good appetite. No dyspnea. He has had no lightheadedness or chest pain. He has been bradycardic into the 40s without symptoms. He has no knee pain except when he tries to bear weight. June 03: Patient reports doing quite well. He feels more mobile even using the knee immobilizer. Knee pain is manageable. He has had no fevers or other symptoms of illness. Two blood cultures from admission growing Staph epidermidis with antibiotic susceptibility profiles including susceptibility to oxacillin. Two joint cultures from surgery 3 days ago growing Staph epidermidis. One of the two is identical in antibiotic susceptibility to the blood cultures the other is different in its resistance to oxacillin. Blood culture from yesterday is no growth. Exam Narrative: Exam Narrative: He is alert in no distress. He gives his own history. Leg in knee immobilizer. Mild edema. Good strength sensation and pulses in his distal extremities. Const: Vital Signs, click to edit/add: Vital Signs - 24 hr 06/02/24 15:00 06/02/24 15:00 06/02/24 15:00 Temperature 98.8 F Pulse Rate [Pulse Oximeter] 55 L 55 L Respiratory Rate 22 22 Blood Pressure [Le ft Arm] Blood Pressure [Ri ght Arm] 125/83 Pulse Oximetry 93 93 Oxygen Delivery Me thod Room Air 06/02/24 15:00 06/02/24 19:00 06/02/24 22:14 Temperature 98.4 F Pulse Rate [Pulse Oximeter] 53 L Respiratory Rate 22 20 Blood Pressure [Le ft Arm] 123/81 Blood Pressure [Ri ght Arm] Pulse Oximetry 93 96 92 Oxygen Delivery Me thod Room Air Room Air 06/02/24 22:14 06/02/24 22:14 06/02/24 22:14 Temperature 98.4 F Pulse Rate [Pulse Oximeter] 55 L 55 L Respiratory Rate 20 20 20 Blood Pressure [Le ft Arm] Blood Pressure [Ri ght Arm] 127/91 H Pulse Oximetry 92 92 Oxygen Delivery Me thod Room Air Room Air 06/03/24 02:19 06/03/24 07:00 06/03/24 07:00 Temperature 98.4 F 98.2 F Pulse Rate [Pulse Oximeter] 51 L 60 Respiratory Rate 20 18 Blood Pressure [Le ft Arm] 134/96 H Blood Pressure [Ri ght Arm] 145/97 H Pulse Oximetry 94 94 94 Oxygen Delivery Me thod Room Air 06/03/24 07:00 06/03/24 07:00 06/03/24 11:00 Temperature 98.3 F Pulse Rate [Pulse Oximeter] 60 85 Respiratory Rate 18 16 Blood Pressure [Le ft Arm] 138/90 H Blood Pressure [Ri ght Arm] Pulse Oximetry 94 96 Oxygen Delivery Me thod Room Air Room Air Documenting provider has reviewed patient's vital signs: yes
[2024-06-03 15:00] VITALS: BP 126/77; PULSE 85; RESP 16; TEMP 37.1; O2SAT 96
--- NOTE | 2024-06-03 17:44 | PC.NURSE ---
Patient VSS. Alert and oriented. Tolerated a regular diet. Ambulated with A2, walker and gait belt. Suprapubic catheter intact and patent. and daughter visited.
[2024-06-03 19:00] VITALS: BP 120/78; PULSE 66; RESP 18; TEMP 36.3; O2SAT 94
[2024-06-03] MEDS: OXYCODONE 5 MG TABLET PO (20:52)
[2024-06-03] MEDS: ATORVASTATIN CALCIUM 40 MG TABLET PO (20:52)
[2024-06-03 23:00] VITALS: BP 145/80; PULSE 56; RESP 20; TEMP 36.7; O2SAT 94; O2SAT 95
[2024-06-04 03:00] VITALS: BP 143/90; PULSE 51; RESP 18; TEMP 36.4; O2SAT 94
[2024-06-04] MEDS: ACETAMINOPHEN 650 MG TABLET ER 1300 MG PO ×2 (03:54→15:34)
--- NOTE | 2024-06-04 05:52 | PC.NURSE ---
End of shift [id number]: Alert and oriented x 4. Pain to left knee well managed with current regimen. No swelling or redness noted. Denies any chest pain or shortness of breath. Transfers with Ax 2 with gait belt and walker to chair and commode.
[2024-06-04] MEDS: CEFEPIME HCL 2 GM in 0.9 % SODIUM CHLORIDE Mini-bag 100 ML IVPB ×3 (06:21→22:24)
--- NOTE | 2024-06-04 07:30 | CRLHL7_ITS ---
For Patients: As a result of the Century Cures Act, medical imaging exams and procedure reports are released immediately into your electronic medical record. You may view this report before your referring provider. If you have questions, please contact your health care provider. INDICATION: PICC line placement. TECHNIQUE: Chest 5 views. COMPARISON: June 04, 2023. FINDINGS: Cardiovascular and mediastinum: Stable heart size and vasculature. Left PICC with tip in the superior cavoatrial junction. Lungs and pleural spaces: Lungs are clear. No sign of infiltrate or mass. No sign of pleural effusion. No pneumothorax. Bones and soft tissues: No significant findings. IMPRESSION: Left PICC with tip in the superior cavoatrial junction. Dictated by Jeffrey Soto MD @ 06/04/2024 3:56:33 PM (Electronically Signed)
[2024-06-04] MEDS: FUROSEMIDE 20 MG TABLET PO (07:39)
[2024-06-04 07:42] VITALS: BP 153/83; PULSE 56; RESP 14; TEMP 36.5; O2SAT 94
[2024-06-04] MEDS: lisinopriL 20 MG TABLET PO ×2 (08:36→21:26)
[2024-06-04] MEDS: ASPIRIN 81 MG TABLET EC PO ×2 (08:36→21:26)
[2024-06-04] MEDS: ENOXAPARIN 40 MG/0.4 ML INJ SUBCUT (08:36)
[2024-06-04] MEDS: AMLODIPINE 5 MG TABLET PO (08:36)
[2024-06-04 11:03] VITALS: BP 141/87; PULSE 57; RESP 18; TEMP 36.6; O2SAT 95
[2024-06-04] MEDS: SODIUM CHLORIDE 0.9 % (FLUSH) 10 ML SYRINGE 5 ML IVF ×2 (11:08→21:26)
--- NOTE | 2024-06-04 11:38 | PM.ORPN ---
Subjective Subjective Date Seen: 06/04/24 Principal diagnosis: Day 4 s/p lt knee I&D septic arthritis, ext synovectomy, abx bead placement Interval history: Patient is doing well this morning. No fevers or chills. Feels good. Icing the knee. Remains in knee immobilizer. Passing flatus, 2 bowel movements yesterday. As an appetite. He still perplexed by what caused this infection. Ortho Exam Narrative Exam Narrative: Left knee: Limited exam due to knee immobilizer and ice packs. No pain to palpation. 2+ DP/PT pulses, pink warm digits with brisk cap refill; intact dermatomes and myotomes distally including the common peroneal, tibial, saphenous, and sural nerve distributions Const Vital Signs, click to edit/add: Vital Signs - 24 hr 06/03/24 15:00 06/03/24 15:00 06/03/24 15:00 Temperature Pulse Rate [Pulse Oximeter] 85 Respiratory Rate 16 16 Blood Pressure [Left Arm] Blood Pressure [Right Arm] Pulse Oximetry 96 96 Oxygen Delivery Method Room Air Oxygen Flow Rate Fraction of Inspired Oxygen 06/03/24 15:00 06/03/24 19:00 06/03/24 23:00 Temperature 98.7 F 97.4 F L Pulse Rate [Pulse Oximeter] 85 66 56 L Respiratory Rate 16 18 20 Blood Pressure [Left Arm] 126/77 Blood Pressure [Right Arm] 120/78 Pulse Oximetry 96 94 Oxygen Delivery Method Room Air Room Air Oxygen Flow Rate 1.5 Fraction of Inspired Oxygen 100 06/03/24 23:00 06/03/24 23:00 06/03/24 23:00 Temperature 98.0 F Pulse Rate [Pulse Oximeter] 56 L Respiratory Rate 20 Blood Pressure [Left Arm] Blood Pressure [Right Arm] 145/80 H Pulse Oximetry 95 95 94 Oxygen Delivery Method Room Air Room Air Oxygen Flow Rate Fraction of Inspired Oxygen 06/04/24 03:00 06/04/24 07:42 06/04/24 07:42 Temperature 97.6 F 97.7 F Pulse Rate [Pulse Oximeter] 51 L 56 L Respiratory Rate 18 14 Blood Pressure [Left Arm] Blood Pressure [Right Arm] 143/90 H 153/83 H Pulse Oximetry 94 94 94 Oxygen Delivery Method Room Air Room Air Oxygen Flow Rate Fraction of Inspired Oxygen 06/04/24 07:42 06/04/24 07:42 06/04/24 11:03 Temperature 97.8 F Pulse Rate [Pulse Oximeter] 56 L 57 L Respiratory Rate 14 14 18 Blood Pressure [Left Arm] 141/87 H Blood Pressure [Right Arm] Pulse Oximetry 94 95 Oxygen Delivery Method Room Air Room Air Oxygen Flow Rate Fraction of Inspired Oxygen Assessment and Plan Assessment and plan (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 ID security and privacy consultant: She is recommending vancomycin and cefepime until we have culture directed options. She recommends that we wait 48 hours before placing a PICC line to assure negative blood cultures and lack of bacteremia given his high fever at presentation She will help was follow the patient next week but will likely recommend 6 weeks of IV antibiotics followed by oral per current DAIR procedure protocols. Lab to re-evaluate joint fluid cultures with apparently different species of Staph epidermidis. Status: Acute (2) Septic arthritis: Problem details: Day 4 s/p left knee I&D septic arthritis, extensive synovectomy, antibiotic bead placement and poly exchange Status: Acute (3) History of total left knee replacement: Problem details: Left total knee arthroplasty (Dr. Bustamante) May 2023 Status: Acute (4) Indwelling urinary catheter present: Problem details: - suprapubic cath, changed on admission. Culture from admission growing Klebsiella oxytoca and mixed darron which is likely colonization and not causing current illness. No need for ongoing treatment. ID recommends continuing cefepime until surgery regardless. Status: Acute (5) Atrial fibrillation, chronic: Problem details: Currently bradycardic without rate control medication. Eliquis held for surgery. Continues on aspirin. Status: Acute (6) HTN (hypertension): Problem details: -home meds: lisinopril 20mg BID, amlodipine 5mg Status: Acute (7) CAD (coronary artery disease): Problem details: - s/p STEMI with RCA stenting 04/30 - quiescent Status: Acute (8) Chronic anticoagulation: Problem details: - on Apixaban 2.5 mg bid - h/o bruising when on 5 mg bid. Apixaban held for surgery. Also on aspirin for history of coronary artery disease. Currently continuing aspirin. VTE Prophylactic enoxaparin pending surgery. Resume apixaban after surgery. Status: Acute (9) Bacteremia: Problem details: Staph epidermidis. Associated with prosthetic joint infection. Obtain echo. Await repeat culture. Continue vancomycin and cefepime for now Status: Acute Plan - he will receive his PICC line today. - weightbear/transfers as needed with the knee immobilizer in place. - ankle pumps encouraged frequently - continue IV antibiotics, which will transition to PICC line antibiotics this afternoon - plans to return to surgery tomorrow 06/05/2024 for the left knee. - analgesics as needed.
--- NOTE | 2024-06-04 12:09 | PM.IMPN1 ---
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 ID internal control consultant: -Follow up repeat blood cx results to document clearance of the bacteremia, the staph epidermidis bacteremia is probably real in this case 2/2 L knee PJI. 06/02 blood cx in process -To get a TTE -Follow final synovial fluid cx results, it seems from the note that Ortho called the lab and requested to hold synovial fluid fungal Cx for few weeks. -To call micro lab and clarify the susceptibilities of the 2 staph epidermidis isolates from 05/31 wound cxs as one is reported as Oxa sensitive and the other one is Oxacillin R. -Fow now continue with IV vancomycin (pharmacy to dose); closely monitor for renal functions. If any uptrending creatinine can consider switching to IV daptomycin -While waiting for final wound/OR cx results c/w IV cefepime 2g q8 hr, if no growth of additional organisms other than staph epidermidis, would d/c cefepime. -Would not add rifampin in this case as the patient is on anticoagulation and will be on Eliquis which has drug-drug interaction that would not allow to safely use rifampin. -Positive urine cx may reflect colonization vs contaminated urine specimen rather than true infection, SPC catheter was already exchanged during this admission and the pt is already on IV cefepime which would cover for a UTI in any case. -Follow up with Orthopedic surgery Re additional surgical plans, per latest ortho note, tentative plan is for the pt to return to the OR with Dr. Bustamante on MondayJune 05 for second portion of the staged procedure. -The pt likely will need 6 weeks of IV antibiotics (probably IV daptomycin) followed by chronic 1 year PO Abx suppression given planned DAIR procedure. Status: Acute (2) Septic arthritis: Problem details: Day 4 s/p left knee I&D septic arthritis, extensive synovectomy, antibiotic bead placement and poly exchange Status: Acute (3) History of total left knee replacement: Problem details: Left total knee arthroplasty (Dr. Bustamante) May 2023 Status: Acute (4) Indwelling urinary catheter present: Problem details: - suprapubic cath, changed on admission. Culture from admission growing Klebsiella oxytoca and mixed darron which is likely colonization and not causing current illness. No need for ongoing treatment. ID recommends continuing cefepime until surgery regardless. Status: Acute (5) Atrial fibrillation, chronic: Problem details: Currently bradycardic without rate control medication. Eliquis held for surgery. Continues on aspirin. Status: Acute (6) HTN (hypertension): Problem details: -home meds: lisinopril 20mg BID, amlodipine 5mg Status: Acute (7) CAD (coronary artery disease): Problem details: - s/p STEMI with RCA stenting 04/30 - quiescent Status: Acute (8) Chronic anticoagulation: Problem details: - on Apixaban 2.5 mg bid - h/o bruising when on 5 mg bid. Apixaban held for surgery. Also on aspirin for history of coronary artery disease. Currently continuing aspirin. VTE Prophylactic enoxaparin pending surgery. Resume apixaban after surgery. Status: Acute (9) Bacteremia: Problem details: Staph epidermidis. Associated with prosthetic joint infection. Echo shows no vegetations. Await repeat culture. Continue vancomycin and cefepime for now Status: Acute Plan Continue in hospital for IV antibiotics, surgery tomorrow, placement of PICC line today, further recommendations from Infectious Disease specialist. Time Spent With Patient Total time spent: Total time spent today is 40 minutes in coordination of care Subjective Date Seen: 06/04/24 Interval history: 83-year-old male admitted to the hospital with a 4 day history of fever chills weakness and swelling in his left knee. Patient had previous left knee arthroplasty approximately a year ago. He was having no problems with that knee and there has been no injury to the knee or to the skin. At the time of admission there was concern about a septic knee and he had arthrocentesis performed. Yesterday he underwent I and D of his septic prosthetic knee with synovectomy, polyethylene exchange and antibiotic bead placement. The orthopedic plan is for repeat surgery in a few days then prolonged IV antibiotics followed by prolonged oral antibiotics to salvage his knee arthroplasty. Consultation from Infectious Disease: IV vancomycin and cefepime pending cultures. Cultures being held for 2 weeks. Change suprapubic catheter Place PICC line after blood cultures are negative for 48 hours June 02. Patient reports doing well. Reports good appetite. No dyspnea. He has had no lightheadedness or chest pain. He has been bradycardic into the 40s without symptoms. He has no knee pain except when he tries to bear weight. June 03: Patient reports doing quite well. He feels more mobile even using the knee immobilizer. Knee pain is manageable. He has had no fevers or other symptoms of illness. Two blood cultures from admission growing Staph epidermidis with antibiotic susceptibility profiles including susceptibility to oxacillin. Two joint cultures from surgery 3 days ago growing Staph epidermidis. One of the two is identical in antibiotic susceptibility to the blood cultures the other is different in its resistance to oxacillin. Blood culture from yesterday is no growth. June 04: Patient continues to report doing well. Increasingly mobile. No dyspnea, chest pain, abdominal pain, nausea. Good appetite. Bowels are working. Knee pain is minimal. Continue to use a knee immobilizer. 2 Blood cultures from admission growing Staph epidermidis sensitive to oxacillin. Deep tissue culture from surgery growing Staph epidermidis sensitive to oxacillin. Synovial fluid culture from surgery growing Staph epidermidis resistant to oxacillin. Further evaluation of the synovial fluid culture is pending. Exam Narrative: Exam Narrative: He is alert and appears in no distress. Respirations are clear to auscultation. Cardiovascular: S1, S2, regular rate and rhythm. Abdomen is soft without tenderness or mass. Bilateral trace edema. Const: Vital Signs, click to edit/add: Vital Signs - 24 hr 06/03/24 15:00 06/03/24 15:00 06/03/24 15:00 Temperature Pulse Rate [Pulse Oximeter] 85 Respiratory Rate 16 16 Blood Pressure [Le ft Arm] Blood Pressure [Ri ght Arm] Pulse Oximetry 96 96 Oxygen Delivery Me thod Room Air Oxygen Flow Rate Fraction of Inspir ed Oxygen 06/03/24 15:00 06/03/24 19:00 06/03/24 23:00 Temperature 98.7 F 97.4 F L Pulse Rate [Pulse Oximeter] 85 66 56 L Respiratory Rate 16 18 20 Blood Pressure [Le ft Arm] 126/77 Blood Pressure [Ri ght Arm] 120/78 Pulse Oximetry 96 94 Oxygen Delivery Me thod Room Air Room Air Oxygen Flow Rate 1.5 Fraction of Inspir ed Oxygen 100 06/03/24 23:00 06/03/24 23:00 06/03/24 23:00 Temperature 98.0 F Pulse Rate [Pulse Oximeter] 56 L Respiratory Rate 20 Blood Pressure [Le ft Arm] Blood Pressure [Ri ght Arm] 145/80 H Pulse Oximetry 95 95 94 Oxygen Delivery Me thod Room Air Room Air Oxygen Flow Rate Fraction of Inspir ed Oxygen 06/04/24 03:00 06/04/24 07:42 06/04/24 07:42 Temperature 97.6 F 97.7 F Pulse Rate [Pulse Oximeter] 51 L 56 L Respiratory Rate 18 14 Blood Pressure [Le ft Arm] Blood Pressure [Ri ght Arm] 143/90 H 153/83 H Pulse Oximetry 94 94 94 Oxygen Delivery Me thod Room Air Room Air Oxygen Flow Rate Fraction of Inspir ed Oxygen 06/04/24 07:42 06/04/24 07:42 06/04/24 11:03 Temperature 97.8 F Pulse Rate [Pulse Oximeter] 56 L 57 L Respiratory Rate 14 14 18 Blood Pressure [Le ft Arm] 141/87 H Blood Pressure [Ri ght Arm] Pulse Oximetry 94 95 Oxygen Delivery Me thod Room Air Room Air Oxygen Flow Rate Fraction of Inspir ed Oxygen Documenting provider has reviewed patient's vital signs: yes
--- NOTE | 2024-06-04 14:55 | PC.NURSE ---
End of Shift: Patient pleasant and cooperative. Patient vitally stable, lungs clear, BS WNL, IV SL and intact. Patient currently getting PICC line placement. Patient rates knee pain 0-1/10, no pain meds given. Patient 2 assist/walker, gb. Patient up in chair for both meals. Patient left knee dressing C/D/I, brake applied, with active ice in use. Patient tolerating regular diet, No BM this shift. Patient catheter intact and draining.
[2024-06-04 15:00] VITALS: BP 131/89; PULSE 65; RESP 18; TEMP 36.6; O2SAT 96
[2024-06-04 19:00] VITALS: BP 133/77; PULSE 58; RESP 16; TEMP 36.2; O2SAT 94
[2024-06-04] MEDS: ATORVASTATIN CALCIUM 40 MG TABLET PO (21:25)
[2024-06-04 22:57] VITALS: BP 139/89; PULSE 55; RESP 18; TEMP 36.9; O2SAT 94
[2024-06-04] MEDS: LACTATED RINGERS 1000 ML 1,000 ML 125 ML IV (23:37)
[2024-06-05] VITALS (25 sets, daily range): BP systolic 109–159; BP diastolic 52–98; PULSE 39–82; RESP 16–20; TEMP 35.9–37.2; O2SAT 89–98
[2024-06-05] MEDS: ACETAMINOPHEN 650 MG TABLET ER 1300 MG PO ×2 (04:38→16:10)
--- NOTE | 2024-06-05 06:03 | PC.NURSE ---
[id number]: Pt A&O x3. Pt pleasant, cooperative, and appropriate. PICC is running with LR at 125 mL/hour, PICC dressing C/D/I, and patent. Patient denies SOB, CP, N/V, headache, and pain. Pt remained in bed resting throughout the shift and stated that he was very exhausted.? Patient catheter intact and draining. Patient left knee dressing C/D/I. Ice reapplied.
[2024-06-05 06:21] LABS: Basophils Absolute Auto 0.03 K/uL (0.00-0.30); Basophils Percent Auto 0.4 % (0.0-3.0); Eosinophils Absolute Auto 0.48 K/uL (0.00-0.50); Eosinophils Percent Auto 5.8 % (0.0-7.0); Hematocrit 39.1 % (37.0-53.0); Hemoglobin* 12.8 gm/dL (13.5-17.5); Immature Granulocytes Abs Auto 0.07 K/uL (0.00-0.30); Immature Granulocytes Pct Auto 0.8 %; Mean Corpuscular HGB Conc 33 gm/dL (32-36); Mean Corpuscular Hemoglobin 30 pg (26-34); Mean Corpuscular Volume 93 fL (80-100); Monocytes Percent Auto 10.5 % (0.0-11.0); Neutrophils Percent Auto 72.5 % (42.0-72.0); Platelet Count* 283 K/uL (140-440); RDW Coefficient of Variation % 13.2 % (11.5-15.5); Red Blood Count 4.22 m/uL (4.30-5.90); White Blood Count* 8.27 K/uL (4.50-11.00)
[2024-06-05 06:23] LABS: Slide Review Reflex No
[2024-06-05] MEDS: CEFEPIME HCL 2 GM in 0.9 % SODIUM CHLORIDE Mini-bag 100 ML IVPB (06:23)
[2024-06-05 06:31] LABS: Chloride* 108 mmol/L (96-114); Potassium* 3.8 mmol/L (3.6-5.1); Sodium* 140 mmol/L (135-149)
[2024-06-05 06:34] LABS: Creatinine* 0.8 mg/dL (0.5-1.5); Est. Creatinine Clearance* 60.66; Estimated Glomerular Filt Rate 88 ml/min
[2024-06-05 06:35] LABS: Anion Gap 8 mEq/L (7-15); Blood Urea Nitrogen* 20 mg/dL (7-30); Carbon Dioxide* 24 mmol/L (20-32); Glucose* 143 mg/dL (60-115)
[2024-06-05 06:38] LABS: C Reactive Protein* 3.1 mg/dL (0.5-1.0)
[2024-06-05] MEDS: FUROSEMIDE 20 MG TABLET PO (07:57)
[2024-06-05] MEDS: ASPIRIN 81 MG TABLET EC PO (08:52)
[2024-06-05] MEDS: AMLODIPINE 5 MG TABLET PO (08:52)
[2024-06-05] MEDS: lisinopriL 20 MG TABLET PO ×2 (08:52→20:42)
--- NOTE | 2024-06-05 10:27 | W.PM.INFD_ITS ---
Consultation Information Consultation Information Consultation Statement: This patient recommendation is based on a telemedicine consult request which was completed asynchronously through chart review and information provided by the primary physician. The patient was not seen or examined today. The evaluation is consultative in nature and all patient care and treatment decisions can either be accepted or rejected by the patient's primary hospital-based treating physician using their own independent medical judgment for their patient. [facility] contact information: Please call [facility] call center [phone] [facility] Medical History (Updated 06/04/24 @ 12:15 by Chandler Gaspar MD) Chronic anticoagulation ?Z79.01 - [facility] (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 of anticoagulants (ICD-10) Infection of prosthetic left knee joint ?T84.54XA - Infection and inflammatory reaction due to internal left knee prosthesis, initial encounter (ICD-10) Status post nephrectomy ?Z90.5 - Acquired absence of kidney (ICD-10) Indwelling urinary catheter present (~2020) ?Z96.0 - Presence of urogenital implants (ICD-10) Obesity ?E66.9 - Obesity, unspecified (ICD-10) HTN (hypertension) ?I10 - Essential (primary) hypertension (ICD-10) Atrial fibrillation, chronic ?I48.20 - Chronic atrial fibrillation, unspecified (ICD-10) CAD (coronary artery disease) ?I25.10 - Atherosclerotic heart disease of [place] coronary artery without angina pectoris (ICD-10) Elevated bilirubin ?R17 - Unspecified jaundice (ICD-10) Inability to ambulate due to knee ?R26.2 - Difficulty in walking, not elsewhere classified (ICD-10) Psoriasis ?L40.9 - Psoriasis, unspecified (ICD-10) Diverticulosis of colon ?K57.30 - Diverticulosis of large intestine without perforation or abscess without bleeding (ICD-10) Hydrocele in adult ?N43.3 - Hydrocele, unspecified (ICD-10) History of prediabetes ?Z87.898 - Personal history of other specified conditions (ICD-10) Tubular adenoma of colon ?D12.6 - Benign neoplasm of colon, unspecified (ICD-10) Tubulovillous adenoma of colon ?D12.6 - Benign neoplasm of colon, unspecified (ICD-10) Benign prostatic hyperplasia with lower urinary tract symptoms ?N40.1 - Benign prostatic hyperplasia with lower urinary tract symptoms (ICD- 10) Urinary retention ?R33.9 - Retention of urine, unspecified (ICD-10) Encounter for replacement of urinary catheter ?Z46.6 - Encounter for fitting and adjustment of urinary device (ICD-10) 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, unspecified ankle and foot (ICD-10) Atrial fibrillation ?I48.91 - Unspecified atrial fibrillation (ICD-10) Heart attack (2018) ?I21.9 - Acute myocardial infarction, unspecified (ICD-10) Surgical History 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 Retired [employer]. What is your current living situation?: I presently have a place to live Problems where you live: no known problems Problems where you live details: no known problems In the past 12 months, utilities in danger of being shut off: no In past 12 months, lack of transportation kept you from medical appts, meetings, work, or getting things needed for daily living: no In the past 12 mos, have been you worried that your food would run out before you had money to buy more?: never true In the past 12 mos, the food you bought just didn't last and you didn't have money to buy more?: never true Highest level of school completed/degree received: 12th grade, no diploma Smoking Status: Never smoker Do you use any of these nicotine containing products: None Second hand tobacco smoke exposure: No How often do you have a drink containing alcohol: monthly or less Alcohol type: beer How often do you have six or more drinks on one occasion: Never AUDIT-C Alcohol total score: 1 Non-prescribed substance use: denies use Caffeine: Yes (rarely warm tea) How often does anyone, including family, friends and others, physically hurt you : never How often does anyone, including family, friends and others, insult or talk down to you: never How often does anyone, including family, friends and others, threaten you with harm: never How often does anyone, including family, friends and others, scream or curse at you: never Little interest or pleasure in doing things: not at all Feeling down, depressed, or hopeless: not at all Do you think of yourself as: straight/heterosexual Gender Identity: male service: No Home Medications and Allergies Home Medications and Allergies Inpatient Medications: Active Medications Generic Name Dose Route Start Last Admin Trade Name Freq PRN Reason Stop Dose Admin Acetaminophen 1,300 mg 05/31/24 16:00 06/05/24 04:38 Acetaminophen 650 Mg Tablet Er PO 1,300 mg Q12H LINDEN Administration Amlodipine Besylate 5 mg 06/01/24 09:00 06/05/24 08:52 Amlodipine 5 Mg Tablet PO 5 mg DAILY LINDEN Administration Aspirin 81 mg 05/31/24 21:00 06/05/24 08:52 Aspirin 81 Mg Tablet Ec PO 81 mg BID LINDEN Administration Bisacodyl 10 mg 05/31/24 15:52 Bisacodyl 10 Mg Supp.Rect VA DAILY PRN Constipation Diphenhydramine HCl 25 - 50 mg 05/31/24 15:52 Diphenhydramine 50 Mg/Ml Inj IVP Q3H PRN Itching Furosemide 20 mg 06/01/24 08:00 06/05/24 07:57 Furosemide 20 Mg Tablet PO 20 mg DAILY@0800 [facility] Administration Hydromorphone HCl 0.2 - 0.5 mg 05/31/24 15:52 Hydromorphone 0.5 Mg/0.5 Ml Inj IVP Q1H PRN Pain Cefepime HCl 2 gm/ Sodium 100 mls @ 200 mls/hr 05/31/24 14:30 06/05/24 07:56 Chloride IVPB Infused Q8H LINDEN Infusion Lactated Ringer's 1,000 mls @ 125 mls/hr 06/04/24 23:00 06/05/24 07:56 Lactated Ringers 1000 Ml IV Not Given .Q8H LINDEN Vancomycin HCl 1,000 mg/ 260 mls @ 210 mls/hr 06/05/24 05:00 06/05/24 04:58 Sodium Chloride IVPB 210 mls/hr Q12H [facility] Administration Protocol IV Miscellaneous Supplies 1 each 06/01/24 09:00 Pharmacist Consult DAILY [facility] Protocol Lidocaine/Aluminum/Magnesium/Simeth 15 - 30 ml 05/31/24 15:52 Mag Hydrox/Aluminum Hyd/Simeth 30 Ml Oral.Susp PO Q2H PRN Indigestion Lisinopril 20 mg 06/01/24 09:00 06/05/24 08:52 Lisinopril 20 Mg Tablet PO 20 mg BID LINDEN Administration Lorazepam 0.5 - 2 mg 05/31/24 15:52 Lorazepam 0.5 Mg Tablet PO HS PRN Sleep Morphine Sulfate 2 mg 05/31/24 10:37 Morphine 2 Mg/Ml Inj IVP Q2H PRN Nitroglycerin 0.4 mg 05/31/24 10:34 Nitroglycerin 0.4 Mg Tab.Subl SUBLINGUAL Q5M PRN chest pain Ondansetron HCl 4 mg 05/31/24 15:52 Ondansetron 2 Mg/Ml Inj IVP Q4H PRN Nausea Oxycodone HCl 2.5 - 10 mg 05/31/24 15:52 06/03/24 20:52 Oxycodone 5 Mg Tablet PO 5 mg Q2H PRN Administration Pain Sennosides 2 tab 05/31/24 21:00 06/05/24 08:52 Sennosides 1 Tab Tablet PO Not Given BID LINDEN Sodium Chloride 5 ml 05/31/24 04:25 06/01/24 06:03 Sodium Chloride 0.9 % (Flush) 10 Ml Syringe IVF 5 ml .FLUSH PRN Administration Sodium Chloride 5 ml 05/31/24 09:00 06/04/24 21:26 Sodium Chloride 0.9 % (Flush) 10 Ml Syringe IVF 5 ml BID LINDEN Administration Sodium Chloride 500 ml 05/31/24 15:52 0.9 % Sodium Chloride 500 Ml IV Q4H PRN oliguria Sodium Chloride 250 ml 06/01/24 22:45 06/04/24 22:25 0.9 % Sodium Chloride 250 Ml IV Not Given Q24H LINDEN Tranexamic Acid 1,000 mg 06/05/24 13:30 Tranexamic Acid 100 Mg/Ml Inj IV 06/05/24 13:31 ONCE ONE Triamcinolone Acetonide 1 applic 06/05/24 21:00 Triamcinolone Acetonide Ointment 0.1 % TOPICAL BID LINDEN Discontinued Medications Generic Name Dose Route Start Last Admin Trade Name Freq PRN Reason Stop Dose Admin Acetaminophen 650 mg 05/31/24 09:24 05/31/24 09:32 Acetaminophen 325 Mg Tablet PO 650 mg Q6H PRN Administration As needed for fever, headache, or minor pain Atorvastatin Calcium 40 mg 05/31/24 21:00 06/04/24 21:25 Atorvastatin Calcium 40 Mg Tablet PO 40 mg HS LINDEN Administration Cefazolin Sodium 1 gm 05/31/24 01:04 05/31/24 01:13 Cefazolin 1 Gm Inj IVP 05/31/24 01:05 1 gm ONCE ONE Administration Cefazolin Sodium Confirm 05/31/24 01:10 Cefazolin 1 Gm Inj Administered 05/31/24 01:11 Dose 1 gm .ROUTE .STK-MED ONE Dexamethasone Confirm 05/31/24 13:34 Dexamethasone 4 Mg/Ml Vial Administered 05/31/24 13:35 Dose 4 mg .ROUTE .STK-MED ONE Dexamethasone Sodium Phosphate Confirm 05/31/24 12:15 Dexamethasone 10 Mg/Ml Pf Administered 05/31/24 12:16 Dose 10 mg .ROUTE .STK-MED ONE Dexmedetomidine HCl Confirm 05/31/24 12:15 Dexmedetomidine Hcl 100 Mcg/Ml Inj Administered 05/31/24 12:16 Dose 200 mcg IV .STK-MED ONE Enoxaparin Sodium 40 mg 06/02/24 11:30 06/04/24 08:36 Enoxaparin 40 Mg/0.4 Ml Inj SUBCUT 06/04/24 09:01 40 mg DAILY LINDEN Administration Ephedrine Sulfate 5 - 10 mg 05/31/24 11:05 Ephedrine Sulfate 5 Mg/Ml Inj IVP Q5M PRN Fentanyl 50 - 100 mcg 05/31/24 10:26 05/31/24 20:19 Fentanyl 100 Mcg/2 Ml Inj IVP 05/31/24 10:27 Not Given ONCE ONE Fentanyl Confirm 05/31/24 10:27 Fentanyl 100 Mcg/2 Ml Inj Administered 05/31/24 10:28 Dose 100 mcg .ROUTE .STK-MED ONE Fentanyl 50 mcg 05/31/24 11:05 Fentanyl 100 Mcg/2 Ml Inj IVP Q5M PRN Pain Fentanyl Confirm 05/31/24 11:56 Fentanyl 100 Mcg/2 Ml Inj Administered 05/31/24 11:57 Dose 100 mcg .ROUTE .STK-MED ONE Hydralazine HCl 10 mg 05/31/24 11:05 Hydralazine Hcl 20 Mg/Ml Inj IVP ONCE PRN Hypertension Hydromorphone HCl 0.5 mg 05/31/24 11:05 Hydromorphone 0.5 Mg/0.5 Ml Inj IVP Q10M PRN Pain Hydroxyzine Pamoate 25 mg 05/31/24 11:05 06/01/24 14:28 Hydroxyzine Pamoate 25 Mg Capsule PO 05/31/24 11:06 Not Given ONCE ONE Sodium Chloride 1,000 mls @ 1,000 mls/hr 05/30/24 20:45 05/30/24 22:52 0.9 % Sodium Chloride 1000 Ml IV 05/30/24 21:44 Infused .Q1H LINDEN Infusion Levofloxacin/Dextrose 750 mg in 150 mls @ 100 mls/hr 05/31/24 05:00 05/31/24 07:24 Levofloxacin 750 Mg/150 Ml IVPB Infused Q24H LINDEN Infusion Lactated Ringer's 500 mls @ 250 mls/hr 05/31/24 10:26 06/01/24 16:13 Lactated Ringers 500 Ml IV 05/31/24 12:25 Infused .Q2H ONE Infusion Lactated Ringer's 1,000 mls @ 75 mls/hr 05/31/24 10:30 05/31/24 11:53 Lactated Ringers 1000 Ml IV Not Given .[id number] LINDEN Lactated Ringer's 1,000 mls @ 100 mls/hr 05/31/24 10:30 06/01/24 16:13 Lactated Ringers 1000 Ml IV Infused .Q10H LINDEN Infusion Cefazolin Sodium 1 gm/ Sodium 100 mls @ 200 mls/hr 05/31/24 10:30 05/31/24 11:52 Chloride IVPB Infused Q8H LINDEN Infusion Vancomycin HCl 1,250 mg/ 262.5 mls @ 210 mls/hr 05/31/24 13:00 06/01/24 16:13 Sodium Chloride IVPB 05/31/24 14:14 Infused ONCE ONE Infusion Vancomycin HCl 1,250 mg/ 262.5 mls @ 210 mls/hr 06/01/24 01:00 06/03/24 12:40 Sodium Chloride IVPB Infused Q12H [facility] Infusion Protocol Lactated Ringer's 1,000 mls @ 75 mls/hr 05/31/24 15:52 06/02/24 07:02 Lactated Ringers 1000 Ml IV Not Given .[id number] LINDEN Vancomycin HCl 1,250 mg/ 262.5 mls @ 210 mls/hr 06/03/24 23:00 06/05/24 01:06 Sodium Chloride IVPB Not Given Q12H [facility] Protocol Labetalol HCl 5 - 10 mg 05/31/24 11:05 Labetalol Hcl 5 Mg/Ml Inj IVP ONCE PRN Hypertension Lidocaine HCl Confirm 05/31/24 13:34 Lidocaine 2% (Pf) 5 Ml Vial Administered 05/31/24 13:35 Dose 5 ml .ROUTE .STK-MED ONE Meperidine HCl 12.5 mg 05/31/24 11:05 Meperidine 25 Mg/Ml Inj IVP ONCE PRN Shivering Metoclopramide HCl 10 mg 05/31/24 11:05 Metoclopramide Hcl 5 Mg/Ml Inj IVP ONCE PRN Nausea Midazolam HCl 1 - 2 mg 05/31/24 10:26 05/31/24 12:10 Midazolam Hcl 1 Mg/Ml Inj IVP 05/31/24 10:27 2 mg ONCE ONE Administration Midazolam HCl Confirm 05/31/24 10:27 Midazolam Hcl 1 Mg/Ml Inj Administered 05/31/24 10:28 Dose 2 mg .ROUTE .STK-MED ONE Morphine Sulfate 2 mg 05/31/24 04:25 Morphine 4 Mg/Ml Inj IVP Q1H PRN Pain Ondansetron HCl 4 mg 05/31/24 11:05 Ondansetron 2 Mg/Ml Inj IVP ONCE PRN Nausea Ondansetron HCl Confirm 05/31/24 13:34 Ondansetron 2 Mg/Ml Inj Administered 05/31/24 13:35 Dose 4 mg .ROUTE .STK-MED ONE Phenylephrine HCl 100 mcg 05/31/24 11:05 Phenylephrine 100 Mcg/Ml Syringe IVP Q5M PRN Propofol Confirm 05/31/24 13:33 Propofol 10 Mg/Ml Inj Administered 05/31/24 13:34 Dose 200 mg IVP .STK-MED ONE Rocuronium Peck Confirm 05/31/24 13:34 Rocuronium Peck 10 Mg/Ml Inj Administered 05/31/24 13:35 Dose 50 mg IV .STK-MED ONE Ropivacaine Confirm 05/31/24 12:15 Ropivacaine 0.5% 30 Ml Administered 05/31/24 12:16 Dose 150 mg INJECTION .STK-MED ONE Sevoflurane Confirm 05/31/24 13:34 Sevoflurane Soln Administered 05/31/24 13:35 Dose 1 each IH .STK-MED ONE Sodium Chloride 250 ml 05/31/24 05:00 06/03/24 02:28 0.9 % Sodium Chloride 250 Ml IV Not Given Q24H LINDEN Succinylcholine Chloride Confirm 05/31/24 13:34 Succinylcholine 20 Mg/Ml Inj Administered 05/31/24 13:35 Dose 200 mg IVP .STK-MED ONE Sugammadex Sodium Confirm 05/31/24 14:54 Sugammadex 200 Mg/2ml Inj Administered 05/31/24 14:55 Dose 200 mg IVP .STK-MED ONE Tobramycin Sulfate 1.2 gm 05/31/24 11:45 Tobramycin Sulfate Powder 1.2 Gm Vial TOPICAL 05/31/24 11:46 .STK-MED ONE Tranexamic Acid 1,000 mg 05/31/24 11:24 05/31/24 12:33 Tranexamic Acid 100 Mg/Ml Inj IV 05/31/24 11:25 1,000 mg ONCE ONE Administration Tranexamic Acid Confirm 05/31/24 13:33 Tranexamic Acid 100 Mg/Ml Inj Administered 05/31/24 13:34 Dose 1,000 mg .ROUTE .STK-MED ONE Vancomycin HCl 1,000 mg 05/31/24 11:45 Vancomycin 100 Mg/Ml Inj TOPICAL 05/31/24 11:46 .STK-MED ONE Allergies Allergy/AdvReac Type Severity Reaction Status Date / Time No Known Drug Allergies Allergy Verified 04/24/24 10:19 Objective - Infectious Disease Objective Vital Signs: Vital Signs - 24 hr 07/23/24 11:03 06/04/24 15:00 06/04/24 15:00 Temperature 97.8 F 97.9 F Pulse Rate [Pulse Oximeter] 57 L 65 Respiratory Rate 18 18 Blood Pressure [Left Arm] 141/87 H Blood Pressure [Right Arm] 131/89 Pulse Oximetry 95 96 96 Oxygen Delivery Method Room Air Room Air Room Air 06/04/24 15:00 06/04/24 15:00 06/04/24 19:00 Temperature 97.2 F L Pulse Rate [Pulse Oximeter] 65 58 L Respiratory Rate 18 16 Blood Pressure [Left Arm] Blood Pressure [Right Arm] 133/77 Pulse Oximetry 96 94 Oxygen Delivery Method Room Air 06/04/24 22:57 06/04/24 22:57 06/04/24 22:57 Temperature 98.4 F Pulse Rate [Pulse Oximeter] 55 L Respiratory Rate 18 Blood Pressure [Left Arm] Blood Pressure [Right Arm] 139/89 Pulse Oximetry 94 94 94 Oxygen Delivery Method Room Air Room Air 06/05/24 03:00 06/05/24 07:00 06/05/24 07:00 Temperature 98.2 F 97.8 F Pulse Rate [Pulse Oximeter] 55 L 55 L Respiratory Rate 16 20 Blood Pressure [Left Arm] Blood Pressure [Right Arm] 159/97 H 157/98 H Pulse Oximetry 95 93 93 Oxygen Delivery Method Room Air Room Air 06/05/24 07:00 06/05/24 07:00 Temperature Pulse Rate [Pulse Oximeter] 55 L Respiratory Rate 20 20 Blood Pressure [Left Arm] Blood Pressure [Right Arm] Pulse Oximetry 93 Oxygen Delivery Method Room Air Narrative: Patient was not seen or examined. Results - Infectious Disease Results Labs: 05/31/24 13:33 Knee,Left Gram Stain - Final 05/31/24 13:33 Knee,Left Aerobic Culture - Preliminary Staphylococcus epidermidis 05/31/24 13:33 Knee,Left Anaerobic Culture - Preliminary 06/02/24 05:47 Blood Blood Culture - Preliminary NO GROWTH AFTER 72 HOURS 05/31/24 13:30 Knee,Left Gram Stain - Final 05/31/24 13:30 Knee,Left Aerobic Culture - Preliminary NO GROWTH AFTER 48 HOURS 05/31/24 13:30 Knee,Left Anaerobic Culture - Preliminary 05/31/24 13:30 Knee,Left Gram Stain - Final 05/31/24 13:30 Knee,Left Aerobic Culture - Preliminary NO GROWTH AFTER 48 HOURS 05/31/24 13:30 Knee,Left Anaerobic Culture - Preliminary 05/31/24 13:30 Knee,Left Gram Stain - Final 05/31/24 13:30 Knee,Left Aerobic Culture - Preliminary Staphylococcus epidermidis 05/31/24 13:30 Knee,Left Anaerobic Culture - Preliminary 05/30/24 20:40 Urine,Clean Catch Urine Culture - Final Klebsiella oxytoca 05/31/24 01:00 Synovial Fluid Gram Stain - Final 05/31/24 01:00 Synovial Fluid Body Fluid Culture - Preliminary 05/30/24 20:56 Blood Blood Culture - Preliminary Staphylococcus epidermidis 05/30/24 20:49 Blood Blood Culture - Preliminary Staphylococcus epidermidis 05/31/24 13:08 Synovial Fluid Fungal Culture - Preliminary 05/31/24 13:08 Knee,Left Fungal Culture - Preliminary Laboratory Tests 06/05/24 06/04/24 06/02/24 Range/Units 05:48 23:45 12:54 WBC 8.27 (4.50-11.00) K/uL RBC 4.22 L (4.30-5.90) m/uL Hgb 12.8 L (13.5-17.5) gm/dL Hct 39.1 (37.0-53.0) % MCV 93 (80-100) fL MCH 30 (26-34) pg MCHC 33 (32-36) gm/dL RDW Coeff of David 13.2 (11.5-15.5) % Plt Count 283 (140-440) K/uL Neut % (Auto) 72.5 H (42.0-72.0) % Lymph % (Auto) 10.0 L (20-44) % [place] % (Auto) 10.5 (0.0-11.0) % Eos % (Auto) 5.8 (0.0-7.0) % Baso % (Auto) 0.4 (0.0-3.0) % Neut # (Auto) 6.00 (1.7-7.0) K/uL Lymph # (Auto) 0.80 L (0.90-2.90) K/uL [place] # (Auto) 0.90 (0.00-0.90) K/UL Eos # (Auto) 0.48 (0.00-0.50) K/uL Baso # (Auto) 0.03 (0.00-0.30) K/uL Abs Immat Gran (auto) 0.07 (0.00-0.30) K/uL Imm/Tot Granulo (auto) 0.8 % INR (0.91-1.10) Sodium 140 (135-149) mmol/L Potassium 3.8 (3.6-5.1) mmol/L Chloride 108 (96-114) mmol/L Carbon Dioxide 24 (20-32) mmol/L Anion Gap 8 (7-15) mEq/L BUN 20 (7-30) mg/dL Creatinine 0.8 (0.5-1.5) mg/dL Estimated Creat Clear 60.66 Estimated GFR 88 ml/min Glucose 143 H (60-115) mg/dL Hemoglobin A1c (0-5.6) % Lactate (0.5-1.9) mmol/L Calcium 9.0 (8.4-10.6) mg/dL Magnesium (1.5-2.6) mg/dL Total Bilirubin (0.1-1.5) mg/dL AST (12-35) U/L ALT (4-50) U/L Alkaline Phosphatase (40-150) U/L Troponin I (0.01-0.04) ng/mL C-Reactive Protein 3.1 H (0.5-1.0) mg/dL NT-Pro-B Natriuret Pep pg/mL Total Protein (6.0-8.3) g/dL Albumin (3.3-5.0) g/dL Procalcitonin (<0.50) ng/mL Urine Color (Yellow) Urine Appearance (Clear) Urine pH (5.0-8.5) Ur Specific [place] (1.000-1.030) Urine Protein (Negative) Urine Glucose (UA) (Negative) Urine Ketones (Negative) Urine Blood (Negative) Urine Nitrite (Negative) Urine Bilirubin (Negative) Urine Urobilinogen (0.2-1.0) Ur Leukocyte Esterase (Negative) Urine RBC (0-2) Urine WBC (0-5) Ur Squamous Epith Cells (None-Few) Urine Bacteria (None) Fluid Volume Fluid Color Fluid Appearance Fluid WBC Cells/uL Fluid RBC Cells/uL Fluid Polynuclear WBCs % Fluid Mononuclear WBCs % Fluid Crystal ID Fluid Total Protein gm/dL Vancomycin Trough 20.9 H 16.2 (5.0-20.0) ug/mL SARS-CoV-2 (PCR) (Negative) Influenza Type A (PCR) (Negative) Influenza Type B (PCR) (Negative) RSV (PCR) (Negative) Lab Acknowledgement 06/02/24 06/02/24 06/01/24 Range/Units 06:29 05:47 06:06 WBC 8.08 (4.50-11.00) K/uL RBC 4.15 L (4.30-5.90) m/uL Hgb 12.5 L (13.5-17.5) gm/dL Hct 38.5 (37.0-53.0) % MCV 93 (80-100) fL MCH 30 (26-34) pg MCHC 33 (32-36) gm/dL RDW Coeff of David (11.5-15.5) % Plt Count 221 (140-440) K/uL Neut % (Auto) (42.0-72.0) % Lymph % (Auto) (20-44) % [place] % (Auto) (0.0-11.0) % Eos % (Auto) (0.0-7.0) % Baso % (Auto) (0.0-3.0) % Neut # (Auto) (1.7-7.0) K/uL Lymph # (Auto) (0.90-2.90) K/uL [place] # (Auto) (0.00-0.90) K/UL Eos # (Auto) (0.00-0.50) K/uL Baso # (Auto) (0.00-0.30) K/uL Abs Immat Gran (auto) (0.00-0.30) K/uL Imm/Tot Granulo (auto) % INR (0.91-1.10) Sodium 138 137 (135-149) mmol/L Potassium 4.5 4.6 (3.6-5.1) mmol/L Chloride 110 110 (96-114) mmol/L Carbon Dioxide 21 21 (20-32) mmol/L Anion Gap 7 6 L (7-15) mEq/L BUN 31 H 20 (7-30) mg/dL Creatinine 1.0 1.0 (0.5-1.5) mg/dL Estimated Creat Clear 60.66 60.66 Estimated GFR 75 75 ml/min Glucose 169 H 185 H (60-115) mg/dL Hemoglobin A1c (0-5.6) % Lactate (0.5-1.9) mmol/L Calcium 8.7 8.8 (8.4-10.6) mg/dL Magnesium (1.5-2.6) mg/dL Total Bilirubin (0.1-1.5) mg/dL AST (12-35) U/L ALT (4-50) U/L Alkaline Phosphatase (40-150) U/L Troponin I (0.01-0.04) ng/mL C-Reactive Protein 4.2 H 8.4 H (0.5-1.0) mg/dL NT-Pro-B Natriuret Pep pg/mL Total Protein (6.0-8.3) g/dL Albumin (3.3-5.0) g/dL Procalcitonin (<0.50) ng/mL Urine Color (Yellow) Urine Appearance (Clear) Urine pH (5.0-8.5) Ur Specific Filer (1.000-1.030) Urine Protein (Negative) Urine Glucose (UA) (Negative) Urine Ketones (Negative) Urine Blood (Negative) Urine Nitrite (Negative) Urine Bilirubin (Negative) Urine Urobilinogen (0.2-1.0) Ur Leukocyte Esterase (Negative) Urine RBC (0-2) Urine WBC (0-5) Ur Squamous Epith Cells (None-Few) Urine Bacteria (None) Fluid Volume Fluid Color Fluid Appearance Fluid WBC Cells/uL Fluid RBC Cells/uL Fluid Polynuclear WBCs % Fluid Mononuclear WBCs % Fluid Crystal ID Fluid Total Protein gm/dL Vancomycin Trough (5.0-20.0) ug/mL SARS-CoV-2 (PCR) (Negative) Influenza Type A (PCR) (Negative) Influenza Type B (PCR) (Negative) RSV (PCR) (Negative) Lab Acknowledgement Test Added 05/31/24 05/31/24 05/31/24 Range/Units 18:20 14:13 08:16 WBC (4.50-11.00) K/uL RBC (4.30-5.90) m/uL Hgb (13.5-17.5) gm/dL Hct (37.0-53.0) % MCV (80-100) fL MCH (26-34) pg MCHC (32-36) gm/dL RDW Coeff of David (11.5-15.5) % Plt Count (140-440) K/uL Neut % (Auto) (42.0-72.0) % Lymph % (Auto) (20-44) % [place] % (Auto) (0.0-11.0) % Eos % (Auto) (0.0-7.0) % Baso % (Auto) (0.0-3.0) % Neut # (Auto) (1.7-7.0) K/uL Lymph # (Auto) (0.90-2.90) K/uL [place] # (Auto) (0.00-0.90) K/UL Eos # (Auto) (0.00-0.50) K/uL Baso # (Auto) (0.00-0.30) K/uL Abs Immat Gran (auto) (0.00-0.30) K/uL Imm/Tot Granulo (auto) % INR (0.91-1.10) Sodium (135-149) mmol/L Potassium (3.6-5.1) mmol/L Chloride (96-114) mmol/L Carbon Dioxide (20-32) mmol/L Anion Gap (7-15) mEq/L BUN (7-30) mg/dL Creatinine (0.5-1.5) mg/dL Estimated Creat Clear Estimated GFR ml/min Glucose (60-115) mg/dL Hemoglobin A1c (0-5.6) % Lactate (0.5-1.9) mmol/L Calcium (8.4-10.6) mg/dL Magnesium (1.5-2.6) mg/dL Total Bilirubin (0.1-1.5) mg/dL AST (12-35) U/L ALT (4-50) U/L Alkaline Phosphatase (40-150) U/L Troponin I (0.01-0.04) ng/mL C-Reactive Protein (0.5-1.0) mg/dL NT-Pro-B Natriuret Pep pg/mL Total Protein (6.0-8.3) g/dL Albumin (3.3-5.0) g/dL Procalcitonin (<0.50) ng/mL Urine Color Yellow (Yellow) Urine Appearance Clear (Clear) Urine pH 5.5 (5.0-8.5) Ur Specific [place]iler 1.010 (1.000-1.030) Urine Protein Trace A (Negative) Urine Glucose (UA) 1+ A (Negative) Urine Ketones Negative (Negative) Urine Blood 3+ A (Negative) Urine Nitrite Negative (Negative) Urine Bilirubin Negative (Negative) Urine Urobilinogen 0.2 (0.2-1.0) Ur Leukocyte Esterase Trace A (Negative) Urine RBC 2-5 A (0-2) Urine WBC 0-2 (0-5) Ur Squamous Epith Cells None (None-Few) Urine Bacteria Few A (None) Fluid Volume Fluid Color Fluid Appearance Fluid WBC Cells/uL Fluid RBC Cells/uL Fluid Polynuclear WBCs % Fluid Mononuclear WBCs % Fluid Crystal ID Fluid Total Protein gm/dL Vancomycin Trough (5.0-20.0) ug/mL SARS-CoV-2 (PCR) (Negative) Influenza Type A (PCR) (Negative) Influenza Type B (PCR) (Negative) RSV (PCR) (Negative) Lab Acknowledgement Test Added Test Added 05/31/24 05/31/24 05/31/24 Range/Units 07:37 07:20 01:00 WBC 6.21 (4.50-11.00) K/uL RBC 4.03 L (4.30-5.90) m/uL Hgb 12.3 L (13.5-17.5) gm/dL Hct 37.5 (37.0-53.0) % MCV 93 (80-100) fL MCH 31 (26-34) pg MCHC 33 (32-36) gm/dL RDW Coeff of David 13.1 (11.5-15.5) % Plt Count 201 (140-440) K/uL Neut % (Auto) 71.6 (42.0-72.0) % Lymph % (Auto) 10.0 L (20-44) % [place] % (Auto) 13.4 H (0.0-11.0) % Eos % (Auto) 4.3 (0.0-7.0) % Baso % (Auto) 0.5 (0.0-3.0) % Neut # (Auto) 4.45 (1.7-7.0) K/uL Lymph # (Auto) 0.60 L (0.90-2.90) K/uL [place] # (Auto) 0.80 (0.00-0.90) K/UL Eos # (Auto) 0.27 (0.00-0.50) K/uL Baso # (Auto) 0.03 (0.00-0.30) K/uL Abs Immat Gran (auto) 0.01 (0.00-0.30) K/uL Imm/Tot Granulo (auto) 0.2 % INR 1.35 H (0.91-1.10) Sodium 138 (135-149) mmol/L Potassium 4.1 (3.6-5.1) mmol/L Chloride 108 (96-114) mmol/L Carbon Dioxide 21 (20-32) mmol/L Anion Gap 9 (7-15) mEq/L BUN 19 (7-30) mg/dL Creatinine 0.9 (0.5-1.5) mg/dL Estimated Creat Clear 60.66 Estimated GFR 85 ml/min Glucose 135 H (60-115) mg/dL Hemoglobin A1c 6.1 H (0-5.6) % Lactate 1.2 (0.5-1.9) mmol/L Calcium 8.6 (8.4-10.6) mg/dL Magnesium 2.1 (1.5-2.6) mg/dL Total Bilirubin 1.2 (0.1-1.5) mg/dL AST 27 (12-35) U/L ALT 17 (4-50) U/L Alkaline Phosphatase 87 (40-150) U/L Troponin I < 0.01 L (0.01-0.04) ng/mL C-Reactive Protein 8.1 H (0.5-1.0) mg/dL NT-Pro-B Natriuret Pep 2520 pg/mL Total Protein 6.9 (6.0-8.3) g/dL Albumin 3.7 (3.3-5.0) g/dL Procalcitonin 0.19 (<0.50) ng/mL Urine Color (Yellow) Urine Appearance (Clear) Urine pH (5.0-8.5) Ur Specific Filer (1.000-1.030) Urine Protein (Negative) Urine Glucose (UA) (Negative) Urine Ketones (Negative) Urine Blood (Negative) Urine Nitrite (Negative) Urine Bilirubin (Negative) Urine Urobilinogen (0.2-1.0) Ur Leukocyte Esterase (Negative) Urine RBC (0-2) Urine WBC (0-5) Ur Squamous Epith Cells (None-Few) Urine Bacteria (None) Fluid Volume 18 Fluid Color Xanthochromic A Fluid Appearance Cloudy A Fluid WBC 26098 Cells/uL Fluid RBC 88417 Cells/uL Fluid Polynuclear WBCs 98 % Fluid Mononuclear WBCs 2 % Fluid Crystal ID See Scanned Report Fluid Total Protein < 6.0 gm/dL Vancomycin Trough (5.0-20.0) ug/mL SARS-CoV-2 (PCR) (Negative) Influenza Type A (PCR) (Negative) Influenza Type B (PCR) (Negative) RSV (PCR) (Negative) Lab Acknowledgement Test Added 05/30/24 05/30/24 05/30/24 Range/Units 20:41 20:40 20:10 WBC 8.21 (4.50-11.00) K/uL RBC 4.11 L (4.30-5.90) m/uL Hgb 12.5 L (13.5-17.5) gm/dL Hct 38.2 (37.0-53.0) % MCV 93 (80-100) fL MCH 30 (26-34) pg MCHC 33 (32-36) gm/dL RDW Coeff of David 13.1 (11.5-15.5) % Plt Count 219 (140-440) K/uL Neut % (Auto) 77.7 H (42.0-72.0) % Lymph % (Auto) 7.7 L (20-44) % [place] % (Auto) 11.7 H (0.0-11.0) % Eos % (Auto) 2.3 (0.0-7.0) % Baso % (Auto) 0.4 (0.0-3.0) % Neut # (Auto) 6.40 (1.7-7.0) K/uL Lymph # (Auto) 0.60 L (0.90-2.90) K/uL [place] # (Auto) 1.00 H (0.00-0.90) K/UL Eos # (Auto) 0.19 (0.00-0.50) K/uL Baso # (Auto) 0.03 (0.00-0.30) K/uL Abs Immat Gran (auto) 0.02 (0.00-0.30) K/uL Imm/Tot Granulo (auto) 0.2 % INR (0.91-1.10) Sodium 136 (135-149) mmol/L Potassium 4.2 (3.6-5.1) mmol/L Chloride 104 (96-114) mmol/L Carbon Dioxide 19 L (20-32) mmol/L Anion Gap 13 (7-15) mEq/L BUN 25 (7-30) mg/dL Creatinine 1.1 (0.5-1.5) mg/dL Estimated Creat Clear 53.46 Estimated GFR 67 ml/min Glucose 217 H (60-115) mg/dL Hemoglobin A1c (0-5.6) % Lactate 2.3 H (0.5-1.9) mmol/L Calcium 8.7 (8.4-10.6) mg/dL Magnesium (1.5-2.6) mg/dL Total Bilirubin (0.1-1.5) mg/dL AST (12-35) U/L ALT (4-50) U/L Alkaline Phosphatase (40-150) U/L Troponin I 0.01 (0.01-0.04) ng/mL C-Reactive Protein 12.0 H (0.5-1.0) mg/dL NT-Pro-B Natriuret Pep pg/mL Total Protein (6.0-8.3) g/dL Albumin (3.3-5.0) g/dL Procalcitonin (<0.50) ng/mL Urine Color Yellow (Yellow) Urine Appearance Slightly Cloudy A (Clear) Urine pH 5.5 (5.0-8.5) Ur Specific Filer 1.020 (1.000-1.030) Urine Protein 1+ A (Negative) Urine Glucose (UA) Negative (Negative) Urine Ketones Negative (Negative) Urine Blood Trace-lysed A (Negative) Urine Nitrite Negative (Negative) Urine Bilirubin Negative (Negative) Urine Urobilinogen 0.2 (0.2-1.0) Ur Leukocyte Esterase Trace A (Negative) Urine RBC 0-2 (0-2) Urine WBC 0-2 (0-5) Ur Squamous Epith Cells None (None-Few) Urine Bacteria Few A (None) Fluid Volume Fluid Color Fluid Appearance Fluid WBC Cells/uL Fluid RBC Cells/uL Fluid Polynuclear WBCs % Fluid Mononuclear WBCs % Fluid Crystal ID Fluid Total Protein gm/dL Vancomycin Trough (5.0-20.0) ug/mL SARS-CoV-2 (PCR) Negative SARS-CoV-2 (Negative) Influenza Type A (PCR) Negative PCR FLU A (Negative) Influenza Type B (PCR) Negative PCR FLU B (Negative) RSV (PCR) Negative PCR RSV (Negative) Lab Acknowledgement Impression & Recommendations Recommendations Impression & Recommendations: 83-year-old male PMH CAD, STEMI with RCA stenting, s/p nephrectomy, psoriasis, diverticulosis, tubulovillous adenoma of the colon, A-fib (Eliquis), HTN, left knee total arthroplasty x 1 year ago, chronic SPC for urinary retention was in his normal state of health x 3-4 days ago when he started having pain and swelling in his left knee associated with subjective chills/sweats. ?In the ED noted red hot swollen knee suspicious for PJI s/p arthrocentesis. ?Per chart review no history of trauma/falls. ?Has been very weak and having trouble walking around. ?No respiratory symptoms, GI/ symptoms. ?Normal urine output via SPC (last exchanged 05/17). ?No rashes In the ED FEBRILE TMAX 102.1F, WBC 8K, creatinine 1.1---0.9, A1c 6.1, LFT NL, CRP 12---8.1 procalcitonin 0.19, Limited RVP negative, UA (from SPC) nitrite negative, LE trace, WBC 0-2, Synovial fluid cloudy, WBC 22735, 98% polys, no crystals seen. CXR: No acute changes R XR: Moderate effusion. ?Underlying prosthesis Was started on IV vancomycin and later Levaquin was added for gram-negative coverage with underlying SPC catheter. s/p DAIR procedure by Ortho on 05/29/24. Tele ID was consulted for further empiric antibiotic recommendations. On further chart review most recent cultures was from May 2023 urine culture positive for Morganella Morganii (sensitive to ceftazidime, ceftriaxone, quinolones, ertapenem, Bactrim, Zosyn), Enterococcus faecalis (ampicillin sensitive) 06/05/24 update: pt remains afebrile with stable BP. Labs reviewed WBC 8.2K, Hg 12.8, plar 283K, serum Cr stable at 0.8 , CRP 3.1<4.2<8.4, synovial fluid crystals negative, lyme serology negative. S/p OR on 05/31, he underwent L knee I&D, extensive synovectomy including excisional debridement of synovium in the suprapatellar pouch, medial and lateral gutters, posterior recesses of the knee, and surrounding the patella. Left knee polyethylene exchange. Left knee antibiotic bead placement. ? Repeat blood cx collected 06/02 NGTD. OR left knee-deep tissue cx + staph epidermidis Oxacillin S, 05/31 OR Lt knee suprapatellar tissue cx no growth at 48Hr. 05/31 Lt knee synovial fluid aerobic cx small amount of staph epidermidis Oxacillin R. No anaerobic isolate. 05/31 L knee fungal cx in process, no growth to date. 05/30 blood cx 2 of 2 sets Oxa sensitive staph epidermidis in aerobic and anaerobic bottles. 05/30 Ucx 30-40K Klebsiella oxytoca R amp/cipro, I Levaquin and Macrobid, S to CTX, ceftazidime, cefazolin, cefepime, Bactrim, gen, ertapenem?, >100K mixed GP darron. Summary #Left knee septic arthritis/PJI- s/p arthrocentesis cx with growth of staph epidermidis. S/p surgery on 05/31, pt had underwent L knee I&D, extensive synovectomy including excisional debridement of synovium in the suprapatellar pouch, medial and lateral gutters, posterior recesses of the knee, and surrounding the patella. Left knee polyethylene exchange. Left knee antibiotic bead placement. Synovial fluid cx + staph epidermidis Oxa R. Ortho following, AKANKSHA drain was removed. Per Ortho note, tentative plan is for the pt to return to the OR with Dr. Bustamante on MondayJune 05 for second portion of the staged procedure. # Staph epidermidis (Oxa S) bacteremia, present on admission, repeat blood cx 06/02 NGTD. #S/p L TKA May 29 2023 #Underlying SPC catheter # H/o nephrectomy Micro 06/02 repeat blood cx NGTD. 05/31 OR left knee-deep tissue cx + staph epidermidis Oxacillin sensitive 05/31 OR Lt knee suprapatellar tissue cx no growth at 48Hr. 05/31 Lt knee synovial fluid aerobic cx small amount of staph epidermidis Oxacillin R. No anaerobic isolate. 05/31 L knee fungal cx in process, no growth to date. 05/30 blood cx 2 of 2 sets Oxa sensitive staph epidermidis in aerobic and anaerobic bottles. 05/30 Ucx 30-40K Klebsiella oxytoca R amp/cipro, I Levaquin and Macrobid, S to CTX, ceftazidime, cefazolin, cefepime, Bactrim, gen, ertapenem?, >100K mixed GP darron. Recommendations: -Continue to follow up repeat blood cx results to document clearance of the bacteremia, the staph epidermidis bacteremia is probably real in this case 2/2 L knee PJI. SO far repeat blood cx collected on 06/02 is negative to date. TTE no evidence of infective endocarditis. EF 55-60%. -Follow final synovial fluid cx results, from the notes, it appears that Ortho called the lab and requested to hold synovial fluid fungal Cx for few weeks. -Pt with growth of Oxacillin sensitive staph epidermidis from initial blood cx, however 05/31 OR cx showed growth of 2 different species of staph epidermidis one is reported as Oxa sensitive and the other one is Oxacillin R. I spoke to the covering Hospitalist today who called the micro lab, I was informed that the OR specimen with Oxa R staph epidermidis was sent to an outside reference lab to retest the susceptibilities, in the meanwhile I would treat with IV vancomycin to target both species and eventually with IV daptomycin. Plan for discharge tomorrow. -Fow now continue with IV vancomycin (pharmacy to dose); closely monitor for renal functions. ?If any uptrending creatinine can consider switching to IV daptomycin. -Follow up with Orthopedic surgery Re additional surgical plans, per latest ortho note, tentative plan is for the pt to return to the OR with Dr. Bustamante today June 05 for second portion of the staged procedure. ?Per primary team, pt is scheduled for a minor surgery today, likely washout and HW will be retained. -Would not add rifampin in this case as the patient is on anticoagulation and will be on Eliquis which has drug-drug interaction that would not allow to sa anthony use rifampin. ? -Positive urine cx may reflect colonization rather than true infection, SPC catheter was already exchanged during this admission and the pt is already on IV cefepime which would cover for a UTI in any case. The pt has had an ample course of cefepime, I would d/c it post-surgery today. -If the planned procedure is DAIR (debridement, antibiotics and implant retention) the patient will need 6 weeks of IV antibiotics with IV daptomycin 8mg/kg q24 hr from the date of surgery scheduled today 06/05/24 through 07/17/23 followed by chronic 1 year of PO Abx chronic suppression with PO doxycycline 100 mg BID given planned DAIR procedure. -Check baseline CPK prior to initiation of IV daptomycin. To hold statin while pt is on IV daptomycin, they can be resumed post completion of IV Dapto course. -While in the hospital monitor labs with cbc/diff, CMP and vanc troughs (while on IV vancomycin). -Post discharge while on IV Abx the patient will need weekly safely monitoring labs with cbc/diff, CMP, CPK and ESR, CRP, to arrange for PCP to follow up these labs as outpatient. -Pt will also need to follow up with Orthopedic surgery post discharge. -The above recommendations were conveyed to primary team. ? Thanks for the consult, tele ID will sign off, you can call tele ID with any questions or if clinical status changes. ? Danni Santana MD [facility]
--- NOTE | 2024-06-05 10:32 | W.PM.IDPRG ---
Visit Information Visit Information Visit Information: Patient was not seen. Subjective Subjective Subjective: This patient recommendation is based on a telemedicine consult request which was completed asynchronously through chart review and information provided by the primary physician. The patient was not seen or examined today. The evaluation is consultative in nature and all patient care and treatment decisions can either be accepted or rejected by the patient's primary hospital-based treating physician using their own independent medical judgment for their patient. 06/05/24 update: pt remains afebrile with stable BP. Labs reviewed WBC 8.2K, Hg 12.8, plar 283K, serum Cr stable at 0.8 , CRP 3.1<4.2<8.4, synovial fluid crystals negative, lyme serology negative. S/p OR on 05/31, he underwent L knee I&D, extensive synovectomy including excisional debridement of synovium in the suprapatellar pouch, medial and lateral gutters, posterior recesses of the knee, and surrounding the patella. Left knee polyethylene exchange. Left knee antibiotic bead placement. ? Repeat blood cx collected 06/02 NGTD. OR left knee-deep tissue cx + staph epidermidis Oxacillin S, 05/31 OR Lt knee suprapatellar tissue cx no growth at 48Hr. 05/31 Lt knee synovial fluid aerobic cx small amount of staph epidermidis Oxacillin R. No anaerobic isolate. 05/31 L knee fungal cx in process, no growth to date. Home Medications and Allergies Home Medications and Allergies Inpatient Medications: Active Medications Generic Name Dose Route Start Last Admin Trade Name Freq PRN Reason Stop Dose Admin Acetaminophen 1,300 mg 05/31/24 16:00 06/05/24 04:38 Acetaminophen 650 Mg Tablet Er PO 1,300 mg Q12H LINDEN Administration Amlodipine Besylate 5 mg 06/01/24 09:00 06/05/24 08:52 Amlodipine 5 Mg Tablet PO 5 mg DAILY LINDEN Administration Aspirin 81 mg 05/31/24 21:00 06/05/24 08:52 Aspirin 81 Mg Tablet Ec PO 81 mg BID LINDEN Administration Bisacodyl 10 mg 05/31/24 15:52 Bisacodyl 10 Mg Supp.Rect NE DAILY PRN Constipation Diphenhydramine HCl 25 - 50 mg 05/31/24 15:52 Diphenhydramine 50 Mg/Ml Inj IVP Q3H PRN Itching Furosemide 20 mg 06/01/24 08:00 06/05/24 07:57 Furosemide 20 Mg Tablet PO 20 mg DAILY@0800 [facility] Administration Hydromorphone HCl 0.2 - 0.5 mg 05/31/24 15:52 Hydromorphone 0.5 Mg/0.5 Ml Inj IVP Q1H PRN Pain Cefepime HCl 2 gm/ Sodium 100 mls @ 200 mls/hr 05/31/24 14:30 06/05/24 07:56 Chloride IVPB Infused Q8H [facility] Infusion Lactated Ringer's 1,000 mls @ 125 mls/hr 06/04/24 23:00 06/05/24 07:56 Lactated Ringers 1000 Ml IV Not Given .Q8H LINDEN Vancomycin HCl 1,000 mg/ 260 mls @ 210 mls/hr 06/05/24 05:00 06/05/24 04:58 Sodium Chloride IVPB 210 mls/hr Q12H [facility] Administration Protocol IV Miscellaneous Supplies 1 each 06/01/24 09:00 Pharmacist Consult DAILY [facility] Protocol Lidocaine/Aluminum/Magnesium/Simeth 15 - 30 ml 05/31/24 15:52 Mag Hydrox/Aluminum Hyd/Simeth 30 Ml Oral.Susp PO Q2H PRN Indigestion Lisinopril 20 mg 06/01/24 09:00 06/05/24 08:52 Lisinopril 20 Mg Tablet PO 20 mg BID [facility] Administration Lorazepam 0.5 - 2 mg 05/31/24 15:52 Lorazepam 0.5 Mg Tablet PO HS PRN Sleep Morphine Sulfate 2 mg 05/31/24 10:37 Morphine 2 Mg/Ml Inj IVP Q2H PRN Nitroglycerin 0.4 mg 05/31/24 10:34 Nitroglycerin 0.4 Mg Tab.Subl SUBLINGUAL Q5M PRN chest pain Ondansetron HCl 4 mg 05/31/24 15:52 Ondansetron 2 Mg/Ml Inj IVP Q4H PRN Nausea Oxycodone HCl 2.5 - 10 mg 05/31/24 15:52 06/03/24 20:52 Oxycodone 5 Mg Tablet PO 5 mg Q2H PRN Administration Pain Sennosides 2 tab 05/31/24 21:00 06/05/24 08:52 Sennosides 1 Tab Tablet PO Not Given BID [facility] Sodium Chloride 5 ml 05/31/24 04:25 06/01/24 06:03 Sodium Chloride 0.9 % (Flush) 10 Ml Syringe IVF 5 ml .FLUSH PRN Administration Sodium Chloride 5 ml 05/31/24 09:00 06/04/24 21:26 Sodium Chloride 0.9 % (Flush) 10 Ml Syringe IVF 5 ml BID LINDEN Administration Sodium Chloride 500 ml 05/31/24 15:52 0.9 % Sodium Chloride 500 Ml IV Q4H PRN oliguria Sodium Chloride 250 ml 06/01/24 22:45 06/04/24 22:25 0.9 % Sodium Chloride 250 Ml IV Not Given Q24H LINDEN Tranexamic Acid 1,000 mg 06/05/24 13:30 Tranexamic Acid 100 Mg/Ml Inj IV 06/05/24 13:31 ONCE ONE Triamcinolone Acetonide 1 applic 06/05/24 21:00 Triamcinolone Acetonide Ointment 0.1 % TOPICAL BID LINDEN Discontinued Medications Generic Name Dose Route Start Last Admin Trade Name Freq PRN Reason Stop Dose Admin Acetaminophen 650 mg 05/31/24 09:24 05/31/24 09:32 Acetaminophen 325 Mg Tablet PO 650 mg Q6H PRN Administration As needed for fever, headache, or minor pain Atorvastatin Calcium 40 mg 05/31/24 21:00 06/04/24 21:25 Atorvastatin Calcium 40 Mg Tablet PO 40 mg HS LINDEN Administration Cefazolin Sodium 1 gm 05/31/24 01:04 05/31/24 01:13 Cefazolin 1 Gm Inj IVP 05/31/24 01:05 1 gm ONCE ONE Administration Cefazolin Sodium Confirm 05/31/24 01:10 Cefazolin 1 Gm Inj Administered 05/31/24 01:11 Dose 1 gm .ROUTE .STK-MED ONE Dexamethasone Confirm 05/31/24 13:34 Dexamethasone 4 Mg/Ml Vial Administered 05/31/24 13:35 Dose 4 mg .ROUTE .STK-MED ONE Dexamethasone Sodium Phosphate Confirm 05/31/24 12:15 Dexamethasone 10 Mg/Ml Pf Administered 05/31/24 12:16 Dose 10 mg .ROUTE .STK-MED ONE Dexmedetomidine HCl Confirm 05/31/24 12:15 Dexmedetomidine Hcl 100 Mcg/Ml Inj Administered 05/31/24 12:16 Dose 200 mcg IV .STK-MED ONE Enoxaparin Sodium 40 mg 06/02/24 11:30 06/04/24 08:36 Enoxaparin 40 Mg/0.4 Ml Inj SUBCUT 06/04/24 09:01 40 mg DAILY LINDEN Administration Ephedrine Sulfate 5 - 10 mg 05/31/24 11:05 Ephedrine Sulfate 5 Mg/Ml Inj IVP Q5M PRN Fentanyl 50 - 100 mcg 05/31/24 10:26 05/31/24 20:19 Fentanyl 100 Mcg/2 Ml Inj IVP 05/31/24 10:27 Not Given ONCE ONE Fentanyl Confirm 05/31/24 10:27 Fentanyl 100 Mcg/2 Ml Inj Administered 05/31/24 10:28 Dose 100 mcg .ROUTE .STK-MED ONE Fentanyl 50 mcg 05/31/24 11:05 Fentanyl 100 Mcg/2 Ml Inj IVP Q5M PRN Pain Fentanyl Confirm 05/31/24 11:56 Fentanyl 100 Mcg/2 Ml Inj Administered 05/31/24 11:57 Dose 100 mcg .ROUTE .STK-MED ONE Hydralazine HCl 10 mg 05/31/24 11:05 Hydralazine Hcl 20 Mg/Ml Inj IVP ONCE PRN Hypertension Hydromorphone HCl 0.5 mg 05/31/24 11:05 Hydromorphone 0.5 Mg/0.5 Ml Inj IVP Q10M PRN Pain Hydroxyzine Pamoate 25 mg 05/31/24 11:05 06/01/24 14:28 Hydroxyzine Pamoate 25 Mg Capsule PO 05/31/24 11:06 Not Given ONCE ONE Sodium Chloride 1,000 mls @ 1,000 mls/hr 05/30/24 20:45 05/30/24 22:52 0.9 % Sodium Chloride 1000 Ml IV 05/30/24 21:44 Infused .Q1H [facility]IND[facility] Infusion Levofloxacin/Dextrose 750 mg in 150 mls @ 100 mls/hr 05/31/24 05:00 05/31/24 07:24 Levofloxacin 750 Mg/150 Ml IVPB Infused Q24H LINDEN Infusion Lactated Ringer's 500 mls @ 250 mls/hr 05/31/24 10:26 06/01/24 16:13 Lactated Ringers 500 Ml IV 05/31/24 12:25 Infused .Q2H ONE Infusion Lactated Ringer's 1,000 mls @ 75 mls/hr 05/31/24 10:30 05/31/24 11:53 Lactated Ringers 1000 Ml IV Not Given .[id number] LINDEN Lactated Ringer's 1,000 mls @ 100 mls/hr 05/31/24 10:30 06/01/24 16:13 Lactated Ringers 1000 Ml IV Infused .Q10H [facility] Infusion Cefazolin Sodium 1 gm/ Sodium 100 mls @ 200 mls/hr 05/31/24 10:30 05/31/24 11:52 Chloride IVPB Infused Q8H [facility] Infusion Vancomycin HCl 1,250 mg/ 262.5 mls @ 210 mls/hr 05/31/24 13:00 06/01/24 16:13 Sodium Chloride IVPB 05/31/24 14:14 Infused ONCE ONE Infusion Vancomycin HCl 1,250 mg/ 262.5 mls @ 210 mls/hr 06/01/24 01:00 06/03/24 12:40 Sodium Chloride IVPB Infused Q12H [facility] Infusion Protocol Lactated Ringer's 1,000 mls @ 75 mls/hr 05/31/24 15:52 06/02/24 07:02 Lactated Ringers 1000 Ml IV Not Given .[id number] LINDEN Vancomycin HCl 1,250 mg/ 262.5 mls @ 210 mls/hr 06/03/24 23:00 06/05/24 01:06 Sodium Chloride IVPB Not Given Q12H [facility] Protocol Labetalol HCl 5 - 10 mg 05/31/24 11:05 Labetalol Hcl 5 Mg/Ml Inj IVP ONCE PRN Hypertension Lidocaine HCl Confirm 05/31/24 13:34 Lidocaine 2% (Pf) 5 Ml Vial Administered 05/31/24 13:35 Dose 5 ml .ROUTE .STK-MED ONE Meperidine HCl 12.5 mg 05/31/24 11:05 Meperidine 25 Mg/Ml Inj IVP ONCE PRN Shivering Metoclopramide HCl 10 mg 05/31/24 11:05 Metoclopramide Hcl 5 Mg/Ml Inj IVP ONCE PRN Nausea Midazolam HCl 1 - 2 mg 05/31/24 10:26 05/31/24 12:10 Midazolam Hcl 1 Mg/Ml Inj IVP 05/31/24 10:27 2 mg ONCE ONE Administration Midazolam HCl Confirm 05/31/24 10:27 Midazolam Hcl 1 Mg/Ml Inj Administered 05/31/24 10:28 Dose 2 mg .ROUTE .STK-MED ONE Morphine Sulfate 2 mg 05/31/24 04:25 Morphine 4 Mg/Ml Inj IVP Q1H PRN Pain Ondansetron HCl 4 mg 05/31/24 11:05 Ondansetron 2 Mg/Ml Inj IVP ONCE PRN Nausea Ondansetron HCl Confirm 05/31/24 13:34 Ondansetron 2 Mg/Ml Inj Administered 05/31/24 13:35 Dose 4 mg .ROUTE .STK-MED ONE Phenylephrine HCl 100 mcg 05/31/24 11:05 Phenylephrine 100 Mcg/Ml Syringe IVP Q5M PRN Propofol Confirm 05/31/24 13:33 Propofol 10 Mg/Ml Inj Administered 05/31/24 13:34 Dose 200 mg IVP .STK-MED ONE Rocuronium [place]da Confirm 05/31/24 13:34 Rocuronium [place] 10 Mg/Ml Inj Administered 05/31/24 13:35 Dose 50 mg IV .STK-MED ONE Ropivacaine Confirm 05/31/24 12:15 Ropivacaine 0.5% 30 Ml Administered 05/31/24 12:16 Dose 150 mg INJECTION .STK-MED ONE Sevoflurane Confirm 05/31/24 13:34 Sevoflurane Soln Administered 05/31/24 13:35 Dose 1 each IH .STK-MED ONE Sodium Chloride 250 ml 05/31/24 05:00 06/03/24 02:28 0.9 % Sodium Chloride 250 Ml IV Not Given Q24H LINDEN Succinylcholine Chloride Confirm 05/31/24 13:34 Succinylcholine 20 Mg/Ml Inj Administered 05/31/24 13:35 Dose 200 mg IVP .STK-MED ONE Sugammadex Sodium Confirm 05/31/24 14:54 Sugammadex 200 Mg/2ml Inj Administered 05/31/24 14:55 Dose 200 mg IVP .STK-MED ONE Tobramycin Sulfate 1.2 gm 05/31/24 11:45 Tobramycin Sulfate Powder 1.2 Gm Vial TOPICAL 05/31/24 11:46 .STK-MED ONE Tranexamic Acid 1,000 mg 05/31/24 11:24 05/31/24 12:33 Tranexamic Acid 100 Mg/Ml Inj IV 05/31/24 11:25 1,000 mg ONCE ONE Administration Tranexamic Acid Confirm 05/31/24 13:33 Tranexamic Acid 100 Mg/Ml Inj Administered 05/31/24 13:34 Dose 1,000 mg .ROUTE .STK-MED ONE Vancomycin HCl 1,000 mg 05/31/24 11:45 Vancomycin 100 Mg/Ml Inj TOPICAL 05/31/24 11:46 .STK-MED ONE Allergies Allergy/AdvReac Type Severity Reaction Status Date / Time No Known Drug Allergies Allergy Verified 04/24/24 10:19 Objective - Infectious Disease Objective Vital Signs: Vital Signs - 24 hr 06/04/24 11:03 06/04/24 15:00 06/04/24 15:00 Temperature 97.8 F 97.9 F Pulse Rate [Pulse Oximeter] 57 L 65 Respiratory Rate 18 18 Blood Pressure [Left Arm] 141/87 H Blood Pressure [Right Arm] 131/89 Pulse Oximetry 95 96 96 Oxygen Delivery Method Room Air Room Air Room Air 06/04/24 15:00 06/04/24 15:00 06/04/24 19:00 Temperature 97.2 F L Pulse Rate [Pulse Oximeter] 65 58 L Respiratory Rate 18 16 Blood Pressure [Left Arm] Blood Pressure [Right Arm] 133/77 Pulse Oximetry 96 94 Oxygen Delivery Method Room Air 06/04/24 22:57 06/04/24 22:57 06/04/24 22:57 Temperature 98.4 F Pulse Rate [Pulse Oximeter] 55 L Respiratory Rate 18 Blood Pressure [Left Arm] Blood Pressure [Right Arm] 139/89 Pulse Oximetry 94 94 94 Oxygen Delivery Method Room Air Room Air 06/05/24 03:00 06/05/24 07:00 06/05/24 07:00 Temperature 98.2 F 97.8 F Pulse Rate [Pulse Oximeter] 55 L 55 L Respiratory Rate 16 20 Blood Pressure [Left Arm] Blood Pressure [Right Arm] 159/97 H 157/98 H Pulse Oximetry 95 93 93 Oxygen Delivery Method Room Air Room Air 06/05/24 07:00 06/05/24 07:00 Temperature Pulse Rate [Pulse Oximeter] 55 L Respiratory Rate 20 20 Blood Pressure [Left Arm] Blood Pressure [Right Arm] Pulse Oximetry 93 Oxygen Delivery Method Room Air Narrative: Patient was not seen or examined. Results - Infectious Disease Results Labs: 05/31/24 13:33 Knee,Left Gram Stain - Final 05/31/24 13:33 Knee,Left Aerobic Culture - Preliminary Staphylococcus epidermidis 05/31/24 13:33 Knee,Left Anaerobic Culture - Preliminary 06/02/24 05:47 Blood Blood Culture - Preliminary NO GROWTH AFTER 72 HOURS 05/31/24 13:30 Knee,Left Gram Stain - Final 05/31/24 13:30 Knee,Left Aerobic Culture - Preliminary NO GROWTH AFTER 48 HOURS 05/31/24 13:30 Knee,Left Anaerobic Culture - Preliminary 05/31/24 13:30 Knee,Left Gram Stain - Final 05/31/24 13:30 Knee,Left Aerobic Culture - Preliminary NO GROWTH AFTER 48 HOURS 05/31/24 13:30 Knee,Left Anaerobic Culture - Preliminary 05/31/24 13:30 Knee,Left Gram Stain - Final 05/31/24 13:30 Knee,Left Aerobic Culture - Preliminary Staphylococcus epidermidis 05/31/24 13:30 Knee,Left Anaerobic Culture - Preliminary 05/30/24 20:40 Urine,Clean Catch Urine Culture - Final Klebsiella oxytoca 05/31/24 01:00 Synovial Fluid Gram Stain - Final 05/31/24 01:00 Synovial Fluid Body Fluid Culture - Preliminary 05/30/24 20:56 Blood Blood Culture - Preliminary Staphylococcus epidermidis 05/30/24 20:49 Blood Blood Culture - Preliminary Staphylococcus epidermidis 05/31/24 13:08 Synovial Fluid Fungal Culture - Preliminary 05/31/24 13:08 Knee,Left Fungal Culture - Preliminary Laboratory Tests 06/05/24 06/05/24 06/04/24 Range/Units 10:28 05:48 23:45 WBC 8.27 (4.50-11.00) K/uL RBC 4.22 L (4.30-5.90) m/uL Hgb 12.8 L (13.5-17.5) gm/dL Hct 39.1 (37.0-53.0) % MCV 93 (80-100) fL MCH 30 (26-34) pg MCHC 33 (32-36) gm/dL RDW Coeff of David 13.2 (11.5-15.5) % Plt Count 283 (140-440) K/uL Neut % (Auto) 72.5 H (42.0-72.0) % Lymph % (Auto) 10.0 L (20-44) % Crook % (Auto) 10.5 (0.0-11.0) % Eos % (Auto) 5.8 (0.0-7.0) % Baso % (Auto) 0.4 (0.0-3.0) % Neut # (Auto) 6.00 (1.7-7.0) K/uL Lymph # (Auto) 0.80 L (0.90-2.90) K/uL Crook # (Auto) 0.90 (0.00-0.90) K/UL Eos # (Auto) 0.48 (0.00-0.50) K/uL Baso # (Auto) 0.03 (0.00-0.30) K/uL Abs Immat Gran (auto) 0.07 (0.00-0.30) K/uL Imm/Tot Granulo (auto) 0.8 % INR (0.91-1.10) Sodium 140 (135-149) mmol/L Potassium 3.8 (3.6-5.1) mmol/L Chloride 108 (96-114) mmol/L Carbon Dioxide 24 (20-32) mmol/L Anion Gap 8 (7-15) mEq/L BUN 20 (7-30) mg/dL Creatinine 0.8 (0.5-1.5) mg/dL Estimated Creat Clear 60.66 Estimated GFR 88 ml/min Glucose 143 H (60-115) mg/dL Hemoglobin A1c (0-5.6) % Lactate (0.5-1.9) mmol/L Calcium 9.0 (8.4-10.6) mg/dL Magnesium (1.5-2.6) mg/dL Total Bilirubin (0.1-1.5) mg/dL AST (12-35) U/L ALT (4-50) U/L Alkaline Phosphatase (40-150) U/L Total Creatine Kinase Pending Troponin I (0.01-0.04) ng/mL C-Reactive Protein 3.1 H (0.5-1.0) mg/dL NT-Pro-B Natriuret Pep pg/mL Total Protein (6.0-8.3) g/dL Albumin (3.3-5.0) g/dL Procalcitonin (<0.50) ng/mL Urine Color (Yellow) Urine Appearance (Clear) Urine pH (5.0-8.5) Ur Specific Mcleod (1.000-1.030) Urine Protein (Negative) Urine Glucose (UA) (Negative) Urine Ketones (Negative) Urine Blood (Negative) Urine Nitrite (Negative) Urine Bilirubin (Negative) Urine Urobilinogen (0.2-1.0) Ur Leukocyte Esterase (Negative) Urine RBC (0-2) Urine WBC (0-5) Ur Squamous Epith Cells (None-Few) Urine Bacteria (None) Fluid Volume Fluid Color Fluid Appearance Fluid WBC Cells/uL Fluid RBC Cells/uL Fluid Polynuclear WBCs % Fluid Mononuclear WBCs % Fluid Crystal ID Fluid Total Protein gm/dL Vancomycin Trough 20.9 H (5.0-20.0) ug/mL SARS-CoV-2 (PCR) (Negative) Influenza Type A (PCR) (Negative) Influenza Type B (PCR) (Negative) RSV (PCR) (Negative) Lab Acknowledgement Test Added 06/02/24 06/02/24 06/02/24 Range/Units 12:54 06:29 05:47 WBC (4.50-11.00) K/uL RBC (4.30-5.90) m/uL Hgb (13.5-17.5) gm/dL Hct (37.0-53.0) % MCV (80-100) fL MCH (26-34) pg MCHC (32-36) gm/dL RDW Coeff of David (11.5-15.5) % Plt Count (140-440) K/uL Neut % (Auto) (42.0-72.0) % Lymph % (Auto) (20-44) % Crook % (Auto) (0.0-11.0) % Eos % (Auto) (0.0-7.0) % Baso % (Auto) (0.0-3.0) % Neut # (Auto) (1.7-7.0) K/uL Lymph # (Auto) (0.90-2.90) K/uL Crook # (Auto) (0.00-0.90) K/UL Eos # (Auto) (0.00-0.50) K/uL Baso # (Auto) (0.00-0.30) K/uL Abs Immat Gran (auto) (0.00-0.30) K/uL Imm/Tot Granulo (auto) % INR (0.91-1.10) Sodium 138 (135-149) mmol/L Potassium 4.5 (3.6-5.1) mmol/L Chloride 110 (96-114) mmol/L Carbon Dioxide 21 (20-32) mmol/L Anion Gap 7 (7-15) mEq/L BUN 31 H (7-30) mg/dL Creatinine 1.0 (0.5-1.5) mg/dL Estimated Creat Clear 60.66 Estimated GFR 75 ml/min Glucose 169 H (60-115) mg/dL Hemoglobin A1c (0-5.6) % Lactate (0.5-1.9) mmol/L Calcium 8.7 (8.4-10.6) mg/dL Magnesium (1.5-2.6) mg/dL Total Bilirubin (0.1-1.5) mg/dL AST (12-35) U/L ALT (4-50) U/L Alkaline Phosphatase (40-150) U/L Total Creatine Kinase Troponin I (0.01-0.04) ng/mL C-Reactive Protein 4.2 H (0.5-1.0) mg/dL NT-Pro-B Natriuret Pep pg/mL Total Protein (6.0-8.3) g/dL Albumin (3.3-5.0) g/dL Procalcitonin (<0.50) ng/mL Urine Color (Yellow) Urine Appearance (Clear) Urine pH (5.0-8.5) Ur Specific Mcleod (1.000-1.030) Urine Protein (Negative) Urine Glucose (UA) (Negative) Urine Ketones (Negative) Urine Blood (Negative) Urine Nitrite (Negative) Urine Bilirubin (Negative) Urine Urobilinogen (0.2-1.0) Ur Leukocyte Esterase (Negative) Urine RBC (0-2) Urine WBC (0-5) Ur Squamous Epith Cells (None-Few) Urine Bacteria (None) Fluid Volume Fluid Color Fluid Appearance Fluid WBC Cells/uL Fluid RBC Cells/uL Fluid Polynuclear WBCs % Fluid Mononuclear WBCs % Fluid Crystal ID Fluid Total Protein gm/dL Vancomycin Trough 16.2 (5.0-20.0) ug/mL SARS-CoV-2 (PCR) (Negative) Influenza Type A (PCR) (Negative) Influenza Type B (PCR) (Negative) RSV (PCR) (Negative) Lab Acknowledgement Test Added 06/01/24 05/31/24 05/31/24 Range/Units 06:06 18:20 14:13 WBC 8.08 (4.50-11.00) K/uL RBC 4.15 L (4.30-5.90) m/uL Hgb 12.5 L (13.5-17.5) gm/dL Hct 38.5 (37.0-53.0) % MCV 93 (80-100) fL MCH 30 (26-34) pg MCHC 33 (32-36) gm/dL RDW Coeff of David (11.5-15.5) % Plt Count 221 (140-440) K/uL Neut % (Auto) (42.0-72.0) % Lymph % (Auto) (20-44) % Crook % (Auto) (0.0-11.0) % Eos % (Auto) (0.0-7.0) % Baso % (Auto) (0.0-3.0) % Neut # (Auto) (1.7-7.0) K/uL Lymph # (Auto) (0.90-2.90) K/uL Crook # (Auto) (0.00-0.90) K/UL Eos # (Auto) (0.00-0.50) K/uL Baso # (Auto) (0.00-0.30) K/uL Abs Immat Gran (auto) (0.00-0.30) K/uL Imm/Tot Granulo (auto) % INR (0.91-1.10) Sodium 137 (135-149) mmol/L Potassium 4.6 (3.6-5.1) mmol/L Chloride 110 (96-114) mmol/L Carbon Dioxide 21 (20-32) mmol/L Anion Gap 6 L (7-15) mEq/L BUN 20 (7-30) mg/dL Creatinine 1.0 (0.5-1.5) mg/dL Estimated Creat Clear 60.66 Estimated GFR 75 ml/min Glucose 185 H (60-115) mg/dL Hemoglobin A1c (0-5.6) % Lactate (0.5-1.9) mmol/L Calcium 8.8 (8.4-10.6) mg/dL Magnesium (1.5-2.6) mg/dL Total Bilirubin (0.1-1.5) mg/dL AST (12-35) U/L ALT (4-50) U/L Alkaline Phosphatase (40-150) U/L Total Creatine Kinase Troponin I (0.01-0.04) ng/mL C-Reactive Protein 8.4 H (0.5-1.0) mg/dL NT-Pro-B Natriuret Pep pg/mL Total Protein (6.0-8.3) g/dL Albumin (3.3-5.0) g/dL Procalcitonin (<0.50) ng/mL Urine Color Yellow (Yellow) Urine Appearance Clear (Clear) Urine pH 5.5 (5.0-8.5) Ur Specific Mcleod 1.010 (1.000-1.030) Urine Protein Trace A (Negative) Urine Glucose (UA) 1+ A (Negative) Urine Ketones Negative (Negative) Urine Blood 3+ A (Negative) Urine Nitrite Negative (Negative) Urine Bilirubin Negative (Negative) Urine Urobilinogen 0.2 (0.2-1.0) Ur Leukocyte Esterase Trace A (Negative) Urine RBC 2-5 A (0-2) Urine WBC 0-2 (0-5) Ur Squamous Epith Cells None (None-Few) Urine Bacteria Few A (None) Fluid Volume Fluid Color Fluid Appearance Fluid WBC Cells/uL Fluid RBC Cells/uL Fluid Polynuclear WBCs % Fluid Mononuclear WBCs % Fluid Crystal ID Fluid Total Protein gm/dL Vancomycin Trough (5.0-20.0) ug/mL SARS-CoV-2 (PCR) (Negative) Influenza Type A (PCR) (Negative) Influenza Type B (PCR) (Negative) RSV (PCR) (Negative) Lab Acknowledgement Test Added 05/31/24 05/31/24 05/31/24 Range/Units 08:16 07:37 07:20 WBC 6.21 (4.50-11.00) K/uL RBC 4.03 L (4.30-5.90) m/uL Hgb 12.3 L (13.5-17.5) gm/dL Hct 37.5 (37.0-53.0) % MCV 93 (80-100) fL MCH 31 (26-34) pg MCHC 33 (32-36) gm/dL RDW Coeff of David 13.1 (11.5-15.5) % Plt Count 201 (140-440) K/uL Neut % (Auto) 71.6 (42.0-72.0) % Lymph % (Auto) 10.0 L (20-44) % Crook % (Auto) 13.4 H (0.0-11.0) % Eos % (Auto) 4.3 (0.0-7.0) % Baso % (Auto) 0.5 (0.0-3.0) % Neut # (Auto) 4.45 (1.7-7.0) K/uL Lymph # (Auto) 0.60 L (0.90-2.90) K/uL Crook # (Auto) 0.80 (0.00-0.90) K/UL Eos # (Auto) 0.27 (0.00-0.50) K/uL Baso # (Auto) 0.03 (0.00-0.30) K/uL Abs Immat Gran (auto) 0.01 (0.00-0.30) K/uL Imm/Tot Granulo (auto) 0.2 % INR 1.35 H (0.91-1.10) Sodium 138 (135-149) mmol/L Potassium 4.1 (3.6-5.1) mmol/L Chloride 108 (96-114) mmol/L Carbon Dioxide 21 (20-32) mmol/L Anion Gap 9 (7-15) mEq/L BUN 19 (7-30) mg/dL Creatinine 0.9 (0.5-1.5) mg/dL Estimated Creat Clear 60.66 Estimated GFR 85 ml/min Glucose 135 H (60-115) mg/dL Hemoglobin A1c 6.1 H (0-5.6) % Lactate 1.2 (0.5-1.9) mmol/L Calcium 8.6 (8.4-10.6) mg/dL Magnesium 2.1 (1.5-2.6) mg/dL Total Bilirubin 1.2 (0.1-1.5) mg/dL AST 27 (12-35) U/L ALT 17 (4-50) U/L Alkaline Phosphatase 87 (40-150) U/L Total Creatine Kinase Troponin I < 0.01 L (0.01-0.04) ng/mL C-Reactive Protein 8.1 H (0.5-1.0) mg/dL NT-Pro-B Natriuret Pep 2520 pg/mL Total Protein 6.9 (6.0-8.3) g/dL Albumin 3.7 (3.3-5.0) g/dL Procalcitonin 0.19 (<0.50) ng/mL Urine Color (Yellow) Urine Appearance (Clear) Urine pH (5.0-8.5) Ur Specific Mcleod (1.000-1.030) Urine Protein (Negative) Urine Glucose (UA) (Negative) Urine Ketones (Negative) Urine Blood (Negative) Urine Nitrite (Negative) Urine Bilirubin (Negative) Urine Urobilinogen (0.2-1.0) Ur Leukocyte Esterase (Negative) Urine RBC (0-2) Urine WBC (0-5) Ur Squamous Epith Cells (None-Few) Urine Bacteria (None) Fluid Volume Fluid Color Fluid Appearance Fluid WBC Cells/uL Fluid RBC Cells/uL Fluid Polynuclear WBCs % Fluid Mononuclear WBCs % Fluid Crystal ID Fluid Total Protein gm/dL Vancomycin Trough (5.0-20.0) ug/mL SARS-CoV-2 (PCR) (Negative) Influenza Type A (PCR) (Negative) Influenza Type B (PCR) (Negative) RSV (PCR) (Negative) Lab Acknowledgement Test Added Test Added 05/31/24 05/30/24 05/30/24 Range/Units 01:00 20:41 20:40 WBC (4.50-11.00) K/uL RBC (4.30-5.90) m/uL Hgb (13.5-17.5) gm/dL Hct (37.0-53.0) % MCV (80-100) fL MCH (26-34) pg MCHC (32-36) gm/dL RDW Coeff of David (11.5-15.5) % Plt Count (140-440) K/uL Neut % (Auto) (42.0-72.0) % Lymph % (Auto) (20-44) % Crook % (Auto) (0.0-11.0) % Eos % (Auto) (0.0-7.0) % Baso % (Auto) (0.0-3.0) % Neut # (Auto) (1.7-7.0) K/uL Lymph # (Auto) (0.90-2.90) K/uL Crook # (Auto) (0.00-0.90) K/UL Eos # (Auto) (0.00-0.50) K/uL Baso # (Auto) (0.00-0.30) K/uL Abs Immat Gran (auto) (0.00-0.30) K/uL Imm/Tot Granulo (auto) % INR (0.91-1.10) Sodium (135-149) mmol/L Potassium (3.6-5.1) mmol/L Chloride (96-114) mmol/L Carbon Dioxide (20-32) mmol/L Anion Gap (7-15) mEq/L BUN (7-30) mg/dL Creatinine (0.5-1.5) mg/dL Estimated Creat Clear Estimated GFR ml/min Glucose (60-115) mg/dL Hemoglobin A1c (0-5.6) % Lactate (0.5-1.9) mmol/L Calcium (8.4-10.6) mg/dL Magnesium (1.5-2.6) mg/dL Total Bilirubin (0.1-1.5) mg/dL AST (12-35) U/L ALT (4-50) U/L Alkaline Phosphatase (40-150) U/L Total Creatine Kinase Troponin I (0.01-0.04) ng/mL C-Reactive Protein (0.5-1.0) mg/dL NT-Pro-B Natriuret Pep pg/mL Total Protein (6.0-8.3) g/dL Albumin (3.3-5.0) g/dL Procalcitonin (<0.50) ng/mL Urine Color Yellow (Yellow) Urine Appearance Slightly Cloudy A (Clear) Urine pH 5.5 (5.0-8.5) Ur Specific Mcleod 1.020 (1.000-1.030) Urine Protein 1+ A (Negative) Urine Glucose (UA) Negative (Negative) Urine Ketones Negative (Negative) Urine Blood Trace-lysed A (Negative) Urine Nitrite Negative (Negative) Urine Bilirubin Negative (Negative) Urine Urobilinogen 0.2 (0.2-1.0) Ur Leukocyte Esterase Trace A (Negative) Urine RBC 0-2 (0-2) Urine WBC 0-2 (0-5) Ur Squamous Epith Cells None (None-Few) Urine Bacteria Few A (None) Fluid Volume 18 Fluid Color Xanthochromic A Fluid Appearance Cloudy A Fluid WBC 98742 Cells/uL Fluid RBC 24059 Cells/uL Fluid Polynuclear WBCs 98 % Fluid Mononuclear WBCs 2 % Fluid Crystal ID See Scanned Report Fluid Total Protein < 6.0 gm/dL Vancomycin Trough (5.0-20.0) ug/mL SARS-CoV-2 (PCR) Negative SARS-CoV-2 (Negative) Influenza Type A (PCR) Negative PCR FLU A (Negative) Influenza Type B (PCR) Negative PCR FLU B (Negative) RSV (PCR) Negative PCR RSV (Negative) Lab Acknowledgement 05/30/24 Range/Units 20:10 WBC 8.21 (4.50-11.00) K/uL RBC 4.11 L (4.30-5.90) m/uL Hgb 12.5 L (13.5-17.5) gm/dL Hct 38.2 (37.0-53.0) % MCV 93 (80-100) fL MCH 30 (26-34) pg MCHC 33 (32-36) gm/dL RDW Coeff of David 13.1 (11.5-15.5) % Plt Count 219 (140-440) K/uL Neut % (Auto) 77.7 H (42.0-72.0) % Lymph % (Auto) 7.7 L (20-44) % Crook % (Auto) 11.7 H (0.0-11.0) % Eos % (Auto) 2.3 (0.0-7.0) % Baso % (Auto) 0.4 (0.0-3.0) % Neut # (Auto) 6.40 (1.7-7.0) K/uL Lymph # (Auto) 0.60 L (0.90-2.90) K/uL Crook # (Auto) 1.00 H (0.00-0.90) K/UL Eos # (Auto) 0.19 (0.00-0.50) K/uL Baso # (Auto) 0.03 (0.00-0.30) K/uL Abs Immat Gran (auto) 0.02 (0.00-0.30) K/uL Imm/Tot Granulo (auto) 0.2 % INR (0.91-1.10) Sodium 136 (135-149) mmol/L Potassium 4.2 (3.6-5.1) mmol/L Chloride 104 (96-114) mmol/L Carbon Dioxide 19 L (20-32) mmol/L Anion Gap 13 (7-15) mEq/L BUN 25 (7-30) mg/dL Creatinine 1.1 (0.5-1.5) mg/dL Estimated Creat Clear 53.46 Estimated GFR 67 ml/min Glucose 217 H (60-115) mg/dL Hemoglobin A1c (0-5.6) % Lactate 2.3 H (0.5-1.9) mmol/L Calcium 8.7 (8.4-10.6) mg/dL Magnesium (1.5-2.6) mg/dL Total Bilirubin (0.1-1.5) mg/dL AST (12-35) U/L ALT (4-50) U/L Alkaline Phosphatase (40-150) U/L Total Creatine Kinase Troponin I 0.01 (0.01-0.04) ng/mL C-Reactive Protein 12.0 H (0.5-1.0) mg/dL NT-Pro-B Natriuret Pep pg/mL Total Protein (6.0-8.3) g/dL Albumin (3.3-5.0) g/dL Procalcitonin (<0.50) ng/mL Urine Color (Yellow) Urine Appearance (Clear) Urine pH (5.0-8.5) Ur Specific Mcleod (1.000-1.030) Urine Protein (Negative) Urine Glucose (UA) (Negative) Urine Ketones (Negative) Urine Blood (Negative) Urine Nitrite (Negative) Urine Bilirubin (Negative) Urine Urobilinogen (0.2-1.0) Ur Leukocyte Esterase (Negative) Urine RBC (0-2) Urine WBC (0-5) Ur Squamous Epith Cells (None-Few) Urine Bacteria (None) Fluid Volume Fluid Color Fluid Appearance Fluid WBC Cells/uL Fluid RBC Cells/uL Fluid Polynuclear WBCs % Fluid Mononuclear WBCs % Fluid Crystal ID Fluid Total Protein gm/dL Vancomycin Trough (5.0-20.0) ug/mL SARS-CoV-2 (PCR) (Negative) Influenza Type A (PCR) (Negative) Influenza Type B (PCR) (Negative) RSV (PCR) (Negative) Lab Acknowledgement Assessment and Plan Assessment and Plan Assessment and Plan: 83-year-old male PMH CAD, STEMI with RCA stenting, s/p nephrectomy, psoriasis, diverticulosis, tubulovillous adenoma of the colon, A-fib (Eliquis), HTN, left knee total arthroplasty x 1 year ago, chronic SPC for urinary retention was in his normal state of health x 3-4 days ago when he started having pain and swelling in his left knee associated with subjective chills/sweats. ?In the ED noted red hot swollen knee suspicious for PJI s/p arthrocentesis. ?Per chart review no history of trauma/falls. ?Has been very weak and having trouble walking around. ?No respiratory symptoms, GI/ symptoms. ?Normal urine output via SPC (last exchanged 05/17). ?No rashes In the ED FEBRILE TMAX 102.1F, WBC 8K, creatinine 1.1---0.9, A1c 6.1, LFT NL, CRP 12---8.1 procalcitonin 0.19, Limited RVP negative, UA (from SPC) nitrite negative, LE trace, WBC 0-2, Synovial fluid cloudy, WBC 37042, 98% polys, no crystals seen. CXR: No acute changes R XR: Moderate effusion. ?Underlying prosthesis Was started on IV vancomycin and later Levaquin was added for gram-negative coverage with underlying SPC catheter. s/p DAIR procedure by Ortho on 05/29/24. Tele ID was consulted for further empiric antibiotic recommendations. On further chart review most recent cultures was from May 2023 urine culture positive for Morganella Morganii (sensitive to ceftazidime, ceftriaxone, quinolones, ertapenem, Bactrim, Zosyn), Enterococcus faecalis (ampicillin sensitive) 06/05/24 update: pt remains afebrile with stable BP. Labs reviewed WBC 8.2K, Hg 12.8, plar 283K, serum Cr stable at 0.8 , CRP 3.1<4.2<8.4, synovial fluid crystals negative, lyme serology negative. S/p OR on 05/31, he underwent L knee I&D, extensive synovectomy including excisional debridement of synovium in the suprapatellar pouch, medial and lateral gutters, posterior recesses of the knee, and surrounding the patella. Left knee polyethylene exchange. Left knee antibiotic bead placement. ? Repeat blood cx collected 06/02 NGTD. OR left knee-deep tissue cx + staph epidermidis Oxacillin S, 05/31 OR Lt knee suprapatellar tissue cx no growth at 48Hr. 05/31 Lt knee synovial fluid aerobic cx small amount of staph epidermidis Oxacillin R. No anaerobic isolate. 05/31 L knee fungal cx in process, no growth to date. 05/30 blood cx 2 of 2 sets Oxa sensitive staph epidermidis in aerobic and anaerobic bottles. 05/30 Ucx 30-40K Klebsiella oxytoca R amp/cipro, I Levaquin and Macrobid, S to CTX, ceftazidime, cefazolin, cefepime, Bactrim, gen, ertapenem?, >100K mixed GP darron. Summary #Left knee septic arthritis/PJI- s/p arthrocentesis cx with growth of staph epidermidis. S/p surgery on 05/31, pt had underwent L knee I&D, extensive synovectomy including excisional debridement of synovium in the suprapatellar pouch, medial and lateral gutters, posterior recesses of the knee, and surrounding the patella. Left knee polyethylene exchange. Left knee antibiotic bead placement. Synovial fluid cx + staph epidermidis Oxa R. Ortho following, AKANKSHA drain was removed. Per Ortho note, tentative plan is for the pt to return to the OR with Dr. Bustamante on MondayJune 05 for second portion of the staged procedure. # Staph epidermidis (Oxa S) bacteremia, present on admission, repeat blood cx 06/02 NGTD. #S/p L TKA May 29 2023 #Underlying SPC catheter # H/o nephrectomy Micro 06/02 repeat blood cx NGTD. 05/31 OR left knee-deep tissue cx + staph epidermidis Oxacillin sensitive 05/31 OR Lt knee suprapatellar tissue cx no growth at 48Hr. 05/31 Lt knee synovial fluid aerobic cx small amount of staph epidermidis Oxacillin R. No anaerobic isolate. 05/31 L knee fungal cx in process, no growth to date. 05/30 blood cx 2 of 2 sets Oxa sensitive staph epidermidis in aerobic and anaerobic bottles. 05/30 Ucx 30-40K Klebsiella oxytoca R amp/cipro, I Levaquin and Macrobid, S to CTX, ceftazidime, cefazolin, cefepime, Bactrim, gen, ertapenem?, >100K mixed GP darron. Recommendations: -Continue to follow up repeat blood cx results to document clearance of the bacteremia, the staph epidermidis bacteremia is probably real in this case 2/2 L knee PJI. SO far repeat blood cx collected on 06/02 is negative to date. TTE no evidence of infective endocarditis. EF 55-60%. -Follow final synovial fluid cx results, from the notes, it appears that Ortho called the lab and requested to hold synovial fluid fungal Cx for few weeks. -Pt with growth of Oxacillin sensitive staph epidermidis from initial blood cx, however 05/31 OR cx showed growth of 2 different species of staph epidermidis one is reported as Oxa sensitive and the other one is Oxacillin R. I spoke to the covering Hospitalist today who called the micro lab, I was informed that the OR specimen with Oxa R staph epidermidis was sent to an outside reference lab to retest the susceptibilities, in the meanwhile I would treat with IV vancomycin to target both species and eventually with IV daptomycin. Plan for discharge tomorrow. -Fow now continue with IV vancomycin (pharmacy to dose); closely monitor for renal functions. ?If any uptrending creatinine can consider switching to IV daptomycin. -Follow up with Orthopedic surgery Re additional surgical plans, per latest ortho note, tentative plan is for the pt to return to the OR with Dr. Bustamante today June 05 for second portion of the staged procedure. ?Per primary team, pt is scheduled for a minor surgery today, likely washout and HW will be retained. -Would not add rifampin in this case as the patient is on anticoagulation and will be on Eliquis which has drug-drug interaction that would not allow to safely use rifampin. ? -Positive urine cx may reflect colonization rather than true infection, SPC catheter was already exchanged during this admission and the pt is already on IV cefepime which would cover for a UTI in any case. The pt has had an ample course of cefepime, I would d/c it post-surgery today. -If the planned procedure is DAIR (debridement, antibiotics and implant retention) the patient will need 6 weeks of IV antibiotics with IV daptomycin 8mg/kg q24 hr from the date of surgery scheduled today 06/05/24 through 07/17/23 followed by chronic 1 year of PO Abx chronic suppression with PO doxycycline 100 mg BID given planned DAIR procedure. -Check baseline CPK prior to initiation of IV daptomycin. To hold statin while pt is on IV daptomycin, they can be resumed post completion of IV Dapto course. -While in the hospital monitor labs with cbc/diff, CMP and vanc troughs (while on IV vancomycin). -Post discharge while on IV Abx the patient will need weekly safely monitoring labs with cbc/diff, CMP, CPK and ESR, CRP, to arrange for PCP to follow up these labs as outpatient. -Pt will also need to follow up with Orthopedic surgery post discharge. -The above recommendations were conveyed to primary team. ?The plan was also d/w Ortho ID peer from [facility]. Thanks for the consult, tele ID will sign off, you can call tele ID with any questions or if clinical status changes. ? Danni Santana MD [facility]
[2024-06-05 10:52] LABS: Creatine Kinase* 29 U/L (54-186)
--- NOTE | 2024-06-05 11:36 | PM.ORPN ---
Subjective Subjective Date Seen: 06/05/24 Principal diagnosis: Day 4 s/p lt knee I&D septic arthritis, ext synovectomy, abx bead placement Interval history: I saw Mushtaq on 06/02/2024 as well as today (06/05/2024). Both days his pain is quite manageable. He is taking minimal narcotics. He feels relatively comfortable mobilizing so long as the knee immobilizer is in place. He has no further fevers or chills. He is in good spirits. Ortho Exam Narrative Exam Narrative: Left knee exam shows knee immobilizer in place. Incision/skin appears healthy without erythema. Palpable DP pulse. He is sitting in the chair beside his bed comfortable and cooperative. No acute distress. Const Vital Signs, click to edit/add: Vital Signs - 24 hr 06/04/24 15:00 06/04/24 15:00 06/04/24 15:00 Temperature 97.9 F Pulse Rate [Pulse Oximeter] 65 Respiratory Rate 18 Blood Pressure [Right Arm] 131/89 Pulse Oximetry 96 96 96 Oxygen Delivery Method Room Air Room Air 06/04/24 15:00 06/04/24 19:00 06/04/24 22:57 Temperature 97.2 F L Pulse Rate [Pulse Oximeter] 65 58 L Respiratory Rate 18 16 Blood Pressure [Right Arm] 133/77 Pulse Oximetry 94 94 Oxygen Delivery Method Room Air 06/04/24 22:57 06/04/24 22:57 06/05/24 03:00 Temperature 98.4 F 98.2 F Pulse Rate [Pulse Oximeter] 55 L 55 L Respiratory Rate 18 16 Blood Pressure [Right Arm] 139/89 159/97 H Pulse Oximetry 94 94 95 Oxygen Delivery Method Room Air Room Air Room Air 06/05/24 07:00 06/05/24 07:00 06/05/24 07:00 Temperature 97.8 F Pulse Rate [Pulse Oximeter] 55 L 55 L Respiratory Rate 20 20 Blood Pressure [Right Arm] 157/98 H Pulse Oximetry 93 93 Oxygen Delivery Method Room Air 06/05/24 07:00 Temperature Pulse Rate [Pulse Oximeter] Respiratory Rate 20 Blood Pressure [Right Arm] Pulse Oximetry 93 Oxygen Delivery Method Room Air Assessment and Plan Assessment and plan (1) Bacteremia: Problem details: Staph epidermidis. Associated with prosthetic joint infection. Echo shows no vegetations. Await repeat culture. Continue vancomycin and cefepime for now Status: Acute (2) Infection of prosthetic left knee joint: Problem details: Orthopedic plan for DAIR, repeat I and D of infected joint, prolonged IV followed by oral antibiotics. I was able to communicate/coordinate care with the hospitalist team, Dr. Gaspar. This was very helpful. He has been in communication with infectious disease team. The recommendation is 6 weeks IV daptomycin followed by 1 year p.o. doxycycline. Today, we will plan to take the patient back to the operating room to remove the antibiotic beads, exchange the polyethylene modular component, and thoroughly irrigate and debrided more tissue as needed. I communicated this to the patient. We discussed the risks, benefits, and alternatives. Consent has been obtained and signed. The left lower extremity has been marked. Status: Acute (3) History of total left knee replacement: Problem details: Left total knee arthroplasty (Dr. Bustamante) May 2023 Status: Acute (4) Indwelling urinary catheter present: Problem details: - suprapubic cath, changed on admission. Culture from admission growing Klebsiella oxytoca and mixed darron which is likely colonization and not causing current illness. No need for ongoing treatment. ID recommends continuing cefepime until surgery regardless. Status: Acute (5) Atrial fibrillation, chronic: Problem details: Currently bradycardic without rate control medication. Eliquis held for surgery. Status: Acute Plan As above.
[2024-06-05] MEDS: LACTATED RINGERS 1000 ML 1,000 ML 100 ML IV (12:24)
--- NOTE | 2024-06-05 12:37 | SUR.PREOP ---
TIME?OUT:?1237 PT/RN/MDA?VERIFICATION?OF?SURGICAL?SITE,?PROCEDURE,?AND?CONSENT OBTAINED?PRIOR?TO?INVASIVE?PROCEDURE.
[2024-06-05] MEDS: fentaNYL 100 MCG/2 ML inj IVP (12:39)
[2024-06-05] MEDS: MIDAZOLAM HCL 1 MG/ML inj IVP (12:39)
--- NOTE | 2024-06-05 12:48 | P.NB_ITS ---
Nerve Block Nerve Block Time Seen by Provider: 12:43 Date Seen: 06/05/24 Type of block requested by surgeon for post-operative analgesia: adductor canal Side: left Time out performed: Yes Verification of patient name: Yes Verification of date of : Yes Site marking: site marked Name of person performing procedure: Guerrero Continuous monitoring Was continuous monitoring of O2 sat, B/P, surveillance system monitor, recorded every 15 minutes?: Yes Procedure Checklist: sterile prep, needles and gloves Ultrasound guided. Images saved: Yes Medications given in 5ml increments after negative aspiration: Ropivicaine %: 0.5 mL: 20 Needle gauge: 20 Decadron (mg): 10 Precedex (mcg): 25 Patient tolerated procedure well: Yes Additional comments: Needle noted adjacent to nerve Block Charges Block Charge (with Pro Fee): Femoral Nerve Use of Ultrasound Machine for Block: Yes- US Guidance/pain block
--- NOTE | 2024-06-05 12:48 | W.ANESCHARGE ---
Anesthesia Charges Start Date/Time Anesthesia Start Date: 06/05/24 Anesthesia Start Time: 12:53 Stop Date/Time Anesthesia Stop Date: 06/05/24 Anesthesia Stop Time: 14:44 Summary Extremes of Age - Over 70 or under 1: MDA
--- NOTE | 2024-06-05 13:03 | SUR.PREOP ---
Nasal iodine swab done in block room prior to OR.
[2024-06-05] MEDS: TRANEXAMIC ACID 100 MG/ML INJ 1000 MG IV (13:07)
--- NOTE | 2024-06-05 13:16 | PM.IMPN1 ---
Progress Note: A&P Assessment and plan (1) Bacteremia: Problem details: Staph epidermidis. Associated with prosthetic joint infection. Echo shows no vegetations. Six weeks of outpatient daptomycin. Needs weekly monitoring of CBC, basic metabolic panel, CPK, CRP for complications of daptomycin. Status: Acute (2) Infection of prosthetic left knee joint: Problem details: Orthopedic plan for DAIR, repeat I and D of infected joint, prolonged IV followed by oral antibiotics. Dr. Bustamante: I was able to communicate/coordinate care with the hospitalist team, Dr. aGspar. This was very helpful. He has been in communication with infectious disease team. The recommendation is 6 weeks IV daptomycin followed by 1 year p.o. doxycycline. Today, we will plan to take the patient back to the operating room to remove the antibiotic beads, exchange the polyethylene modular component, and thoroughly irrigate and debrided more tissue as needed. I communicated this to the patient. We discussed the risks, benefits, and alternatives. Consent has been obtained and signed. The left lower extremity has been marked. Status: Acute (3) History of total left knee replacement: Problem details: Left total knee arthroplasty (Dr. Bustamante) May 2023 Status: Acute (4) Indwelling urinary catheter present: Problem details: - suprapubic cath, changed on admission. Culture from admission growing Klebsiella oxytoca and mixed darron which is likely colonization and not causing current illness. No need for ongoing treatment. ID recommends continuing cefepime until surgery regardless. Status: Acute (5) Atrial fibrillation, chronic: Problem details: Rate controlled without medication. Restart Eliquis after surgery Status: Acute (6) Disability: Problem details: Prior to discharge reassess mobility out of the knee immobilizer. Recommend no driving for 1 week after surgery. Status: Acute Plan Continue in-hospital for surgery today and initiation of daptomycin today and assessment of mobility prior to discharge Time Spent With Patient Total time spent: Total time spent today is 55 minutes in coordination of care and discussing plan of care with patient and other providers Subjective Date Seen: 06/05/24 Interval history: 83-year-old male admitted to the hospital with a 4 day history of fever chills weakness and swelling in his left knee. Patient had previous left knee arthroplasty approximately a year ago. He was having no problems with that knee and there has been no injury to the knee or to the skin. At the time of admission there was concern about a septic knee and he had arthrocentesis performed. Yesterday he underwent I and D of his septic prosthetic knee with synovectomy, polyethylene exchange and antibiotic bead placement. The orthopedic plan is for repeat surgery in a few days then prolonged IV antibiotics followed by prolonged oral antibiotics to salvage his knee arthroplasty. Consultation from Infectious Disease: IV vancomycin and cefepime pending cultures. Cultures being held for 2 weeks. Change suprapubic catheter Place PICC line after blood cultures are negative for 48 hours June 02. Patient reports doing well. Reports good appetite. No dyspnea. He has had no lightheadedness or chest pain. He has been bradycardic into the 40s without symptoms. He has no knee pain except when he tries to bear weight. June 03: Patient reports doing quite well. He feels more mobile even using the knee immobilizer. Knee pain is manageable. He has had no fevers or other symptoms of illness. Two blood cultures from admission growing Staph epidermidis with antibiotic susceptibility profiles including susceptibility to oxacillin. Two joint cultures from surgery 3 days ago growing Staph epidermidis. One of the two is identical in antibiotic susceptibility to the blood cultures the other is different in its resistance to oxacillin. Blood culture from yesterday is no growth. June 04: Patient continues to report doing well. Increasingly mobile. No dyspnea, chest pain, abdominal pain, nausea. Good appetite. Bowels are working. Knee pain is minimal. Continue to use a knee immobilizer. 2 Blood cultures from admission growing Staph epidermidis sensitive to oxacillin. Deep tissue culture from surgery growing Staph epidermidis sensitive to oxacillin. Synovial fluid culture from surgery growing Staph epidermidis resistant to oxacillin. Further evaluation of the synovial fluid culture is pending. June 05: Patient reports doing well. Going back to the OR for washout today. Id consult and recommendations noted and appreciated. Exam Narrative: Exam Narrative: He is alert and appears in no distress. Respirations are clear to auscultation. Cardiovascular: S1, S2, relatively regular rhythm. Abdomen is soft without tenderness or mass. Extremities with trace edema. Const: Vital Signs, click to edit/add: Vital Signs - 24 hr 06/04/24 15:00 06/04/24 15:00 06/04/24 15:00 Temperature 97.9 F Pulse Rate [Pulse Oximeter] 65 Respiratory Rate 18 Blood Pressure [Le ft Arm] Blood Pressure [Ri ght Arm] 131/89 Pulse Oximetry 96 96 96 Oxygen Delivery Me thod Room Air Room Air Oxygen Flow Rate 06/04/24 15:00 06/04/24 19:00 06/04/24 22:57 Temperature 97.2 F L Pulse Rate [Pulse Oximeter] 65 58 L Respiratory Rate 18 16 Blood Pressure [Le ft Arm] Blood Pressure [Ri ght Arm] 133/77 Pulse Oximetry 94 94 Oxygen Delivery Me thod Room Air Oxygen Flow Rate 06/04/24 22:57 06/04/24 22:57 06/05/24 03:00 Temperature 98.4 F 98.2 F Pulse Rate [Pulse Oximeter] 55 L 55 L Respiratory Rate 18 16 Blood Pressure [Le ft Arm] Blood Pressure [Ri ght Arm] 139/89 159/97 H Pulse Oximetry 94 94 95 Oxygen Delivery Me thod Room Air Room Air Room Air Oxygen Flow Rate 06/05/24 07:00 06/05/24 07:00 06/05/24 07:00 Temperature 97.8 F Pulse Rate [Pulse Oximeter] 55 L 55 L Respiratory Rate 20 20 Blood Pressure [Le ft Arm] Blood Pressure [Ri ght Arm] 157/98 H Pulse Oximetry 93 93 Oxygen Delivery Me thod Room Air Oxygen Flow Rate 06/05/24 07:00 06/05/24 11:00 06/05/24 12:24 Temperature 98.3 F Pulse Rate [Pulse Oximeter] 71 63 Respiratory Rate 20 18 16 Blood Pressure [Le ft Arm] 125/52 L Blood Pressure [Ri ght Arm] 129/81 Pulse Oximetry 93 97 97 Oxygen Delivery Me thod Room Air Room Air Nasal Cannula Oxygen Flow Rate 2 06/05/24 12:39 06/05/24 12:45 Temperature Pulse Rate [Pulse Oximeter] 69 62 Respiratory Rate 16 16 Blood Pressure [Le ft Arm] Blood Pressure [Ri ght Arm] 131/90 H 137/79 Pulse Oximetry 92 92 Oxygen Delivery Me thod Nasal Cannula Nasal Cannula Oxygen Flow Rate 2 2 Documenting provider has reviewed patient's vital signs: yes Labs Labs: Laboratory Results - last 24 hr 06/04/24 06/05/24 06/05/24 23:45 05:48 10:28 WBC 8.27 RBC 4.22 L Hgb 12.8 L Hct 39.1 MCV 93 MCH 30 MCHC 33 RDW Coeff of David 13.2 Plt Count 283 Neut % (Auto) 72.5 H Lymph % (Auto) 10.0 L Haskell % (Auto) 10.5 Eos % (Auto) 5.8 Baso % (Auto) 0.4 Neut # (Auto) 6.00 Lymph # (Auto) 0.80 L [place] # (Auto) 0.90 Eos # (Auto) 0.48 Baso # (Auto) 0.03 Abs Immat Gran (auto) 0.07 Imm/Tot Granulo (auto) 0.8 Sodium 140 Potassium 3.8 Chloride 108 Carbon Dioxide 24 Anion Gap 8 BUN 20 Creatinine 0.8 Estimated Creat Clear 60.66 Estimated GFR 88 Glucose 143 H Calcium 9.0 Total Creatine Kinase 29 L C-Reactive Protein 3.1 H Vancomycin Trough 20.9 H Lab Acknowledgement Test Added
--- NOTE | 2024-06-05 14:01 | PM.ORPRC ---
Procedure Note Date of procedure: 06/05/24 Procedure: PREOPERATIVE DIAGNOSIS: 1. Left septic total knee arthroplasty status post incision, drainage, debridement, and antibiotic bead placement with polyethylene exchange 05/31/2024 2. Left knee retention of antibiotic beads POSTOPERATIVE DIAGNOSIS: 1. Left septic total knee arthroplasty status post incision, drainage, debridement, and antibiotic bead placement with polyethylene exchange 05/31/2024 2. Left knee retention of antibiotic beads PROCEDURE: 1. Left total knee revision arthroplasty (polyethylene exchange), planned 2. Left knee open antibiotic bead removal, planned 3. Left knee open extensive excisional debridement, planned SURGEON: Miguel Angel Bustamante MD. POINT OF CARE TECHNICIAN: DALLAS Cooper - Of note, a skilled assistant track and field coach was critical for this case to aid in patient positioning, tissue retraction, limb manipulation/positioning, and closure. ANESTHESIA: Spinal anesthetic EBL: 25ml IMPLANTS: DePuy J&J all cemented TKA - Attune Implants that were retained included PS femur size 7, size 7 tibia, 41mm patella Implants that were exchanged today included 5 mm poly spacer TOURNIQUET: 30min at 300 torr COMPLICATIONS: None evident INDICATIONS: The patient is a pleasant 83-year-old male who experienced a septic left total knee arthroplasty last week. He underwent left knee incision, and drainage, debridement, polyethylene exchange, and antibiotic bead placement 05/31/2024. This was plan for second-stage ?double dair procedure as described by the [facility] since we were able to catch the infection within the 1st week of symptoms. Today, he returns to the operating room to remove the antibiotic beads, thoroughly irrigate and debride the tissue again, and exchange the polyethylene for the final time. Infectious Disease has been consulted in the recommendation has been do include IV daptomycin x6 weeks through PICC line now that his bacteremia has cleared, and 1 year of doxycycline p.o. thereafter.. FINDINGS: Relatively healthy appearing left TKA implants. Hematoma was encountered throughout the knee, as be expected. No significant purulence encountered. Tissue quality was still very good. After debriding the various hematoma with extensive debridement including debridement of subcutaneous tissue and fascial tissue, we were able to complete the polyethylene exchange and close the wound. DESCRIPTION OF PROCEDURE: Following a thorough discussion of risks, benefits, and alternatives consent was obtained and the left knee was marked. The patient was brought to the operating room and placed supine on the operating table. Induction of anesthesia was undertaken. No antibiotics were administered prior to surgery as the patient has been on IV vancomycin and and IV cephalosporin since last week's original debridement procedure. 1 g tranexamic acid was administered within 1 hr of incision preoperatively. Proper time-out was performed identifying proper patient, site, procedure. The operative extremity was prepped and draped in the appropriate sterile fashion using ChloraPrep after the patient was positioned supine with all bony prominences well padded. A longitudinal, anterior, midline skin incision was reopened and all the previous PDS suture was removed. Hematoma was encountered, as expected. This was thoroughly irrigated with normal saline. We then debrided the subcutaneous pocket/tissue as well as the quad tendon and fascial tissue on both the superficial and deep surface. Some of this tissue was excised with a rongeur or curette. The implants that remained (metal on the femur and tibia and polyethylene on the patella) were inspected and found to be in excellent condition without evidence of scratching or indentation. The tibial polyethylene component was removed and eventually replaced with a new polyethylene. After the initial irrigation and debridement, a 3 minute Betadine soak was undertaken. Further debridement and irrigation was performed with a 2nd 3 L bag. A thorough scrubbing with chlorhexidine scrub brush was then undertaken. Finally, a 3rd round of 3 L bag normal saline irrigation was performed making that will total of 9 L irrigation. At this stage, the real poly spacer was opened and inserted. Tourniquet was deflated, hemostasis achieved, and irrigation was completed the various layers of closure. Closure performed with 0 PDS and #0 Stratafix for the quad tendon/retinaculum. 2-0 Stratafix for the subcutaneous and 4-0 Monocryl for subcuticular closure. Dressings were applied and the patient was awoken from anesthesia after the tourniquet deflated and transferred the PACU in stable condition. A skilled assistant track and field coach was critical for this case to aid in patient positioning, tissue retraction, bone exposure, limb manipulation/positioning, patient safety, and closure. PLAN: 1. Weight bear as tolerated operative extremity. 2. IV antibiotics will be continued per ID recommendations. 3. Ice. 4. PT/OT consults for ambulation assistance/mobility education. 5. Social work consult for discharge planning. 6. DVT prophylaxis with at SCDs and apixaban.
--- NOTE | 2024-06-05 14:20 | SUR.OPER ---
PATIENT QUESTIONS ANSWERED SATISFACTORILY PREOPERATIVELY.? PATIENT BROUGHT TO OR #2 PER CART AFTER ADMINISTRATION OF A BLOCK.? Patient positioned supine on OR #2 bed.? The perioperative?team supported arms bilaterally on arm boards.? Final approval of positioning by surgeon.?
--- NOTE | 2024-06-05 15:01 | W.ANESCHARGE ---
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
--- NOTE | 2024-06-05 15:01 | P.ANES_ITS ---
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
[2024-06-05] MEDS: DAPTOmycin 50 MG/ML inj 720 MG IVP (16:10)
[2024-06-05] MEDS: LACTATED RINGERS 1000 ML 1,000 ML 125 ML IV (16:11)
--- NOTE | 2024-06-05 18:42 | PC.NURSE ---
Pleasant and conversational. Returned from OR @ 1518 denying pain and nausea. Request extra warm blanket and rest. Active ice to left knee, MARGA wrap intact and dry, foot SCD in place. Tolerates regular diet. Pt hoping to return home .
[2024-06-05] MEDS: TRIAMCINOLONE ACETONIDE OINTMENT 0.1 % 1 APPLIC TOPICAL (20:42)
[2024-06-05] MEDS: SODIUM CHLORIDE 0.9 % (FLUSH) 10 ML SYRINGE 5 ML IVF (20:43)
[2024-06-06] VITALS (7 sets, daily range): BP systolic 114–154; BP diastolic 65–81; PULSE 53–73; RESP 16–18; TEMP 36.7–37.4; O2SAT 95–97
[2024-06-06] MEDS: ACETAMINOPHEN 650 MG TABLET ER 1300 MG PO ×2 (03:50→18:48)
--- NOTE | 2024-06-06 06:01 | PC.NURSE ---
[id number]: Pt is alert, oriented, and talkative. Pt denied pain, SOB, CP, N/V. Pt expressed ?I want good sleep tonight.? Cares were bundled and pt expressed resting well. Active ice to the left knee. Deshaun wrap intact and dry. Suprapubic catheter?is patent and draining. Foot SCDs in place. PICC SL. Pt dangled then stood, tolerated well. ?
--- NOTE | 2024-06-06 07:43 | PC.PHA ---
Assisted with Daptomycin dosing...since BMI is > 30, it is recommended to use an ABW (adjusted body weight). Pt's ABW is 90 kg, 8 mg/kg dose = 720mg. Using an ABW will help minimize toxicity, such as rises in CPK and myalgias, etc.
[2024-06-06] MEDS: lisinopriL 20 MG TABLET PO ×2 (09:01→21:05)
[2024-06-06] MEDS: AMLODIPINE 5 MG TABLET PO (09:01)
[2024-06-06] MEDS: SODIUM CHLORIDE 0.9 % (FLUSH) 10 ML SYRINGE 5 ML IVF ×2 (09:01→21:06)
[2024-06-06] MEDS: APIXABAN 5 MG TABLET PO ×2 (09:01→21:05)
[2024-06-06] MEDS: FUROSEMIDE 20 MG TABLET PO (09:01)
--- NOTE | 2024-06-06 10:31 | P.IMPN_ITS ---
Progress Note: A&P Assessment and plan (1) Bacteremia: Problem details: Staph epidermidis. Associated with prosthetic joint infection. Echo shows no vegetations. Infectious Disease recommends 6 weeks of outpatient IV daptomycin with weekly monitoring of CBC, basic metabolic panel, CPK, CRP for complications of daptomycin. Following the 6 weeks of IV daptomycin, patient will require 1 year of oral doxycycline. Status: Acute (2) Infection of prosthetic left knee joint: Problem details: Orthopedic plan for DAIR, repeat I and D of infected joint, prolonged IV followed by oral antibiotics. Dr. Bustamante: I was able to communicate/coordinate care with the hospitalist team, Dr. Gaspar. This was very helpful. He has been in communication with infectious disease team. The recommendation is 6 weeks IV daptomycin followed by 1 year p.o. doxycycline. Today, we will plan to take the patient back to the operating room to remove the antibiotic beads, exchange the polyethylene modular component, and thoroughly irrigate and debrided more tissue as needed. I communicated this to the patient. We discussed the risks, benefits, and alternatives. Consent has been obtained and signed. The left lower extremity has been marked. Status: Acute (3) History of total left knee replacement: Problem details: Left total knee arthroplasty (Dr. Bustamante) May 2023 Status: Acute (4) Indwelling urinary catheter present: Problem details: - suprapubic cath, changed on admission. Culture from admission growing Klebsiella oxytoca and mixed darron which is likely colonization and not causing current illness. No need for ongoing treatment. ID recommends continuing cefepime until surgery regardless. Status: Acute (5) Atrial fibrillation, chronic: Problem details: Rate controlled without medication. Restart Eliquis after surgery Status: Acute (6) Disability: Problem details: Prior to discharge reassess mobility out of the knee immobilizer. Recommend no driving for 1 week after surgery. Status: Acute Plan 1. Reviewed impression with patient. 2. Answered patient's questions to satisfaction. 3. Will follow patient in hospital. 4. Orthopedic surgery intends on discharging patient tomorrow. 5. Continue to work with therapy while in hospital. 6. Will likely need outpatient therapy after discharge from the hospital. 7. Will need follow-up with primary care physician as well as Orthopedic surgery. 8. Patient agreeable with above stated plans and recommendations Time Spent With Patient Total time spent: 40 minutes Subjective Date Seen: 06/06/24 Interval history: 83-year-old male admitted to the hospital with a 4 day history of fever chills weakness and swelling in his left knee. Patient had previous left knee arthroplasty approximately a year ago. He was having no problems with that knee and there has been no injury to the knee or to the skin. At the time of admission there was concern about a septic knee and he had arthrocentesis performed. Yesterday he underwent I and D of his septic prosthetic knee with synovectomy, polyethylene exchange and antibiotic bead placement. The orthopedic plan is for repeat surgery in a few days then prolonged IV antibiotics followed by prolonged oral antibiotics to salvage his knee arthroplasty. Consultation from Infectious Disease: IV vancomycin and cefepime pending cultures. Cultures being held for 2 weeks. Change suprapubic catheter June 02. Patient reports doing well. Reports good appetite. No dyspnea. He has had no lightheadedness or chest pain. He has been bradycardic into the 40s without symptoms. He has no knee pain except when he tries to bear weight. June 03: Patient reports doing quite well. He feels more mobile even using the knee immobilizer. Knee pain is manageable. He has had no fevers or other symptoms of illness. Two blood cultures from admission growing Staph epidermidis with antibiotic susceptibility profiles including susceptibility to oxacillin. Two joint cultures from surgery 3 days ago growing Staph epidermidis. One of the two is identical in antibiotic susceptibility to the blood cultures the other is different in its resistance to oxacillin. Blood culture from yesterday is no growth. June 04: Patient continues to report doing well. Increasingly mobile. No dyspnea, chest pain, abdominal pain, nausea. Good appetite. Bowels are working. Knee pain is minimal. Continue to use a knee immobilizer. 2 Blood cultures from admission growing Staph epidermidis sensitive to oxacillin. Deep tissue culture from surgery growing Staph epidermidis sensitive to oxacillin. Synovial fluid culture from surgery growing Staph epidermidis resistant to oxacillin. Further evaluation of the synovial fluid culture is pending. PICC placed to proximal left arm. June 05: Patient reports doing well. Going back to the OR for washout today. Id consult and recommendations noted and appreciated. 06/06/2024: Tolerating current efforts including with therapy. He remains apprehensive about going home today. Orthopedic surgery plans on discharging him tomorrow. Indicates pains and discomforts are better managed now than p reviously. Strength is improving. Exam Narrative: Exam Narrative: I examine him in his hospital room. Appears comfortable and in no acute distress. Vision and hearing are adequate. Alert and oriented to self, place, time, situation. Friendly, articulate, cooperative. Expresses anxiety about going home. Lungs are clear to auscultation. No wheezing, rhonchi, or rales. Heart tones with regular rhythm, normal S1-S2, without murmur, gallop, or rub. Abdomen with active bowel sounds, soft, nontender. No rebound or guarding. PICC insertion site is clean and dry in the left proximal arm medial aspect. Chest x-ray on 06/04/2024 status post PICC placement demonstrates the following: Left PICC with tip in the superior cavoatrial junction. Const: Vital Signs, click to edit/add: Vital Signs - 24 hr 06/05/24 11:00 06/05/24 12:24 06/05/24 12:39 Temperature 98.3 F Pulse Rate Pulse Rate [Pulse Oximeter] 71 63 69 Respiratory Rate 18 16 16 Blood Pressure Blood Pressure [Le ft Arm] 125/52 L Blood Pressure [Ri ght Arm] 129/81 131/90 H Pulse Oximetry 97 97 92 Oxygen Delivery Me thod Room Air Nasal Cannula Nasal Cannula Oxygen Flow Rate 2 2 Fraction of Inspir ed Oxygen 06/05/24 12:45 06/05/24 14:39 06/05/24 14:45 Temperature 97.2 F L Pulse Rate 77 42 L Pulse Rate [Pulse Oximeter] 62 Respiratory Rate 16 16 16 Blood Pressure 113/95 H 140/85 H Blood Pressure [Le ft Arm] Blood Pressure [Ri ght Arm] 137/79 Pulse Oximetry 92 89 96 Oxygen Delivery Me thod Nasal Cannula OxyMask OxyMask Oxygen Flow Rate 2 15 15 Fraction of Inspir ed Oxygen 100 06/05/24 14:50 06/05/24 14:55 06/05/24 15:00 Temperature 96.8 F L Pulse Rate 43 L 52 L 44 L Pulse Rate [Pulse Oximeter] Respiratory Rate 16 16 16 Blood Pressure 137/82 142/80 H 141/90 H Blood Pressure [Le ft Arm] Blood Pressure [Ri ght Arm] Pulse Oximetry 96 98 97 Oxygen Delivery Me thod OxyMask OxyMask OxyMask Oxygen Flow Rate 15 15 6 Fraction of Inspir ed Oxygen 100 100 100 06/05/24 15:05 06/05/24 15:10 06/05/24 15:20 Temperature 96.6 F L Pulse Rate 39 L 42 L Pulse Rate [Pulse Oximeter] Respiratory Rate 16 16 Blood Pressure 144/95 H 151/92 H Blood Pressure [Le ft Arm] Blood Pressure [Ri ght Arm] Pulse Oximetry 97 97 93 Oxygen Delivery Me thod Room Air Room Air Oxygen Flow Rate Fraction of Inspir ed Oxygen 100 100 06/05/24 15:20 06/05/24 15:30 06/05/24 15:30 Temperature 97.5 F L Pulse Rate 53 L Pulse Rate [Pulse Oximeter] Respiratory Rate 16 16 16 Blood Pressure 149/86 H Blood Pressure [Le ft Arm] Blood Pressure [Ri ght Arm] Pulse Oximetry 93 93 Oxygen Delivery Me thod Room Air Room Air Oxygen Flow Rate Fraction of Inspir ed Oxygen 06/05/24 16:00 06/05/24 16:15 06/05/24 16:30 Temperature 98.2 F Pulse Rate 48 L 49 L 72 Pulse Rate [Pulse Oximeter] Respiratory Rate 16 16 18 Blood Pressure 136/84 156/84 H 122/71 Blood Pressure [Le ft Arm] Blood Pressure [Ri ght Arm] Pulse Oximetry 92 95 95 Oxygen Delivery Me thod Room Air Room Air Room Air Oxygen Flow Rate Fraction of Inspir ed Oxygen 06/05/24 17:00 06/05/24 17:30 06/05/24 18:00 Temperature 98.8 F 99.0 F Pulse Rate 55 L 61 71 Pulse Rate [Pulse Oximeter] Respiratory Rate 18 18 18 Blood Pressure 146/73 H 118/88 130/75 Blood Pressure [Le ft Arm] Blood Pressure [Ri ght Arm] Pulse Oximetry 95 96 Oxygen Delivery Me thod Room Air Room Air Room Air Oxygen Flow Rate Fraction of Inspir ed Oxygen 06/05/24 19:00 06/05/24 20:00 06/05/24 21:00 Temperature 98.4 F 97.7 F Pulse Rate 82 79 71 Pulse Rate [Pulse Oximeter] Respiratory Rate 16 16 Blood Pressure 114/90 H 136/85 120/78 Blood Pressure [Le ft Arm] Blood Pressure [Ri ght Arm] Pulse Oximetry 96 95 96 Oxygen Delivery Me thod Room Air Room Air Room Air Oxygen Flow Rate Fraction of Inspir ed Oxygen 06/05/24 22:43 06/05/24 22:43 06/05/24 22:43 Temperature 98.7 F Pulse Rate Pulse Rate [Pulse Oximeter] 81 Respiratory Rate 16 Blood Pressure Blood Pressure [Le ft Arm] Blood Pressure [Ri ght Arm] 109/63 Pulse Oximetry 96 94 Oxygen Delivery Me thod Room Air Room Air Oxygen Flow Rate Fraction of Inspir ed Oxygen 06/06/24 03:00 06/06/24 08:59 Temperature 98.2 F 98.1 F Pulse Rate Pulse Rate [Pulse Oximeter] 55 L 64 Respiratory Rate 16 18 Blood Pressure Blood Pressure [Le ft Arm] Blood Pressure [Ri ght Arm] 135/77 154/79 H Pulse Oximetry 96 95 Oxygen Delivery Me thod Room Air Room Air Oxygen Flow Rate Fraction of Inspir ed Oxygen Labs Labs: Laboratory Results - last 24 hr 06/05/24 05:48 Total Creatine Kinase 29 L
--- NOTE | 2024-06-06 11:49 | REH.OT ---
Patient will be seen by OT on 06/07/24 prior to discharge home.
[2024-06-06] MEDS: LACTOBACILLUS ACIDOPHILUS 1 TABLET 2 TAB PO ×2 (13:07→18:48)
[2024-06-06] MEDS: DAPTOmycin 50 MG/ML inj 720 MG IVP (14:46)
--- NOTE | 2024-06-06 16:13 | PM.ORPN ---
Subjective Subjective Date Seen: 06/06/24 Principal diagnosis: POD 1 left knee join I&D, antibiotic bead removal, and poly exchange Interval history: Patient reports doing well. No acute events over night. States feels good to move his knee a little bit. Pain managed with scheduled and PRN medications, ice. DVT prophylaxis: Eliquis, SCDs, walking. Denies fevers, chills, aches, N/V, CP, SOB/WATSON, or lightheadedness. Ortho Exam Narrative Exam Narrative: -Patient appears comfortable; no apparent acute distress. During her visit, patient became visibly emotional, tearful recalling a procedure he had around 12 years old, in fact October 16 for removal of a kidney at [place]. This appears to be more in his mind due to this recent knee joint infection. He was able to share his story with us. -Alert and oriented times 3 -Operative knee moderately swollen; soft tissues supple; no ecchymosis; no erythematous streaking Warmth appropriate -Surgical dressing clean, dry, intact; no drainage (this is a silver nitrate bandage, slightly darker in color which is normal) -Bilateral calfs soft; no significant swelling, edema, tenderness, erythema, discoloration, warmth, or palpable cords -2+ DP/PT pulses, intact dermatomes and myotomes distally (5/5 strength) Const Vital Signs, click to edit/add: Vital Signs - 24 hr 06/05/24 16:15 06/05/24 16:30 06/05/24 17:00 Temperature Pulse Rate 49 L 72 55 L Pulse Rate [Pulse Oximeter] Respiratory Rate 16 18 18 Blood Pressure 156/84 H 122/71 146/73 H Blood Pressure [Right Arm] Pulse Oximetry 95 95 Oxygen Delivery Method Room Air Room Air Room Air 06/05/24 17:30 06/05/24 18:00 06/05/24 19:00 Temperature 98.8 F 99.0 F Pulse Rate 61 71 82 Pulse Rate [Pulse Oximeter] Respiratory Rate 18 18 Blood Pressure 118/88 130/75 114/90 H Blood Pressure [Right Arm] Pulse Oximetry 95 96 96 Oxygen Delivery Method Room Air Room Air Room Air 06/05/24 20:00 06/05/24 21:00 06/05/24 22:43 Temperature 98.4 F 97.7 F Pulse Rate 79 71 Pulse Rate [Pulse Oximeter] Respiratory Rate 16 16 Blood Pressure 136/85 120/78 Blood Pressure [Right Arm] Pulse Oximetry 95 96 96 Oxygen Delivery Method Room Air Room Air 06/05/24 22:43 06/05/24 22:43 06/06/24 03:00 Temperature 98.7 F 98.2 F Pulse Rate Pulse Rate [Pulse Oximeter] 81 55 L Respiratory Rate 16 16 Blood Pressure Blood Pressure [Right Arm] 109/63 135/77 Pulse Oximetry 94 96 Oxygen Delivery Method Room Air Room Air Room Air 06/06/24 08:59 06/06/24 09:00 06/06/24 11:00 Temperature 98.1 F Pulse Rate Pulse Rate [Pulse Oximeter] 64 64 Respiratory Rate 18 18 18 Blood Pressure Blood Pressure [Right Arm] 154/79 H 149/65 H Pulse Oximetry 95 97 96 Oxygen Delivery Method Room Air Room Air Room Air 06/06/24 15:00 06/06/24 15:00 06/06/24 15:00 Temperature 99.3 F Pulse Rate Pulse Rate [Pulse Oximeter] 73 73 Respiratory Rate 18 18 18 Blood Pressure Blood Pressure [Right Arm] 114/76 Pulse Oximetry 95 95 Oxygen Delivery Method Room Air Room Air Assessment and Plan Assessment and plan (1) Bacteremia: Problem details: Staph epidermidis. Associated with prosthetic joint infection. Echo shows no vegetations. Infectious Disease recommends 6 weeks of outpatient IV daptomycin with weekly monitoring of CBC, basic metabolic panel, CPK, CRP for complications of daptomycin. Following the 6 weeks of IV daptomycin, patient will require 1 year of oral doxycycline. Status: Acute (2) Infection of prosthetic left knee joint: Problem details: Orthopedic plan for DAIR, repeat I and D of infected joint, prolonged IV followed by oral antibiotics. Dr. Bustamante: I was able to communicate/coordinate care with the hospitalist team, Dr. Gaspar. This was very helpful. He has been in communication with infectious disease team. The recommendation is 6 weeks IV daptomycin followed by 1 year p.o. doxycycline. Status: Acute (3) History of total left knee replacement: Problem details: Left total knee arthroplasty (Dr. Bustamante) May 2023 Status: Acute (4) Indwelling urinary catheter present: Problem details: - suprapubic cath, changed on admission. Culture from admission growing Klebsiella oxytoca and mixed darron which is likely colonization and not causing current illness. No need for ongoing treatment. ID recommends continuing cefepime until surgery regardless. Status: Acute (5) Atrial fibrillation, chronic: Problem details: Rate controlled without medication. Restart Eliquis after surgery Status: Acute (6) Disability: Problem details: Prior to discharge reassess mobility out of the knee immobilizer. Recommend no driving for 1 week after surgery. Status: Acute (7) Status post nephrectomy: Problem details: - 1950s Status: Acute Plan - Complete 23 hour perioperative antibiotics. - PT/OT consult for education and assistance. - Social work consult for discharge planning - Prescribed analgesics as needed - DVT prophylaxis: Apixaban, walking, and SCDs - Anticipation is for discharge to home with family, 06/07/2024 if the patient remains medically stable, pain is controlled, and they are safe with mobilization. Patient will remain in hospital for 1 additional night to ensure he received his IV antibiotics and feels prepared to discharge to home specially with his knee being immobilized for 1 week.
[2024-06-06] MEDS: TRIAMCINOLONE ACETONIDE OINTMENT 0.1 % 1 APPLIC TOPICAL (21:05)
[2024-06-06] MEDS: SENNOSIDES 1 TAB TABLET 2 TAB PO (21:05)
[2024-06-07 03:00] VITALS: BP 128/76; PULSE 48; RESP 18; TEMP 36.5; O2SAT 97
[2024-06-07] MEDS: ACETAMINOPHEN 650 MG TABLET ER 1300 MG PO (04:05)
[2024-06-07 07:00] VITALS: RESP 18; O2SAT 96
--- NOTE | 2024-06-07 07:04 | PC.NURSE ---
Shift note: Pt is doing well. Ambulate with A1, walker and GB. Pain level has been rated at 1. Dressing intact, clean and dry. Vitally stable, pt had adequate sleep.
[2024-06-07] MEDS: FUROSEMIDE 20 MG TABLET PO (07:36)
[2024-06-07] MEDS: LACTOBACILLUS ACIDOPHILUS 1 TABLET 2 TAB PO ×2 (07:36→12:13)
[2024-06-07 07:40] VITALS: BP 135/89; PULSE 53; RESP 18; TEMP 36.5; O2SAT 96
[2024-06-07] MEDS: APIXABAN 5 MG TABLET PO (09:41)
[2024-06-07] MEDS: AMLODIPINE 5 MG TABLET PO (09:41)
[2024-06-07] MEDS: SODIUM CHLORIDE 0.9 % (FLUSH) 10 ML SYRINGE 5 ML IVF (09:42)
[2024-06-07] MEDS: lisinopriL 20 MG TABLET PO (09:42)
[2024-06-07] MEDS: TRIAMCINOLONE ACETONIDE OINTMENT 0.1 % 1 APPLIC TOPICAL (09:43)
[2024-06-07] MEDS: DAPTOmycin 50 MG/ML inj 720 MG IVP (11:56)
--- NOTE | 2024-06-07 12:08 | PC.NURSE ---
shift note: vss stable. pt afeb. LS clr. IS indept @ 0743. No pain. drsg to lt knee c/d/i. PP+ bilat. Picc line patent with flush and intact. Reviewed dc instructions with questions answered. Copies of dc and belongings sent with pt at dc.
--- NOTE | 2024-06-07 12:25 | P.DS_ITS ---
DS: Providers Provider Date Seen: 06/07/24 Date of admission: 05/31/24 05:11 Primary care physician: Marek Camacho MD Admitting Clinician: Akira Jones MD Consults: 05/31/24 04:25 Consult to Physician [CONS] Routine Comment: Consulting Provider: Orthopedics, [facility] Has provider been notified: No 05/31/24 04:29 Consult to Occupational Therapy [CONS] Routine Comment: Reason(s) for OT Consult:: Evaluate and Treat Any Restrictions?:: No Restrictions Consult to Physical Therapy [CONS] Routine Comment: Reason(s) for PT Consult:: Evaluate and Treat Any Restrictions?:: No Restrictions 05/31/24 12:39 Consult to Infectious Diseases [CONS] Routine Comment: Consulting Provider: [facility] Consult priority: Urgent Has provider been notified: No Call back required?: Yes 05/31/24 15:52 Consult to Occupational Therapy [CONS] Routine Comment: Reason(s) for OT Consult:: ADLs Prior to Discharge Any Restrictions?:: See Comment Comment: Weight bear as tolerated LLE in Knee immobilizer NO ROM LLE. Consult to Physical Therapy [CONS] Routine Comment: Ambulate in the gardiner today. Reason(s) for PT Consult:: TKA [place] Protocol POD#0 Any Restrictions?:: See Comment Comment: Weight bear as tolerated LLE in Knee immobilizer NO ROM LLE. Consult to Gas Plumbing Inspector [CONS] Routine Comment: Reason for Consult:: Discharge Planning Needs Attending Physician on discharge: Trav Tejada MD Date of Discharge: 06/07/24 DS: Diagnosis Discharge Diagnosis (1) Fever: Status: Acute Problem details: 102.1 on arrival to the ED (2) Septic arthritis: Status: Acute Problem details: Day 4 s/p left knee I&D septic arthritis, extensive synovectomy, antibiotic bead placement and poly exchange (3) Infection of prosthetic left knee joint: Status: Acute Problem details: Orthopedic plan for DAIR, repeat I and D of infected joint, prolonged IV followed by oral antibiotics. Dr. Bustamante: I was able to communicate/coordinate care with the hospitalist team, Dr. Gaspar. This was very helpful. He has been in communication with infectious disease team. The recommendation is 6 weeks IV daptomycin followed by 1 year p.o. doxycycline. (4) Sepsis: Status: Acute Problem details: She is recommending vancomycin and cefepime until we have culture directed options. She is recommending we change the suprapubic catheter. She is also recommending a new UA after the catheter is replaced. She recommends that we wait 48 hours before placing a PICC line to assure negative blood cultures and lack of bacteremia given his high fever at presentation She will help was follow the patient next week but will likely recommend 6 weeks of IV antibiotics followed by oral doxycycline per current DAIR procedure protocols. (5) Bacteremia: Status: Acute Problem details: Staph epidermidis. Associated with prosthetic joint infection. Echo shows no vegetations. Infectious Disease recommends 6 weeks of outpatient IV daptomycin with weekly monitoring of CBC, basic metabolic panel, CPK, CRP for complications of daptomycin. Following the 6 weeks of IV daptomycin, patient will require 1 year of oral doxycycline 100 mg po BID. (6) History of total left knee replacement: Status: Acute Problem details: Left total knee arthroplasty (Dr. Bustamante) May 2023 (7) Indwelling urinary catheter present: Status: Acute Problem details: - suprapubic cath, changed on admission. Culture from admission growing Klebsiella oxytoca and mixed darron which is likely colonization and not causing current illness. No need for ongoing treatment. ID recommends continuing cefepime until surgery regardless. (8) Atrial fibrillation, chronic: Status: Acute Problem details: Rate controlled without medication. Restart Eliquis after surgery (9) Chronic anticoagulation: Status: Acute Problem details: - on Apixaban 2.5 mg bid - h/o bruising when on 5 mg bid. Apixaban held for surgery. Also on aspirin for history of coronary artery disease. Currently continuing aspirin. VTE Prophylactic enoxaparin pending surgery. Resume apixaban after surgery. (10) Status post nephrectomy: Status: Acute Problem details: - 1950s (11) CAD (coronary artery disease): Status: Acute Problem details: - s/p STEMI with RCA stenting 04/30 - quiescent (12) HTN (hypertension): Status: Acute Problem details: -home meds: lisinopril 20mg BID, amlodipine 5mg (13) Obesity: Status: Acute Problem details: BMI 34.5 DS: Summary Hospital Course Hospital Course: 83-year-old male admitted to the hospital with a 4 day history of fever chills weakness and swelling in his left knee. Patient had previous left knee arthroplasty approximately a year ago. He was having no problems with that knee and there has been no injury to the knee or to the skin. At the time of admission there was concern about a septic knee and he had arthrocentesis performed. Yesterday he underwent I and D of his septic prosthetic knee with synovectomy, polyethylene exchange and antibiotic bead placement. The orthopedic plan is for repeat surgery in a few days then prolonged IV antibiotics followed by prolonged oral antibiotics to salvage his knee arthroplasty. Consultation from Infectious Disease: IV vancomycin and cefepime pending cultures. Cultures being held for 2 weeks. Change suprapubic catheter June 02. Patient reports doing well. Reports good appetite. No dyspnea. He has had no lightheadedness or chest pain. He has been bradycardic into the 40s without symptoms. He has no knee pain except when he tries to bear weight. June 03: Patient reports doing quite well. He feels more mobile even using the knee immobilizer. Knee pain is manageable. He has had no fevers or other symptoms of illness. Two blood cultures from admission growing Staph epidermidis with antibiotic susceptibility profiles including susceptibility to oxacillin. Two joint cultures from surgery 3 days ago growing Staph epidermidis. One of the two is identical in antibiotic susceptibility to the blood cultures the other is different in its resistance to oxacillin. Blood culture from yesterday is no growth. June 04: Patient continues to report doing well. Increasingly mobile. No dyspnea, chest pain, abdominal pain, nausea. Good appetite. Bowels are working. Knee pain is minimal. Continue to use a knee immobilizer. 2 Blood cultures from admission growing Staph epidermidis sensitive to oxacillin. Deep tissue culture from surgery growing Staph epidermidis sensitive to oxacillin. Synovial fluid culture from surgery growing Staph epidermidis resistant to oxacillin. Further evaluation of the synovial fluid culture is pending. PICC placed to proximal left arm. June 05: Patient reports doing well. Going back to the OR for washout today. Id consult and recommendations noted and appreciated. 06/06/2024: Tolerating current efforts including with therapy. He remains apprehensive about going home today. Orthopedic surgery plans on discharging him tomorrow. Indicates pains and discomforts are better managed now than previously. Strength is improving. 06/07/24: Discharged with plan as specified. Time Spent with Patient Time attestation: Total time spent providing and/or coordinating discharge services: Exam Narrative: Exam Narrative: I examine him in his hospital room. Appears comfortable and in no acute distress. Vision and hearing are adequate. Alert and oriented to self, place, time, situation. Friendly, articulate, cooperative. Expresses anxiety about going home. Lungs are clear to auscultation. No wheezing, rhonchi, or rales. Heart tones with regular rhythm, normal S1-S2, without murmur, gallop, or rub. Abdomen with active bowel sounds, soft, nontender. No rebound or guarding. PICC insertion site is clean and dry in the left proximal arm medial aspect. Chest x-ray on 06/04/2024 status post PICC placement demonstrates the following: Left PICC with tip in the superior cavoatrial junction. Const: Vital Signs, click to edit/add: Vital Signs - 24 hr 06/06/24 15:00 06/06/24 15:00 06/06/24 15:00 Temperature 99.3 F Pulse Rate [Pulse Oximeter] 73 73 Respiratory Rate 18 18 18 Blood Pressure [Le ft Arm] Blood Pressure [Ri ght Arm] 114/76 Pulse Oximetry 95 95 Oxygen Delivery Me thod Room Air Room Air 06/06/24 19:00 06/06/24 22:41 06/06/24 22:41 Temperature 99.2 F Pulse Rate [Pulse Oximeter] 69 53 L Respiratory Rate 18 18 18 Blood Pressure [Le ft Arm] Blood Pressure [Ri ght Arm] 116/73 Pulse Oximetry 95 95 Oxygen Delivery Me thod Room Air Room Air 06/06/24 22:41 06/07/24 03:00 06/07/24 07:00 Temperature 99.2 F 97.7 F Pulse Rate [Pulse Oximeter] 53 L 48 L Respiratory Rate 18 18 18 Blood Pressure [Le ft Arm] Blood Pressure [Ri ght Arm] 117/81 128/76 Pulse Oximetry 95 97 96 Oxygen Delivery Me thod Room Air Room Air Room Air 06/07/24 07:40 Temperature 97.7 F Pulse Rate [Pulse Oximeter] 53 L Respiratory Rate 18 Blood Pressure [Le ft Arm] 135/89 Blood Pressure [Ri ght Arm] Pulse Oximetry 96 Oxygen Delivery Me thod Room Air DS: Data Data Completed and Pending Labs on day of discharge: Preliminary micro results at discharge 05/31/24 01:00 Body Fluid Culture - Preliminary Synovial Fluid 05/31/24 13:33 Aerobic Culture - Preliminary Knee,Left Staphylococcus epidermidis Anaerobic Culture - Preliminary 05/31/24 13:30 Aerobic Culture - Preliminary Knee,Left NO GROWTH AFTER 48 HOURS Anaerobic Culture - Preliminary 05/31/24 13:30 Aerobic Culture - Preliminary Knee,Left NO GROWTH AFTER 48 HOURS Anaerobic Culture - Preliminary 05/31/24 13:30 Aerobic Culture - Preliminary Knee,Left Staphylococcus epidermidis Anaerobic Culture - Preliminary 05/31/24 13:08 Fungal Culture - Preliminary Synovial Fluid 05/31/24 13:08 Fungal Culture - Preliminary Knee,Left Imaging Left knee x-ray: Radiologist's impression: 05/31/24: Unchanged left knee prosthesis. Moderate knee joint effusion. Chest x-ray: Radiologist's impression: 05/30/24: no acute cardiopulmonary changes. 06/04/24: Left PICC with tip in the superior cavoatrial junction. Discharge Plan Discharge Disposition: Home, Self-Care Date of Admission: 05/31/24 05:11 Attending Provider on Discharge: Trav Tejada Consulting Providers: Miguel Angel Bustamante; Alaina Linares; Modesto Mcwilliams; Sindi Rdz; Manuel Gonzalez; Curtis Bustamante; Nikita Bond; Virginia Boyd; Danni Santana; Ashli Shen; Joni Scott; Henrry Ly; Andreea Juarez; Thalia Soto; Shantelle Queen Primary Care Provider: Marek Camacho Condition: Improved Anticipated Discharge Date/Time: 06/07/24 14:24 Discharge Medications: New daptomycin 500 mg Recon Soln 720 mg IV push (test dose) Q24H Qty: 1 0RF Lactobacillus acidophilus 0.5 mg (100 million cell) Tablet 2 mg PO TIDWM Qty: 90 1RF sennosides [Senna Lax] 8.6 mg Tablet 8.6 mg PO BID 30 Days Qty: 60 1RF oxycodone 5 mg Tablet 5 mg PO QID PRN (Reason: Pain) 7 Days Qty: 20 0RF Continued acetaminophen [Tylenol Arthritis Pain] 650 mg tablet extended release 1,300 mg PO Q12H Qty: 120 5RF lisinopril 20 mg tablet 20 mg PO BID Qty: 180 3RF nitroglycerin 0.4 mg tablet, sublingual 0.4 mg sublingual Q5M PRN (Reason: chest pain) Qty: 20 0RF apixaban 2.5 mg tablet 2.5 mg PO BID Qty: 180 3RF Hold Instructions: Resume on 06/27/23. After completing 1 month of 5 mg twice daily, then resume usual dose of 2.5 mg twice daily. atorvastatin 40 mg tablet 40 mg PO HS amlodipine 5 mg tablet 5 mg PO DAILY furosemide [Lasix] 20 mg tablet 20 mg PO DAILY Held aspirin 81 mg capsule 81 mg PO DAILY Hold Instructions: Resume on 06/26/24. Discharge Orders: Discharge Order (Routine); Ordered 06/07/24 Ordered By: Trav Tejada Patient Education: Laxative, Stimulant (By mouth), Oxycodone, Rapid Release (By mouth), Daptomycin (By injection), Probiotic (By mouth), Total Knee Replacement (DC), Revision Total Joint Arthroplasty (DC) Additional Instructions: 1. Outpatient [facility] for daptomycin 720 mg IV daily, with last dose on 07/17/2024; 2. Outpatient follow-up with Dr. Hidalgo in 1-2 weeks for on-going follow-up of labs for daptomycin infusion and subsequent doxycycline orally for 1 year; 3. Outpatient follow-up with Dr. Bustamante per his recommendations regarding septic knee treatment and follow-up; 4. Continued change of suprapubic catheter on a monthly bases with on-going cares associated with this. Activity Level: Activity as Tolerated, Weight Bearing as Tolerated, Use Cane and Use Walker Activity Detail: Wound: ? Do not remove original dressing; we will remove this at first postop visit in 1 week. Only remove dressing if integrity is in question. ? No immersing wound in water; showering okay; light scrub with your hand and body soap, rinse, dab dry ? Sutures are under the skin, will dissolve; allow surgical glue to come off naturally; do not scrub the wound or apply ointments/lotions ? Call our office with any redness that streaks, excessive drainage from the wound, or wound gapping. Ice/Elevate: ? Ice as needed for swelling and discomfort (cryocuff or ice pack); elevate extremity frequently above the heart. Motion/Exercise: ? Weight bear as tolerated operative extremity (walker/cane for ambulation assistance as needed) ? Per PT/OT. ? Straight leg raises daily: 1-2 sets of 10 reps Pain Medications: ? Oral narcotic as prescribed. Wean as tolerated. Additional acetaminophen and ibuprofen as needed. Blood Clot Prevention (DVT): ? Medication: Apixaban Driving: ? Do not drive while taking narcotic pain medication ? Anticipate 4-6 weeks no [address] if operative leg is driving leg Dental: ? No elective dental work for 6 months post-op. If there is an urgent/emergent dental need, contact our office for an antibiotic prescription. Smoking/Alcohol: ? Do not smoke; do no drink alcohol especially when taking postoperative oral narcotic medication Seek Care from you Primary Care Provider if you experience the following issues in the postoperative phase and beyond: ? Bacterial infections such as: pneumonia, bacterial skin infection (cellulitis), UTI, high fever, chills unrelated to the operative body part - call your primary care physician urgently for treatment in hopes to protect your health and the metal implant. Referrals: ? PT, OT per patient preference - evaluate treat total knee arthroplasty protocol (gait training, ROM, ADLs) Vaccines: ? No vaccines until 4-6 weeks postop Follow up: ? PA-C visit in 1 week ? Ortho surgeon follow-up in 6 weeks; repeat radiographs three views operative knee If there are any acute concerns regarding your surgery, please call our orthopedic clinic ([phone]) Discharge Diet: Regular Follow Up Appointments: Marek Camacho MD [Primary Care Provider] - Sarah De Oliveira CNP [Staff Physician] - 06/19/24 9:15 am ([facility] for follow-up.) Nikita Bond PA-C [Physician Webmethods Consultant] - 06/13/24 10:50 am ([facility] for follow-up.) Forms: [employer] Info Instructions
== END 2024-06-07 13:56 | disposition home or self-care (01) | DRG 463 ==
LOC: ED 20:49 → MEDSURG 05-31 02:10
PROVIDERS: Family Medicine; Orthopaedic Surgery Sports Medicine; Admitting Provider Internal Medicine; Emergency Provider Emergency Medicine; PCP Family Medicine; Visit Provider Internal Medicine
PROC: 0SPD09Z Removal of Liner from Left Knee Joint, Open Approach (ICD-10-PCS; CPT 27447; principal; 2024-05-31 12:00)
PROC: 0JBP0ZZ Excision of Left Lower Leg Subcutaneous Tissue and Fascia, Open Approach (ICD-10-PCS; CPT 27447; principal; 2024-06-05 13:30)
DX: T84.54XA Infection and inflammatory reaction due to internal left knee prosthesis, initial encounter (principal); A41.9 Sepsis, unspecified organism; M00.062 Staphylococcal arthritis, left knee; Z16.29 Resistance to other single specified antibiotic; I48.20 Chronic atrial fibrillation, unspecified; B95.7 Other staphylococcus as the cause of diseases classified elsewhere; G89.18 Other acute postprocedural pain; E66.9 Obesity, unspecified; Z68.34 Body mass index [BMI] 34.0-34.9, adult; R00.1 Bradycardia, unspecified; I25.10 Atherosclerotic heart disease of native coronary artery without angina pectoris; I10 Essential (primary) hypertension; Z79.01 Long term (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 of anticoagulants; Z96.652 Presence of left artificial knee joint; N40.1 Benign prostatic hyperplasia with lower urinary tract symptoms; R33.8 Other retention of urine; Z96.0 Presence of urogenital implants; Z90.5 Acquired absence of kidney; L40.9 Psoriasis, unspecified; I25.2 Old myocardial infarction
CPT/HCPCS: 01400; 01402; 36415; 36573; 51701; 64415; 64447; 71046; 73562; 76942; 80048; 80053; 80202; 81001; 82550; 83036; 83605; 83735; 83880; 84145; 84157; 84484; 85025; 85027; 85610; 86140; 86617; 87040; 87070; 87075; 87077; 87086; 87102; 87186; 87205; 87631; 89051; 89060; 93306; 94761; 97110; 97116; 97162; 97165; 97530; 97535; 99100; 99140; 99284; 99285; A9270; C1751; C1776; J0330; J0690; J0692; J0878; J1100; J1650; J1956; J2250; J2405; J2704; J2795; J3010; J3370; J3490; J7030; J7050; J7120

== ENCOUNTER 2024-06-17 07:17 | Outpatient (CLI) | payer MEDICARE, BC, SELFPAY ==
--- OUTSIDE RECORDS SUMMARY | 2024-06-18 00:31 | XMS_ITS | Clinical Summary ---
Author Organization ID [facility] Address [place], [place] [address] Care Team Providers Care Avionics Test Technician Name Role Phone Marek Camacho MD Primary Care Provider [phone] Allergies Active Allergy Reactions Criticality Noted Date [...] tissue 02/17/2024 Coronary artery disease invo [place] coronary artery of [place] heart without angina pectoris 05/29/2020 Atrial fibrillation [...] 06/14/2024 10:30 AM CDT Nurse/Clinic Staff Only [address] [address] Nurse/Clinic Staff Only (Cath Change ) 06/14/2024 Travel 06/05/2024 Lab Requisition [facility] [phone] Miguel Angel Bustamante MD 06/03/2024 4:00 PM CDT Ancillary Procedure [place] [facility] [address] [place] [address] 06/03/2024 Travel 05/31/2024 Lab Requisition [facility] [phone] Unknown, Doctor 05/17/2024 10:30 AM CDT Nurse/Clinic Staff Only [address] [address] Nurse/Clinic Staff Only (Cath Change) 05/17/2024 Travel 04/19/2024 10:30 AM CDT Nurse/Clinic Staff Only [address] [place] [address] Nurse/Clinic Staff Only (Suprapubic catheter removal) 04/19/2024 Travel 03/22/2024 10:30 AM CDT Nurse/Clinic Staff Only [address] [address] Nurse/Clinic Staff Only (Cath Change ) 03/22/2024 [...] ??C (98.8 ??F) 11/30/2022 1 :51 PM CHIROPRACTIC PHYSICIAN Respiratory Rate 16 11/30/2022 1:51 PM CHIROPRACTIC PHYSICIAN Oxygen Saturation 79% 11/30/2022 3:1 4 PM CHIROPRACTIC PHYSICIAN Inhaled Oxygen Concentration - - Weight 106.6 kg (235 lb) 02/19/2024 10: 31 AM CDT Patient reported Height 177.8 cm (5' 10) 11/30/2022 1:5 1 PM CHIROPRACTIC PHYSICIAN Body Mass Index 33.72 11/30/2022 1:51 PM CHIROPRACTIC PHYSICIAN Plan of Treatment Upcoming Encounters Date Type Department Care Team (Late st Contact Info) Description 07/05/2024 10:30 AM CDT Nurse/Clinic Staff Only [address] [phone] Health Maintenance Due Date Last Done Comments [...] 07/14/2024 08/22/2007 Medical Devices Implanted Type Area Zyglo Technician Device Identifier Shelf Expiration Date Model / Serial / Lot Stent Contour [id number] - [id number] Implanted:Qty: 1 on 04/11/2014 at [facility] Right: [employer] [facility] [id number]# / / [id number] Stent Prcflx [id number] Hydpls - [id number] Implanted:Qty: 1 on 04/18/2014 at [facility] Right: [employer] [facility] [id number]# / / [id number] Procedures Procedure Name Priority Date/Time Associated Diagnosis [...] PM CDT ECHOCARDIOGRAM ALISON PATINO ?Accession#: ?? [id number] : ?1940 83 years Study Date: ?? 06/03/2024 4:15:13 PM Gender: M ? BP: ? 138/90 mmHg Height: 180.00 cm ? BSA: ?2.32 m? ? ? Weight: 114.00 kg ? Tech: ? MJS ?Referring MD: CHANDLER GASPAR Site: ? [facility] Reading Location: [facility] Patient Location: Outpatient. Procedure: 2D, Color Doppler [...] . This study was interpreted by an [facility] accredited facility. CC: HIM (med records) [facility], Med/Surg - IP [facility]. ??Final ?? Procedure Note Noble Briseno MD - 06/03/2024 ECHOCARDIOGRAM ALISON PATINO : 1940 83 years Study Date: 06/03/2024 4:15:13 PM Gender: M BP: 138/90 mmHg Height: 180.00 cm BSA: 2.32 m? ? ? Weight: 114.00 kg Tech: [facility] Referring MD: CHANDLER GASPAR Site: [facility] Reading Location: [facility] Patient Location: Outpatient. Procedure: 2D, Color Doppler [...] [facility] accredited facility. CC: HIM (med records) [facility], Med/Surg - IP [facility]. Final Chandler Gaspar MD ECHO ORD * (ABNORMAL) REFERRAL SUSCEPTIBILITY (05/31/2024 1:30 PM CDT) CULTURE RESULT(A) 06/09/2024 9:28 AM CDT [facility] CULTURE Staphylococcus coagulase negative 06/09/2024 9:28 AM CDT [facility] CULTURE Staphylococcus coagulase negative 06/09/2024 9:28 AM CDT [facility] Comment:Second strain Other Client Collect [...] <=0.5/9.5: S Miguel Angel Bustamante MD MICROBIOLOGY [facility] [address] [place] [id number], * CRYSTAL ID BODY FLUID NO URINE (05/31/2024 1:00 AM CDT) MONOSODIUM URATES None Seen None Seen, Present, Not Present 06/01/2024 11:29 AM CDT [facility] CALCIUM PYROPHOSPHATES None Seen None Seen, Present, Not Present 06/01/2024 11:29 AM CDT [facility] OTHER CRYSTALS No crystals seen 06/01/2024 11:29 AM CDT [facility] SPECIMEN SOURCE Left Knee 06/01/2024 11:29 AM CDT [facility] Body Fluid BODY FLUID SPECIMEN / Unknown Client Collect / Unknown 05/31/2024 1:00 AM CDT 05/31/2024 1:29 PM CDT Doctor Unknown BODY FLUID [facility] [address] [place] [address], from Last 3 Months Advance Directives * Full Code (Latest Code Status on File) Date Activated Date Inactivated Comments 05/05/2018 4:21 AM 05/07/2018 5:04 PM * Full Code Date Activated Date Inactivated Comments 05/05/2018 3:06 AM 05/05/2018 4:21 AM Care Teams Avionics Test Technician Relationship Specialty Start Date End Date Marek Camacho MD PCP - General Family Practice 04/14/14
== END 2024-06-17 07:18 | disposition home or self-care (01) ==
LOC: AMB 06-18 00:29
PROVIDERS: PCP Family Medicine; Visit Provider Family Medicine
DX: R53.1 Weakness (principal)
CPT/HCPCS: A0425; A0427

== ENCOUNTER 2024-06-17 08:08 | Observation (INO) | payer MEDICARE, BC, SELFPAY ==
[2024-06-17] VITALS (25 sets, daily range): BP systolic 113–141; BP diastolic 63–77; PULSE 51–72; RESP 16–20; TEMP 36.6–38.2; O2SAT 88–94; BMI 33.4
--- NOTE | 2024-06-17 08:44 | CRLHL7_ITS ---
For Patients: As a result of the Century Cures Act, medical imaging exams and procedure reports are released immediately into your electronic medical record. You may view this report before your referring provider. If you have questions, please contact your health care provider. INDICATION: Weakness. Low oxygen saturation. Recent surgery. COMPARISON: None TECHNIQUE: : CT examination of the chest was performed with the uneventful intravenous administration of 95 cc of Isovue 370 while thin axial sections were obtained from above the apices of the lungs to the lung bases. The examination was timed as a pulmonary artery angiogram. Please note that all CT scans at this facility use dose modulation, iterative reconstruction, and/or weight-based dosing when appropriate to reduce radiation dose to as low as reasonably achievable. FINDINGS: : HEART and MEDIASTINUM: The heart is enlarged. There are no significantly enlarged mediastinal lymph nodes. Atherosclerotic vascular and valvular calcifications. No significant pericardial fluid PULMONARY ARTERIAL CIRCULATION: There are some limitations due to motion especially at the posterior bases. However, there is no visible pulmonary embolus. LUNGS and PLEURAL SPACES: Limitations due to motion. Bibasilar and perifissural opacities are probably largely due to atelectasis.No definite focal consolidation, infiltrate or mass. Normal pleural spaces VISUALIZED UPPER ABDOMEN: Right renal cyst. Low-density splenic lesion measuring 5.6 centimeters. These are statistically most likely benign, often hemangiomas. OSSEOUS STRUCTURES: Age-appropriate appearance. No acute fracture or destructive process. TUBES and LINES: None. IMPRESSION: 1. Enlarged heart. 2. There are some limitations due to motion but there is no indication of acute pulmonary embolus. 3. Bibasilar and perifissural opacities probably due to atelectasis. No focal consolidation, infiltrate or mass. No pleural effusion or pneumothorax. 4. Probably benign right renal lesion and probably benign splenic lesion. Please note that all CT scans at this facility use dose modulation, iterative reconstruction, and/or weight-based dosing when appropriate to reduce radiation dose to as low as reasonably achievable. Dictated by Prosper Bass MD @ 06/17/2024 10:25:45 AM (Electronically Signed)
--- NOTE | 2024-06-17 08:45 | ED_ITS ---
HPI - Weakness General Date Seen: 06/17/24 Chief complaint: Weakness Stated complaint: fall Time Seen by Provider: 06/17/24 08:09 Source: patient Mode of arrival: EMS Limitations: no limitations History of Present Illness HPI Narrative: Patient is an 83-year-old male presenting to emergency department for weakness. Patient states prior to arrival he was trying to drain is chronic indwelling Guevara catheter in the bathroom when he felt like his legs and arms were coming very weak. He felt like he could no longer stand up and use the matrix drier tender in the bathroom to help slowly bring himself to the ground. States he did not hit his head. Continue to feel weak an EMS was called to bring him to the emergency department. 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 This knee replacements previously done 1 year prior. He was doing well and had a good follow-up appointment that was done in 06/13/2024 showing good improvement. He is getting daptomycin injections and was scheduled for another 1 today add 14:00. States yesterday after his injection he was starting to feel weak and more tired but then seemed to get better by the end of the day so they did not come in. Then this morning he thought he was doing well when he 1st woke up but then suddenly felt weak. He still feeling weak at this time in all extremities. Denies chest pain, shortness of breath, headache, vision changes, diarrhea, constipation, numbness. States his pain in his knee is tolerable at this time. Related Data Home Medications ?Medication ?Instructions ?Recorded ?Confirmed amlodipine 5 mg tablet 5 mg PO DAILY 05/31/24 06/17/24 atorvastatin 40 mg tablet 40 mg PO HS 05/31/24 06/17/24 furosemide 20 mg tablet (Lasix) 20 mg PO DAILY 05/31/24 06/17/24 Previous Rx's ?Medication ?Instructions ?Recorded acetaminophen 650 mg 1,300 mg (2 x 650 mg) PO Q12H #120 07/20/23 tablet,extended release (Tylenol tabs Arthritis Pain) apixaban 2.5 mg tablet 2.5 mg PO BID #180 tabs 12/11/23 lisinopril 20 mg tablet 20 mg PO BID #180 tabs 12/11/23 nitroglycerin 0.4 mg sublingual 0.4 mg sublingual Q5M PRN chest 12/11/23 tablet pain #20 tabs Lactobacillus acidophilus 0.5 mg 2 mg (4 x 0.5 mg (100 million 06/07/24 (100 million cell) tablet cell)) PO TIDWM #90 tabs daptomycin 500 mg intravenous 720 mg IV push (test dose) Q24H #1 06/07/24 solution ea sennosides 8.6 mg tablet (Senna 8.6 mg PO BID 30 days #60 tabs 06/07/24 Lax) Allergies Allergy/AdvReac Type Severity Reaction Status Date / Time No Known Drug Allergies Allergy Verified 06/13/24 12:08 Review of Systems Status of ROS: Reports: 10 or more systems reviewed and unremarkable except as noted in History and below [facility] History Unspecified essential hypertension (03/14/07) ?I10 - Essential (primary) hypertension (ICD-10) Routine general medical examination at a health care facility (03/14/07) ?Z00.00 - Encounter for general adult medical examination without abnormal findings (ICD-10) Renal cyst (02/17/24) ?N28.1 - Cyst of kidney, acquired (ICD-10) Neurogenic bladder (02/17/24) ?N31.9 - Neuromuscular dysfunction of bladder, unspecified (ICD-10) Gross hematuria ?R31.0 - Gross hematuria (ICD-10) Granulation tissue (02/17/24) ?L92.9 - Granulomatous disorder of the skin and subcutaneous tissue, unspecified (ICD-10) Esophageal reflux (03/14/07) ?K21.9 - Gastro-esophageal reflux disease without esophagitis (ICD-10) Dyslipidemia (05/05/18) ?E78.5 - Hyperlipidemia, unspecified (ICD-10) Cough (08/22/07) ?R05.9 - Cough, unspecified (ICD-10) STEMI (ST elevation myocardial infarction) (05/05/18) ?I21.3 - ST elevation (STEMI) myocardial infarction of unspecified site (ICD- 10) Other psoriasis (08/22/07) ?L40.8 - Other psoriasis (ICD-10) HTN (hypertension) (05/05/18) ?I10 - Essential (primary) hypertension (ICD-10) Atrial fibrillation (05/29/20) ?I48.91 - Unspecified atrial fibrillation (ICD-10) Chronic anticoagulation ?Z79.01 - salvage determiner (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 of anticoagulants (ICD-10) Infection of prosthetic left knee joint ?T84.54XA - Infection and inflammatory reaction due to internal left knee prosthesis, initial encounter (ICD-10) Status post nephrectomy ?Z90.5 - Acquired absence of kidney (ICD-10) Indwelling urinary catheter present (~2020) ?Z96.0 - Presence of urogenital implants (ICD-10) Obesity ?E66.9 - Obesity, unspecified (ICD-10) HTN (hypertension) ?I10 - Essential (primary) hypertension (ICD-10) Atrial fibrillation, chronic ?I48.20 - Chronic atrial fibrillation, unspecified (ICD-10) CAD (coronary artery disease) ?I25.10 - Atherosclerotic heart disease of [place] coronary artery without angina pectoris (ICD-10) Elevated bilirubin ?R17 - Unspecified jaundice (ICD-10) Inability to ambulate due to knee ?R26.2 - Difficulty in walking, not elsewhere classified (ICD-10) Psoriasis ?L40.9 - Psoriasis, unspecified (ICD-10) Diverticulosis of colon ?K57.30 - Diverticulosis of large intestine without perforation or abscess without bleeding (ICD-10) Hydrocele in adult ?N43.3 - Hydrocele, unspecified (ICD-10) History of prediabetes ?Z87.898 - Personal history of other specified conditions (ICD-10) Tubular adenoma of colon ?D12.6 - Benign neoplasm of colon, unspecified (ICD-10) Tubulovillous adenoma of colon ?D12.6 - Benign neoplasm of colon, unspecified (ICD-10) Benign prostatic hyperplasia with lower urinary tract symptoms ?N40.1 - Benign prostatic hyperplasia with lower urinary tract symptoms (ICD- 10) Urinary retention ?R33.9 - Retention of urine, unspecified (ICD-10) Encounter for replacement of urinary catheter ?Z46.6 - Encounter for fitting and adjustment of urinary device (ICD-10) 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, unspecified ankle and foot (ICD-10) Atrial fibrillation ?I48.91 - Unspecified atrial fibrillation (ICD-10) Heart attack (2018) ?I21.9 - Acute myocardial infarction, unspecified (ICD-10) Surgical History History of revision of total replacement of left knee joint (06/05/24) ?Z96.652 - Presence of left artificial knee joint (ICD-10) H/O knee surgery ?Z98.890 - Other specified postprocedural states (ICD-10) 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 Retired [employer]. What is your current living situation?: I presently have a place to live Problems where you live: no known problems Problems where you live details: no known problems In the past 12 months, utilities in danger of being shut off: no In past 12 months, lack of transportation kept you from medical appts, meetings, work, or getting things needed for daily living: no In the past 12 mos, have been you worried that your food would run out before you had money to buy more?: never true In the past 12 mos, the food you bought just didn't last and you didn't have money to buy more?: never true Highest level of school completed/degree received: 12th grade, no diploma Smoking Status: Never smoker Do you use any of these nicotine containing products: None Second hand tobacco smoke exposure: No How often do you have a drink containing alcohol: monthly or less Alcohol type: beer How often do you have six or more drinks on one occasion: Never AUDIT-C Alcohol total score: 1 Non-prescribed substance use: denies use Caffeine: Yes (rarely warm tea) How often does anyone, including family, friends and others, physically hurt you : never How often does anyone, including family, friends and others, insult or talk down to you: never How often does anyone, including family, friends and others, threaten you with harm: never How often does anyone, including family, friends and others, scream or curse at you: never Little interest or pleasure in doing things: not at all Feeling down, depressed, or hopeless: not at all Do you think of yourself as: straight/heterosexual Gender Identity: male service: No Exam Narrative: Exam Narrative: Const: Well-nourished, Well-developed, in mild distress Eyes: PERRL, no conjunctival injection, and symmetrical lids HENT: Atraumatic external nose and ears. Moist mucous membranes. Neck: Symmetric, trachea midline, No thyromegaly. CVS: RRR, No murmurs or gallops. Peripheral pulses 2+ and equal in all extremities RESP: Unlabored respiratory effort. Clear to auscultation bilaterally. GI: Nontender/Nondistended, No rebound or guarding. MSK:Extremities w/o deformity, Normal Active ROM, well-healing surgical site left knee Skin: Warm, Dry. No rashes or lesions. Neuro: Normal Muscle tone, No focal neurological deficits. Psych: Awake, Alert, & Oriented x3. Appropriate mood and affect. Const: Vital Signs, click to edit/add: Vital Signs - 24 hr 06/17/24 08:14 06/17/24 08:15 06/17/24 08:19 Temperature 99.1 F Pulse Rate 68 70 Pulse Rate [Pulse Oximeter] 72 Respiratory Rate 16 Blood Pressure 134/74 Blood Pressure [Ri ght Upper Arm] 134/74 Pulse Oximetry 92 91 Oxygen Delivery Me thod Room Air 06/17/24 08:31 06/17/24 08:32 06/17/24 08:45 Temperature Pulse Rate 69 66 60 Pulse Rate [Pulse Oximeter] Respiratory Rate Blood Pressure 121/65 Blood Pressure [Ri ght Upper Arm] Pulse Oximetry 92 90 92 Oxygen Delivery Me thod 06/17/24 09:00 06/17/24 09:01 06/17/24 09:15 Temperature Pulse Rate 61 60 59 L Pulse Rate [Pulse Oximeter] Respiratory Rate Blood Pressure 131/63 Blood Pressure [Ri ght Upper Arm] Pulse Oximetry 91 90 88 Oxygen Delivery Me thod 06/17/24 09:30 06/17/24 09:31 06/17/24 09:45 Temperature Pulse Rate 60 61 63 Pulse Rate [Pulse Oximeter] Respiratory Rate Blood Pressure 121/77 Blood Pressure [Ri ght Upper Arm] Pulse Oximetry 92 93 93 Oxygen Delivery Me thod 06/17/24 10:08 06/17/24 10:24 06/17/24 10:26 Temperature Pulse Rate 66 71 62 Pulse Rate [Pulse Oximeter] Respiratory Rate Blood Pressure 138/71 Blood Pressure [Ri ght Upper Arm] Pulse Oximetry 91 94 93 Oxygen Delivery Ks thod 06/17/24 10:30 06/17/24 10:32 06/17/24 10:40 Temperature 100.8 F H Pulse Rate 61 63 Pulse Rate [Pulse Oximeter] Respiratory Rate Blood Pressure 141/70 H Blood Pressure [Ri ght Upper Arm] Pulse Oximetry 91 [facility] 10:45 Temperature Pulse Rate 61 Pulse Rate [Pulse Oximeter] Respiratory Rate Blood Pressure Blood Pressure [Ri ght Upper Arm] Pulse Oximetry 90 [facility] Vital Signs Vital signs: Initial Vital Signs Pulse Rate 68 06/17/24 08:14 Blood Pressure 134/74 06/17/24 08:14 Blood Pressure Mean 94 06/17/24 08:14 Vital Signs Pulse Rate 68 06/17/24 08:14 Blood Pressure 134/74 06/17/24 08:14 Temperature 100.8 F H 06/17/24 10:40 Pulse Rate 61 06/17/24 10:45 Respiratory Rate 16 06/17/24 08:19 Blood Pressure 141/70 H 06/17/24 10:32 Pulse Oximetry 90 06/17/24 10:45 Oxygen Delivery Method Room Air 06/17/24 08:19 Medications Administered Medications: Discontinued Medications Generic Name Dose Route Start Last Admin Trade Name Freq PRN Reason Stop Dose Admin Acetaminophen 650 mg 06/17/24 10:51 06/17/24 11:08 Acetaminophen 325 Mg Tablet PO 06/17/24 10:52 650 mg ONCE ONE Administration Lactated Ringer's 1,000 mls @ 1,000 mls/hr 06/17/24 08:42 06/17/24 10:40 Lactated Ringers 1000 Ml IV 06/17/24 09:41 Infused .Q1H ONE Infusion MDM - Weakness MDM Narrative Medical decision making narrative: Patient is a 83-year-old male presents to emergency department for weakness. Initially no obvious signs of worsening infection. The surgical site looks like it is healing well. Vital signs are stable. He does occasionally drop his oxygenation sats below 90% but there is usually poor waveform seen on the monitor in the this is likely just a poor read. Either way considering he just had surgery and has he has occasionally low oxygenation sat I will do a CTA of the chest to look for signs of blood clot in this also helped to look for signs of any pneumonia. Will order CBC, CMP, COVID/flu/RSV, troponin, EKG, urinalysis. CBC, CMP showed no concerning abnormalities. Hemoglobin appears stable. Urinalysis shows no signs of a UTI. EKG and troponin showed no concerning findings. He did come back positive for COVID and this is likely the cause of his symptoms. CTA reviewed by myself and the radiologist showed no clear signs of PE. There are some lower lobe opacities that radiology bases likely atelectasis. No focal consolidations. Is also likely benign cyst in the right kidney and spleen. We tried to ambulate the patient but he was not comfortable with that. He was able to walk to the door of his room and back was feeling very weak and after that felt like he was given a fall. The helped him back to his bed. He states he does not feel safe for discharge. I will admit him under observation and I explained to him what that entails. Also spoke to his on the phone. They are both agreeable to this plan. He then developed a fever and Tylenol was given. Lactate was also added on. Lab Data Labs: Lab Results 06/17/24 06/17/24 06/17/24 Range/Units 08:42 09:00 10:30 WBC 6.36 (4.50-11.00) K/uL RBC 4.01 L (4.30-5.90) m/uL Hgb 12.0 L (13.5-17.5) gm/dL Hct 37.2 (37.0-53.0) % MCV 93 (80-100) fL MCH 30 (26-34) pg MCHC 32 (32-36) gm/dL RDW Coeff of David 13.4 (11.5-15.5) % Plt Count 182 (140-440) K/uL Neut % (Auto) 82.3 H (42.0-72.0) % Lymph % (Auto) 5.0 L (20-44) % Peach % (Auto) 11.9 H (0.0-11.0) % Eos % (Auto) 0.3 (0.0-7.0) % Baso % (Auto) 0.2 (0.0-3.0) % Neut # (Auto) 5.20 (1.7-7.0) K/uL Lymph # (Auto) 0.30 L (0.90-2.90) K/uL Peach # (Auto) 0.80 (0.00-0.90) K/UL Eos # (Auto) 0.02 (0.00-0.50) K/uL Baso # (Auto) 0.01 (0.00-0.30) K/uL Abs Immat Gran (auto) 0.02 (0.00-0.30) K/uL Imm/Tot Granulo (auto) 0.3 % Sodium 135 (135-149) mmol/L Potassium 3.9 (3.6-5.1) mmol/L Chloride 105 (96-114) mmol/L Carbon Dioxide 22 (20-32) mmol/L Anion Gap 8 (7-15) mEq/L BUN 19 (7-30) mg/dL Creatinine 1.0 (0.5-1.5) mg/dL Estimated Creat Clear 58.81 Estimated GFR 75 ml/min Glucose 132 H (60-115) mg/dL Lactate (0.5-1.9) mmol/L Calcium 8.9 (8.4-10.6) mg/dL Total Bilirubin 1.2 (0.1-1.5) mg/dL AST 35 (12-35) U/L ALT 22 (4-50) U/L Alkaline Phosphatase 108 (40-150) U/L Total Protein 7.1 (6.0-8.3) g/dL Albumin 3.9 (3.3-5.0) g/dL Urine Color Yellow (Yellow) Urine Appearance Clear (Clear) Urine pH 6.5 (5.0-8.5) Ur Specific [place] 1.010 (1.000-1.030) Urine Protein 1+ A (Negative) Urine Glucose (UA) Negative (Negative) Urine Ketones Negative (Negative) Urine Blood 1+ A (Negative) Urine Nitrite Negative (Negative) Urine Bilirubin Negative (Negative) Urine Urobilinogen 0.2 (0.2-1.0) Ur Leukocyte Esterase Negative (Negative) Urine RBC 0-2 (0-2) Urine WBC 2-5 (0-5) Ur Squamous Epith Cells Few (None-Few) Amorphous Sediment Moderate A (None) Urine Bacteria Moderate A (None) Urine Yeast Few A (None) SARS-CoV-2 (PCR) POSITIVE SARS-CoV-2 A (Negative) Influenza Type A (PCR) Negative PCR FLU A (Negative) Influenza Type B (PCR) Negative PCR FLU B (Negative) RSV (PCR) Negative PCR RSV (Negative) POC Troponin I 0.03 (0.01-0.04) ng/ml 06/17/24 Range/Units 11:03 WBC (4.50-11.00) K/uL RBC (4.30-5.90) m/uL Hgb (13.5-17.5) gm/dL Hct (37.0-53.0) % MCV (80-100) fL MCH (26-34) pg MCHC (32-36) gm/dL RDW Coeff of David (11.5-15.5) % Plt Count (140-440) K/uL Neut % (Auto) (42.0-72.0) % Lymph % (Auto) (20-44) % Peach % (Auto) (0.0-11.0) % Eos % (Auto) (0.0-7.0) % Baso % (Auto) (0.0-3.0) % Neut # (Auto) (1.7-7.0) K/uL Lymph # (Auto) (0.90-2.90) K/uL Peach # (Auto) (0.00-0.90) K/UL Eos # (Auto) (0.00-0.50) K/uL Baso # (Auto) (0.00-0.30) K/uL Abs Immat Gran (auto) (0.00-0.30) K/uL Imm/Tot Granulo (auto) % Sodium (135-149) mmol/L Potassium (3.6-5.1) mmol/L Chloride (96-114) mmol/L Carbon Dioxide (20-32) mmol/L Anion Gap (7-15) mEq/L BUN (7-30) mg/dL Creatinine (0.5-1.5) mg/dL Estimated Creat Clear Estimated GFR ml/min Glucose (60-115) mg/dL Lactate 1.5 (0.5-1.9) mmol/L Calcium (8.4-10.6) mg/dL Total Bilirubin (0.1-1.5) mg/dL AST (12-35) U/L ALT (4-50) U/L Alkaline Phosphatase (40-150) U/L Total Protein (6.0-8.3) g/dL Albumin (3.3-5.0) g/dL Urine Color (Yellow) Urine Appearance (Clear) Urine pH (5.0-8.5) Ur Specific [place] (1.000-1.030) Urine Protein (Negative) Urine Glucose (UA) (Negative) Urine Ketones (Negative) Urine Blood (Negative) Urine Nitrite (Negative) Urine Bilirubin (Negative) Urine Urobilinogen (0.2-1.0) Ur Leukocyte Esterase (Negative) Urine RBC (0-2) Urine WBC (0-5) Ur Squamous Epith Cells (None-Few) Amorphous Sediment (None) Urine Bacteria (None) Urine Yeast (None) SARS-CoV-2 (PCR) (Negative) Influenza Type A (PCR) (Negative) Influenza Type B (PCR) (Negative) RSV (PCR) (Negative) POC Troponin I (0.01-0.04) ng/ml
[2024-06-17 09:09] LABS: Basophils Absolute Auto 0.01 K/uL (0.00-0.30); Basophils Percent Auto 0.2 % (0.0-3.0); Eosinophils Absolute Auto 0.02 K/uL (0.00-0.50); Eosinophils Percent Auto 0.3 % (0.0-7.0); Hematocrit 37.2 % (37.0-53.0); Immature Granulocytes Abs Auto 0.02 K/uL (0.00-0.30); Immature Granulocytes Pct Auto 0.3 %; Mean Corpuscular HGB Conc 32 gm/dL (32-36); Mean Corpuscular Hemoglobin 30 pg (26-34); Mean Corpuscular Volume 93 fL (80-100); Monocytes Percent Auto 11.9 % (0.0-11.0); Neutrophils Percent Auto 82.3 % (42.0-72.0); Platelet Count* 182 K/uL (140-440); RDW Coefficient of Variation % 13.4 % (11.5-15.5); Red Blood Count 4.01 m/uL (4.30-5.90); White Blood Count* 6.36 K/uL (4.50-11.00)
[2024-06-17 09:13] LABS: Slide Review Reflex No
[2024-06-17] MEDS: LACTATED RINGERS 1000 ML 1,000 ML IV (09:15)
[2024-06-17 09:25] LABS: Chloride* 105 mmol/L (96-114)
[2024-06-17 09:26] LABS: Albumin* 3.9 g/dL (3.3-5.0); Potassium* 3.9 mmol/L (3.6-5.1); Sodium* 135 mmol/L (135-149)
[2024-06-17 09:28] LABS: Bilirubin Total* 1.2 mg/dL (0.1-1.5); Est. Creatinine Clearance* 58.81; Estimated Glomerular Filt Rate 75 ml/min
[2024-06-17 09:29] LABS: Alanine Aminotransferase* 22 U/L (4-50); Alkaline Phosphatase* 108 U/L (40-150); Anion Gap 8 mEq/L (7-15); Aspartate Amino Transferase* 35 U/L (12-35); Blood Urea Nitrogen* 19 mg/dL (7-30); Carbon Dioxide* 22 mmol/L (20-32); Glucose* 132 mg/dL (60-115); Total Protein* 7.1 g/dL (6.0-8.3)
[2024-06-17 09:29] LABS: Troponin, Point-of-Care* 0.03 ng/ml (0.01-0.04)
[2024-06-17 09:30] LABS: Calcium* 8.9 mg/dL (8.4-10.6)
--- OUTSIDE RECORDS SUMMARY | 2024-06-17 09:38 | XMS_ITS | Clinical Summary ---
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 Name Role Phone Marek Camacho MD Primary Care Provider [phone] Allergies Active Allergy Reactions Criticality Noted Date [...] tissue 02/17/2024 Coronary artery disease invo lving [place] coronary artery of [place] heart without angina pectoris 05/29/2020 Atrial fibrillation 05/29/2020 STEMI (ST elevation myocardial infarction) 05/05 HTN (hypertension) 05/05/2018 Dyslipidemia 05/05/2018 STEMI (ST elevation myocardial infarction) 05/05 Cough 08/22/2007 Other psoriasis 08/22/2007 Unspecified essential hypertension 03/14/2007 Esophageal reflux 03/14/2007 Routine general medical exam ination at a health care facility 03/14/2007 Overview: Colonoscopy 06/2005 Recheck 5 yrs Gross hematuria Encounters Date Type Department Care Team Description 06/14/2024 10:30 AM CDT Nurse/Clinic Staff Only [address] [phone] Nurse/Clinic Staff Only (Cath Change ) 06/14/2024 Travel 06/05/2024 Lab Requisition [facility] [phone] Miguel Angel Bustamante MD 06/03/2024 4:00 PM CDT Ancillary Procedure [place] [facility] [address] [place] [address] 06/03/2024 Travel 05/31/2024 Lab Requisition [facility] [phone] Unknown, Doctor 05/17/2024 10:30 AM CDT Nurse/Clinic Staff [address] [phone] Nurse/Clinic Staff Only (Cath Change) 05/17/2024 Travel 04/19/2024 10:30 AM CDT Nurse/Clinic Staff Only [address] [place] [phone] Nurse/Clinic Staff Only (Suprapubic catheter removal) 04/19/2024 Travel 03/22/2024 10:30 AM CDT Nurse/Clinic Staff Only [address] [phone] Nurse/Clinic Staff Only (Cath Change ) 03/22/2024 [...] ??C (98.8 ??F) 11/30/2022 1 :51 PM ELECTRONIC TESTER Respiratory Rate 16 11/30/2022 1:51 PM ELECTRONIC TESTER Oxygen Saturation 79% 11/30/2022 3:1 4 PM ELECTRONIC TESTER Inhaled Oxygen Concentration - - Weight 106.6 kg (235 lb) 02/19/2024 10: 31 AM CDT Patient reported Height 177.8 cm (5' 10) 11/30/2022 1:5 1 PM ELECTRONIC TESTER Body Mass Index 33.72 11/30/2022 1:51 PM ELECTRONIC TESTER Plan of Treatment Upcoming Encounters Date Type Department Care Team (Late st Contact Info) Description 07/05/2024 10:30 AM CDT Nurse/Clinic Staff Only [address] [phone] Health Maintenance Due Date Last Done Comments [...] 07/14/2024 08/22/2007 Medical Devices Implanted Type Area Physical Science Aide Device Identifier Shelf Expiration Date Model / Serial / Lot Stent Contour [id number] - [id number] Implanted:Qty: 1 on 04/11/2014 at [facility] Right: [employer] [facility] [place] [facility] [id number] / / [id number] Stent Prcflx [id number] Hydpls - [id number] Implanted:Qty: 1 on 04/18/2014 at [facility] Right: [employer] [facility] [place] [facility] [id number] / / [id number] Procedures Procedure Name Priority Date/Time Associated Diagnosis Comments ECHO TTE COMPLETE WO CONTRAST Routine 06/03/2024 4:58 PM CDT Bacteremia REFERRAL SUSCEPTIBILITY Routine 05/31/20 1:30 PM CDT CRYSTAL ID BODY FLUID NO URINE Routine 05/31/2024 1:00 AM CDT from Last 3 Months Results * ECHO TTE COMPLETE WO CONTRAST (06/03/2024 4:58 PM CDT) EJECTION FRACTION 72 % LVEDD 4.4 cm EJECTION FRACTION 55 - 60% Anatomical Region Laterality Modality Ultrasound 06/03/2024 4:15 PM CDT Narrative 06/03/2024 6:10 PM CDT ECHOCARDIOGRAM ALISON PATINO ?Accession#: ?? [id number] : ?1940 83 years Study Date: ?? 06/03/2024 4:15:13 PM Gender: M ? BP: ? 138/90 mmHg Height: 180.00 cm ? BSA: ?2.32 m? ? ? Weight: 114.00 kg ? Tech: ? MJS ?Referring MD: CHANDLER GASPAR Site: ? [facility] Reading Location: [facility] Patient Location: Outpatient. Procedure: 2D, Color Doppler and Spectral Doppler. Indication for study: BACTEREMIA Cardiac Rhythm: Irregular.Study quality: Good. Final Impressions: 1. No evidence of infective endocarditis on this study. JOANNA is more sensitive and recommended if clinically indicated. 2. Normal LV size, mildly increased wall thickness, normal global systolic function with an estimated EF of 55 - 60%. 3. The aortic valve is sclerotic, tricuspid, no stenosis and mild regurgitation. 4. The mitral valve is sclerotic, mild mitral regurgitation. 5. Moderately enlarged left atrium. 6. Right ventricular cavity size is mildly enlarged, global systolic RV function is mildly reduced. 7. The inferior vena cava is dilated, respiratory size variation less than 50%. Chamber Sizes and Function Normal left ventricular size, mildly increased wall thickness, normal global systolic function with an estimated EF of 55 - 60%. Left ventricular wall motion not well visualized. Left atrial size is moderately enlarged. Right ventricular cavity size is mildly enlarged, global systolic RV function is mildly reduced. The right atrium is mildly enlarged. Right atrial pressure is severely elevated. Right atrial area is 31 cm? ? ?. The pulmonary artery is of normal size and origin. The sinus of Valsalva is normal sized. The ascending aorta is normal sized. Valves, RV Pressures and Diastolic Function The aortic valve is sclerotic, tricuspid and tricuspid, no stenosis and mild regurgitation. The mitral valve is sclerotic, mild mitral regurgitation. Mitral annular calcification is present. Indeterminate pattern of LV diastolic filling. The tricuspid valve is normal in structure. Tricuspid regurgitation is mild regurgitation. Unable to assess right ventricular systolic pressure. There is normal estimated pulmonary pressure by tricuspid regurgitation velocity and right atrial pressure. The pulmonic valve is normal. Mild pulmonary regurgitation. TTE images do not appear adequate for transcather intervention with patient supine. Masses, Effusion, Shunts There is no pericardial effusion. The inferior vena cava is dilated, respiratory size variation less than 50%. No left to right shunting was detected by limited color flow Doppler interrogation of the interatrial septum. MEASUREMENTS AND CALCULATIONS 2-D Measurements and LV Function: LVID (d) 4.4 cm LV FS% (2D) ?? 39 % LVID (s) 2.7 cm LVOT diameter 2.2 cm IVS (d) ??1.3 cm HR ?66 bpm LVPW (d) 1.2 cm LA Vol index ??49 ml/m2 Ao Sinus 3.7 cm RA area ? 31 cm? ? ? Asc Ao ?? 4.1 cm RV Max 4C (d) 5.0 cm Diastology: Mitral ?Tissue Doppler E Peak 1.5 m/s ??e', Septum ? 0.10 m/s A Peak 0.4 m/s ??e', Lateral ?0.17 m/s E/A ?4.3 ?E/e' Average ?? 11.11 DT ? 186 msec Mitral Valve: MVA ?4.1 cm? ? ? MV P 1/2 54 msec . This study was interpreted by an [facility] accredited facility. CC: HIM (med records) [facility], Med/Surg - IP [facility]. ??Final ?? Procedure Note Noble Briseno MD - 06/03/2024 ECHOCARDIOGRAM ALISON PATINO : 1940 83 years Study Date: 06/03/2024 4:15:13 PM Gender: M BP: 138/90 mmHg Height: 180.00 cm BSA: 2.32 m? ? ? Weight: 114.00 kg Tech: [facility] [place] Referring MD: CHANDLER GASPAR Site: [facility] Reading Location: [facility] Patient Location: Outpatient. Procedure: 2D, Color Doppler and Spectral Doppler. Indication for study: BACTEREMIA Cardiac Rhythm: Irregular.Study quality: Good. Final Impressions: 1. No evidence of infective endocarditis on this study. JOANNA is moresensitive and recommended if clinically indicated. 2. Normal LV size, mildly increased wall thickness, normal globalsystolic function with an estimated EF of 55 - 60%. 3. The aortic valve is sclerotic, tricuspid, no stenosis and mildregurgitation. 4. The mitral valve is sclerotic, mild mitral regurgitation. 5. Moderately enlarged left atrium. 6. Right ventricular cavity size is mildly enlarged, global systolic RVfunction is mildly reduced. 7. The inferior vena cava is dilated, respiratory size variation lessthan 50%. Chamber Sizes and Function Normal left ventricular size, mildly increased wall thickness, normalglobal systolic function with an estimated EF of 55 - 60%. Leftventricular wall motion not well visualized. Left atrial size ismoderately enlarged. Right ventricular cavity size is mildly enlarged,global systolic RV function is mildly reduced. The right atrium is mildlyenlarged. Right atrial pressure is severely elevated. Right atrial area is31 cm? ? ?. The pulmonary artery is of normal size and origin. The sinus ofValsalva is normal sized. The ascending aorta is normal sized. Valves, RV Pressures and Diastolic Function The aortic valve is sclerotic, tricuspid and tricuspid, no stenosis andmild regurgitation. The mitral valve is sclerotic, mild mitralregurgitation. Mitral annular calcification is present. Indeterminatepattern of LV diastolic filling. The tricuspid valve is normal instructure. Tricuspid regurgitation is mild regurgitation. Unable to assessright ventricular systolic pressure. There is normal estimated pulmonarypressure by tricuspid regurgitation velocity and right atrial pressure.The pulmonic valve is normal. Mild pulmonary regurgitation. TTE images donot appear adequate for transcather intervention with patient supine. Masses, Effusion, Shunts There is no pericardial effusion. The inferior vena cava is dilated,respiratory size variation less than 50%. No left to right shunting wasdetected by limited color flow Doppler interrogation of the interatrialseptum. MEASUREMENTS AND CALCULATIONS 2-D Measurements and LV Function: LVID (d) 4.4 cm LV FS% (2D) 39 % LVID (s) 2.7 cm LVOT diameter 2.2 cm IVS (d) 1.3 cm HR 66 bpm LVPW (d) 1.2 cm LA Vol index 49 ml/m2 Ao Sinus 3.7 cm RA area 31 cm? ? ? Asc Ao 4.1 cm RV Max 4C (d) 5.0 cm Diastology: Mitral Tissue Doppler E Peak 1.5 m/s e', Septum 0.10 m/s A Peak 0.4 m/s e', Lateral 0.17 m/s E/A 4.3 E/e' Average 11.11 DT 186 msec Mitral Valve: MVA 4.1 cm? ? ? MV P 1/2 54 msec . This study was interpreted by an [facility] accredited facility. CC: HIM (med records) [facility], Med/Surg - IP [facility]. Final Chandler Gaspar MD ECHO ORD * (ABNORMAL) REFERRAL SUSCEPTIBILITY (05/31/2024 1:30 PM CDT) CULTURE RESULT(A) 06/09/2024 9:28 AM CDT [facility] CULTURE Staphylococcus coagulase negative 06/09/2024 9:28 AM CDT [facility] CULTURE Staphylococcus coagulase negative 06/09/2024 9:28 AM CDT [facility] Comment:Second strain Other Client Collect / Unknown 05/31/2024 1:30 PM CDT 06/05/2024 2:15 PM CDT Narrative Organism Antibiotic Method Susceptibility Staphylococcus coagulase negative OXACILLIN <=0.25: S Comment:Oxacillin elizondo sceptible should not be interpreted as penicillin or amoxicillin susceptible. Staphylococcus coagulase negative CLINDAMYCIN <=0.12: S Staphylococcus coagulase negative DOXYCYCLINE <=0.5: S Staphylococcus coagulase negative CEFAZOLIN S Staphylococcus coagulase negative TRIMETHOPRIM/SULF <=0.5/9.5: S Staphylococcus coagulase negative OXACILLIN <=0.25: S Comment:Oxacillin elizondo sceptible should not be interpreted as penicillin or amoxicillin susceptible. Staphylococcus coagulase negative CLINDAMYCIN 0.25: S Staphylococcus coagulase negative DOXYCYCLINE 1: S Staphylococcus coagulase negative CEFAZOLIN S Staphylococcus coagulase negative TRIMETHOPRIM/SULF <=0.5/9.5: S Miguel Angel Bustamante MD MICROBIOLOGY [facility] [address] [place] [id number], * CRYSTAL ID BODY FLUID NO URINE (05/31/2024 1:00 AM CDT) MONOSODIUM URATES None Seen None Seen, Present, Not Present 06/01/2024 11:29 AM CDT [facility] CALCIUM PYROPHOSPHATES None Seen None Seen, Present, Not Present 06/01/2024 11:29 AM CDT [facility] OTHER CRYSTALS No crystals seen 06/01/2024 11:29 AM CDT [facility] SPECIMEN SOURCE Left Knee 06/01/2024 11:29 AM CDT [facility] Body Fluid BODY FLUID SPECIMEN / Unknown Client Collect / Unknown 05/31/2024 1:00 AM CDT 05/31/2024 1:29 PM CDT Doctor Unknown BODY FLUID [email or web address] [address] 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
[2024-06-17 09:51] LABS: PCR FLU A Negative PCR FLU A (Negative); PCR FLU B Negative PCR FLU B (Negative); PCR RSV Negative PCR RSV (Negative); SARS PCR* POSITIVE SARS-CoV-2 (Negative)
[2024-06-17 10:44] LABS: Appearance Urine Clear (Clear); Bilirubin Urine Negative (Negative); Blood Urine 1+ (Negative); Color Urine Yellow (Yellow); Glucose Urine Negative (Negative); Ketones Urine Negative (Negative); Leukocyte Esterase Urine Negative (Negative); Nitrite Urine Negative (Negative); Protein Urine 1+ (Negative); Urobilinogen Urine 0.2 (0.2-1.0); pH Urine 6.5 (5.0-8.5)
[2024-06-17 10:57] LABS: Amorphous Sediment Urine Moderate; Bacteria Urine Moderate; RBC Urine 0-2 (0-2); Squamous Epithelial Cell Urine Few (None-Few)
[2024-06-17] MEDS: ACETAMINOPHEN 325 MG TABLET 650 MG PO (11:08)
[2024-06-17 11:09] LABS: Lactate Sepsis w/Reflex* 1.5 mmol/L (0.5-1.9)
--- NOTE | 2024-06-17 11:09 | ED.NURSE ---
Pt walked out of room assist of 2, with a gait belt and walker. Pt oxygen dropped down to 88%, pt stated he felt weak.
--- NOTE | 2024-06-17 11:45 | ED.NURSE ---
Report given to Tomasa RN, pt to room 276.
--- NOTE | 2024-06-17 13:11 | PM.IMHP1 ---
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 He has been on daily daptomycin since 06/05/2024, and this is to continue until early July. He came in for his daily daptomycin dose yesterday at 2:00 p.m.. He said he has been doing very well from the standpoint of his knee and even saw Nikita in clinic on June 13 for follow-up. Yesterday as he was leaving in a wheelchair that was being pushed by his son after getting his dose of daptomycin, he felt chilled and feverish. They went home and he sat in his usual chair and stayed they her to take a nap. After his nap he felt a little bit better and so they all decided to see how it went overnight. He still felt a little unwell this morning and still feverish. He went to the laundry tub to empty his Guevara like he usually does and his legs suddenly felt weak. He reached out is arms to hold on to something, but they felt weak, too, so he lowered himself to the ground. He did not hit anything, he did not fall, he did not lose consciousness. He denies any lightheadedness or chest pain. He denies any shortness of breath. Upon presentation to the emergency department, his COVID swab was positive. He was unable to ambulate without assistance in so did not feel comfortable going home. I spoke with his over the phone who says that she is now starting to feel unwell. She is going to have her son come and moss picker a prescription for Paxlovid to get that filled and bring it back. Review of Systems Status of ROS: Reports: 10 or more systems reviewed and unremarkable except as noted in History and below [facility] Medical History (Updated 06/17/24 @ 15:37 by Celena Ken MD) Unspecified essential hypertension (03/14/07) ?I10 - Essential (primary) hypertension (ICD-10) Routine general medical examination at a health care facility (03/14/07) ?Z00.00 - Encounter for general adult medical examination without abnormal findings (ICD-10) Renal cyst (02/17/24) ?N28.1 - Cyst of kidney, acquired (ICD-10) Neurogenic bladder (02/17/24) ?N31.9 - Neuromuscular dysfunction of bladder, unspecified (ICD-10) Gross hematuria ?R31.0 - Gross hematuria (ICD-10) Granulation tissue (02/17/24) ?L92.9 - Granulomatous disorder of the skin and subcutaneous tissue, unspecified (ICD-10) Esophageal reflux (03/14/07) ?K21.9 - Gastro-esophageal reflux disease without esophagitis (ICD-10) Dyslipidemia (05/05/18) ?E78.5 - Hyperlipidemia, unspecified (ICD-10) Cough (08/22/07) ?R05.9 - Cough, unspecified (ICD-10) STEMI (ST elevation myocardial infarction) (05/05/18) ?I21.3 - ST elevation (STEMI) myocardial infarction of unspecified site (ICD-10) Other psoriasis (08/22/07) ?L40.8 - Other psoriasis (ICD-10) HTN (hypertension) (05/05/18) ?I10 - Essential (primary) hypertension (ICD-10) Atrial fibrillation (05/29/20) ?I48.91 - Unspecified atrial fibrillation (ICD-10) Chronic anticoagulation ?Z79.01 - 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 anticoagulants (ICD-10) Infection of prosthetic left knee joint ?T84.54XA - Infection and inflammatory reaction due to internal left knee prosthesis, initial encounter (ICD-10) Status post nephrectomy ?Z90.5 - Acquired absence of kidney (ICD-10) Indwelling urinary catheter present (~2020) ?Z96.0 - Presence of urogenital implants (ICD-10) Obesity ?E66.9 - Obesity, unspecified (ICD-10) HTN (hypertension) ?I10 - Essential (primary) hypertension (ICD-10) Atrial fibrillation, chronic ?I48.20 - Chronic atrial fibrillation, unspecified (ICD-10) CAD (coronary artery disease) ?I25.10 - Atherosclerotic heart disease of [place] coronary artery without angina pectoris (ICD-10) Elevated bilirubin ?R17 - Unspecified jaundice (ICD-10) Inability to ambulate due to knee ?R26.2 - Difficulty in walking, not elsewhere classified (ICD-10) Psoriasis ?L40.9 - Psoriasis, unspecified (ICD-10) Diverticulosis of colon ?K57.30 - Diverticulosis of large intestine without perforation or abscess without bleeding (ICD-10) Hydrocele in adult ?N43.3 - Hydrocele, unspecified (ICD-10) History of prediabetes ?Z87.898 - Personal history of other specified conditions (ICD-10) Tubular adenoma of colon ?D12.6 - Benign neoplasm of colon, unspecified (ICD-10) Tubulovillous adenoma of colon ?D12.6 - Benign neoplasm of colon, unspecified (ICD-10) Benign prostatic hyperplasia with lower urinary tract symptoms ?N40.1 - Benign prostatic hyperplasia with lower urinary tract symptoms (ICD-10) Urinary retention ?R33.9 - Retention of urine, unspecified (ICD-10) Encounter for replacement of urinary catheter ?Z46.6 - Encounter for fitting and adjustment of urinary device (ICD-10) 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, unspecified ankle and foot (ICD-10) Atrial fibrillation ?I48.91 - Unspecified atrial fibrillation (ICD-10) Heart attack (2018) ?I21.9 - Acute myocardial infarction, unspecified (ICD-10) Surgical History History of revision of total replacement of left knee joint (06/05/24) ?Z96.652 - Presence of left artificial knee joint (ICD-10) H/O knee surgery ?Z98.890 - Other specified postprocedural states (ICD-10) 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) ?Z96.652 - Presence of left artificial knee joint (ICD-10) H/O kidney removal (~195) ?Z90.5 - Acquired absence of kidney (ICD-10) S/P left knee arthroscopy (12/30/97) ?Z98.890 - Other specified postprocedural states (ICD-10) S/P appendectomy ?Z90.49 - Acquired absence of other specified parts of digestive tract (ICD-10) Family History Mother Diabetes High blood pressure Kidney failure Sister Diabetes Father Stroke Sister Breast cancer Pancreatic cancer Social History (Updated 06/17/24 @ 14:33 by Celena Ken MD) Narrative: Lives with , has 5 living adult children (one daughter from breast cancer). Retired [employer]. Lifelong nonsmoker. Full code. What is your current living situation?: I presently have a place to live Problems where you live: no known problems Problems where you live details: NA In the past 12 months, utilities in danger of being shut off: no In past 12 months, lack of transportation kept you from medical appts, meetings, work, or getting things needed for daily living: no In the past 12 mos, have been you worried that your food would run out before you had money to buy more?: never true In the past 12 mos, the food you bought just didn't last and you didn't have money to buy more?: never true Highest level of school completed/degree received: high school graduate Smoking Status: Never smoker Do you use any of these nicotine containing products: None Second hand tobacco smoke exposure: No How often do you have a drink containing alcohol: never How often do you have six or more drinks on one occasion: Never AUDIT-C Alcohol total score: 0 Non-prescribed substance use: denies use Caffeine: Yes (tea) How often does anyone, including family, friends and others, physically hurt you: never How often does anyone, including family, friends and others, insult or talk down to you: never How often does anyone, including family, friends and others, threaten you with harm: never How often does anyone, including family, friends and others, scream or curse at you: never Little interest or pleasure in doing things: not at all Feeling down, depressed, or hopeless: not at all Do you think of yourself as: straight/heterosexual Gender Identity: male service: No Meds Home Medications and Allergies Home Medications ?Medication ?Instructions ?Recorded ?Confirmed ?Type amlodipine 5 mg tablet 5 mg PO DAILY 05/31/24 06/17/24 History atorvastatin 40 mg tablet 40 mg PO HS 05/31/24 06/17/24 History furosemide 20 mg tablet (Lasix) 20 mg PO DAILY 05/31/24 06/17/24 History Allergies Allergy/AdvReac Type Severity Reaction Status Date / Time No Known Drug Allergies Allergy Verified 06/13/24 12:08 Exam Narrative: Exam Narrative: General: No acute distress. Nontoxic-appearing. Sleeping, arouses to voice and then is alert for the rest of my conversation with him, oriented x3. HEENT: Normocephalic atraumatic, pupils equally round and reactive to light and accommodation. Oropharynx clear. Mucous membranes are moist. No cervical lymphadenopathy, thyromegaly or carotid bruits. No JVD. Cardiovascular: Regular rate and rhythm. No murmurs, gallops, or rubs. Chest: No increased work of breathing. Clear to auscultation bilaterally. No crackles or wheezes. Abdomen: Bowel sounds present. Soft, nondistended, nontender. No hepatosplenomegaly or masses. Extremities: PICC line in the left upper arm is without erythema or tenderness. Left knee surgical wound is healing, clean, dry, and intact, no erythema or calor. 1+ edema of left knee. No edema in the right. Calves are nontender to palpation. Skin: No jaundice, no pallor, no rashes. Neuro: Grossly intact. No focal deficits. Const: Vital Signs, click to edit/add: Vital Signs - 24 hr 06/17/24 08:14 06/17/24 08:15 06/17/24 08:19 Temperature 99.1 F Pulse Rate 68 70 Pulse Rate [Left P ulse Oximeter] Pulse Rate [Pulse Oximeter] 72 Respiratory Rate 16 Blood Pressure 134/74 Blood Pressure [Ri ght Arm] Blood Pressure [Ri ght Upper Arm] 134/74 Pulse Oximetry 92 91 Oxygen Delivery Me thod Room Air 06/17/24 08:31 06/17/24 08:32 06/17/24 08:45 Temperature Pulse Rate 69 66 60 Pulse Rate [Left P ulse Oximeter] Pulse Rate [Pulse Oximeter] Respiratory Rate Blood Pressure 121/65 Blood Pressure [Ri ght Arm] Blood Pressure [Ri ght Upper Arm] Pulse Oximetry 92 90 92 Oxygen Delivery Me thod 06/17/24 09:00 06/17/24 09:01 06/17/24 09:15 Temperature Pulse Rate 61 60 59 L Pulse Rate [Left P ulse Oximeter] Pulse Rate [Pulse Oximeter] Respiratory Rate Blood Pressure 131/63 Blood Pressure [Ri ght Arm] Blood Pressure [Ri ght Upper Arm] Pulse Oximetry 91 90 88 [facility] Delivery [facility] 06/17/24 09:30 06/17/24 09:31 06/17/24 09:45 Temperature Pulse Rate 60 61 63 Pulse Rate [Left P ulse Oximeter] Pulse Rate [Pulse Oximeter] Respiratory Rate Blood Pressure 121/77 Blood Pressure [Ri ght Arm] Blood Pressure [Ri ght Upper Arm] Pulse Oximetry 92 93 93 Oxygen Delivery Or thod 06/17/24 10:08 06/17/24 10:24 06/17/24 10:26 Temperature Pulse Rate 66 71 62 Pulse Rate [Left P ulse Oximeter] Pulse Rate [Pulse Oximeter] Respiratory Rate Blood Pressure 138/71 Blood Pressure [Ri ght Arm] Blood Pressure [Ri ght Upper Arm] Pulse Oximetry 91 94 93 Oxygen Delivery Or thod 06/17/24 10:30 06/17/24 10:32 06/17/24 10:40 Temperature 100.8 F H Pulse Rate 61 63 Pulse Rate [Left P ulse Oximeter] Pulse Rate [Pulse Oximeter] Respiratory Rate Blood Pressure 141/70 H Blood Pressure [Ri ght Arm] Blood Pressure [Ri ght Upper Arm] Pulse Oximetry 91 91 Oxygen Delivery [facility] 06/17/24 10:45 06/17/24 11:46 06/17/24 11:46 Temperature 100.7 F H Pulse Rate 61 Pulse Rate [Left P ulse Oximeter] 67 Pulse Rate [Pulse Oximeter] Respiratory Rate 18 Blood Pressure Blood Pressure [Ri ght Arm] 120/72 Blood Pressure [Ri ght Upper Arm] Pulse Oximetry 90 93 93 Oxygen Delivery [facility] Room Air Room Air Hospitalist - H&P: Result Labs Labs: Short CBC 06/17/24 Range/Units 09:00 WBC 6.36 (4.50-11.00) K/uL Hgb 12.0 L (13.5-17.5) gm/dL Hct 37.2 (37.0-53.0) % Plt Count 182 (140-440) K/uL BMP 06/17/24 09:00 Sodium 135 Potassium 3.9 Chloride 105 Carbon Dioxide 22 BUN 19 Creatinine 1.0 Glucose 132 H Calcium 8.9 Liver Function 06/17/24 Range/Units 09:00 Total Bilirubin 1.2 (0.1-1.5) mg/dL AST 35 (12-35) U/L ALT 22 (4-50) U/L Alkaline Phosphatase 108 (40-150) U/L Albumin 3.9 (3.3-5.0) g/dL Urine 06/17/24 Range/Units 10:30 Urine Color Yellow (Yellow) Urine Appearance Clear (Clear) Urine pH 6.5 (5.0-8.5) Ur Specific [place] 1.010 (1.000-1.030) Urine Protein 1+ A (Negative) Urine Glucose (UA) Negative (Negative) Ordering Physician: Nikita Reyes D.O. Date of Service: 06/17/24 Procedure(s): CT angio chest PE protocol Accession Number(s): [id number] cc: Marek Camacho M.D.; Nikita Reyes D.O.~ For Patients: As a result of the Cures Act, medical imaging exams and procedure reports are released immediately into your electronic medical record. You may view this report before your referring provider. If you have questions, please contact your health care provider. INDICATION: Weakness. Low oxygen saturation. Recent surgery. COMPARISON: None TECHNIQUE: : CT examination of the chest was performed with the uneventful intravenous administration of 95 cc of Isovue 370 while thin axial sections were obtained from above the apices of the lungs to the lung bases. The examination was timed as a pulmonary artery angiogram. Please note that all CT scans at this facility use dose modulation, iterative reconstruction, and/or weight-based dosing when appropriate to reduce radiation dose to as low as reasonably achievable. FINDINGS: : HEART and MEDIASTINUM: The heart is enlarged. There are no significantly enlarged mediastinal lymph nodes. Atherosclerotic vascular and valvular calcifications. No significant pericardial fluid PULMONARY ARTERIAL CIRCULATION: There are some limitations due to motion especially at the posterior bases. However, there is no visible pulmonary embolus. LUNGS and PLEURAL SPACES: Limitations due to motion. Bibasilar and perifissural opacities are probably largely due to atelectasis.No definite focal consolidation, infiltrate or mass. Normal pleural spaces VISUALIZED UPPER ABDOMEN: Right renal cyst. Low-density splenic lesion measuring 5.6 centimeters. These are statistically most likely benign, often hemangiomas. OSSEOUS STRUCTURES: Age-appropriate appearance. No acute fracture or destructive process. TUBES and LINES: None. IMPRESSION: 1. Enlarged heart. 2. There are some limitations due to motion but there is no indication of acute pulmonary embolus. 3. Bibasilar and perifissural opacities probably due to atelectasis. No focal consolidation, infiltrate or mass. No pleural effusion or pneumothorax. 4. Probably benign right renal lesion and probably benign splenic lesion. Please note that all CT scans at this facility use dose modulation, iterative reconstruction, and/or weight-based dosing when appropriate to reduce radiation dose to as low as reasonably achievable. Dictated by Prosper Bass MD @ 06/17/2024 10:25:45 AM (Electronically Signed) Assessment and Plan Assessment and plan (1) COVID-19: Problem comment: - suspect this is the cause of weakness - I have checked Paxlovid against his current medications and am not finding any interactions. I have written a prescription for renally dosed Paxlovid and have asked his to have someone come and pick it up to fill at a local pharmacy and bring it back so we can administer it. - admitted overnight for observation. He is not currently hypoxic. Will monitor for that. - blood pressure is within normal limits, hold losartan and furosemide. Status: Acute (2) Weakness: Status: Acute (3) Septic arthritis: Problem comment: 05/31 s/p left knee I&D septic arthritis, extensive synovectomy, antibiotic bead placement and poly exchange - Continue daily daptomycin for recent Staph epidermidis septic arthritis and bacteremia. Continue weekly labs while on daptomycin - hold atorvastatin while taking daptomycin Status: Acute (4) Indwelling urinary catheter present: Problem comment: - suprapubic cath, changed on admission. Culture from admission growing Klebsiella oxytoca and mixed darron which is likely colonization and not causing current illness. No need for ongoing treatment. ID recommends continuing cefepime until surgery regardless. Status: Chronic (5) Chronic anticoagulation: Problem comment: - continue Apixaban 2.5 mg bid - h/o bruising when on 5 mg bid. Also on aspirin for history of coronary artery disease. Status: Chronic
[2024-06-17 14:30] LABS: Creatine Kinase* 69 U/L (54-186)
[2024-06-17] MEDS: DAPTOmycin 50 MG/ML inj 720 MG IVP (14:36)
[2024-06-17] MEDS: SODIUM CHLORIDE 0.9 % (FLUSH) 10 ML SYRINGE 5 ML IVF ×2 (14:37→20:43)
--- NOTE | 2024-06-17 15:19 | PC.NURSE ---
Nursing Care Hours: [id number] Pt this shift arrived from ED on cart, assisted with slide transfer. VSS on RA, AxO. No c/o pain. PICC patent, ABX infused. Suprapubic catheter patent. Pt reports psoriasis rash over abdomen. Necktie Centralizing Machine Operator observed small light red patches.
--- NOTE | 2024-06-17 15:51 | REH.OT ---
OT: Order received, chart reviewed, patient arrived to floor this afternoon. DME set up in room with patient and he declines OOB with temp and fatigue. Encouraging up to chair for meals. Will eval in am.
[2024-06-17] MEDS: NIRMATRELVIR/RITONAVIR DOSEPAK 2 TAB PO (17:32)
[2024-06-17] MEDS: LACTOBACILLUS ACIDOPHILUS 1 TABLET 2 TAB PO (17:32)
[2024-06-17] MEDS: SENNOSIDES 1 TAB TABLET PO (20:43)
[2024-06-17] MEDS: APIXABAN 5 MG TABLET 2.5 MG PO (20:43)
[2024-06-17] MEDS: ACETAMINOPHEN 650 MG TABLET ER 1300 MG PO (20:43)
--- NOTE | 2024-06-17 22:52 | PC.NURSE ---
End of Shift: Patient pleasant and cooperative, A&O. Patient did have a slight fever this evening, managed with scheduled Tylenol. Patient has been on RA this shift while awake, when he fell asleep this evening his SpO2 dropped to mid 80's so he is now on 2L O2 via nasal cannula and is maintaining SpO2 above 90%. Patient reports no pain this shift. Tolerating regular diet.
[2024-06-18 03:00] VITALS: BP 121/71; PULSE 60; RESP 18; TEMP 36.3; O2SAT 92
--- NOTE | 2024-06-18 06:35 | PC.NURSE ---
End of shift note [id number]: Pt alert & oriented x 4 and able to make needs known. He has been denying pain and cough when asked. He has been afebrile throughout the shift. Pt has PICC in place to LUE with dressing noted to be C/D/I. Suprapubic catheter in place which pt is able to empty independently. Pt able to transfer with SBA using FWW and gait belt. Pt has been on O2 1-2 LPM this shift to maintain O2 sats above 90%.
[2024-06-18 08:52] VITALS: BP 157/85; PULSE 66; RESP 16; TEMP 37.2; O2SAT 94
[2024-06-18] MEDS: ACETAMINOPHEN 650 MG TABLET ER 1300 MG PO (08:55)
[2024-06-18] MEDS: LACTOBACILLUS ACIDOPHILUS 1 TABLET 2 TAB PO ×2 (08:55→12:01)
[2024-06-18] MEDS: SENNOSIDES 1 TAB TABLET PO (08:56)
[2024-06-18] MEDS: AMLODIPINE 5 MG TABLET 2.5 MG PO (08:56)
[2024-06-18] MEDS: APIXABAN 5 MG TABLET 2.5 MG PO (08:56)
[2024-06-18] MEDS: NIRMATRELVIR/RITONAVIR DOSEPAK 2 TAB PO (09:03)
[2024-06-18] MEDS: SODIUM CHLORIDE 0.9 % (FLUSH) 10 ML SYRINGE 5 ML IVF (09:04)
[2024-06-18 10:04] VITALS: PULSE 66; RESP 16; O2SAT 94
[2024-06-18] MEDS: BENZOCAINE/MENTHOL 1 EACH LOZENGE MUCOUS MEM (12:01)
[2024-06-18 12:05] VITALS: BP 112/68; PULSE 65; RESP 20; TEMP 36.9; O2SAT 93
--- NOTE | 2024-06-18 13:14 | P.DS_ITS ---
DS: Providers Provider Time Seen by Provider: 12:40 Date Seen: 06/18/24 Date of admission: 06/17/24 11:26 Primary care physician: Marek Camacho MD Admitting Clinician: Celena Ken MD Consults: 06/17/24 12:15 Consult to Occupational Therapy [CONS] Routine Comment: Reason(s) for OT Consult:: Evaluate and Treat Any Restrictions?:: Wt Bearing as Tolerated Consult to Physical Therapy [CONS] Routine Comment: Reason(s) for PT Consult:: Evaluate and Treat Any Restrictions?:: Wt Bearing as Tolerated 06/17/24 13:26 Consult to Reimbursement Specialist [CONS] Routine Comment: Reason for Consult:: Discharge Planning Needs Attending Physician on discharge: Celena Ken MD Date of Discharge: 06/18/24 DS: Diagnosis Discharge Diagnosis (1) COVID-19: Status: Acute Problem details: - suspect this is the cause of weakness - Started paxlovid - admitted overnight for observation. Not hypoxic while awake. Some hypoxia overnight while sound asleep - suspect undiagnosed EMIR. - blood pressure is within normal limits, holding losartan and furosemide. (2) Weakness: Status: Acute (3) Septic arthritis: Status: Acute Problem details: 05/31 s/p left knee I&D septic arthritis, extensive synovectomy, antibiotic bead placement and poly exchange - Continue daily daptomycin for recent Staph epidermidis septic arthritis and bacteremia. Continue weekly labs while on daptomycin - hold atorvastatin while taking daptomycin (4) Indwelling urinary catheter present: Status: Chronic Problem details: - suprapubic cath, changed on admission. Culture from admission growing Klebsiella oxytoca and mixed darron which is likely colonization and not causing current illness. No need for ongoing treatment. ID recommends continuing cefepime until surgery regardless. (5) Chronic anticoagulation: Status: Chronic Problem details: - continue Apixaban 2.5 mg bid - h/o bruising when on 5 mg bid. Also on aspirin for history of coronary artery disease. 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 He has been on daily daptomycin since 06/05/2024, and this is to continue until early July. He came in for his daily daptomycin dose yesterday at 2:00 p.m.. He said he has been doing very well from the standpoint of his knee and even saw Nikita in clinic on June 13 for follow-up. Yesterday as he was leaving in a wheelchair that was being pushed by his son after getting his dose of daptomycin, he felt chilled and feverish. They went home and he sat in his usual chair and stayed they her to take a nap. After his nap he felt a little bit better and so they all decided to see how it went overnight. He still felt a little unwell this morning and still feverish. He went to the laundry tub to empty his Guevara like he usually does and his legs suddenly felt weak. He reached out is arms to hold on to something, but they felt weak, too, so he lowered himself to the ground. He did not hit anything, he did not fall, he did not lose consciousness. He denies any lightheadedness or chest pain. He denies any shortness of breath. Upon presentation to the emergency department, his COVID swab was positive. He was unable to ambulate without assistance in so did not feel comfortable going home. I spoke with his over the phone who says that she is now starting to feel unwell. She is going to have her son come and vegetable picker a prescription for Paxlovid to get that filled and bring it back. Mushtaq did well overnight. Weakness has improved and he is now at baseline ambulation status. At home he has a lift chair and so transfers are not an issue for him, here he requires assistance to get out of the chair, but we do not have a lift chair acute does at home. He is feeling better, and suspects that his is now getting COVID. He is concerned that they might need help at home and says that he will call his daughter to come stay with them to help out. He is discharged home today in improved condition. He has not required any oxygen during the day while awake. I suspect he has undiagnosed underlying sleep apnea as he was mildly hypoxic while deeply asleep. Will have him follow- up with his primary care provider. He will get his daptomycin for today and then be discharged home, expected to come back daily as he had been for ongoing daptomycin through early July. Time Spent with Patient Time attestation: Total time spent providing and/or coordinating discharge services: Exam Narrative: Exam Narrative: General: No acute distress. Awake, alert, oriented x3. Cardiovascular: Regular rate and rhythm. No murmurs, gallops, or rubs. Chest: No increased work of breathing. Clear to auscultation bilaterally. No crackles or wheezes. Const: Vital Signs, click to edit/add: Vital Signs - 24 hr 06/17/24 16:18 06/17/24 18:07 06/17/24 18:08 Temperature 99.0 F Pulse Rate [Left P ulse Oximeter] 51 L Respiratory Rate 20 20 20 Blood Pressure [Ri ght Arm] 130/63 Pulse Oximetry 93 93 Oxygen Delivery Me thod Room Air Room Air Oxygen Flow Rate 06/17/24 19:11 06/17/24 23:00 06/17/24 23:00 Temperature 100.3 F H 97.9 F Pulse Rate [Left P ulse Oximeter] 65 68 Respiratory Rate 18 16 16 Blood Pressure [Ri ght Arm] 141/73 H 113/68 Pulse Oximetry 93 92 92 Oxygen Delivery Me thod Room Air Nasal Cannula Nasal Cannula Oxygen Flow Rate 2 2 06/17/24 23:00 06/18/24 03:00 06/18/24 08:52 Temperature 97.4 F L 98.9 F Pulse Rate [Left P ulse Oximeter] 68 60 66 Respiratory Rate 16 18 16 Blood Pressure [Ri ght Arm] 121/71 157/85 H Pulse Oximetry 92 94 Oxygen Delivery Me thod Nasal Cannula Room Air Oxygen Flow Rate 2 06/18/24 10:04 06/18/24 10:04 06/18/24 12:05 Temperature 98.4 F Pulse Rate [Left P ulse Oximeter] 66 65 Respiratory Rate 16 16 20 Blood Pressure [Ri ght Arm] 112/68 Pulse Oximetry 94 93 Oxygen Delivery Me thod Room Air Room Air Oxygen Flow Rate DS: Data Data Completed and Pending Completed studies during hospitalization: 06/17/2024 EKG: Atrial fibrillation with slow ventricular response with premature ventricular or aberrant Oksana conducted complexes with ventricular escape complexes, 58 beats per minute. Left bundle branch block. Ordering Physician: Nikita Reyes D.O. Date of Service: 06/17/24 Procedure(s): CT angio chest PE protocol Accession Number(s): [id number] cc: Marek Camacho M.D.; Nikita Reyes D.O.~ For Patients: As a result of the 21st Century Cures Act, medical imaging exams and procedure reports are released immediately into your electronic medical record. You may view this report before your referring provider. If you have questions, please contact your health care provider. INDICATION: Weakness. Low oxygen saturation. Recent surgery. COMPARISON: None TECHNIQUE: : CT examination of the chest was performed with the uneventful intravenous administration of 95 cc of Isovue 370 while thin axial sections were obtained from above the apices of the lungs to the lung bases. The examination was timed as a pulmonary artery angiogram. Please note that all CT scans at this facility use dose modulation, iterative reconstruction, and/or weight-based dosing when appropriate to reduce radiation dose to as low as reasonably achievable. FINDINGS: : HEART and MEDIASTINUM: The heart is enlarged. There are no significantly enlarged mediastinal lymph nodes. Atherosclerotic vascular and valvular calcifications. No significant pericardial fluid PULMONARY ARTERIAL CIRCULATION: There are some limitations due to motion especially at the posterior bases. However, there is no visible pulmonary embolus. LUNGS and PLEURAL SPACES: Limitations due to motion. Bibasilar and perifissural opacities are probably largely due to atelectasis.No definite focal consolidation, infiltrate or mass. Normal pleural spaces VISUALIZED UPPER ABDOMEN: Right renal cyst. Low-density splenic lesion measuring 5.6 centimeters. These are statistically most likely benign, often hemangiomas. OSSEOUS STRUCTURES: Age-appropriate appearance. No acute fracture or destructive process. TUBES and LINES: None. IMPRESSION: 1. Enlarged heart. 2. There are some limitations due to motion but there is no indication of acute pulmonary embolus. 3. Bibasilar and perifissural opacities probably due to atelectasis. No focal consolidation, infiltrate or mass. No pleural effusion or pneumothorax. 4. Probably benign right renal lesion and probably benign splenic lesion. Please note that all CT scans at this facility use dose modulation, iterative reconstruction, and/or weight-based dosing when appropriate to reduce radiation dose to as low as reasonably achievable. Dictated by Prosper Bass MD @ 06/17/2024 10:25:45 AM (Electronically Signed) Labs on day of discharge: Labs from last 24 hours 06/17/24 06/17/24 14:06 09:00 Total Creatine Kinase 69 Lab Acknowledgement Test Added Preliminary micro results at discharge 06/17/24 10:30 Urine Culture - Preliminary Urine,Clean Catch Gram negative jimmy Discharge Plan Discharge Disposition: Home, Self-Care Date of Admission: 06/17/24 11:26 Attending Provider on Discharge: Celena Ken Primary Care Provider: Marek Camacho Condition: Improved Anticipated Discharge Date/Time: 06/18/24 13:15 Discharge Medications: New Paxlovid 300 mg (150 mg x 2)-100 mg Tablets,Dose Pack 2 ea PO BID Qty: 1 0RF Rx Instructions: 1 tab of each drug Twice a day. Continued acetaminophen [Tylenol Arthritis Pain] 650 mg tablet extended release 1,300 mg PO Q12H Qty: 120 5RF nitroglycerin 0.4 mg tablet, sublingual 0.4 mg sublingual Q5M PRN (Reason: chest pain) Qty: 20 0RF apixaban 2.5 mg tablet 2.5 mg PO BID Qty: 180 3RF Hold Instructions: Resume on 06/27/23. After completing 1 month of 5 mg twice daily, then resume usual dose of 2.5 mg twice daily. furosemide [Lasix] 20 mg tablet 20 mg PO DAILY daptomycin 500 mg Recon Soln 720 mg IV push (test dose) Q24H Qty: 1 0RF Lactobacillus acidophilus 0.5 mg (100 million cell) Tablet 2 mg PO TIDWM Qty: 90 1RF sennosides [Senna Lax] 8.6 mg Tablet 8.6 mg PO BID 30 Days Qty: 60 1RF Held lisinopril 20 mg tablet 20 mg PO BID Qty: 180 3RF Hold Instructions: Resume on 06/25/24. see PCP atorvastatin 40 mg tablet 40 mg PO HS Hold Instructions: Resume on 06/17/25. hold while getting daptomycin amlodipine 5 mg tablet 5 mg PO DAILY Hold Instructions: Resume on 06/25/24. see PCP Discharge Orders: Discharge Order (Routine); Ordered 06/18/24 Ordered By: Celena Ken Additional Instructions: Continue daily Daptomycin through early July as previously set up. Activity Level: Activity as Tolerated and Use Walker Discharge Diet: Regular Follow Up Appointments: Marek Camacho MD [Primary Care Provider] - (5 days for BP check) Forms: [employer] Info Instructions
[2024-06-18] MEDS: DAPTOmycin 50 MG/ML inj 720 MG IVP (13:58)
--- NOTE | 2024-06-18 16:10 | PC.NURSE ---
Discharge: Patient pleasant and cooperative. Patient vitally stable, lungs course, BS WNL, IV removed, catheter intact, PICC SL and intact. Patient denies pain. Patient knee dressing C/D/I. Patient tolerating regular diet, suprapubic cath draining and intact. Patient 2 assist/walker. Patient signed belongings sheet and discharge form, with no further questions. Patient left the floor to home by wheelchair at 1605.
== END 2024-06-18 16:05 | disposition home or self-care (01) ==
LOC: ED 09:34 → MEDSURG 11:27
PROVIDERS: Admitting Provider Family Medicine; Emergency Provider Student in an Organized Health Care Education/Training Program; PCP Family Medicine; Visit Provider Family Medicine
DX: I10 Essential (primary) hypertension (principal)
CPT/HCPCS: 36415; 71275; 80053; 81001; 82550; 83605; 84484; 85025; 87076; 87086; 87181; 87186; 87631; 93005; 97110; 97116; 97162; 97165; 99283; 99284; 99285; A9270; G0378; J0878; J7120; Q9967

== ENCOUNTER 2024-07-17 14:00 | Outpatient (RCR) | payer MEDICARE, BC, SELFPAY ==
[2024-06-08 14:00] VITALS: BP 114/70; PULSE 78; RESP 18; TEMP 36.6; O2SAT 96
[2024-06-08] MEDS: DAPTOmycin 50 MG/ML inj 720 MG IVP (14:21)
--- NOTE | 2024-06-08 14:33 | PC.NURSE ---
shift note: pt to room in wc. PICC line flushed with 10 cc NS before and after IV push med with no resistance. drsg intact/no redness.
[2024-06-09 14:00] VITALS: BP 121/76; PULSE 71; RESP 18; TEMP 37.1; O2SAT 96
[2024-06-09] MEDS: DAPTOmycin 50 MG/ML inj 720 MG IVP (14:01)
--- NOTE | 2024-06-09 15:25 | PC.NURSE ---
picc site patent with intact drsg,. no resistance with IV flush or medication
[2024-06-10 13:56] VITALS: BP 129/77; PULSE 66; RESP 16; TEMP 37.1; O2SAT 99
[2024-06-10] MEDS: DAPTOmycin 50 MG/ML inj 720 MG IVP (14:11)
[2024-06-10] MEDS: SODIUM CHLORIDE 0.9 % (FLUSH) 10 ML SYRINGE IVF (14:21)
[2024-06-11 14:03] VITALS: BP 115/76; PULSE 72; RESP 16; TEMP 37; O2SAT 96
[2024-06-11 14:17] LABS: Basophils Absolute Auto 0.03 K/uL (0.00-0.30); Basophils Percent Auto 0.4 % (0.0-3.0); Eosinophils Absolute Auto 0.32 K/uL (0.00-0.50); Eosinophils Percent Auto 3.8 % (0.0-7.0); Hematocrit 39.1 % (37.0-53.0); Hemoglobin* 12.7 gm/dL (13.5-17.5); Immature Granulocytes Abs Auto 0.03 K/uL (0.00-0.30); Immature Granulocytes Pct Auto 0.4 %; Lymphocytes Percent Auto 14.2 % (20-44); Mean Corpuscular HGB Conc 33 gm/dL (32-36); Mean Corpuscular Hemoglobin 30 pg (26-34); Mean Corpuscular Volume 93 fL (80-100); Monocytes Percent Auto 7.9 % (0.0-11.0); Neutrophils Percent Auto 73.3 % (42.0-72.0); Platelet Count* 297 K/uL (140-440); RDW Coefficient of Variation % 13.1 % (11.5-15.5); White Blood Count* 8.43 K/uL (4.50-11.00)
[2024-06-11 14:27] LABS: Slide Review Reflex No
[2024-06-11 14:30] LABS: Chloride* 104 mmol/L (96-114); Potassium* 3.9 mmol/L (3.6-5.1); Sodium* 140 mmol/L (135-149)
[2024-06-11 14:32] LABS: Creatine Kinase* 27 U/L (54-186); Estimated Glomerular Filt Rate 75 ml/min
[2024-06-11 14:33] LABS: Anion Gap 10 mEq/L (7-15); Blood Urea Nitrogen* 26 mg/dL (7-30); Carbon Dioxide* 26 mmol/L (20-32); Glucose* 173 mg/dL (60-115)
[2024-06-11] MEDS: SODIUM CHLORIDE 0.9 % (FLUSH) 10 ML SYRINGE IVF (14:33)
[2024-06-11] MEDS: DAPTOmycin 50 MG/ML inj 720 MG IVP (14:33)
[2024-06-11 14:34] LABS: Calcium* 9.2 mg/dL (8.4-10.6)
[2024-06-11 14:36] LABS: C Reactive Protein* 0.7 mg/dL (0.5-1.0)
[2024-06-12 13:57] VITALS: BP 132/63; PULSE 64; TEMP 36.5; O2SAT 96
[2024-06-12] MEDS: DAPTOmycin 50 MG/ML inj 720 MG IVP (14:19)
[2024-06-12] MEDS: SODIUM CHLORIDE 0.9 % (FLUSH) 10 ML SYRINGE IVF (14:19)
[2024-06-13 11:58] VITALS: BP 123/71; PULSE 62; RESP 16; TEMP 36.6; O2SAT 97
[2024-06-13] MEDS: DAPTOmycin 50 MG/ML inj 720 MG IVP (12:18)
[2024-06-13] MEDS: SODIUM CHLORIDE 0.9 % (FLUSH) 10 ML SYRINGE IVF (12:18)
[2024-06-14 12:03] VITALS: BP 111/70; PULSE 61; RESP 16; TEMP 37.1; O2SAT 94
[2024-06-14] MEDS: DAPTOmycin 50 MG/ML inj 720 MG IVP (12:23)
[2024-06-14] MEDS: SODIUM CHLORIDE 0.9 % (FLUSH) 10 ML SYRINGE IVF (12:23)
[2024-06-15 14:30] VITALS: BP 109/65; PULSE 58; RESP 18; TEMP 36.7; O2SAT 95
[2024-06-15] MEDS: DAPTOmycin 50 MG/ML inj 720 MG IVP (14:31)
[2024-06-15] MEDS: SODIUM CHLORIDE 0.9 % (FLUSH) 10 ML SYRINGE IVF (14:31)
[2024-06-15 14:48] VITALS: BP 113/80; PULSE 55; RESP 18; TEMP 36.8; O2SAT 96
--- NOTE | 2024-06-15 14:51 | PC.NURSE ---
Patient pleasant and cooperative. VSS before and after medication. No reactions noted. PICC in place in left arm.
[2024-06-16] MEDS: SODIUM CHLORIDE 0.9 % (FLUSH) 10 ML SYRINGE IVF (14:34)
[2024-06-16] MEDS: DAPTOmycin 50 MG/ML inj 720 MG IVP (14:34)
[2024-06-16 14:49] VITALS: BP 113/79; PULSE 70; RESP 20; TEMP 37; O2SAT 90
[2024-06-19 14:13] VITALS: BP 122/80; PULSE 63; RESP 18; TEMP 36.9; O2SAT 94
[2024-06-19] MEDS: DAPTOmycin 50 MG/ML inj 720 MG IVP (14:25)
[2024-06-19] MEDS: SODIUM CHLORIDE 0.9 % (FLUSH) 10 ML SYRINGE IVF ×2 (14:25→14:27)
[2024-06-20 14:01] VITALS: BP 125/76; PULSE 68; RESP 16; TEMP 36.7; O2SAT 95
[2024-06-20] MEDS: SODIUM CHLORIDE 0.9 % (FLUSH) 10 ML SYRINGE IVF (14:21)
[2024-06-20] MEDS: DAPTOmycin 50 MG/ML inj 720 MG IVP (14:21)
[2024-06-21] MEDS: SODIUM CHLORIDE 0.9 % (FLUSH) 10 ML SYRINGE IVF (14:20)
[2024-06-21] MEDS: DAPTOmycin 50 MG/ML inj 720 MG IVP (14:20)
[2024-06-21 14:34] VITALS: BP 130/91; PULSE 57; RESP 18; TEMP 36.6; O2SAT 93
[2024-06-22] MEDS: DAPTOmycin 50 MG/ML inj 720 MG IVP (14:19)
[2024-06-22] MEDS: SODIUM CHLORIDE 0.9 % (FLUSH) 10 ML SYRINGE IVF ×2 (14:19→14:26)
[2024-06-22 14:20] VITALS: BP 116/79; PULSE 59; RESP 16; O2SAT 97
[2024-06-23] MEDS: SODIUM CHLORIDE 0.9 % (FLUSH) 10 ML SYRINGE IVF (14:01)
[2024-06-23] MEDS: DAPTOmycin 50 MG/ML inj 720 MG IVP (14:01)
[2024-06-23 14:18] VITALS: BP 127/79; PULSE 71; RESP 18; TEMP 36.6; O2SAT 96
[2024-06-24 14:13] VITALS: PULSE 64; RESP 18; TEMP 37.2; O2SAT 96
[2024-06-24] MEDS: SODIUM CHLORIDE 0.9 % (FLUSH) 10 ML SYRINGE IVF ×2 (14:15→14:16)
[2024-06-24] MEDS: DAPTOmycin 50 MG/ML inj 720 MG IVP (14:15)
[2024-06-25 14:21] VITALS: BP 117/79; PULSE 56; RESP 18; TEMP 36.9; O2SAT 95
[2024-06-25] MEDS: DAPTOmycin 50 MG/ML inj 720 MG IVP (14:23)
[2024-06-25] MEDS: SODIUM CHLORIDE 0.9 % (FLUSH) 10 ML SYRINGE IVF ×2 (14:23→14:26)
[2024-06-25 14:25] LABS: Basophils Absolute Auto 0.02 K/uL (0.00-0.30); Basophils Percent Auto 0.3 % (0.0-3.0); Eosinophils Absolute Auto 0.42 K/uL (0.00-0.50); Eosinophils Percent Auto 6.2 % (0.0-7.0); Hematocrit 37.3 % (37.0-53.0); Hemoglobin* 12.1 gm/dL (13.5-17.5); Immature Granulocytes Abs Auto 0.02 K/uL (0.00-0.30); Immature Granulocytes Pct Auto 0.3 %; Lymphocytes Percent Auto 13.6 % (20-44); Mean Corpuscular HGB Conc 32 gm/dL (32-36); Mean Corpuscular Hemoglobin 30 pg (26-34); Mean Corpuscular Volume 92 fL (80-100); Monocytes Percent Auto 11.3 % (0.0-11.0); Neutrophils Absolute Auto 4.66 K/uL (1.7-7.0); Neutrophils Percent Auto 68.3 % (42.0-72.0); Platelet Count* 220 K/uL (140-440); RDW Coefficient of Variation % 13.4 % (11.5-15.5); Red Blood Count 4.05 m/uL (4.30-5.90); White Blood Count* 6.82 K/uL (4.50-11.00)
[2024-06-25 14:29] LABS: Slide Review Reflex No
[2024-06-25 14:38] LABS: Chloride* 108 mmol/L (96-114)
[2024-06-25 14:39] LABS: Potassium* 3.3 mmol/L (3.6-5.1); Sodium* 141 mmol/L (135-149)
[2024-06-25 14:41] LABS: Anion Gap 9 mEq/L (7-15); Bilirubin Total* 0.8 mg/dL (0.1-1.5); Carbon Dioxide* 24 mmol/L (20-32); Creatinine* 0.8 mg/dL (0.5-1.5); Estimated Glomerular Filt Rate 88 ml/min
[2024-06-25 14:42] LABS: Alkaline Phosphatase* 104 U/L (40-150); Aspartate Amino Transferase* 29 U/L (12-35); Blood Urea Nitrogen* 15 mg/dL (7-30); Glucose* 150 mg/dL (60-115); Total Protein* 7.3 g/dL (6.0-8.3)
[2024-06-25 14:43] LABS: Alanine Aminotransferase* 17 U/L (4-50); Calcium* 8.9 mg/dL (8.4-10.6)
[2024-06-25 14:44] LABS: C Reactive Protein* 1.8 mg/dL (0.5-1.0)
[2024-06-26] MEDS: SODIUM CHLORIDE 0.9 % (FLUSH) 10 ML SYRINGE IVF (13:59)
[2024-06-26] MEDS: DAPTOmycin 50 MG/ML inj 720 MG IVP (13:59)
[2024-06-26 14:01] VITALS: BP 141/76; PULSE 75; RESP 18; TEMP 36.6; O2SAT 95
[2024-06-27 14:00] VITALS: BP 131/70; PULSE 77; RESP 20; TEMP 36.8; O2SAT 95
[2024-06-27] MEDS: SODIUM CHLORIDE 0.9 % (FLUSH) 10 ML SYRINGE IVF (14:23)
[2024-06-27] MEDS: DAPTOmycin 50 MG/ML inj 720 MG IVP (14:23)
--- NOTE | 2024-06-27 15:35 | PC.NURSE ---
Patient presented to [facility] for outpatient IV abx. Pt arrived via W/C accompanied by his daughter. He has no c/o pain, dizziness or N/V. Pt is A&O, afebrile and VSS. PICC line in LUE dressing is C/D/I & flushes well. Pt tolerated IV Daptomycin well without any reaction. Pt left M/S unit via W/C accompanied by his daughter.
[2024-06-28] MEDS: DAPTOmycin 50 MG/ML inj 720 MG IVP (12:24)
[2024-06-28] MEDS: SODIUM CHLORIDE 0.9 % (FLUSH) 10 ML SYRINGE IVF (12:24)
[2024-06-28 12:25] VITALS: BP 127/79; PULSE 65; RESP 18; TEMP 37; O2SAT 95
--- NOTE | 2024-06-28 12:30 | PC.NURSE ---
shift note: pt to room in [facility]. PICC line flushed with 10 cc NS before and after IV push med with no resistance. drsg changed today.
[2024-06-29] MEDS: DAPTOmycin 50 MG/ML inj 720 MG IVP (14:10)
[2024-06-29] MEDS: SODIUM CHLORIDE 0.9 % (FLUSH) 10 ML SYRINGE IVF (14:16)
--- NOTE | 2024-06-29 14:16 | PC.NURSE ---
shift note: pt to room in [facility]. PICC line flushed with 10 cc NS before and after IV push med with no resistance. jaime C/D/I
[2024-06-29 14:17] VITALS: BP 116/67; PULSE 61; RESP 18; TEMP 37; O2SAT 96
[2024-06-30 14:20] VITALS: BP 119/46; PULSE 71; RESP 16; TEMP 37; O2SAT 96
[2024-06-30] MEDS: DAPTOmycin 50 MG/ML inj 720 MG IVP (14:21)
[2024-06-30] MEDS: SODIUM CHLORIDE 0.9 % (FLUSH) 10 ML SYRINGE IVF (14:22)
[2024-07-01 14:13] VITALS: BP 113/75; PULSE 69; RESP 14; TEMP 36.8; O2SAT 97
[2024-07-01] MEDS: SODIUM CHLORIDE 0.9 % (FLUSH) 10 ML SYRINGE IVF ×2 (14:15→14:32)
[2024-07-01] MEDS: DAPTOmycin 50 MG/ML inj 720 MG IVP (14:28)
[2024-07-02 13:59] VITALS: BP 110/66; PULSE 61; RESP 16; TEMP 36.6; O2SAT 95
[2024-07-02 14:40] LABS: Basophils Absolute Auto 0.01 K/uL (0.00-0.30); Basophils Percent Auto 0.1 % (0.0-3.0); Chloride* 109 mmol/L (96-114); Eosinophils Absolute Auto 0.24 K/uL (0.00-0.50); Eosinophils Percent Auto 3.3 % (0.0-7.0); Hematocrit 34.4 % (37.0-53.0); Hemoglobin* 11.4 gm/dL (13.5-17.5); Immature Granulocytes Abs Auto 0.02 K/uL (0.00-0.30); Immature Granulocytes Pct Auto 0.3 %; Lymphocytes Percent Auto 13.2 % (20-44); Mean Corpuscular HGB Conc 33 gm/dL (32-36); Mean Corpuscular Hemoglobin 30 pg (26-34); Mean Corpuscular Volume 91 fL (80-100); Neutrophils Absolute Auto 5.08 K/uL (1.7-7.0); Neutrophils Percent Auto 70.1 % (42.0-72.0); Platelet Count* 274 K/uL (140-440); Potassium* 3.3 mmol/L (3.6-5.1); RDW Coefficient of Variation % 13.3 % (11.5-15.5); Red Blood Count 3.78 m/uL (4.30-5.90); Sodium* 140 mmol/L (135-149); White Blood Count* 7.25 K/uL (4.50-11.00)
[2024-07-02 14:42] LABS: Creatinine* 0.8 mg/dL (0.5-1.5); Estimated Glomerular Filt Rate 88 ml/min
[2024-07-02 14:43] LABS: Anion Gap 7 mEq/L (7-15); Blood Urea Nitrogen* 19 mg/dL (7-30); Carbon Dioxide* 24 mmol/L (20-32); Creatine Kinase* 290 U/L (54-186); Glucose* 94 mg/dL (60-115)
[2024-07-02 14:44] LABS: Calcium* 9.1 mg/dL (8.4-10.6)
[2024-07-02 14:46] LABS: C Reactive Protein* 5.3 mg/dL (0.5-1.0)
[2024-07-02] MEDS: DAPTOmycin 50 MG/ML inj 720 MG IVP (14:48)
[2024-07-02] MEDS: SODIUM CHLORIDE 0.9 % (FLUSH) 10 ML SYRINGE IVF (14:51)
[2024-07-02 14:53] LABS: Slide Review Reflex No
[2024-07-03 14:05] VITALS: BP 128/77; PULSE 75; RESP 16; TEMP 36.9; O2SAT 97
--- NOTE | 2024-07-03 14:30 | PM.EN ---
Chart Event Note Time Seen by Provider: 14:30 Date Seen: 07/03/24 Chart Event Note: 84-year-old male receiving IV daptomycin outpatient for infection of a prosthetic knee. This is being managed medically. He is doing well on this and having no symptoms including no myalgias or fever. I was called by infusion center today because his total CK had gone up to 290. He has continued to take atorvastatin despite being told to discontinue it after his last hospital stay. At this point we will discontinue his atorvastatin and continue the daptomycin. We will check his labs again in 2 days and in 6 days. Discontinue daptomycin if CK exceeds 1000 with symptoms. See prescribing guidelines for details.
[2024-07-03] MEDS: SODIUM CHLORIDE 0.9 % (FLUSH) 10 ML SYRINGE IVF (14:46)
[2024-07-03] MEDS: DAPTOmycin 50 MG/ML inj 720 MG IVP (14:46)
[2024-07-04 13:56] VITALS: BP 114/71; PULSE 57; RESP 16; TEMP 36.3; O2SAT 96
[2024-07-04] MEDS: DAPTOmycin 50 MG/ML inj 720 MG IVP (14:20)
[2024-07-04] MEDS: SODIUM CHLORIDE 0.9 % (FLUSH) 10 ML SYRINGE IVF (14:23)
[2024-07-05 12:01] VITALS: BP 133/72; PULSE 51; RESP 18; TEMP 36.3; O2SAT 95
[2024-07-05 12:28] LABS: Basophils Absolute Auto 0.02 K/uL (0.00-0.30); Basophils Percent Auto 0.3 % (0.0-3.0); Eosinophils Percent Auto 3.1 % (0.0-7.0); Hematocrit 35.5 % (37.0-53.0); Hemoglobin* 11.6 gm/dL (13.5-17.5); Immature Granulocytes Abs Auto 0.01 K/uL (0.00-0.30); Immature Granulocytes Pct Auto 0.2 %; Lymphocytes Percent Auto 13.1 % (20-44); Mean Corpuscular HGB Conc 33 gm/dL (32-36); Mean Corpuscular Hemoglobin 30 pg (26-34); Mean Corpuscular Volume 91 fL (80-100); Monocytes Percent Auto 10.3 % (0.0-11.0); Platelet Count* 294 K/uL (140-440); RDW Coefficient of Variation % 13.5 % (11.5-15.5); Red Blood Count 3.89 m/uL (4.30-5.90); White Blood Count* 6.51 K/uL (4.50-11.00)
[2024-07-05 12:31] LABS: Slide Review Reflex No
[2024-07-05 13:01] LABS: Chloride* 107 mmol/L (96-114); Sodium* 141 mmol/L (135-149)
[2024-07-05 13:04] LABS: Creatine Kinase* 169 U/L (54-186); Creatinine* 0.8 mg/dL (0.5-1.5); Estimated Glomerular Filt Rate 88 ml/min
[2024-07-05 13:05] LABS: Anion Gap 7 mEq/L (7-15); Blood Urea Nitrogen* 14 mg/dL (7-30); Carbon Dioxide* 27 mmol/L (20-32); Glucose* 130 mg/dL (60-115)
[2024-07-05 13:08] LABS: C Reactive Protein* 1.8 mg/dL (0.5-1.0)
--- NOTE | 2024-07-05 13:24 | PM.EN ---
Chart Event Note Date Seen: 07/05/24 Chart Event Note: Patient seen in followup of IV daptomycin therapy and abnormal lab tests. Reports feeling well today. CK is improved today. Atorvastatin was discontinued and should not be restarted until after finishing daptomycin therapy. Today his potassium is 3.0. He is on furosemide and lisinopril. Will replace his potassium with 50 mEq of potassium today and then start potassium 10 mEq daily indefinitely. Labs will be recheck next week.
[2024-07-05] MEDS: POTASSIUM BICARB 25 MEQ EFFERVESCENT TAB 50 MEQ PO (13:26)
[2024-07-05] MEDS: SODIUM CHLORIDE 0.9 % (FLUSH) 10 ML SYRINGE IVF ×2 (13:28→13:35)
[2024-07-05] MEDS: DAPTOmycin 50 MG/ML inj 720 MG IVP (13:35)
[2024-07-06 14:00] VITALS: BP 119/80; PULSE 66; TEMP 36.4; O2SAT 98
[2024-07-06] MEDS: SODIUM CHLORIDE 0.9 % (FLUSH) 10 ML SYRINGE IVF (14:03)
[2024-07-06] MEDS: DAPTOmycin 50 MG/ML inj 720 MG IVP (14:03)
[2024-07-07 14:26] VITALS: BP 123/75; PULSE 75; RESP 16; TEMP 36.9; O2SAT 92
[2024-07-07] MEDS: DAPTOmycin 50 MG/ML inj 720 MG IVP (14:29)
[2024-07-07] MEDS: SODIUM CHLORIDE 0.9 % (FLUSH) 10 ML SYRINGE IVF (14:29)
[2024-07-08 14:01] VITALS: BP 103/54; PULSE 61; RESP 16; TEMP 36.7; O2SAT 95
[2024-07-08] MEDS: DAPTOmycin 50 MG/ML inj 720 MG IVP (14:18)
[2024-07-08] MEDS: SODIUM CHLORIDE 0.9 % (FLUSH) 10 ML SYRINGE IVF (14:22)
[2024-07-09 14:00] VITALS: BP 122/75; PULSE 61; RESP 16; TEMP 36.7; O2SAT 95
[2024-07-09 14:25] VITALS: BP 122/75; PULSE 61; RESP 18; TEMP 36.7; O2SAT 95
[2024-07-09 14:34] LABS: Basophils Absolute Auto 0.03 K/uL (0.00-0.30); Basophils Percent Auto 0.4 % (0.0-3.0); Eosinophils Absolute Auto 0.28 K/uL (0.00-0.50); Eosinophils Percent Auto 4.1 % (0.0-7.0); Hematocrit 37.7 % (37.0-53.0); Immature Granulocytes Abs Auto 0.02 K/uL (0.00-0.30); Immature Granulocytes Pct Auto 0.3 %; Lymphocytes Percent Auto 14.7 % (20-44); Mean Corpuscular HGB Conc 32 gm/dL (32-36); Mean Corpuscular Hemoglobin 30 pg (26-34); Mean Corpuscular Volume 93 fL (80-100); Monocytes Percent Auto 11.6 % (0.0-11.0); Neutrophils Absolute Auto 4.74 K/uL (1.7-7.0); Neutrophils Percent Auto 68.9 % (42.0-72.0); Platelet Count* 300 K/uL (140-440); RDW Coefficient of Variation % 13.9 % (11.5-15.5); Red Blood Count 4.06 m/uL (4.30-5.90); White Blood Count* 6.88 K/uL (4.50-11.00)
[2024-07-09 14:36] LABS: Slide Review Reflex No
[2024-07-09 14:47] LABS: Chloride* 106 mmol/L (96-114); Potassium* 3.5 mmol/L (3.6-5.1); Sodium* 142 mmol/L (135-149)
[2024-07-09 14:50] LABS: Anion Gap 6 mEq/L (7-15); Blood Urea Nitrogen* 18 mg/dL (7-30); Carbon Dioxide* 30 mmol/L (20-32); Creatine Kinase* 69 U/L (54-186); Creatinine* 0.8 mg/dL (0.5-1.5); Estimated Glomerular Filt Rate 88 ml/min; Glucose* 93 mg/dL (60-115)
[2024-07-09 14:51] LABS: Calcium* 9.1 mg/dL (8.4-10.6)
[2024-07-09] MEDS: DAPTOmycin 50 MG/ML inj 720 MG IVP (15:15)
[2024-07-09] MEDS: SODIUM CHLORIDE 0.9 % (FLUSH) 10 ML SYRINGE IVF (15:18)
[2024-07-10 14:06] VITALS: BP 118/76; PULSE 65; RESP 16; TEMP 36.8; O2SAT 94
[2024-07-10] MEDS: DAPTOmycin 50 MG/ML inj 720 MG IVP (14:32)
[2024-07-10] MEDS: SODIUM CHLORIDE 0.9 % (FLUSH) 10 ML SYRINGE IVF (14:33)
[2024-07-10 20:02] LABS: CRP, High Sensitivity 3.1 mg/L (<=3.0)
[2024-07-11 13:55] VITALS: BP 118/73; PULSE 75; RESP 16; TEMP 36.9; O2SAT 98
[2024-07-11] MEDS: SODIUM CHLORIDE 0.9 % (FLUSH) 10 ML SYRINGE IVF (14:13)
[2024-07-11] MEDS: DAPTOmycin 50 MG/ML inj 720 MG IVP (14:13)
--- NOTE | 2024-07-11 14:32 | ONC.NURNOTE ---
Patient unaware of follow up plan. No appointments had been scheduled. Spoke with Dr. Gaspar who requested we have him follow up with Nikita Bond or Dr. Santamaria before the weekend to establish a PO antibiotic plan immediately after IV antibiotics are completed on 07/17/24. Called ortho and got an appointment with Dr. Santamaria tomorrow at 1020. Patient will come right after to get IV antibiotic tomorrow. Patient verbally understood plan. Verbal order received from Dr. Gaspar to remove PICC after last dose of antibiotic.
[2024-07-12 11:24] VITALS: BP 113/59; PULSE 73; RESP 16; TEMP 36.3; O2SAT 96
[2024-07-12] MEDS: DAPTOmycin 50 MG/ML inj 720 MG IVP (11:54)
[2024-07-12] MEDS: SODIUM CHLORIDE 0.9 % (FLUSH) 10 ML SYRINGE IVF (11:55)
--- NOTE | 2024-07-12 15:50 | ONC.NURNOTE ---
Dr Gaspar and Dr. Santamaria discussed pts plan per pt. Dr. Gaspar wrote out a rx for pts to start oral antibiotics when IV finished. Pt called and is aware. rx is in pts chart.
[2024-07-13 14:00] VITALS: BP 119/77; PULSE 78; RESP 18; TEMP 36.4; O2SAT 98
[2024-07-13] MEDS: DAPTOmycin 50 MG/ML inj 720 MG IVP (14:10)
[2024-07-13] MEDS: SODIUM CHLORIDE 0.9 % (FLUSH) 10 ML SYRINGE IVF (14:10)
[2024-07-14] MEDS: SODIUM CHLORIDE 0.9 % (FLUSH) 10 ML SYRINGE IVF (14:02)
[2024-07-14] MEDS: DAPTOmycin 50 MG/ML inj 720 MG IVP (14:02)
[2024-07-14 14:10] VITALS: BP 137/73; PULSE 74; RESP 18; TEMP 36.6; O2SAT 99
[2024-07-15] MEDS: SODIUM CHLORIDE 0.9 % (FLUSH) 10 ML SYRINGE IVF (14:01)
[2024-07-15] MEDS: DAPTOmycin 50 MG/ML inj 720 MG IVP (14:01)
[2024-07-15 14:06] VITALS: BP 105/78; PULSE 76; RESP 18; TEMP 36.6; O2SAT 96
[2024-07-16 14:02] VITALS: BP 113/63; PULSE 55; RESP 16; TEMP 36.3; O2SAT 95
[2024-07-16 14:40] LABS: Chloride* 104 mmol/L (96-114); Potassium* 3.7 mmol/L (3.6-5.1); Sodium* 139 mmol/L (135-149)
[2024-07-16 14:43] LABS: Anion Gap 8 mEq/L (7-15); Carbon Dioxide* 27 mmol/L (20-32); Creatine Kinase* 43 U/L (54-186); Creatinine* 0.8 mg/dL (0.5-1.5); Estimated Glomerular Filt Rate 88 ml/min
[2024-07-16 14:44] LABS: Basophils Absolute Auto 0.03 K/uL (0.00-0.30); Basophils Percent Auto 0.4 % (0.0-3.0); Blood Urea Nitrogen* 15 mg/dL (7-30); Eosinophils Absolute Auto 0.28 K/uL (0.00-0.50); Eosinophils Percent Auto 3.5 % (0.0-7.0); Glucose* 92 mg/dL (60-115); Hemoglobin* 11.9 gm/dL (13.5-17.5); Immature Granulocytes Abs Auto 0.07 K/uL (0.00-0.30); Immature Granulocytes Pct Auto 0.9 %; Lymphocytes Percent Auto 13.1 % (20-44); Mean Corpuscular HGB Conc 32 gm/dL (32-36); Mean Corpuscular Hemoglobin 30 pg (26-34); Mean Corpuscular Volume 94 fL (80-100); Neutrophils Absolute Auto 5.53 K/uL (1.7-7.0); Neutrophils Percent Auto 69.1 % (42.0-72.0); Platelet Count* 262 K/uL (140-440); RDW Coefficient of Variation % 14.3 % (11.5-15.5); Red Blood Count 3.94 m/uL (4.30-5.90)
[2024-07-16 14:46] LABS: C Reactive Protein* 4.3 mg/dL (0.5-1.0)
[2024-07-16 14:49] LABS: Slide Review Reflex No
--- NOTE | 2024-07-16 15:22 | ONC.NURNOTE ---
Pt here for labs, drsg change, and daptomycin. CRP 4.3 up from 1.8. Engineer Steam notified Dr. Gaspar with CRP level. Per Dr. Gaspar pt does need to follow up with Dr. Camacho or ortho to monitor labwork. Pt updated and stated he will make an appt with Dr. Camacho.
[2024-07-16] MEDS: DAPTOmycin 50 MG/ML inj 720 MG IVP (15:30)
[2024-07-16] MEDS: SODIUM CHLORIDE 0.9 % (FLUSH) 10 ML SYRINGE IVF (15:30)
[2024-07-17 11:29] VITALS: BP 103/67; PULSE 69; RESP 16; TEMP 36.4; O2SAT 95
[2024-07-17] MEDS: SODIUM CHLORIDE 0.9 % (FLUSH) 10 ML SYRINGE IVF (12:04)
[2024-07-17] MEDS: DAPTOmycin 50 MG/ML inj 720 MG IVP (12:04)
--- NOTE | 2024-07-17 12:58 | ONC.NURNOTE ---
Pt here for last dose of daptomycin. PICC line removed without difficulty, measurements of picc line same as insertion documentation. Occlusive drsg applied and pt observed for 30 min. Pt states he will make follow up appt with Dr. Camacho today and he has already picked up his prescription for doxycycline from his pharmacy to start tomorrow.
== END 2024-12-05 23:59 | disposition home or self-care (01) ==
LOC: CCIC 14:00
PROVIDERS: PCP Family Medicine; Referring Provider Family Medicine; Visit Provider Family Medicine
DX: R78.81 Bacteremia (principal)
CPT/HCPCS: 36415; 36592; 80048; 80053; 82550; 85025; 86140; 86141; 96374; 96376; G0463; A4221; A9270; J0878

== ENCOUNTER 2024-12-10 10:00 | Outpatient (CLI) | payer MEDICARE, BC, SELFPAY | END 2024-12-10 10:01 | disposition home or self-care (01) | LOC: NFLDREF 12-11 07:46 | PROVIDERS: PCP Family Medicine; Referring Provider Family Medicine; Visit Provider Family Medicine | DX: E78.5 Hyperlipidemia, unspecified (principal); I10 Essential (primary) hypertension; Z12.5 Encounter for screening for malignant neoplasm of prostate | CPT/HCPCS: 80053; 80061; G0103 ==